=== PATIENT | male | born 1965 | race Caucasian/White ===

== ENCOUNTER 2016-06-11 09:46 | Observation (INO) ==
--- NOTE | 2016-06-11 10:19 | Emergency Department Note ---
Abdominal Pain HPI - General Chief Complaint: Abdominal Pain Stated Complaint: Abd pain Time Seen by Provider: 06/11/16 10:08 Source: patient Mode of arrival: ambulatory Limitations: no limitations - History of Present Illness HPI Narrative: This patient has had right-sided abdominal pain on and off ever since he had his gallbladder out. He was seen last week at [facility] and thought to be constipated given mag citrate after CAT scan did not show anything abnormal. He continues to have severe pain on the right side of his abdomen with some nausea. MD Complaint: abdominal pain Onset (ago): day(s) Consistency: constant Location: RUQ, RLQ Severity: moderate Quality: stabbing Radiation: none Migration to: no migration Improves with: nothing Worsens with: nothing Associated symptoms: Reports: nausea - Related Data Home Medications Medication Instructions Recorded Confirmed multivitamin tablet 1 tab PO QDAY tab 01/22/15 11/26/15 Previous Rx's Medication Instructions Recorded diabetic supplies, miscellaneous See Dose Instructions .ROUTE 09/28/15 kit .MEDSUPPLY #1 each ReliOn Prime Test Strips See Dose Instructions .ROUTE 11/12/15 .MEDSUPPLY #100 each NS ReliOn Thin Lancets 26 gauge See Dose Instructions .ROUTE 11/12/15 .MEDSUPPLY #100 each NS alcohol swabs See Dose Instructions .ROUTE 11/12/15 .MEDSUPPLY #100 pad Albuterol Sulfate [Proair Hfa] 2 puff IH Q4-6HP PRN #1 hfa.aer.ad 11/21/15 glipizide 10 mg tablet 10 mg PO BID #60 tab 03/06/16 metformin 500 mg tablet 1,000 mg PO BID #120 tab 03/06/16 Allergies Allergy/AdvReac Type Severity Reaction Status Date / Time morphine Allergy Intermediate Hallucinati Verified 06/11/16 09:50 ng dissolvable sutures AdvReac Unknown Swelling/in Uncoded 11/26/15 14:41 fection Review of Systems Constitutional: Denies: fever, chills Eyes: Denies: eye pain ENT ED: Denies: ear pain Cardiovascular: Denies: chest pain, palpitations Respiratory: Denies: cough, dyspnea Gastrointestinal: Reports: abdominal pain, nausea. Denies: vomiting, diarrhea, constipation, hematemesis, melena, hematochezia Genitourinary: Denies: urgency Musculoskeletal: Denies: back pain Integumentary: Denies: rash Neurological: Denies: headache Abdominal Pain PMH - Past Medical History Medical history: Reports: diabetes, hypertension, other (biliary stent hiatal hernia repair and knee surgery back surgery) Surgical history ED: Reports: cholecystectomy, herniorrhaphy, hip replacement Family history: Reports: other (cancer in father heart disease in father and cancer grandmother with heart disease in mother) - Social History Smoking status: Never smoker Alcohol use: Reports: Occasionally Drug use: Reports: none Physical Exam - General Limitations: no limitations General appearance: alert - Head Head exam: atraumatic - Eye Eye exam: Present: normal appearance - ENT ENT exam: normal exam - Neck Neck exam: Present: normal inspection - Chest Chest inspection: Present: normal inspection - Respiratory Respiratory exam: Present: normal lung sounds bilaterally - Cardiovascular Cardiovascular exam: Present: regular rate, normal rhythm, normal heart sounds - Abdominal Exam Abdominal exam: Present: soft, distention, tenderness, guarding, hypoactive bowel sounds. Absent: rebound, rigidity Abdominal tenderness: Present: RUQ, RLQ, moderate - Rectal Exam Rectal exam: Present: deferred - Neurological Exam Neurological exam: Present: alert - Psychiatric Psychiatric exam: Present: normal affect - Skin Skin exam: Present: warm, dry Course Vital Signs Temperature 96.2 F L 06/11/16 09:46 Pulse Rate 108 H 06/11/16 09:46 Respiratory Rate 20 06/11/16 09:46 Blood Pressure 183/95 06/11/16 09:46 Pulse Oximetry (%) 98 06/11/16 09:46 Temperature 96.2 F L 06/11/16 09:46 Pulse Rate 100 H 06/11/16 12:55 Respiratory Rate 20 06/11/16 09:46 Blood Pressure 174/97 06/11/16 12:55 Pulse Oximetry (%) 97 06/11/16 12:55 Abdominal Pain - Lab Data Lab results reviewed: Yes I reviewed the patient's lab results. Result diagrams: 06/11/16 10:30 06/11/16 10:30 Lab Results 06/11/16 06/11/16 06/11/16 Range/Units 10:30 10:30 10:55 WBC 7.8 (4.5-11.0) K/mcL RBC 4.67 (4.50-5.90) M/mcL Hgb 13.5 (13.5-16.5) g/dL Hct 42.0 (41.0-55.0) % MCV 90.1 (80.0-100.0) fL MCH 29.0 (26.0-34.0) pg MCHC 32.2 (31.0-36.0) g/dL RDW 16.2 H (11.5-14.5) % Plt Count 170 (140-440) K/mcL MPV 11.8 H (7.4-10.4) fL Gran % 66.1 (38.0-78.0) % Lymph % (Auto) 26.6 (15.5-49.0) % [place] % (Auto) 5.2 (1.0-9.0) % Eos % (Auto) 1.7 (0.0-7.0) % Baso % (Auto) 0.4 (0.0-2.0) % Gran # 5.2 (1.8-8.0) K/mcL Lymph # 2.1 (1.5-4.8) K/mcL [place] # 0.4 (0.1-0.9) K/mcL Eos # 0.1 (0.0-0.7) K/mcL Baso # 0 (0.0-0.3) K/mcL Sodium 134 (133-145) mmol/L Potassium 4.0 (3.3-5.1) mmol/L Chloride 95 L (96-108) mmol/L Carbon Dioxide 24 (22-30) mmol/L Anion Gap 15.0 (8-16) BUN 10 (6-20) mg/dl Creatinine 0.7 (0.7-1.2) mg/dl GFR Calculation 109 Glucose 346 H (70-105) mg/dL Calcium 9.2 (8.6-10.4) mg/dl Total Bilirubin 0.3 (0.0-1.0) mg/dL AST 70 H (0-37) U/l ALT 62 H (0-40) U/l Alkaline Phosphatase 102 (39-117) U/L Total Protein 7.9 (5.9-8.4) gm/dL Albumin 4.0 (3.2-5.2) gm/dL Globulin 3.9 H (2.2-3.7) gm/dL Albumin/Globulin Ratio 1.0 (1.0-2.3) Lipase 131 H (7-60) U/L Urine Color Yellow Urine Appearance Clear Urine pH 5.0 (5.0-9.0) Ur Specific [place] 1.037 H (1.000-1.035) Urine Protein 100 A (NEG) mg/dL Urine Glucose (UA) >=500 A (NEG) mg/dL Urine Ketones Neg (NEG) mg/dL Urine Occult Blood Neg (<0.03) mg/dL Urine Nitrate Neg (NEG) Urine Bilirubin Neg (NEG) mg/dL Urine Urobilinogen Neg (NEG) mg/dL Ur Leukocyte Esterase Neg (NEG) /uL Urine RBC 1 (0-1) /hpf Urine WBC 1 (0-4) /hpf Ur Squamous Epith Cells 1 (0-4) /hpf Ur Transition Epith Cell < 1 (0-2) /hpf Urine Bacteria 0 (0) /hpf Hyaline Casts 1 (0-2) /lpf Urine Mucus Few (0) /hpf Ur Culture Indicated? No Disposition Clinical Impression: Pancreatitis Disposition: Xfer As Inpt ([facility]) Condition: Good Referrals: Alcon Barrow MD [Primary Care Provider] - Time of Disposition: 13:15
[2016-06-11] MEDS ORDERED: 0.9 % SODIUM CHLORIDE 1,000 ML IV ONE (10:21)
[2016-06-11] MEDS ORDERED: ONDANSETRON 4 MG/2 ML VIAL IV ONE (10:21)
[2016-06-11] MEDS: HYDROmorphone 2 MG/ML SYRINGE IV PRN ×2 (10:42→11:10)
[2016-06-11 11:22] LABS: Basophils # (Auto) 0 K/mcL (0.0-0.3); Basophils % (Auto) 0.4 % (0.0-2.0); Eosinophils # (Auto) 0.1 K/mcL (0.0-0.7); Eosinophils % (Auto) 1.7 % (0.0-7.0); Granulocytes % (Auto) 66.1 % (38.0-78.0); Lymphocytes # (Auto) 2.1 K/mcL (1.5-4.8); Lymphocytes % (Auto) 26.6 % (15.5-49.0); Mean Cell Volume 90.1 fL (80.0-100.0); Mean Corpuscular HGB Conc 32.2 g/dL (31.0-36.0); Monocytes # (Auto) 0.4 K/mcL (0.1-0.9); Monocytes % (Auto) 5.2 % (1.0-9.0); Platelet Count 170 K/mcL (140-440); RBC 4.67 M/mcL (4.50-5.90); Red Cell Distribution Width 16.2 % (11.5-14.5)
[2016-06-11 11:27] LABS: Appearance,Urine CLEAR; Bacteria,Urine 0 /hpf (0); Bilirubin,Urine NEG (NEG); Color,Urine YELLOW; Glucose,Urine (UA) >=500 mg/dL (NEG); Leukocyte Esterase,Urine NEG /uL (NEG); Mucus,Urine FEW /hpf (0); Nitrate,Urine NEG (NEG); Protein,Urine 100 mg/dL (NEG); Specific Gravity,Urine 1.037 (1.000-1.035); Urine Blood NEG mg/dL (<0.03); Urine Hyaline Cast 1 /lpf (0-2); Urine RBC 1 /hpf (0-1); Urine Squamous Epithelial Cell 1 /hpf (0-4); Urine Transitional Epi Cells < 1 /hpf (0-2); Urine WBC 1 /hpf (0-4); Urobilinogen,Urine NEG (NEG)
[2016-06-11 11:47] LABS: ALT/SGPT 62 U/l (0-40); Alkaline Phosphatase 102 U/L (39-117); Blood Urea Nitrogen 10 mg/dl (6-20); Lipase 131 U/L (7-60)
[2016-06-11] MEDS ORDERED: IOPAMIDOL 100 ML BOTTLE IV ONE (14:39)
--- NOTE | 2016-06-11 15:07 | Internal Med History&Physical ---
Medical - H&P: HPI Patient information: Note initiated : 06/11/16 at 3:02 pm Service Date, if different from initiated Date: [] Patient: Alfredo Tillman 51 y/o M admitted on 06/11/16 for Abd Pain. Chief Complaint: [] History of present illness: Mr. Tillman is a 51 year old male since he has his gallbladder removeda year or so ago. He is been having intermittent episodes of abdominal pain ever since then. At one point they thought he had a common bile duct stone, but he believes that turned out not to be the case. One week ago his painramped up rather remarkably. He was seen over at [facility], and had an abdominal CT that was reported as unremarkable. Today, he presented to our emergency room, saying he just couldn't tolerate the pain anymore. He says he develops pain in the right upper quadrant area of his belly and the whole area gets very rock-hard and then the pain becomes intolerable. On presentation today he rated his pain as 9 out of 10. He otherwise denies fever or chills. He has been having regular bowel movements 2-3 times a day. He's had some mild nausea but no vomiting, and denies constipation, diarrhea, bright red blood per rectum. he otherwise denies fever or chills, headaches or dizziness, new eye Or ear symptoms,sore throat or cough,chest pain or palpitations, shortness of breath or wheezing, dysuria. ER evaluation showed that hehad difficult to control pain. Liver enzymes are mildly elevated. CT scan was not repeated as that was just done one week ago. 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, face and neck (Chronic) Contusion (Chronic) Diabetes (Chronic 09/20/15) Fall against object (Chronic) Gall bladder disease (Chronic) High blood pressure (Chronic 09/20/15) Impacted cerumen, bilateral (Chronic) Inguinal hernia (Chronic) Insomnia (Chronic) Lipoma (Chronic) Pain, foot (Chronic) Pneumonia (Chronic) Sebaceous cyst (Chronic) Shortness of breath (Chronic) Toenail deformity (Chronic) Split toenails Surgical History History of abdominal surgery (Chronic) History of cholecystectomy (Chronic) 04/2004 Medication List albuterol sulfate HFA 90 mcg/actuation 2 puffs IH Q4-6HP PRN seasonal allergies. diabetic supplies, miscellaneous kit As directed to test once daily glipizide 10 mg PO BID metformin 1,000 mg (2 x 500 mg) PO BID multivitamin tablet 1 tab PO QDAY Allergies/Adverse Reactions morphine Allergy Hallucinating dissolvable sutures Adverse Reaction Swelling/infection Family History Father colon polyps. History of coronary artery stent placement Cardiac disease Diabetes mellitus Grandmother colon cancer. Diabetes mellitus Mother Cardiac disease Brother Diabetes mellitus Social History marital status: , he now lives with his fiance. He has several grown children and several grandchildren. smoking status: Never smoker, but has been using chewing tobacco since about the age of 7.he uses1 can every 1-1/2-2 days. 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 Medical - H&P: Meds Home Medications Medication Instructions Recorded Confirmed Type multivitamin tablet 1 tab PO QDAY tab 01/22/15 11/26/15 History Allergies Allergy/AdvReac Type Severity Reaction Status Date / Time morphine Allergy Intermediate Hallucinati Verified 06/11/16 09:50 ng dissolvable sutures AdvReac Unknown Swelling/in Uncoded 11/26/15 14:41 fection Medical - H&P: Exam - Constitutional Vitals: Temp Pulse Resp BP Pulse Ox 96.2 F L 92 H 20 155/90 92 06/11/16 09:46 06/11/16 14:16 06/11/16 09:46 06/11/16 14:16 06/11/16 14:16 Exam: On exam, he is a markedly overweight white male, who appears uncomfortable. Head: Normocephalic, atraumatic. Eyes: PERRLA, EOMI, anicteric. Ears: TMs and canals are clear. pharynx: Pharynx is crowded. Otherwise teeth are good repair. Mucosa looks normal. Neck: Neck is a very large circumference. Otherwise there is no obvious JVD, thyromegaly, bruits,lymphadenopathy. Cardiac exam: Shows regular rate and rhythm, with normal S1 and S2, without murmurs rubs or gallops. Lungs are clear to auscultation, without rales, rhonchi, wheezes. Abdomen: Is markedly obese with a large pannus. He is very tender over the right upper quadrant area, and it does appear a bit more distended in that area. Bowel sounds are quiet. There is some guarding but no definite rebound. Extremities: Show no cyanosis, clubbing, edema. Neurologic exam: Is grossly nonfocal. Skin exam: Shows no obvious rashes or other worrisome skin lesions. Medical - H&P: Reslt - Labs CBC & Chem 7: 06/11/16 10:30 06/11/16 10:30 Labs: AST is elevated at 70, ALT is elevated at 62 Alkaline phosphatase is normal at 102 Globulin is elevated at 3.9 Lipase is elevated at 131, with normal up to 60. Urinalysis shows specific gravity 1.037, 100 of protein, greater than [address] done at [facility] one week ago, is reported as normal. Medical - H&P: A/P (1) Obesities, morbid Current visit: Yes Status: Acute (2) Post-cholecystectomy syndrome Current visit: Yes Status: Acute (3) Pancreatitis Current visit: Yes Status: Acute (4) Diabetes Current visit: No Status: Chronic #1. GI. This patient presents with abdominal pain and mildly elevated lipase and liver enzymes, consistent with mild pancreatitis. He says he cannot tolerate the pain , so is being admitted for bowel rest and pain control with IV meds. -If he does not improve quickly, we may need to repeat his abdominal CT scan, and/or obtain a GI consult. -cause of his pancreatitis is unclear, although it sounds like he started to have abdominal pain after his cholecystectomy. one of his medications could also be responsible. - he does not appear to have acute infection. -LFTs are mildly elevated, and could be consistent withfatty liver disease. #2. Endocrine. This patient presents with recent onset diabetes, and the setting of chronic morbid obesity. -we will be holding all oral meds including metformin and glipizide. We will use Lantus and sliding scale insulin to control blood sugars. #3. Elevated blood pressure, without history of hypertension. Continue to monitor, as we get his pain under control. #4. Morbid obesity. The patient says he has been working hard on this, but is not having much luck losing weight. He might want to consider coming off of the glipizide. Certainly an aggressive weight loss plan would be in his best interest.-The patient is at increased risk for sleep apnea. He is adamant that he does not have any symptoms of snoring or daytime somnolence, but certainly his body habitus increases his risk. #5. CODE STATUS: Full code. #6. DVT prophylaxis: Subcutaneous heparin. this visit took approximately 60 minutes, to review the patient's records, review his case with the ER M.D., interview and examine him, and write orders.
[2016-06-11] MEDS ORDERED: NALOXONE HCL 0.4 MG/ML VIAL IV PRN (15:10)
[2016-06-11] MEDS ORDERED: HYDROmorphone 2 MG/ML SYRINGE IV PRN (15:10)
[2016-06-11] MEDS ORDERED: LORazepam 2 MG/ML VIAL IV PRN (15:10)
[2016-06-11] MEDS ORDERED: DEXTROSE 50% 50 ML VIAL IV PRN (15:10)
[2016-06-11] MEDS ORDERED: DOCUSATE SODIUM 100 MG CAPSULE PO PRN (15:10)
[2016-06-11] MEDS ORDERED: PANTOPRAZOLE 40 MG VIAL IV ONE (15:22)
[2016-06-11] MEDS: HYDROmorphone PCA 30 MG/30 ML PCA.VIAL IV PRN ×2 (15:41→18:06)
[2016-06-11] MEDS: ONDANSETRON 4 MG/2 ML VIAL IV PRN (16:20)
[2016-06-11] MEDS: 0.9 % SODIUM CHLORIDE 10 ML SYRINGE IV SCH ×2 (16:52→21:10)
[2016-06-11] MEDS: POTASSIUM CHLORIDE 20 MEQ in 0.45 % SODIUM CHLORIDE 1,000 ML IV SCH (16:53)
[2016-06-11] MEDS: DEXTROSE 5%-1/2NS 1,000 ML IV SCH (16:56)
[2016-06-11] MEDS: INSULIN LISPRO 1 UNIT/0.01 ML UNIT SQ SCH (18:12)
[2016-06-11 18:15] LABS: Hemoglobin A1C 9.6 % HGB (4.0-6.0)
[2016-06-11 18:23] LABS: C-Reactive Protein 1.5 mg/dl (0.0-0.8)
[2016-06-11] MEDS: INSULIN GLARGINE, HUMAN 1 UNIT/0.01 ML SQ SCH (21:09)
[2016-06-11] MEDS: HEPARIN 5,000 UNIT/ML VIAL SQ SCH (21:09)
[2016-06-12] MEDS: INSULIN LISPRO 1 UNIT/0.01 ML UNIT SQ SCH ×4 (00:26→17:37)
[2016-06-12] MEDS: POTASSIUM CHLORIDE 20 MEQ in 0.45 % SODIUM CHLORIDE 1,000 ML IV SCH ×2 (02:36→12:31)
[2016-06-12] MEDS: ACETAMINOPHEN 325 MG TABLET PO PRN (03:29)
[2016-06-12] MEDS: 0.9 % SODIUM CHLORIDE 10 ML SYRINGE IV SCH ×3 (05:45→23:29)
[2016-06-12] MEDS: ONDANSETRON 4 MG/2 ML VIAL IV PRN (07:09)
[2016-06-12 07:48] LABS: C-Reactive Protein 1.6 mg/dl (0.0-0.8)
[2016-06-12 07:49] LABS: ALT/SGPT 75 U/l (0-40); Albumin 3.7 gm/dL (3.2-5.2); Albumin/Globulin Ratio 1.2 (1.0-2.3); Alkaline Phosphatase 89 U/L (39-117); Bilirubin,Direct < 0.2 mg/dL (0.0-0.3); Blood Urea Nitrogen 13 mg/dl (6-20); Gamma Glutamyl Transpeptidase 275 U/L (8-61); Magnesium 1.8 mg/dL (1.6-2.5); Phosphorous 3.2 mg/dL (2.7-4.5); Uric Acid 6.2 mg/dL (2.5-8.0)
[2016-06-12 08:18] LABS: Basophils # (Auto) 0 K/mcL (0.0-0.3); Basophils % (Auto) 0.3 % (0.0-2.0); Eosinophils # (Auto) 0.2 K/mcL (0.0-0.7); Eosinophils % (Auto) 3.2 % (0.0-7.0); Granulocytes % (Auto) 63.8 % (38.0-78.0); Lymphocytes # (Auto) 1.8 K/mcL (1.5-4.8); Mean Cell Volume 91.1 fL (80.0-100.0); Mean Corpuscular HGB Conc 32.4 g/dL (31.0-36.0); Mean Corpuscular Hemoglobin 29.5 pg (26.0-34.0); Monocytes # (Auto) 0.3 K/mcL (0.1-0.9); Monocytes % (Auto) 4.7 % (1.0-9.0); Platelet Count 133 K/mcL (140-440); RBC 4.24 M/mcL (4.50-5.90)
[2016-06-12] MEDS: INSULIN GLARGINE, HUMAN 1 UNIT/0.01 ML SQ SCH ×2 (08:33→21:08)
[2016-06-12] MEDS: HEPARIN 5,000 UNIT/ML VIAL SQ SCH ×2 (08:33→21:08)
[2016-06-12] MEDS: DEXTROSE 5%-1/2NS 1,000 ML IV SCH (12:30)
--- NOTE | 2016-06-12 13:16 | Internal Med Progress Note ---
Medical - PN: Subj Patient information: Note initiated : 06/12/16 at 1:15 pm Service Date, if different from initiated Date: [] Patient: Alfredo Tillman 51 y/o M admitted on 06/11/16 for Abd Pain/Pancreatitis. Chief Complaint: [] Interval history: June 11, 2016:History of present illness: Mr. Tillman is a 51 year old male since he has his gallbladder removeda year or so ago. He is been having intermittent episodes of abdominal pain ever since then. At one point they thought he had a common bile duct stone, but he believes that turned out not to be the case. One week ago his painramped up rather remarkably. He was seen over at [facility], and had an abdominal CT that was reported as unremarkable. Today, he presented to our emergency room, saying he just couldn't tolerate the pain anymore. He says he develops pain in the right upper quadrant area of his belly and the whole area gets very rock-hard and then the pain becomes intolerable. On presentation today he rated his pain as 9 out of 10. He otherwise denies fever or chills. He has been having regular bowel movements 2-3 times a day. He's had some mild nausea but no vomiting, and denies constipation, diarrhea, bright red blood per rectum. he otherwise denies fever or chills, headaches or dizziness, new eye Or ear symptoms,sore throat or cough,chest pain or palpitations, shortness of breath or wheezing, dysuria. ER evaluation showed that hehad difficult to control pain. Liver enzymes are mildly elevated. CT scan was not repeated as that was just done one week ago. June 12, 2016: cyrus, the patient notes his pain seems to be getting worse. He is continuing to have episodes where his entire right upper quadrant area of his belly becomes extremely hard and feels like he's having a spasm, and the senses pain through the roof. He says he really didn't sleep much at all last night, in spite of the Dilaudid [employer]. He is getting very concerned and anxious that something is wrong that we are missing. He otherwise denies fever or chills, headaches or dizziness, chest pain or palpitations, shortness of breath or cough, nausea or vomiting, diarrhea. He did have a small bowel movement today, which had no effect on his pain. He denies dysuria. - Constitutional Vitals: Vital Signs Temp Pulse Resp BP Pulse Ox 97.6 F 84 12 167/84 94 06/12/16 07:52 06/12/16 09:37 06/12/16 12:22 06/12/16 07:52 06/12/16 09:37 Period Temp Pulse Resp BP Sys/Sanders Pulse Ox Last 24 Hr 97.4 F-98 F 79-97 12-20 129-177/79-91 92-96 Intake and Output 06/11/16 06/12/16 06/12/16 21:59 05:59 13:59 Intake Total 100 / 100 972 / 972 1969 Output Total 275 / 275 400 / 400 Balance -175 / -175 972 / 972 1570 / 1570 Weight 334 lb 8 oz Intake & Output: Intake & Output 06/11/16 06/12/16 06/12/16 21:59 05:59 13:59 Intake Total 100 / 100 972 / 972 1969 Output Total 275 / 275 400 / 400 Balance -175 / -175 972 / 972 1570 / 1570 Weight 334 lb 8 oz Intake: IV 972 / 972 1969 Dextrose 5%-1/2Ns IV 978 / 978 Solution 1,000 ml @ 50 mls/hr IV .Q20H MANJU Rx#: [id number] Potassium Chloride 20 Meq 972 / 972 992 / 992 In Sodium Chloride 0.45% 1,000 ml @ 100 mls/hr IV .Q10H6M MANJU Rx#: [id number] Oral 100 / 100 0 / 0 Output: Void Amount 275 / 275 400 / 400 Other: # Voids 1 # Bowel Movements 1 Exam: the patient is standing up when I entered the room, having just come out of the bathroom. He does lay down for exam, but then asked to sit back up because his pain is too significant when he lies down. neck: Shows obvious lymphadenopathy or JVD. Cardiac exam shows regular rate and rhythm. Lungs are clear to auscultation. Abdomen: Is markedly obese. It does seem more distended in the right upper quadrant area of his abdomen. It is very tender and there is guarding present. Remainder of his abdomenis fairly soft, with minimal tenderness, and no guarding or rebound. Bowel sounds appear somewhat high-pitched. Extremities show no significant edema. Neurologic exam is grossly nonfocal. Medical - PN: Obj Da - Labs CBC & Chem 7: 06/12/16 06:20 06/12/16 06:20 Labs: Abnormal Lab Results 06/12/16 06/12/16 06/12/16 06:20 06:20 06:20 RBC 4.24 L Hgb 12.5 L Hct 38.6 L RDW 16.0 H Plt Count 133 L MPV 10.9 H Creatinine 0.6 L Glucose 295 H Calcium 8.3 L GGT 275 H AST 94 H ALT 75 H Lactate Dehydrogenase 291 H C-Reactive Protein 1.6 H Triglycerides 268 H 06/11/16 16:20 RBC Hgb Hct RDW Plt Count MPV Creatinine Glucose Calcium GGT AST ALT Lactate Dehydrogenase C-Reactive Protein 1.5 H Triglycerides Urinalysis shows specific gravity 1.037, 100 of protein, greater than [address] done at [facility] one week ago, is reported as normal. Meds: Medications Acetaminophen (Tylenol) 650 mg PO Q6HP PRN PRN Reason: PAIN/FEVER > 101 Last Admin: 06/12/16 03:29 Dose: 650 mg Dextrose (Dextrose 50%) 0 ml IV UD PRN PRN Reason: Hypoglycemia Diagnostic Test (Pha) (Accu-Chek) 1 each FS Q6 [facility] Last Admin: 06/12/16 12:30 Dose: 1 each Docusate Sodium (Colace) 100 mg PO BID PRN PRN Reason: Constipation Heparin Sodium (Porcine) (Heparin) 5,000 unit SQ Q12 [facility] Last Admin: 06/12/16 08:33 Dose: 5,000 unit Hydromorphone HCl (Dilaudid Fisheries Inspector) 30 mg IV UD PRN; Protocol PRN Reason: Pain Last Admin: 06/11/16 18:06 Dose: 30 mg Dextrose/Sodium Chloride (Dextrose 5%-1/2ns Iv Solution) 1,000 mls @ 50 mls/hr IV .Q20H [facility] Last Admin: 06/12/16 12:30 Dose: 50 mls/hr Potassium Chloride 20 meq/ (Sodium Chloride) 1,010 mls @ 100 mls/hr IV .Q10H6M [facility] Last Admin: 06/12/16 12:31 Dose: 100 mls/hr Insulin Glargine (Lantus) 5 unit SQ BID [facility] Last Admin: 06/12/16 08:33 Dose: 5 unit Insulin Human Lispro (Humalog) 0 unit SQ Q6 MANJU PRN Reason: Protocol Last Admin: 06/12/16 12:30 Dose: 6 unit Lorazepam (Ativan) 0.5 mg IV Q2-4HP PRN PRN Reason: ANXIETY/SEDATION Naloxone HCl (Narcan) 0.1 mg IV Q2MIN PRN PRN Reason: Opiate Reversal Ondansetron HCl (Zofran) 4 mg IV Q4-6HP PRN PRN Reason: Nausea And Vomiting Last Admin: 06/12/16 07:09 Dose: 4 mg Sodium Chloride (Saline Flush) 10 ml IV Q8 [facility] Last Admin: 06/12/16 05:45 Dose: 10 ml Medical - PN: A/P - Time Spent With Patient Total time spent is greater than 50% in coordination of care (as documented) at patient's floor/unit and/or counseling patient: (1) Obesities, morbid Status: Acute Current Visit: Yes (2) Post-cholecystectomy syndrome Status: Acute Current Visit: Yes (3) Pancreatitis Status: Acute Current Visit: Yes (4) Diabetes Status: Chronic Current Visit: No - Narrative A/P Narrative: #1. GI. This patient presents with abdominal pain and mildly elevated lipase and liver enzymes, consistent with mild pancreatitis. He says he cannot tolerate the pain , so is being admitted for bowel rest and pain control with IV meds. is lipase is back to normal today, although LFTs are still borderline elevated Unfortunately, his pain seems to be getting worse rather than better. we discussed doing an abdominal x-ray versus CT, but he ultimately agreed to a CT scan, so he can have a better look there. I have contacted Dr. Ordaz of surgery, to have him look over the patient's studies and examine him, to see what his thoughts are. his should help us to rule outpancreatic pseudocyst and bowel obstruction. - he does not appear to have acute infection. -LFTs are mildly elevated, and could be consistent with fatty liver disease. #2. Endocrine. This patient presents with recent onset diabetes, and the setting of chronic morbid obesity. -we will be holding all oral meds including metformin and glipizide. We will use Lantus and sliding scale insulin to control blood sugars. -glucose continues to run high, so I will increase his Lantus dose, while he has to be on IV fluids and nothing by mouth. #3. Elevated blood pressure, without history of hypertension. Continue to monitor, as we get his pain under control. - #4. Morbid obesity. The patient says he has been working hard on this, but is not having much luck losing weight. He might want to consider coming off of the glipizide. Certainly an aggressive weight loss plan would be in his best interest.-The patient is at increased risk for sleep apnea. He is adamant that he does not have any symptoms of snoring or daytime somnolence, but certainly his body habitus increases his risk. #5. CODE STATUS: Full code. #6. DVT prophylaxis: Subcutaneous heparin. Approximately 35 minutes has been spent so far today, reviewing test results, interviewing and examining the patient, reviewing plan of care with nursing staff, and contacting surgery for consultation. Medical - PN: Qual - VTE Deep Vein Thrombosis/Pulmonary Embolism Present on Admission: No
--- NOTE | 2016-06-12 17:21 | Cat Scan Report ---
CLINICAL INFORMATION: Reason for Exam:worsening abd pain -- CT one week ago ok - COMPARISON: Abdomen CT from 12/13/2007 and 06/06/2016 TECHNIQUE: Water was given as enteric contrast agent. 80 cc of Isovue-300 were injected and 60 seconds later 2.5 mm helical slices were obtained from the mid heart through the iliac crest. Following reconstruction, axial, coronal and sagittal images were reformatted and reviewed bone windows and levels. FINDINGS: Lung bases show no abnormality - no effusion. Visualized heart is normal. Images should the abdomen show minimal fatty change within the liver which is stable. No focal hepatic lesions. The gallbladder is surgically absent. Intrahepatic and common bile is normal caliber - CBD is 5 mm. Both kidneys, adrenal glands, spleen, pancreas and aorta including aortic branches are normal in size, configuration and attenuation without focal lesion. There is no free air, free fluid and no adenopathy. The stomach, visualized small large bowel are normal. Bone windows show no significant osseous abnormality and the lumbar degeneration IMPRESSION: Negative Interpreted and Authenticated by: Neri Horta 06/12/16
--- NOTE | 2016-06-12 18:55 | General Surgery Consult Note ---
History of Present Illness Patient information: Note initiated : 06/12/16 at 6:47 pm Service Date, if different from initiated Date: [] Patient: Alfredo Tillman 51 y/o M admitted on 06/11/16 for Abd Pain/Pancreatitis. Chief Complaint: [] Reason for consult: abdominal pain History of present illness: 51-year-old male who was admitted on 11 June 2016for treatment and evaluation of severe abdominal pain. The patient has had chronic recurrent non-remitting abdominal pains since cholecystectomy in April 2014. His surgery was done as an open cholecystectomy at [facility] due to apparent gangrenous cholecystitis. He reportedly had a duct injury which had to be stented but this stent was subsequently removed. Since that time he has had intermittent severe pain in his upper and mid abdomen on the right side. The pain is described as stabbing and crampy It sometimes lasts for many hours however it oftentimes resolved spontaneously .he has regular bowel movements except he has an occasional postprandial diarrheal episode. He has had some nausea but has rare episodes of vomiting. He has not had weight loss. He has been evaluated at [facility] and as an outpatient at this facility .he had a HIDA scan done in October 2015 which was normal with normal ductal system and without any evidence of obstruction or dilation. He had an upper abdominal ultrasound which is totally normal except for fatty liver. He had [address] of the abdomen which is normal except for fatty liver. There is no evidence of herniation of his abdominal wall in the area of his large incision. Lab work on this admission has been essentially normal He had a minimally elevated lipase which is multifactorial and probably not related to his abdominal pain. It is not clinically significant for pancreatitis. He hasminimally elevated liver transaminases however these are generally elevated with steatohepatitis or fatty liver. His CRP is only 1.4. He has not demonstrated any symptoms of intestinal obstruction. Review of Systems - Constitutional malaise, weight gain - EENT Nose, mouth and throat: no dizziness, no dysphagia - Cardiovascular dyspnea on exertion, no chest pain at rest, no chest pain with activity, no palpatations, no rapid heart rate - Respiratory dyspnea on exertion - Gastrointestinal abdominal pain, nausea - Genitourinary no change in urinary stream, no urinary frequency, no urinary hesitancy, no urinary incontinence, no urinary urgency - Musculoskeletal abnormal gait, back pain, joint swelling, radiating pain into limb - Integumentary no changing lesions, no pruritus, no rash Past History Past medical history: morbid obesity Diabetes mellitus Hypertension Degenerative joint disease Past surgical history: pen cholecystectomy Past family history: coronary artery disease Diabetes mellitus Past social history: Never smoker occasional alcohol use Denies substance abuse Medications and Allergies Home Medications Medication Instructions Recorded Confirmed Type multivitamin tablet 1 tab PO QDAY tab 01/22/15 06/11/16 History Allergies Allergy/AdvReac Type Severity Reaction Status Date / Time morphine Allergy Intermediate Hallucinati Verified 06/11/16 09:50 ng dissolvable sutures AdvReac Unknown Swelling/in Uncoded 11/26/15 14:41 fection Exam Temp Pulse Resp BP Pulse Ox 97.7 F 83 12 151/81 94 06/12/16 16:00 06/12/16 16:00 06/12/16 17:26 06/12/16 16:00 06/12/16 16:00 - General physical appearance well developed, well nourished, no distress, moderate pain, obese - Eyes PERRL, normal ocular movement - ENT normal pinna, normal nares, normal mucosa, no hearing loss, no congestion - Head Head exam IM: Present: atraumatic, normocephalic - Neck no masses, no bruits, trachea midline, no lymphadectomy, no venous distension - Cardiovascular Cardiovascular exam IM: Present: normal rate and rhythm, RRR, +S1, +S2. Absent : systolic murmur - Respiratory normal expansion, normal respiratory effort, clear to percussion, clear to auscultation - Abdomen Abdomen: Present: soft, tender, bowel sounds, surgical scars, distended (the abdomen is very large but does not appear to be distended Though he complains of tendernesshis exam is notcommensurate with the physical findings. There is no clinical evidence of hernia. There is no mass.) Hernia: Present: none - Genitourinary Present: normal penis with no external lesions - Integumentary Present: no rash, no growths, no abnormal pigmentation - Neurologic Present: normal coordination, normal sensation - Musculoskeletal Present: normal gait, normal posture - Psychiatric Present: oriented to time, oriented to person, oriented to place, speech is normal, memory intact Results - Labs 06/12/16 06:20 06/12/16 06:20 Abnormal lab results 06/12/16 06/12/16 06/12/16 Range/Units 06:20 06:20 06:20 RBC 4.24 L (4.50-5.90) M/mcL Hgb 12.5 L (13.5-16.5) g/dL Hct 38.6 L (41.0-55.0) % RDW 16.0 H (11.5-14.5) % Plt Count 133 L (140-440) K/mcL MPV 10.9 H (7.4-10.4) fL Creatinine 0.6 L (0.7-1.2) mg/dl Glucose 295 H (70-105) mg/dL Calcium 8.3 L (8.6-10.4) mg/dl GGT 275 H (8-61) U/L AST 94 H (0-37) U/l ALT 75 H (0-40) U/l Lactate Dehydrogenase 291 H (94-250) U/L C-Reactive Protein 1.6 H (0.0-0.8) mg/dl Triglycerides 268 H (<150) mg/dl Diabetes panel 06/12/16 Range/Units 06:20 Sodium 135 (133-145) mmol/L Potassium 4.3 (3.3-5.1) mmol/L Chloride 97 (96-108) mmol/L Carbon Dioxide 25 (22-30) mmol/L BUN 13 (6-20) mg/dl Creatinine 0.6 L (0.7-1.2) mg/dl Glucose 295 H (70-105) mg/dL Calcium 8.3 L (8.6-10.4) mg/dl AST 94 H (0-37) U/l ALT 75 H (0-40) U/l Alkaline Phosphatase 89 (39-117) U/L Total Protein 6.8 (5.9-8.4) gm/dL Albumin 3.7 (3.2-5.2) gm/dL Triglycerides 268 H (<150) mg/dl Calcium panel 06/12/16 Range/Units 06:20 Calcium 8.3 L (8.6-10.4) mg/dl Phosphorus 3.2 (2.7-4.5) mg/dL Albumin 3.7 (3.2-5.2) gm/dL Pituitary panel 06/12/16 Range/Units 06:20 Sodium 135 (133-145) mmol/L Potassium 4.3 (3.3-5.1) mmol/L Chloride 97 (96-108) mmol/L Carbon Dioxide 25 (22-30) mmol/L BUN 13 (6-20) mg/dl Creatinine 0.6 L (0.7-1.2) mg/dl Glucose 295 H (70-105) mg/dL Calcium 8.3 L (8.6-10.4) mg/dl Adrenal panel 06/12/16 Range/Units 06:20 Sodium 135 (133-145) mmol/L Potassium 4.3 (3.3-5.1) mmol/L Chloride 97 (96-108) mmol/L Carbon Dioxide 25 (22-30) mmol/L BUN 13 (6-20) mg/dl Creatinine 0.6 L (0.7-1.2) mg/dl Glucose 295 H (70-105) mg/dL Calcium 8.3 L (8.6-10.4) mg/dl Total Bilirubin 0.5 (0.0-1.0) mg/dL AST 94 H (0-37) U/l ALT 75 H (0-40) U/l Alkaline Phosphatase 89 (39-117) U/L Total Protein 6.8 (5.9-8.4) gm/dL Albumin 3.7 (3.2-5.2) gm/dL All other labs normal. Assessment and Plan (1) Abdominal pain, chronic, right lower quadrant Status: Acute (2) Obesities, morbid the patient's abdominal complaints have been thoroughly evaluated without any abnormal findings. He does notave pancreatitis andhe does not have any problems related to hiss gallbladder surgery There is no evidence of abdominal wall hernia . If he had major infection after his cholecystectomy he very well may have adhesive disease but this is not an operative conunless it is causing symptoms of intestinal obstruction. He does not haveany symptoms of intestinal obstruction. It is possiblethat he has some element of spastic colonbut this can be treated with dicyclomine or Levsin. His diet has been advanced and he has been started on [id number] mg 4 times daily. There are no other diagnostic studies that should be done during this admission. May consider addition of large dose Neurontin and tricyclic anti depressant for pain control. Status: Acute (3) Diabetes Status: Chronic (4) High blood pressure Status: Chronic
[2016-06-12] MEDS: DICYCLOMINE 20 MG TABLET PO SCH (23:43)
[2016-06-13] MEDS: INSULIN LISPRO 1 UNIT/0.01 ML UNIT SQ SCH ×5 (01:15→21:36)
[2016-06-13] MEDS: POTASSIUM CHLORIDE 20 MEQ in 0.45 % SODIUM CHLORIDE 1,000 ML IV SCH ×3 (01:20→20:50)
[2016-06-13] MEDS: 0.9 % SODIUM CHLORIDE 10 ML SYRINGE IV SCH ×3 (05:40→21:13)
[2016-06-13] MEDS: HYDROmorphone PCA 30 MG/30 ML PCA.VIAL IV PRN ×2 (05:55→23:15)
[2016-06-13 06:18] LABS: Basophils # (Auto) 0 K/mcL (0.0-0.3); Basophils % (Auto) 0.4 % (0.0-2.0); Eosinophils # (Auto) 0.2 K/mcL (0.0-0.7); Eosinophils % (Auto) 2.8 % (0.0-7.0); Granulocytes % (Auto) 62.7 % (38.0-78.0); Lymphocytes % (Auto) 29.2 % (15.5-49.0); Mean Cell Volume 90.9 fL (80.0-100.0); Mean Corpuscular HGB Conc 32.2 g/dL (31.0-36.0); Mean Corpuscular Hemoglobin 29.3 pg (26.0-34.0); Monocytes # (Auto) 0.3 K/mcL (0.1-0.9); Monocytes % (Auto) 4.9 % (1.0-9.0); Platelet Count 155 K/mcL (140-440); RBC 4.31 M/mcL (4.50-5.90); Red Cell Distribution Width 15.8 % (11.5-14.5)
[2016-06-13 06:36] LABS: ALT/SGPT 67 U/l (0-40); Albumin 3.6 gm/dL (3.2-5.2); Albumin/Globulin Ratio 1.1 (1.0-2.3); Alkaline Phosphatase 93 U/L (39-117); Bilirubin,Direct < 0.2 mg/dL (0.0-0.3); Blood Urea Nitrogen 8 mg/dl (6-20); Gamma Glutamyl Transpeptidase 252 U/L (8-61); Magnesium 1.8 mg/dL (1.6-2.5); Phosphorous 2.9 mg/dL (2.7-4.5); Uric Acid 6.8 mg/dL (2.5-8.0)
[2016-06-13] MEDS: INSULIN GLARGINE, HUMAN 1 UNIT/0.01 ML SQ SCH ×2 (08:27→21:36)
[2016-06-13] MEDS: DICYCLOMINE 20 MG TABLET PO SCH ×4 (08:28→21:36)
[2016-06-13] MEDS: HEPARIN 5,000 UNIT/ML VIAL SQ SCH ×2 (08:28→21:36)
[2016-06-13] MEDS ORDERED: ALBUTEROL SULFATE 2.5 MG/3 ML NEBULIZER NEB ONE (09:35)
[2016-06-13] MEDS ORDERED: IPRATROPIUM/ALBUTEROL 3 ML AMPUL.NEB NEB ONE (09:54)
[2016-06-13] MEDS: DEXTROSE 5%-1/2NS 1,000 ML IV SCH (10:39)
--- NOTE | 2016-06-13 16:42 | Internal Med Progress Note ---
Medical - PN: Subj Patient information: Note initiated : 06/13/16 at 4:42 pm Service Date, if different from initiated Date: [] Patient: Alfredo Tillman 51 y/o M admitted on 06/11/16 for Abd Pain/Pancreatitis. Chief Complaint: [] Interval history: June 11, 2016:History of present illness: Mr. Tillman is a 51 year old male since he has his gallbladder removeda year or so ago. He is been having intermittent episodes of abdominal pain ever since then. At one point they thought he had a common bile duct stone, but he believes that turned out not to be the case. One week ago his painramped up rather remarkably. He was seen over at [facility], and had an abdominal CT that was reported as unremarkable. Today, he presented to our emergency room, saying he just couldn't tolerate the pain anymore. He says he develops pain in the right upper quadrant area of his belly and the whole area gets very rock-hard and then the pain becomes intolerable. On presentation today he rated his pain as 9 out of 10. He otherwise denies fever or chills. He has been having regular bowel movements 2-3 times a day. He's had some mild nausea but no vomiting, and denies constipation, diarrhea, bright red blood per rectum. he otherwise denies fever or chills, headaches or dizziness, new eye Or ear symptoms,sore throat or cough,chest pain or palpitations, shortness of breath or wheezing, dysuria. ER evaluation showed that hehad difficult to control pain. Liver enzymes are mildly elevated. CT scan was not repeated as that was just done one week ago. June 12, 2016: cyrus, the patient notes his pain seems to be getting worse. He is continuing to have episodes where his entire right upper quadrant area of his belly becomes extremely hard and feels like he's having a spasm, and the senses pain through the roof. He says he really didn't sleep much at all last night, in spite of the Dilaudid CEMENT HANDLER. He is getting very concerned and anxious that something is wrong that we are missing. He otherwise denies fever or chills, headaches or dizziness, chest pain or palpitations, shortness of breath or cough, nausea or vomiting, diarrhea. He did have a small bowel movement today, which had no effect on his pain. He denies dysuria. June 13, 2016: Today, the patient reports he had a difficult night. He continued to have bouts of significant pain, centered around the right upper quadrant area radiating down towards his umbilicus. He says he really didn't sleep well. He is extremely frustrated that we have not been able to find the cause of his discomfort. he has occasional nausea, but no vomiting or diarrhea or constipation. He denies fever or chills, chest pain or shortness of breath. - Constitutional Vitals: Vital Signs Temp Pulse Resp BP Pulse Ox 97.2 F L 98 H 18 166/96 96 06/13/16 12:00 06/13/16 12:00 06/13/16 12:00 06/13/16 12:00 06/13/16 12:00 Period Temp Pulse Resp BP Sys/Sanders Pulse Ox Last 24 Hr 97.2 F-98.6 F 94-99 10-22 142-166/84-99 93-96 Intake and Output 06/13/16 06/13/16 06/13/16 05:59 13:59 21:59 Intake Total 1310 / 1310 1932 / 1932 Output Total 425 / 425 900 / 900 500 / 500 Balance 885 / 885 1032 / 1032 -500 / -500 Intake & Output: Intake & Output 06/13/16 06/13/16 06/13/16 05:59 13:59 21:59 Intake Total 1310 / 1310 1932 / 1932 Output Total 425 / 425 900 / 900 500 / 500 Balance 885 / 885 1032 / 1032 -500 / -500 Intake: IV 1010 / 1010 1932 / 1932 Dextrose 5%-1/2Ns IV 1000 / 1000 Solution 1,000 ml @ 50 mls/hr IV .Q20H MANJU Rx#: [id number] Potassium Chloride 20 Meq 1010 / 1010 932 / 932 In Sodium Chloride 0.45% 1,000 ml @ 100 mls/hr IV .Q10H6M MANJU Rx#: [id number] Oral 300 / 300 Output: Urine Catheter Amount 350 / 350 Void Amount 425 / 425 900 / 900 150 / 150 Other: Meal Lunch Percent of Meal Consumed Refused Feeding Ability Independent # Bowel Movements 1 Exam: He continues to appear to be in quite a bit of distress whenever I'm in the room. he is almost tearfulwhen reporting his pain as 8 or 9 out of 10. Neck is supple. Cardiac exam shows regular rate and rhythm. Lungs are clear to auscultation. abdomen is markedly obese.abdomen is firm to the touch, and is markedly tender in the right upper quadrant and right lower quadrant areas. There is guarding, but I do not detect rebound. Extremities show no significant edema. Medical - PN: Obj Da - Labs CBC & Chem 7: 06/13/16 04:00 06/13/16 04:00 Labs: Abnormal Lab Results 06/13/16 06/13/16 06/13/16 04:00 04:00 04:00 RBC 4.31 L Hgb 12.6 L Hct 39.2 L RDW 15.8 H Plt Count MPV 11.1 H Chloride 95 L Creatinine 0.6 L Glucose 249 H Calcium 8.4 L GGT 252 H AST 70 H ALT 67 H Lactate Dehydrogenase C-Reactive Protein 2.7 H Triglycerides 308 H 06/12/16 06/12/16 06/12/16 06:20 06:20 06:20 RBC 4.24 L Hgb 12.5 L Hct 38.6 L RDW 16.0 H Plt Count 133 L MPV 10.9 H Chloride Creatinine 0.6 L Glucose 295 H Calcium 8.3 L GGT 275 H AST 94 H ALT 75 H Lactate Dehydrogenase 291 H C-Reactive Protein 1.6 H Triglycerides 268 H 06/11/16 16:20 RBC Hgb Hct RDW Plt Count MPV Chloride Creatinine Glucose Calcium GGT AST ALT Lactate Dehydrogenase C-Reactive Protein 1.5 H Triglycerides Urinalysis shows specific gravity 1.037, 100 of protein, greater than [address] done at [facility] one week ago, is reported as normal. 06/12/16 CT abdomen; there is minimal fatty liver change. Gallbladder is absent. Intrahepatic and common bile ducts are normal. No free air is seen and no adenopathy. Meds: Medications Acetaminophen (Tylenol) 650 mg PO Q6HP PRN PRN Reason: PAIN/FEVER > 101 Last Admin: 06/12/16 03:29 Dose: 650 mg Dextrose (Dextrose 50%) 0 ml IV UD PRN PRN Reason: Hypoglycemia Diagnostic Test (Pha) (Accu-Chek) 1 each FS ACHS MANJU Last Admin: 06/13/16 11:44 Dose: 1 each Dicyclomine HCl (Dicyclomine) 20 mg PO QID [facility] Last Admin: 06/13/16 13:09 Dose: 20 mg Docusate Sodium (Colace) 100 mg PO BID PRN PRN Reason: Constipation Heparin Sodium (Porcine) (Heparin) 5,000 unit SQ Q12 [facility] Last Admin: 06/13/16 08:28 Dose: 5,000 unit Hydromorphone HCl (Dilaudid Cast Shell Grinder) 30 mg IV UD PRN; Protocol PRN Reason: Pain Last Admin: 06/13/16 05:55 Dose: 30 mg Dextrose/Sodium Chloride (Dextrose 5%-1/2ns Iv Solution) 1,000 mls @ 50 mls/hr IV .Q20H [facility] Last Admin: 06/13/16 10:39 Dose: 50 mls/hr Potassium Chloride 20 meq/ (Sodium Chloride) 1,010 mls @ 100 mls/hr IV .Q10H6M [facility] Last Admin: 06/13/16 10:39 Dose: 100 mls/hr Insulin Glargine (Lantus) 5 unit SQ BID [facility] Last Admin: 06/13/16 08:27 Dose: 5 unit Insulin Human Lispro (Humalog) 0 unit SQ [facility] PRN Reason: Protocol Last Admin: 06/13/16 11:52 Dose: 8 unit Lorazepam (Ativan) 0.5 mg IV Q2-4HP PRN PRN Reason: ANXIETY/SEDATION Naloxone HCl (Narcan) 0.1 mg IV Q2MIN PRN PRN Reason: Opiate Reversal Ondansetron HCl (Zofran) 4 mg IV Q4-6HP PRN PRN Reason: Nausea And Vomiting Last Admin: 06/12/16 07:09 Dose: 4 mg Sodium Chloride (Saline Flush) 10 ml IV Q8 [facility] Last Admin: 06/13/16 13:09 Dose: Not Given Medical - PN: A/P - Time Spent With Patient Total time spent is greater than 50% in coordination of care (as documented) at patient's floor/unit and/or counseling patient: (1) Obesities, morbid Status: Acute Current Visit: Yes (2) Post-cholecystectomy syndrome Status: Acute Current Visit: Yes (3) Pancreatitis Status: Acute Current Visit: Yes (4) Diabetes Status: Chronic Current Visit: No - Narrative A/P Narrative: #1. GI. This patient presents with abdominal pain and mildly elevated lipase and liver enzymes, consistent with mild pancreatitis. He says he cannot tolerate the pain , so is being admitted for bowel rest and pain control with IV meds. is lipase is back to normal , although LFTs are still borderline elevated. Unfortunately, his pain seems to be getting worse rather than better. -he was evaluated by Dr. Ordaz, and did have a follow-up CT the abdomen but so far no testing really indicates much that is abnormal. He has mild fatty infiltration of the liver, but that would not be expected to cause his current symptoms. i discussed with the patientthat we really can'tfind anything, and since all of his tests are grossly normal, I don't think that his insurance will continue to pay for them to be in the hospital. He became very upset, and said he justcould not go home right now because he was in too much pain. He asked to stay the night for pain control, and said he would try to go home tomorrow. -We did discuss that he should be referred to a hotbed transfer operator, to see if they can come up with other ideas. In the meantime Dr. Ordaz did want to try him on Bentyl in case this is a manifestation of IBS. - he does not appear to have acute infection. -LFTs are mildly elevated, and could be consistent with fatty liver disease. #2. Endocrine. This patient presents with recent onset diabetes, and the setting of chronic morbid obesity. -we are holding all oral meds including metformin and glipizide. We will use Lantus and sliding scale insulin to control blood sugars. -glucose continues to run high, so I will increase his Lantus dose. We did start advancing his diet today as well. #3. Elevated blood pressure, without history of hypertension. Continue to monitor, as we get his pain under control. - #4. Morbid obesity. The patient says he has been working hard on this, but is not having much luck losing weight. He might want to consider coming off of the glipizide. Certainly an aggressive weight loss plan would be in his best interest.-The patient is at increased risk for sleep apnea. He is adamant that he does not have any symptoms of snoring or daytime somnolence, but certainly his body habitus increases his risk. #5. CODE STATUS: Full code. #6. DVT prophylaxis: Subcutaneous heparin. approximately 30 minutes was spent today, interviewing and examining the patient , reviewing test results, reviewing his case again with Dr. Ordaz of surgery, and writing orders. Medical - PN: Qual - VTE Deep Vein Thrombosis/Pulmonary Embolism Present on Admission: No
[2016-06-13] MEDS ORDERED: 0.9 % SODIUM CHLORIDE 1,000 ML IV SCH (19:00)
[2016-06-14] MEDS: ONDANSETRON 4 MG/2 ML VIAL IV PRN ×2 (00:52→10:01)
[2016-06-14] MEDS: 0.9 % SODIUM CHLORIDE 10 ML SYRINGE IV SCH (05:31)
[2016-06-14 06:17] LABS: Basophils # (Auto) 0 K/mcL (0.0-0.3); Basophils % (Auto) 0.4 % (0.0-2.0); Eosinophils # (Auto) 0.2 K/mcL (0.0-0.7); Eosinophils % (Auto) 2.9 % (0.0-7.0); Granulocytes % (Auto) 65.2 % (38.0-78.0); Lymphocytes # (Auto) 1.5 K/mcL (1.5-4.8); Lymphocytes % (Auto) 25.6 % (15.5-49.0); Mean Corpuscular HGB Conc 32.1 g/dL (31.0-36.0); Mean Corpuscular Hemoglobin 29.2 pg (26.0-34.0); Monocytes # (Auto) 0.4 K/mcL (0.1-0.9); Monocytes % (Auto) 5.9 % (1.0-9.0); Platelet Count 147 K/mcL (140-440); RBC 4.23 M/mcL (4.50-5.90); Red Cell Distribution Width 16.1 % (11.5-14.5)
[2016-06-14 07:15] LABS: ALT/SGPT 55 U/l (0-40); Albumin 3.7 gm/dL (3.2-5.2); Albumin/Globulin Ratio 1.2 (1.0-2.3); Alkaline Phosphatase 89 U/L (39-117); Bilirubin,Direct < 0.2 mg/dL (0.0-0.3); Blood Urea Nitrogen 8 mg/dl (6-20); Gamma Glutamyl Transpeptidase 234 U/L (8-61); Magnesium 1.9 mg/dL (1.6-2.5); Phosphorous 3.8 mg/dL (2.7-4.5); Uric Acid 7.2 mg/dL (2.5-8.0)
[2016-06-14] MEDS: ACETAMINOPHEN 325 MG TABLET PO PRN (07:38)
[2016-06-14] MEDS: INSULIN LISPRO 1 UNIT/0.01 ML UNIT SQ SCH ×2 (08:22→12:34)
[2016-06-14] MEDS: INSULIN GLARGINE, HUMAN 1 UNIT/0.01 ML SQ SCH (08:22)
[2016-06-14] MEDS: DICYCLOMINE 20 MG TABLET PO SCH ×2 (08:23→12:34)
[2016-06-14] MEDS: HEPARIN 5,000 UNIT/ML VIAL SQ SCH (08:23)
[2016-06-14] MEDS ORDERED: oxyCODONE/APAP 5/325MG TABLET PO PRN (09:25)
[2016-06-14] MEDS ORDERED: ALBUTEROL SULFATE 1 PUFF INHALER IH PRN (09:29)
--- NOTE | 2016-06-14 11:06 | Discharge Summary ---
Medical - DS: Prov Patient information: Note initiated : 06/14/16 at 11:01 am Service Date, if different from initiated Date: [] Patient: Alfredo Tillman 51 y/o M admitted on 06/11/16 for Abd Pain/Pancreatitis. Chief Complaint: [] Date of admission: 06/11/16 14:38 Discharge date: 06/14/16 Primary care physician: [Dr. Alcon Barrow , phone [phone]] Admitting clinician: Shannan Sanchez Consults: 06/12/16 17:50 Consult to Physician [CONS] Routine Comment: Consulting Provider: Jewell Ordaz Reason For Exam: Physician to Consult Attending physician on discharge: Shannan Sanchez Medical - DS: Meds - Discharge Medications Prescriptions: Dicyclomine 20 mg PO QID #100 tablet Ondansetron [Zofran Odt] 4 mg PO Q4-6H PRN #30 tablet PRN Reason: Nausea And Vomiting oxyCODONE/APAP [Percocet 5-325 mg] 1 tab PO Q4-6HP PRN #20 tablet PRN Reason: Pain Active and Home Medications: Active Medications Acetaminophen (Tylenol) 650 mg PO Q6HP PRN PRN Reason: PAIN/FEVER > 101 Last Admin: 06/14/16 07:38 Dose: 650 mg Albuterol Sulfate (Ventolin) 2 puff IH Q4-6HP PRN PRN Reason: Dyspnea Dextrose (Dextrose 50%) 0 ml IV UD PRN PRN Reason: Hypoglycemia Diagnostic Test (Pha) (Accu-Chek) 1 each FS ACHS [facility] Last Admin: 06/14/16 07:38 Dose: 1 each Dicyclomine HCl (Dicyclomine) 20 mg PO QID [facility] Last Admin: 06/14/16 08:23 Dose: 20 mg Docusate Sodium (Colace) 100 mg PO BID PRN PRN Reason: Constipation Glipizide (Glucotrol) 10 mg PO BIDAC [facility] Heparin Sodium (Porcine) (Heparin) 5,000 unit SQ Q12 [facility] Last Admin: 06/14/16 08:23 Dose: 5,000 unit Sodium Chloride (Sodium Chloride 0.9%) 1,000 mls @ 20 mls/hr IV .Q24H [facility] Last Admin: 01/06/17 20:53 Dose: 20 mls/hr Insulin Glargine (Lantus) 5 unit SQ BID [facility] Last Admin: 06/14/16 08:22 Dose: 5 unit Insulin Human Lispro (Humalog) 0 unit SQ ACHS [facility] PRN Reason: Protocol Last Admin: 06/14/16 08:22 Dose: 10 unit Iron Carb/Multivit/[place]/Folic Acid (Multivitamin W/Minerals) 1 tab PO DAILY [facility] Lorazepam (Ativan) 0.5 mg IV Q2-4HP PRN PRN Reason: ANXIETY/SEDATION Metformin HCl (Glucophage) 1,000 mg PO BIDCC [facility] Naloxone HCl (Narcan) 0.1 mg IV Q2MIN PRN PRN Reason: Opiate Reversal Ondansetron HCl (Zofran) 4 mg IV Q4-6HP PRN PRN Reason: Nausea And Vomiting Last Admin: 06/14/16 10:01 Dose: 4 mg Oxycodone/Acetaminophen (Percocet 5-325 Mg) 1 tab PO Q4-6HP PRN PRN Reason: Pain Sodium Chloride (Saline Flush) 10 ml IV Q8 [facility] Last Admin: 06/14/16 05:31 Dose: Not Given Medical - DS: Hosp Hospital course: Mr. Tillman is a 51 year old male June 11, 2016:History of present illness: Mr. Tillman is a 51 year old male since he has his gallbladder removeda year or so ago. He is been having intermittent episodes of abdominal pain ever since then. At one point they thought he had a common bile duct stone, but he believes that turned out not to be the case. One week ago his painramped up rather remarkably. He was seen over at [facility], and had an abdominal CT that was reported as unremarkable. Today, he presented to our emergency room, saying he just couldn't tolerate the pain anymore. He says he develops pain in the right upper quadrant area of his belly and the whole area gets very rock-hard and then the pain becomes intolerable. On presentation today he rated his pain as 9 out of 10. He otherwise denies fever or chills. He has been having regular bowel movements 2-3 times a day. He's had some mild nausea but no vomiting, and denies constipation, diarrhea, bright red blood per rectum. he otherwise denies fever or chills, headaches or dizziness, new eye Or ear symptoms,sore throat or cough,chest pain or palpitations, shortness of breath or wheezing, dysuria. ER evaluation showed that hehad difficult to control pain. Liver enzymes are mildly elevated. CT scan was not repeated as that was just done one week ago. June 12, 2016: cyrus, the patient notes his pain seems to be getting worse. He is continuing to have episodes where his entire right upper quadrant area of his belly becomes extremely hard and feels like he's having a spasm, and the senses pain through the roof. 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 He is getting very concerned and anxious that something is wrong that we are missing. He otherwise denies fever or chills, headaches or dizziness, chest pain or palpitations, shortness of breath or cough, nausea or vomiting, diarrhea. He did have a small bowel movement today, which had no effect on his pain. He denies dysuria. June 13, 2016: Today, the patient reports he had a difficult night. He continued to have bouts of significant pain, centered around the right upper quadrant area radiating down towards his umbilicus. He says he really didn't sleep well. He is extremely frustrated that we have not been able to find the cause of his discomfort. he has occasional nausea, but no vomiting or diarrhea or constipation. He denies fever or chills, chest pain or shortness of breath. June 14, 2016: The patient has continued to complain of severe pain that seems to start in his right upper quadrant area and then radiates down towards his umbilicus and his right lower quadrant. 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 Unfortunately, none of his studies have shown any obvious cause for his discomfort. Dr. Ordaz suggested that we treat him for IBS to see if that improves anything. i explained to the patient last night and again this morning, that because we have not found anything specific wrong, he does not meet criteria to stay in the hospital and have his insurance pay for it. He reluctantly agrees to go home this morning, although he was not agreeable last night. he will be given a prescription for oral Percocet and Zofranand Bentyl. I explained to him that the next step in this process is to have his primary care physician refer him to a hot air furnace installer repairer, for further investigation. I reassured him that we found nothing life-threatening, and that it will take a while longer to try to sort out exactly what is causing his symptoms. He is quite insistent that all of these symptoms started after his cholecystectomy, so it may be something related to his biliary tree or to postop adhesions. This morning, he did eat breakfast, but told me he vomited everything afterwards. He also told his nurse that he had been vomiting all night, but unfortunately no one has seen any actual evidence of this. He reports that anytime that he vomited he just flush it down the toilet. he does seem to have quite a bit of anxiety and frustration. There is some concern on the part of some of the staff that he is malingering. I am more of the mind that there is some discomfort going on and thathe likely needs further GI evaluation. But this can certainly be done as an outpatient. Assessment and plan: #1. GI. This patient presents with abdominal pain and mildly elevated lipase and liver enzymes, consistent with mild pancreatitis. He says he cannot tolerate the pain , so is being admitted for bowel rest and pain control with IV meds. -His lipase is back to normal , although LFTs are still borderline elevated. Unfortunately, his pain seems to be getting worse rather than better. -he was evaluated by Dr. Ordaz, and did have a follow-up CT the abdomen but so far no testing really indicates much that is abnormal. He has mild fatty infiltration of the liver, but that would not be expected to cause his current symptoms. -We did discuss that he should be referred to a hot air furnace installer repairer, to see if they can come up with other ideas. In the meantime Dr. Ordaz did want to try him on Bentyl in case this is a manifestation of IBS. - he does not appear to have acute infection. -LFTs are mildly elevated, and could be consistent with fatty liver disease. #2. Endocrine. This patient presents with recent onset diabetes, and the setting of chronic morbid obesity. -he was started back on an oral diet yesterday,and as far as we can tell tolerated it reasonably well. I suggested that he stay on a soft bland dietuntil he follows up with GI. Subcutaneous insulin will be withheld today, and he will be restarted on metformin and glipizide. -he is encouraged to monitor his glucoses 2-3 times a day, so that we can be sure this is controlled. his hemoglobin A1c was quite elevated on admission at 9.6, so clearly he needs to work on this harder #3. Elevated blood pressure, without history of hypertension. Continue to monitor, as we get his pain under control. - #4. Morbid obesity. The patient says he has been working hard on this, but is not having much luck losing weight. He might want to consider coming off of the glipizide. Certainly an aggressive weight loss plan would be in his best interest.-The patient is at increased risk for sleep apnea. He is adamant that he does not have any symptoms of snoring or daytime somnolence, but certainly his body habitus increases his risk. #5. CODE STATUS: Full code. #6. DVT prophylaxis: Subcutaneous heparin was used.. - Time Spent with Patient Total time spent providing and/or coordinating discharge services: Greater than 30 minutes (was spent today, reviewing test results, interviewing and examining him, reviewing his case with the nursing staff, and writing orders.) Medical - DS: Exam - Constitutional Vitals: Vital Signs Temp Pulse Resp BP BP Pulse Ox 06/14/16 07:42 12 06/14/16 07:40 98 F 93 H 12 171/92 96 06/14/16 04:33 18 06/14/16 04:00 98.9 F 91 H 20 158/90 97 06/14/16 02:40 95 06/14/16 00:00 98.4 F 97 H 18 148/77 97 06/13/16 23:15 20 06/13/16 19:22 98.1 F 90 22 156/99 97 06/13/16 19:15 20 97 06/13/16 18:11 20 06/13/16 17:59 97.2 F L 94 H 24 158/90 06/13/16 12:00 97.2 F L 98 H 18 166/96 96 Intake and Output 06/13/16 06/14/16 06/14/16 21:59 05:59 13:59 Intake Total 2199 / 2199 500 / 500 Output Total 925 / 925 1000 / 1000 451 / 451 Balance 1274 / 1274 -500 / -500 -451 / -451 Intake: IV 1519 / 1519 Dextrose 5%-1/2Ns IV 509 / 509 Solution 1,000 ml @ 50 mls/hr IV .Q20H [facility] Rx#: [id number] Potassium Chloride 20 Meq 1010 / 1010 In Sodium Chloride 0.45% 1,000 ml @ 100 mls/hr IV .Q10H6M [facility] Rx#: [id number] Oral 680 / 680 500 / 500 Output: Urine Catheter Amount 350 / 350 Void Amount 575 / 575 1000 / 1000 450 / 450 Emesis Other: Meal Dinner Percent of Meal Consumed 100% Feeding Ability Independent # Voids 1 1 # Bowel Movements 1 1 Weight 342 lb 8 oz Additional comments: He continues to appear to be in quite a bit of distress whenever I'm in the room. Neck is supple. Cardiac exam shows regular rate and rhythm. Lungs are clear to auscultation. abdomen is markedly obese.abdomen is firm to the touch, and is markedly tender in the right upper quadrant and right lower quadrant areas. There is guarding, but I do not detect rebound. bowel sounds are active. He reports he did have a large bowel movement this morning. Extremities show no significant edema. Medical - DS: Data Labs on day of discharge: Labs from last 24 hours 06/14/16 06/14/16 04:20 04:20 WBC 5.9 RBC 4.23 L Hgb 12.4 L Hct 38.5 L MCV 91.0 MCH 29.2 MCHC 32.1 RDW 16.1 H Plt Count 147 MPV 11.3 H Gran % 65.2 Lymph % (Auto) 25.6 Delta % (Auto) 5.9 Eos % (Auto) 2.9 Baso % (Auto) 0.4 Gran # 3.9 Lymph # 1.5 Delta # 0.4 Eos # 0.2 Baso # 0 Sodium 136 Potassium 4.5 Chloride 96 Carbon Dioxide 25 Anion Gap 15.0 BUN 8 Creatinine 0.6 L GFR Calculation 116 Glucose 277 H Uric Acid 7.2 Calcium 8.8 Phosphorus 3.8 Magnesium 1.9 Total Bilirubin 0.4 Direct Bilirubin < 0.2 GGT 234 H AST 55 H ALT 55 H Alkaline Phosphatase 89 Lactate Dehydrogenase 220 Total Protein 6.9 Albumin 3.7 Globulin 3.2 Albumin/Globulin Ratio 1.2 Triglycerides 255 H Urinalysis shows specific gravity 1.037, 100 of protein, greater than [address] done at [facility] one week ago, is reported as normal. 06/12/16 CT abdomen; there is minimal fatty liver change. Gallbladder is absent. Intrahepatic and common bile ducts are normal. No free air is seen and no adenopathy. Medical - DS: A/P - Patient/Caregiver Discharge Instructions Activity: increase activity as tolerated Diet: Full Liquid Additional Instructions: #1. Ongoing abdominal pain. None of your tests in the hospital indicated any serious problems. The cause of your ongoing pain is not clear. This may be some type of muscle spasm, or some type of functional bowel disorder. #2.Dr. Ordaz has recommended a trial of Bentyl, to help relieve spasms of your intestines. #3.We also suggest that you have your primary care physician refer you to a hot air furnace installer repairer [employer], to see if they have other ideas about how to sort out the cause of your ongoing pain. #4. Feel free to return to the emergency room, if you develop high fever, persistent vomiting, or otherwise have worsening symptoms. We have given new prescriptions for oral pain medications, nausea medicines,and the Bentyl. #5. You do have signs of fatty infiltration of the liver. Please continue to work on weight loss and getting regular exercise, and controlling your diabetes. There is a small chance that some of his symptoms are due to your diabetes medications, so you may want to discuss with your primary care physician, perhaps changing your diabetes medication regimen. Activity as tolerated Resume home diet as tolerated Follow up with Alcon Barrow. Contact the office on Friday 06/16 to schedule. Pain medications can cause constipation. take an over the counter stool softener while on pain meds. 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
[2016-06-14] MEDS ORDERED: glipiZIDE 5 MG TABLET PO SCH (17:00)
[2016-06-14] MEDS ORDERED: metFORMIN 500 MG TABLET PO SCH (17:30)
[2016-06-15] MEDS ORDERED: MULTIVIT,THER IRON,CA,FA & MIN 1 TABLET PO SCH (09:00)
== END 2016-06-14 14:40 | disposition home or self-care (01) ==
LOC: ED 09:46 → MEDSUR 09:46
PROVIDERS: ADMIT Internal Medicine; ATTEND Internal Medicine

== ENCOUNTER 2021-01-16 11:00 | Inpatient (IN) ==
[2021-01-16] MEDS ORDERED: HYDROmorphone 1 MG/ML SYRINGE IV ONE ×2 (12:57→14:26)
[2021-01-16] MEDS ORDERED: cefTRIAXone 1 GM VIAL IV ONE (12:57)
--- NOTE | 2021-01-16 13:06 | Emergency Department Note ---
Lower Extremity Injury HPI General Chief Complaint: Extremity Injury, Lower Stated Complaint: left foot wound Time Seen by Provider: 01/16/21 11:59 Source: patient Mode of arrival: wheelchair Limitations: no limitations History of Present Illness HPI Narrative: Patient is a 56-year-old gentleman arrives emergency department by private vehicle complaining of left foot pain. The patient says he has been having pain in his left foot for the past several days. This is gradual in onset has been progressively worsening. Yesterday he was seen by his wound care physician who referred him to the emergency department for further evaluation. I saw him in the emergency department and obtain blood work which was remarkable for elevated inflammatory markers but a normal white blood cell count. He was given pain medication in the emergency department and discharged home on antibiotics. Today, the pain has continued to worsen and he is starting to have nausea which he attributes to the level of pain. He denies any associated fever or chills. His symptoms continue to worsen throughout the morning he decided to come to the emergency department for further evaluation. Related Data Home Medications Medication Instructions Recorded Confirmed diphenoxylate-atropine 2.5 1 tab PO Q6H PRN tab 11/25/19 11/12/20 mg-0.025 mg tablet Previous Rx's Medication Instructions Recorded glucagon (human recombinant) 1 mg 1 mg SUB-Q Q20M PRN #1 each 11/25/19 solution for injection metoclopramide HCl 10 mg tablet 10 mg PO BID PRN #60 tab 09/10/20 empagliflozin 25 mg tablet 25 mg PO QDAY #90 tab 10/01/20 gabapentin 300 mg capsule 600 mg PO TID 90 Days #540 cap 10/22/20 insulin glargine 100 unit/mL (3 80 unit SUBCUT QPM #15 ml 11/12/20 mL) subcutaneous pen lisinopril 10 mg tablet 10 mg PO QDAY #90 tab 11/22/20 doxycycline monohydrate 100 mg PO BID #14 cap 01/15/21 Allergies Allergy/AdvReac Type Severity Reaction Status Date / Time morphine Allergy Intermediate Hallucinati Verified 01/16/21 11:03 ng glipizide AdvReac Unknown Severe Verified 01/16/21 11:03 stomach pain dissolvable sutures AdvReac Unknown Swelling/in Uncoded 11/12/20 14:47 fection Review of Systems ROS ROS Narrative: Narrative: All systems ED: reviewed and negative except as stated. Constitutional: Denies fever and chills Cardiovascular: Denies chest pain Respiratory: Denies shortness of breath and cough Gastrointestinal: Denies abdominal pain ON LICENSE OF [facility] Narrative Patient History Narrative: Narrative: Medical/Surgical/Family History All Active Problems (Updated 01/16/21 @ 15:46 by Bobby Nagy DO) Cellulitis (Acute) Panic attack (Acute) Diabetic ulcer of ankle associated with diabetes mellitus due to underlying condition, with fat layer exposed (Acute) Diabetic gastroparesis (Acute) Chronic pain (Chronic) Chronic pain syndrome (Chronic) Depression (Chronic) Nicotine addiction (Chronic) GERD (gastroesophageal reflux disease) (Chronic) Hyperlipidemia (Chronic) Polyneuropathy (Chronic) Medicare annual wellness visit, initial (Chronic) Cellulitis (Chronic) Diabetic necrobiosis lipoidica (Chronic) Right wrist pain (Chronic) Hypertension (Chronic) Right wrist pain (Chronic) Joint pain (Chronic) Peripheral neuropathy (Chronic) Scalp wound (Chronic) Arthritis of right wrist (Chronic) Scalp wound (Chronic) Type 2 diabetes mellitus with pressure callus (Chronic) Peripheral neuropathy (Chronic) Gastroenteritis (Chronic) Abdominal pain (Chronic) Fecal retention (Chronic) Contusion of left hip (Chronic) Fall (Chronic) Blood in feces (Chronic) Diabetes type 2, uncontrolled (Chronic) Left shoulder strain (Chronic) Pancreatitis (Chronic) Obesities, morbid (Chronic) Post-cholecystectomy syndrome (Chronic) Abdominal pain, chronic, right lower quadrant (Chronic) Unilateral primary osteoarthritis, right hip (Chronic) 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, face and neck (Chronic) Impacted cerumen, bilateral (Chronic) Acute bronchitis (Chronic) Acute upper respiratory infection (Chronic) Toenail deformity (Chronic) Pain, foot (Chronic) Insomnia (Chronic) High blood pressure (Chronic 09/20/15) Gall bladder disease (Chronic) Lipoma (Chronic) Shortness of breath (Chronic) Inguinal hernia (Chronic) Pneumonia (Chronic) Abscess (Chronic) Fall against object (Chronic) Contusion (Chronic) Sebaceous cyst (Chronic) Medical History Abdominal pain, chronic, right lower quadrant Abscess Head-behind right ear Acute bronchitis Acute upper respiratory infection Arthritis of right wrist 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, face and neck Chronic pain Chronic pain syndrome Contusion Depression Diabetes (09/20/15) Diabetes Diabetes type 2, uncontrolled Fall against object Gall bladder disease GERD (gastroesophageal reflux disease) High blood pressure (09/20/15) Hyperlipidemia Hypertension Impacted cerumen, bilateral Inguinal hernia Insomnia Joint pain [place] Medicare annual wellness visit, initial Nicotine addiction Obesities, morbid Pain, foot Pancreatitis Peripheral neuropathy Peripheral neuropathy Pneumonia Polyneuropathy Post-cholecystectomy syndrome Right wrist pain Right wrist pain Scalp wound Scalp wound Sebaceous cyst Shortness of breath Toenail deformity Split toenails Type 2 diabetes mellitus with pressure callus Unilateral primary osteoarthritis, right hip Surgical History History of abdominal surgery History of cholecystectomy 04/2004 History of esophagogastroduodenoscopy (EGD) (06/27/16) History of inguinal herniorrhaphy History of lumbar surgery decompression History of shoulder surgery right decompression History of total right hip arthroplasty Family History Father Malignant neoplasm History of coronary artery stent placement Cardiac disease Diabetes mellitus Grandmother Abnormality of colon Malignant neoplasm Diabetes mellitus Mother Cardiac disease Brother Diabetes mellitus Social History Smoking Status: Smokeless tobacco Alcohol Intake Frequency: a few times a month Substance Use: does not use Exam Narrative Narrative: I reviewed the vital signs. Gen -patient is awake and alert and in moderate distress due to pain. The patient is well groomed. HEENT -head is atraumatic. There is no conjunctival pallor or scleral icterus. Mucous membranes are moist. CV -S1-S2 regular rate and rhythm. Peripheral pulses are palpable. There is no JVD. Resp -breathing is nonlabored. Lungs are clear to auscultation bilaterally. There is no cyanosis. GI - Abdomen is soft and nontender to palpation. There is no guarding or rebound tenderness. Derm -skin is warm and dry. There is no visible rash. MSK -there is a deep ulceration on the patient's distal first metatarsal of his left foot. There is surrounding erythema that blanches to light palpation somewhat more extensive than on my exam yesterday. There is no palpable crepitus to the soft tissues. Capillary refill in the toes is intact. Patient's pain does not appear to proportion to the examination findings. Posterior tibial pulse is palpable. Psych -patient has appropriate affect. The patient does not appear internally stimulated. Neuro -patient answers questions appropriately with fluent speech. Patient moves all present extremities equally. General Limitations: no limitations Course Vital Signs Vital signs: Vital Signs Temperature 98.1 F 01/16/21 11:01 Pulse Rate 98 H 01/16/21 11:01 Respiratory Rate 16 01/16/21 11:01 Blood Pressure 128/72 01/16/21 11:01 Pulse Oximetry (%) 97 01/16/21 11:01 Temperature 98.1 F 01/16/21 11:01 Pulse Rate 84 01/16/21 12:57 Respiratory Rate 16 01/16/21 12:57 Blood Pressure 123/112 01/16/21 15:41 Pulse Oximetry (%) 98 01/16/21 12:57 MDM MDM Narrative Medical decision making narrative: Patient returns with worsening pain may previously evaluated diabetic foot ulcer. He does have slightly worsened cellulitis surrounding the area today but no other signs of necrotizing soft tissue infection. Labs are remarkable for no significant electrolyte or hemato logic derangements. He does have a slight elevation in his lactic acid. He was given IV fluids and antibiotics and had some improvement in his symptoms. I discussed his history examination diagnostic findings with Dr. Campos who requested he be admitted to the hospitalist service. I discussed the patient's history examination and diagnostic findings with Dr. Gonzalez, who agrees with the plan of care and accepts admission. Lab Data Lab results reviewed: Yes I reviewed the patient's lab results. Result diagrams: 01/16/21 13:02 Labs: Lab Results 01/16/21 01/16/21 01/16/21 Range/Units 13:02 13:02 13:02 WBC 7.6 (4.5-11.0) K/mcL RBC 4.91 (4.50-5.90) M/mcL Hgb 14.4 (13.5-16.5) g/dL Hct 44.5 (41.0-55.0) % POC Hct 44 (41-55) % MCV 90.6 (80.0-100.0) fL MCH 29.3 (26.0-34.0) pg MCHC 32.4 (31.0-36.0) g/dL RDW 15.0 H (11.5-14.5) % Plt Count 226 (140-440) K/mcL MPV 11.7 H (7.4-10.4) fL Neut % (Auto) 62.8 (38.0-78.0) % Lymph % (Auto) 28.3 (15.0-49.0) % [place] % (Auto) 6.1 (1.0-12.0) % Eos % (Auto) 2.1 (0.0-7.0) % Baso % (Auto) 0.7 (0.0-2.0) % Lymph # (Auto) 2.14 (1.50-4.80) K/mcL [place] # (Auto) 0.46 (0.10-0.90) K/mcL Eos # (Auto) 0.16 (0.00-0.70) K/mcL Baso # (Auto) 0.05 (0.00-0.20) K/mcL Absolute Neutrophils 4.74 (1.80-8.00) K/mcL ESR 84 H (0-15) mm/hr VBG Lactic Acid 2.9 H (0.5-2.0) mmol/L POC Sodium 137 (133-145) mEq/L POC Potassium 4.7 (3.3-5.1) mEql/L POC Chloride 99 (96-108) mEq/L POC Total CO2 26 (22-30) mmol/L POC BUN 8 (6-20) mg/dL POC Creatinine 0.6 (0.6-1.2) mg/dL POC Glucose 262 H (70-105) mg/dL POC WB Ioniz Calcium 1.13 L (1.16-1.32) mmEq/L C-Reactive Protein 3.90 H (0.03-0.80) mg/dL Discharge Plan Patient/Caregiver Discharge Instructions Pt seen by BIOMETRIC TECHNICIAN/PA only: No Clinical Impression: Cellulitis Patient Disposition: Xfer As Inpt ([facility]) Follow up with: Neri Zuniga DO [Primary Care Provider] - Prescriptions: No Action Jardiance 25 mg tablet 25 mg PO QDAY Qty: 90 RF: 1 gabapentin 300 mg capsule 600 mg PO TID 90 Days Qty: 540 RF: 1 lisinopril 10 mg tablet 10 mg PO QDAY Qty: 90 RF: 1 diphenoxylate-atropine 2.5-0.025 mg tablet 1 tab PO Q6H PRNRF: 0 Glucagon Emergency Kit (human) 1 mg recon soln 1 mg SUB-Q Q20M PRN (Reason: hypoglycemia) Qty: 1 RF: 0 metoclopramide HCl [Reglan] 10 mg tablet 10 mg PO BID PRN (Reason: nausea and vomiting) Qty: 60 RF: 5 Basaglar KwikPen U-100 Insulin 100 unit/mL (3 mL) insulin pen 80 unit subcut QPM Qty: 15 RF: 3 doxycycline monohydrate 100 mg capsule 100 mg PO BID Qty: 14 RF: 0
[2021-01-16 13:40] LABS: POC Blood Urea Nitrogen 8 mg/dL (6-20); POC CO2 26 mmol/L (22-30); POC Calcium, Ionized 1.13 mmEq/L (1.16-1.32); POC Chloride 99 mEq/L (96-108); POC Creatinine 0.6 mg/dL (0.6-1.2); POC Glucose, Random 262 mg/dL (70-105); POC Hematocrit 44 % (41-55); POC Potassium 4.7 mEql/L (3.3-5.1); POC Sodium 137 mEq/L (133-145)
[2021-01-16 14:14] LABS: Basophils # (Auto) 0.05 K/mcL (0.00-0.20); Basophils % (Auto) 0.7 % (0.0-2.0); Eosinophils # (Auto) 0.16 K/mcL (0.00-0.70); Eosinophils % (Auto) 2.1 % (0.0-7.0); Hematocrit 44.5 % (41.0-55.0); Hemoglobin 14.4 g/dL (13.5-16.5); Lymphocytes # (Auto) 2.14 K/mcL (1.50-4.80); Lymphocytes % (Auto) 28.3 % (15.0-49.0); Mean Cell Volume 90.6 fL (80.0-100.0); Mean Corpuscular HGB Conc 32.4 g/dL (31.0-36.0); Mean Platelet Volume 11.7 fL (7.4-10.4); Monocytes # (Auto) 0.46 K/mcL (0.10-0.90); Monocytes % (Auto) 6.1 % (1.0-12.0); Neutrophils % (Auto) 62.8 % (38.0-78.0); Platelet Count 226 K/mcL (140-440); RBC 4.91 M/mcL (4.50-5.90); WBC 7.6 K/mcL (4.5-11.0)
[2021-01-16] MEDS ORDERED: 0.9 % SODIUM CHLORIDE 1,000 ML IV ONE ×2 (14:30→14:31)
[2021-01-16 15:34] LABS: Erythrocyte Sedimentation Rate 84 mm/hr (0-15)
--- NOTE | 2021-01-16 17:03 | Internal Med History&Physical ---
HPI History of Present Illness Patient information: Note initiated : 01/16/21 at 5:01 pm Service Date, if different from initiated Date: [] Patient: Alfredo Tillman a 56 y/o M admitted on for left foot wound. Chief Complaint: [diabetic foot] History of present illness: Mr. Tillman is a 56 year old M with type 2 diabetes mellitus with associated diabetic neuropathy, essential hypertension, morbid obesity, presenting with diabetic foot infections of the left first toe base of the toe. Patient stated that he has been having the left first toe based diabetic infection for as long as he can remember probably for years, and he has been seeing Dr. Campos at the wound clinic. He presented to our ED yesterday as well as today for uncontrolled pain associated with that wound. He is currently complaining of 9 out of 10, sharp and stabbing pain localized in his left first toe base. He is also complaining of decreased appetite and subjective fever and chills and nausea and vomiting associated with the pain. Vital signs at ED presentation resulted unremarkable. Labs were significant for lack of leukocytosis with WBC 7.6. Lactic acid level elevated at 2.9. Constitutional Constitutional: Present weakness; Absent chills, excessive sweating, fatigue and fever(s) EENT Eyes: Absent blurry vision, change in vision, loss of vision and other visual disturbances Ears: Absent decreased hearing and tinnitus Nose, mouth and throat: Absent abnormal hearing, dry mouth, headache(s), nasal congestion and sore throat Cardiovascular Cardiovascular: Absent chest pain, chest pain at rest, edema, irregular heart rhythm and palpatations Respiratory Respiratory: Absent cough, dyspnea and wheezing Gastrointestinal Gastrointestinal: Present nausea and vomiting; Absent abdominal pain, constipation and diarrhea Musculoskeletal Musculoskeletal: Absent back pain, deformity, limited range of motion, muscle cramps, muscle weakness and numbness Additional comments: Left 1st toe base pain Integumentary Integumentary: Absent lesions, rash and wounds Neurological Neurological: Absent focal weakness, headache(s) and numbness Psychiatric Psychiatric: Absent anxiety, depression and hallucinations PFSH PFSH All Active Problems (Updated 01/16/21 @ 17:11 by Filipe Gonzalez MD) Diabetic ulcer of toe of left foot (Acute) Type 2 diabetes mellitus with diabetic neuropathy (Acute) Cellulitis (Acute) Panic attack (Acute) Diabetic ulcer of ankle associated with diabetes mellitus due to underlying condition, with fat layer exposed (Acute) Diabetic gastroparesis (Acute) Chronic pain (Chronic) Chronic pain syndrome (Chronic) Depression (Chronic) Nicotine addiction (Chronic) GERD (gastroesophageal reflux disease) (Chronic) Hyperlipidemia (Chronic) Polyneuropathy (Chronic) Medicare annual wellness visit, initial (Chronic) Cellulitis (Chronic) Diabetic necrobiosis lipoidica (Chronic) Right wrist pain (Chronic) Hypertension (Chronic) Right wrist pain (Chronic) Joint pain (Chronic) Peripheral neuropathy (Chronic) Scalp wound (Chronic) Arthritis of right wrist (Chronic) Scalp wound (Chronic) Type 2 diabetes mellitus with pressure callus (Chronic) Peripheral neuropathy (Chronic) Gastroenteritis (Chronic) Abdominal pain (Chronic) Fecal retention (Chronic) Contusion of left hip (Chronic) Fall (Chronic) Blood in feces (Chronic) Diabetes type 2, uncontrolled (Chronic) Left shoulder strain (Chronic) Pancreatitis (Chronic) Obesities, morbid (Chronic) Post-cholecystectomy syndrome (Chronic) Abdominal pain, chronic, right lower quadrant (Chronic) Unilateral primary osteoarthritis, right hip (Chronic) 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, face and neck (Chronic) Impacted cerumen, bilateral (Chronic) Acute bronchitis (Chronic) Acute upper respiratory infection (Chronic) Toenail deformity (Chronic) Pain, foot (Chronic) Insomnia (Chronic) High blood pressure (Chronic 09/20/15) Gall bladder disease (Chronic) Lipoma (Chronic) Shortness of breath (Chronic) Inguinal hernia (Chronic) Pneumonia (Chronic) Abscess (Chronic) Fall against object (Chronic) Contusion (Chronic) Sebaceous cyst (Chronic) Medical History Abdominal pain, chronic, right lower quadrant Abscess Head-behind right ear Acute bronchitis Acute upper respiratory infection Arthritis of right wrist 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, face and neck Chronic pain Chronic pain syndrome Contusion Depression Diabetes (09/20/15) Diabetes Diabetes type 2, uncontrolled Fall against object Gall bladder disease GERD (gastroesophageal reflux disease) High blood pressure (09/20/15) Hyperlipidemia Hypertension Impacted cerumen, bilateral Inguinal hernia Insomnia Joint pain [place] Medicare annual wellness visit, initial Nicotine addiction Obesities, morbid Pain, foot Pancreatitis Peripheral neuropathy Peripheral neuropathy Pneumonia Polyneuropathy Post-cholecystectomy syndrome Right wrist pain Right wrist pain Scalp wound Scalp wound Sebaceous cyst Shortness of breath Toenail deformity Split toenails Type 2 diabetes mellitus with pressure callus Unilateral primary osteoarthritis, right hip Surgical History History of abdominal surgery History of cholecystectomy 04/2004 History of esophagogastroduodenoscopy (EGD) (06/27/16) History of inguinal herniorrhaphy History of lumbar surgery decompression History of shoulder surgery right decompression History of total right hip arthroplasty Family History Father Malignant neoplasm History of coronary artery stent placement Cardiac disease Diabetes mellitus Grandmother Abnormality of colon Malignant neoplasm Diabetes mellitus Mother Cardiac disease Brother Diabetes mellitus Social History marital status: alcohol intake frequency: a few times a month substance use type: does not use additional history: chewing tobacco - 1 can q2d MEDS/ALLERGIES Home Medications and Allergies Home Medications Medication Instructions Recorded Confirmed Type diphenoxylate-atropine 2.5 1 tab PO Q6H PRN tab 11/25/19 11/12/20 History mg-0.025 mg tablet glucagon (human recombinant) 1 mg 1 mg SUB-Q Q20M PRN #1 each 11/25/19 11/12/20 Rx solution for injection metoclopramide HCl 10 mg tablet 10 mg PO BID PRN #60 tab 09/10/20 11/12/20 Rx empagliflozin 25 mg tablet 25 mg PO QDAY #90 tab 10/01/20 11/12/20 Rx gabapentin 300 mg capsule 600 mg PO TID 90 Days #540 cap 10/22/20 11/12/20 Rx insulin glargine 100 unit/mL (3 80 unit SUBCUT QPM #15 ml 11/12/20 11/12/20 Rx mL) subcutaneous pen lisinopril 10 mg tablet 10 mg PO QDAY #90 tab 11/22/20 Rx doxycycline monohydrate 100 mg PO BID #14 cap 01/15/21 Rx Allergies Allergy/AdvReac Type Severity Reaction Status Date / Time morphine Allergy Intermediate Hallucinati Verified 01/16/21 11:03 ng glipizide AdvReac Unknown Severe Verified 01/16/21 11:03 stomach pain dissolvable sutures AdvReac Unknown Swelling/in Uncoded 11/12/20 14:47 fection EXAM Constitutional Vitals: Temp Pulse Resp BP Pulse Ox 36.7 C 84 16 159/112 98 01/16/21 11:01 01/16/21 12:57 01/16/21 12:57 01/16/21 16:41 01/16/21 12:57 General appearance: cooperative, mild distress and morbidly obese Head Head exam: Present atraumatic and normocephalic Eye Eye exam: Present EOMI and PERRL ENT ENT exam: Present mucous membranes moist, normal exam and normal external ear exam Neck Neck exam: Present normal inspection; Absent lymphadenopathy, tenderness and thyromegaly Respiratory Respiratory exam: Absent accessory muscle use, respiratory distress and wheezes Cardiovascular Cardiovascular exam: Present normal rate and rhythm; Absent JVD GI/Abdominal GI/Abdominal exam: Present normal bowel sounds and soft; Absent organomegaly and tenderness Rectal Rectal exam: Present deferred Extremities Exam Extremities exam: Present full ROM and normal capillary refill; Absent normal inspection and tenderness Additional comments: left 1st toe base 0.5X1 inch diabetic ulcer with foul smelling, erythema, tenderness to palpation, and warmth to touch. No pustular discharge or swelling. Neurological Exam Neurological exam: Present alert, CN II-XII intact and oriented X3; Absent motor sensory deficit Additional comments: Decreased light touch sensation bilateral lower extremities up to knees. Psychiatric Psychiatric exam: Present normal affect and normal mood; Absent anxious and depressed Skin Skin exam: Present dry and intact DATA Data Completed and Pending Labs: Labs from last 24 hours 01/16/21 01/16/21 01/16/21 13:02 13:02 13:02 WBC 7.6 RBC 4.91 Hgb 14.4 Hct 44.5 POC Hct 44 MCV 90.6 MCH 29.3 MCHC 32.4 RDW 15.0 H Plt Count 226 MPV 11.7 H Neut % (Auto) 62.8 Lymph % (Auto) 28.3 [place] % (Auto) 6.1 Eos % (Auto) 2.1 Baso % (Auto) 0.7 Lymph # (Auto) 2.14 [place] # (Auto) 0.46 Eos # (Auto) 0.16 Baso # (Auto) 0.05 Absolute Neutrophils 4.74 ESR 84 H VBG Lactic Acid 2.9 H POC Sodium 137 POC Potassium 4.7 POC Chloride 99 POC Total CO2 26 POC BUN 8 POC Creatinine 0.6 POC Glucose 262 H POC WB Ioniz Calcium 1.13 L C-Reactive Protein 3.90 H A/P Assessment and plan (1) Type 2 diabetes mellitus with diabetic neuropathy: Status: Acute (2) Diabetic ulcer of toe of left foot: Status: Acute (3) Hypertension: Status: Chronic Qualifiers: Hypertension type: essential hypertension Qualified Code(s): I10 - Essential (primary) hypertension (4) Obesities, morbid: Status: Chronic Narrative A/P Narrative: Assessment and Plans: 1. Diabetic foot of the left 1st toe base associated with type 2 diabetes with diabetic neuropathy: Admit to inpatient med surg Consult wound care team Dr. Campos, recs. appreciated Blood cultures X2 Wound culture Serial lactic acid Procalitonin CRP Vancomycin Zosyn Tylenol PRN fever and mild pain Percocet PRN moderate pain Dilaudid IV PRN severe pain Gabapentin cbc w/ auto diff in the AM to trend WBC level HgA1c Jardiance Lantus 80 unit HS High dose correctional scale insulin AC HS Accu Chek AC HS Hypoglycemia protocol Diabetic diet NPO after midnight in case if Dr. Campos wants to do surgery the next day 2. 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 Essential HTN: Continue Lisinopril GI ppx: not currently indicated DVT ppx: SCDs Code status: Full Prognosis: stable Disposition: inpatient med surg Time Spent With Patient Time: Total time spent is greater than 50% in coordination of care (as documented) at patient's floor/unit and/or counseling patient: Total time spent with greater than 50% in coordination of care (as documented) at patient's floor/unit and/or counseling patient:: 25 - 35 minutes
[2021-01-16] MEDS ORDERED: VANCOMYCIN PER PHARMACY IV SCH (19:02)
[2021-01-16] MEDS ORDERED: DEXTROSE 50% 50 ML VIAL IV PRN (19:02)
[2021-01-16] MEDS ORDERED: ZOLPIDEM 5 MG TABLET PO PRN (19:02)
[2021-01-16] MEDS ORDERED: ACETAMINOPHEN 325 MG TABLET PO PRN (19:02)
[2021-01-16] MEDS ORDERED: DEXTROSE 31 GM ORAL.SUSP PO PRN (19:02)
[2021-01-16] MEDS: 0.9 % SODIUM CHLORIDE 1,000 ML IV SCH (19:31)
[2021-01-16] MEDS ORDERED: INSULIN LISPRO 1 UNIT/0.01 ML UNIT SQ ONE (19:46)
[2021-01-16] MEDS: HYDROmorphone 1 MG/ML SYRINGE IV PRN ×2 (19:46→23:57)
[2021-01-16] MEDS: PIPERACILLIN SODIUM/TAZOBACTAM 3.375 GM in DEXTROSE 5% IN WATER 50 ML IV SCH ×2 (19:47→23:56)
[2021-01-16] MEDS ORDERED: HYDROmorphone 1 MG/ML SYRINGE ONE (19:47)
[2021-01-16] MEDS: INSULIN LISPRO 1 UNIT/0.01 ML UNIT SQ SCH ×2 (19:47→21:23)
[2021-01-16] MEDS: SENNOSIDES 1 TABLET PO SCH (21:09)
[2021-01-16] MEDS: DOCUSATE SODIUM 100 MG CAPSULE PO SCH (21:09)
[2021-01-16] MEDS: 0.9 % SODIUM CHLORIDE 10 ML SYRINGE IV SCH (21:10)
[2021-01-16] MEDS: VANCOMYCIN 1,500 MG in 0.9 % SODIUM CHLORIDE 500 ML IV SCH (21:13)
[2021-01-16] MEDS: oxyCODONE/APAP 5/325MG TABLET PO PRN (22:03)
[2021-01-16 23:41] LABS: Estimated Average Glucose(eAG) 235 mg/dL; Hemoglobin A1C 9.8 % Hgb (4.0-6.0)
[2021-01-17] MEDS: HYDROmorphone 1 MG/ML SYRINGE IV PRN ×3 (04:08→23:16)
[2021-01-17] MEDS: 0.9 % SODIUM CHLORIDE 10 ML SYRINGE IV SCH ×3 (05:09→21:09)
[2021-01-17] MEDS: 0.9 % SODIUM CHLORIDE 1,000 ML IV SCH ×4 (05:09→23:20)
[2021-01-17] MEDS: PIPERACILLIN SODIUM/TAZOBACTAM 3.375 GM in DEXTROSE 5% IN WATER 50 ML IV SCH ×3 (05:34→18:32)
[2021-01-17] MEDS: ONDANSETRON 4 MG/2 ML VIAL IV PRN ×2 (05:34→13:37)
[2021-01-17 06:58] LABS: POC Blood Urea Nitrogen 7 mg/dL (6-20); POC CO2 25 mmol/L (22-30); POC Calcium, Ionized 1.06 mmEq/L (1.16-1.32); POC Chloride 101 mEq/L (96-108); POC Creatinine 0.6 mg/dL (0.6-1.2); POC Glucose, Random 216 mg/dL (70-105); POC Hematocrit 38 % (41-55); POC Sodium 138 mEq/L (133-145)
[2021-01-17] MEDS: INSULIN LISPRO 1 UNIT/0.01 ML UNIT SQ SCH ×4 (07:26→21:07)
[2021-01-17] MEDS: DOCUSATE SODIUM 100 MG CAPSULE PO SCH ×2 (08:23→21:06)
[2021-01-17] MEDS: VANCOMYCIN 1,500 MG in 0.9 % SODIUM CHLORIDE 500 ML IV SCH (08:55)
[2021-01-17] MEDS: oxyCODONE/APAP 5/325MG TABLET PO PRN ×2 (10:44→21:08)
[2021-01-17] MEDS ORDERED: DIPHENOXYLATE HCL/ATROPINE 1 TABLET PO PRN (11:56)
--- NOTE | 2021-01-17 12:03 | Internal Med Progress Note ---
SUBJECTIVE Subjective Patient information: Note initiated : 01/17/21 at 11:57 am Service Date, if different from initiated Date: [] Patient: Alfredo Tillman 56 y/o M admitted on 01/16/21 for left foot wound. Chief Complaint: [Diabetic foot ulcer] History of present illness: Mr. Tillman is a 56 year old M with type 2 diabetes mellitus with associated diabetic neuropathy, essential hypertension, morbid obesity, presenting with diabetic foot infections of the left first toe base of the toe. Patient stated that he has been having the left first toe based diabetic infection for as long as he can remember probably for years, and he has been seeing Dr. Campos at the wound clinic. He presented to our ED yesterday as well as today for uncontrolled pain associated with that wound. He is currently complaining of 9 out of 10, sharp and stabbing pain localized in his left first toe base. He is also complaining of decreased appetite and subjective fever and chills and nausea and vomiting associated with the pain. Vital signs at ED presentation resulted unremarkable. Labs were significant for lack of leukocytosis with WBC 7.6. Lactic acid level elevated at 2.9. 01/17: Blood and wound cultures no growth to date. Afebrile overnight. Dr. Campos recs. against surgery, recs. wound care. c/o 8/10 sharp stabbing pain of the left 1st toe base. Denies fever or chills. Denies nausea or vomiting. Good appetite. Denies scalp pain. Constitutional Vitals: Vital Signs Temp Pulse Resp BP Pulse Ox 36.7 C 72 16 145/85 98 01/17/21 08:00 01/17/21 08:00 01/17/21 08:00 01/17/21 08:00 01/17/21 08:00 Period Temp Pulse Resp BP Sys/Sanders Pulse Ox Last 24 Hr 36.6 C-36.8 C 72-96 12-16 94-177/41-112 93-98 Intake and Output 01/16/21 01/17/21 01/17/21 21:59 05:59 13:59 Intake Total 2049 2249 550 Output Total 925 Balance 2049 1325 550 Weight 124.284 kg Intake & Output: Intake & Output 01/16/21 01/17/21 01/17/21 21:59 05:59 13:59 Intake Total 2049 2250 550 Output Total 925 Balance 2049 1325 550 Weight 124.284 kg Intake: IV 2049 1550 550 Sodium Chloride 0.9% 1,000 ml @ 2000 1000 100 mls/hr IV .Q10H MANJU Rx#: [id number] Zosyn 3.375 gm In Dextrose 5% 50 50 50 in Water 50 ml @ 100 mls/hr IV Q6H MANJU Rx#:[id number] Vancomycin 1,500 mg In Sodium 500 500 Chloride 0.9% 500 ml @ 333.3 mls/hr IV Q12H MANJU Rx#: [id number] Oral 700 Output: Void Amount 925 Other: Meal cheese stick x1, tuna & crackers Percent of Meal Consumed 100% Feeding Ability Independent Urine Appearance Clear Urine Color Dark Yellow General appearance: cooperative and no acute distress Head Head exam: Present atraumatic and normocephalic Additional comments: Scalp laceration with eschar in the center, on parietal central aspect, measuring 2x3 inch. Eye Eye exam: Present EOMI and PERRL ENT ENT exam: Present mucous membranes moist, normal exam and normal external ear exam Neck Neck exam: Present normal inspection; Absent lymphadenopathy, tenderness and thyromegaly Respiratory Respiratory exam: Absent accessory muscle use, respiratory distress and wheezes Cardiovascular Cardiovascular exam: Present normal rate and rhythm; Absent JVD GI/Abdominal GI/Abdominal exam: Present normal bowel sounds and soft; Absent organomegaly and tenderness Rectal Rectal exam: Present deferred Extremities Exam Extremities exam: Present full ROM and normal capillary refill; Absent normal inspection and tenderness Additional comments: left 1st toe base 0.5X1 inch diabetic ulcer with foul smelling, erythema, tenderness to palpation, and warmth to touch. No pustular discharge or swelling. Neurological Exam Neurological exam: Present alert, CN II-XII intact and oriented X3; Absent motor sensory deficit Additional comments: Decreased light touch sensation bilateral lower extremities up to knees. Psychiatric Psychiatric exam: Present normal affect and normal mood; Absent anxious and depressed Skin Skin exam: Present dry; Absent intact Additional comments: left 1st toe base 0.5X1 inch diabetic ulcer with foul smelling, erythema, tenderness to palpation, and warmth to touch. No pustular discharge or swelling. Scalp laceration with eschar in the center, on parietal central aspect, measuring 2x3 inch. OBJ DATA Labs CBC & Chem 7: 01/16/21 13:02 Labs: Abnormal Lab Results 01/17/21 01/16/21 01/16/21 06:50 20:10 20:09 POC Hct 38 L RDW MPV ESR VBG Lactic Acid POC Glucose 216 H Hemoglobin A1c 9.8 H POC WB Ioniz Calcium 1.06 L C-Reactive Protein Procalcitonin 0.11 H 01/16/21 01/16/21 01/16/21 13:02 13:02 13:02 POC Hct RDW 15.0 H MPV 11.7 H ESR 84 H VBG Lactic Acid 2.9 H POC Glucose 262 H Hemoglobin A1c POC WB Ioniz Calcium 1.13 L C-Reactive Protein 3.90 H Procalcitonin Meds: Medications Acetaminophen (Acetaminophen 325 Mg Tablet) 650 mg PO Q6HP PRN; Protocol PRN Reason: Per Pain Protocol/Fever > 101 Dextrose (Dextrose 50% 50 Ml Vial) 0 ml IV UD PRN PRN Reason: Hypoglycemia Diagnostic Test (Pha) (Accu-Chek 1 Each Strip) 1 each FS ACHS [facility] Last Admin: 01/17/21 11:25 Dose: 1 each Documented by: Diphenoxylate HCl/Atropine (Diphenoxylate Hcl/Atropine 1 Tablet) 1 tab PO Q6H PRN PRN Reason: Diarrhea Docusate Sodium (Docusate Sodium 100 Mg Capsule) 100 mg PO BID [facility] Last Admin: 01/17/21 08:23 Dose: Not Given Documented by: Gabapentin (Gabapentin 300 Mg Capsule) 600 mg PO TID [facility] Glucose (Dextrose 31 Gm Oral.Susp) 15 gm PO PRN PRN PRN Reason: Hypoglycemia Hydromorphone HCl (Hydromorphone 1 Mg/Ml Syringe) 1 mg IV Q4HP PRN; Protocol PRN Reason: Per Pain Protocol Last Admin: 01/17/21 04:08 Dose: 1 mg Documented by: Sodium Chloride (Sodium Chloride 0.9%) 1,000 mls @ 100 mls/hr IV .Q10H [facility] Last Admin: 01/17/21 11:47 Dose: 100 mls/hr Documented by: Piperacillin Sod/Tazobactam (Sod 3.375 gm/ Dextrose) 50 mls @ 100 mls/hr IV Q6H [facility]; Protocol Last Admin: 01/17/21 11:47 Dose: 100 mls/hr Documented by: Vancomycin HCl 1,500 mg/ (Sodium Chloride) 500 mls @ 333.3 mls/hr IV Q12H [facility] Last Infusion: 01/17/21 11:00 Dose: Infused Documented by: Insulin Human Lispro (Insulin Lispro 1 Unit/0.01 Ml Unit) 0 unit SQ ACHS [facility]; Protocol Last Admin: 01/17/21 11:25 Dose: 6 units Documented by: Lisinopril (Lisinopril 10 Mg Tablet) 10 mg PO QDAY [facility] Ondansetron HCl (Ondansetron 4 Mg/2 Ml Vial) 4 mg IV Q6HP PRN PRN Reason: Nausea And Vomiting Last Admin: 01/17/21 05:34 Dose: 4 mg Documented by: Oxycodone/Acetaminophen (Oxycodone/Apap 5/325mg Tablet) 1 tab PO Q4HP PRN; Protocol PRN Reason: Per Pain Protocol Last Admin: 01/17/21 10:44 Dose: 1 tab Documented by: Senna (Sennosides 1 Tablet) 2 tab PO HS [facility] Last Admin: 01/16/21 21:09 Dose: Not Given Documented by: Sodium Chloride (0.9 % Sodium Chloride 10 Ml Syringe) 10 ml IV Q8 [facility] Last Admin: 01/17/21 05:09 Dose: Not Given Documented by: Vancomycin HCl (Vancomycin Per Pharmacy) 1 order IV UD [facility]; Protocol Zolpidem Tartrate (Zolpidem 5 Mg Tablet) 5 mg PO HSP PRN PRN Reason: Insomnia A/P Assessment and plan (1) Type 2 diabetes mellitus with diabetic neuropathy: Status: Acute (2) Diabetic ulcer of toe of left foot: Status: Acute (3) Hypertension: Status: Chronic Qualifiers: Hypertension type: essential hypertension Qualified Code(s): I10 - Essential (primary) hypertension (4) Obesities, morbid: Status: Chronic (5) Scalp laceration: Status: Acute Narrative A/P Narrative: Assessment and Plans: 1. Diabetic foot of the left 1st toe base associated with type 2 diabetes with diabetic neuropathy: Stays in inpatient med surg Consult wound care team Dr. Campos, recs. appreciated. No surgery, recs. wound care only at this point Blood cultures X2, no growth to date Wound culture, no growth to date Serial lactic acid Procalcitonin 0.11 elevated CRP Vancomycin Zosyn Tylenol PRN fever and mild pain Percocet PRN moderate pain Dilaudid IV PRN severe pain Gabapentin cbc w/ auto diff in the AM to trend WBC level HgA1c 9.8 Jardiance Lantus 80 unit HS High dose correctional scale insulin AC HS Accu Chek AC HS Hypoglycemia protocol Diabetic diet 2. Morbid obesity: [employer] patient on life style modifications including healthy diet and regular exercise in order to lose weight 3. Essential HTN: Continue Lisinopril 4. Scalp laceration: Wound care as per wound care team Dr. Campos, recs. appreciated Continue antibiotics Vancomycin and Zosyn as part of the treatment for diabetic foot, see #1 GI ppx: not currently indicated DVT ppx: Lovenox Code status: Full Prognosis: stable Disposition: inpatient med surg Time Spent With Patient Time: Total time spent is greater than 50% in coordination of care (as documented) at patient's floor/unit and/or counseling patient: Total time spent with greater than 50% in coordination of care (as documented) at patient's floor/unit and/or counseling patient:: 25 - 35 minutes QUALITY VTE Deep Vein Thrombosis/Pulmonary Embolism Present on Admission: No
[2021-01-17] MEDS: GABAPENTIN 300 MG CAPSULE PO SCH ×2 (14:33→21:08)
--- NOTE | 2021-01-17 17:10 | General Surgery Consult Note ---
HPI Data of Consult Consult date: 01/17/21 Requesting physician: Filipe Gonzalez Primary Care Provider: Neri Zuniga DO Consult Narrative Patient Information: Note initiated : 01/17/21 at 4:30 pm Service Date, if different from initiated Date: [] Patient: Alfredo Tillman 56 y/o M admitted on 01/16/21 for left foot wound. Chief Complaint: CHRONIC DFU under left great toe with acute interval changes. 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 Cellulitis changes around callus with throbbing pain. FAILED out patient treatment. Patient presented to the ER for second time in 24 hours with evolving changes and lab results reveled elevated CRP and Procalcitonin, A1C and Blood glucose. Bobby Ramirez DO, ER Physician called me and we discussed patient's over all situation and his need for an expedited coordinated care / management to try to avoid amputation of toe. Patient & his s/o GF agreed for admission. ] cc:: CC: Filipe Gonzalez MD Constitutional Constitutional: Present as per HPI and other (Constant pressure and pain under LEFT foot great toe and redness, warmth spreading proximally towards ankle.) Integumentary Integumentary: Present wounds Additional comments: DFU stage 3 under left great toe MPJ with acute interval changes as above in HPI Neurological Neurological: Present abnormal gait and other (Diabetes with peripheral neuropathy) Endocrine Endocrine: Present other (DM2. Super morbid obesity) PFSH PFSH All Active Problems Scalp laceration (Acute) Diabetic ulcer of toe of left foot (Acute) Type 2 diabetes mellitus with diabetic neuropathy (Acute) Cellulitis (Acute) Panic attack (Acute) Diabetic ulcer of ankle associated with diabetes mellitus due to underlying condition, with fat layer exposed (Acute) Diabetic gastroparesis (Acute) Chronic pain (Chronic) Chronic pain syndrome (Chronic) Depression (Chronic) Nicotine addiction (Chronic) GERD (gastroesophageal reflux disease) (Chronic) Hyperlipidemia (Chronic) Polyneuropathy (Chronic) Medicare annual wellness visit, initial (Chronic) Cellulitis (Chronic) Diabetic necrobiosis lipoidica (Chronic) Right wrist pain (Chronic) Hypertension (Chronic) Right wrist pain (Chronic) Joint pain (Chronic) Peripheral neuropathy (Chronic) Scalp wound (Chronic) Arthritis of right wrist (Chronic) Scalp wound (Chronic) Type 2 diabetes mellitus with pressure callus (Chronic) Peripheral neuropathy (Chronic) Gastroenteritis (Chronic) Abdominal pain (Chronic) Fecal retention (Chronic) Contusion of left hip (Chronic) Fall (Chronic) Blood in feces (Chronic) Diabetes type 2, uncontrolled (Chronic) Left shoulder strain (Chronic) Pancreatitis (Chronic) Obesities, morbid (Chronic) Post-cholecystectomy syndrome (Chronic) Abdominal pain, chronic, right lower quadrant (Chronic) Unilateral primary osteoarthritis, right hip (Chronic) 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, face and neck (Chronic) Impacted cerumen, bilateral (Chronic) Acute bronchitis (Chronic) Acute upper respiratory infection (Chronic) Toenail deformity (Chronic) Pain, foot (Chronic) Insomnia (Chronic) High blood pressure (Chronic 09/20/15) Gall bladder disease (Chronic) Lipoma (Chronic) Shortness of breath (Chronic) Inguinal hernia (Chronic) Pneumonia (Chronic) Abscess (Chronic) Fall against object (Chronic) Contusion (Chronic) Sebaceous cyst (Chronic) Medical History Abdominal pain, chronic, right lower quadrant Abscess Head-behind right ear Acute bronchitis Acute upper respiratory infection Arthritis of right wrist 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, face and neck Chronic pain Chronic pain syndrome Contusion Depression Diabetes (09/20/15) Diabetes Diabetes type 2, uncontrolled Fall against object Gall bladder disease GERD (gastroesophageal reflux disease) High blood pressure (09/20/15) Hyperlipidemia Hypertension Impacted cerumen, bilateral Inguinal hernia Insomnia Joint pain Lipoma Medicare annual wellness visit, initial Nicotine addiction Obesities, morbid Pain, foot Pancreatitis Peripheral neuropathy Peripheral neuropathy Pneumonia Polyneuropathy Post-cholecystectomy syndrome Right wrist pain Right wrist pain Scalp wound Scalp wound Sebaceous cyst Shortness of breath Toenail deformity Split toenails Type 2 diabetes mellitus with pressure callus Unilateral primary osteoarthritis, right hip Surgical History History of abdominal surgery History of cholecystectomy 04/2004 History of esophagogastroduodenoscopy (EGD) (06/27/16) History of inguinal herniorrhaphy History of lumbar surgery decompression History of shoulder surgery right decompression History of total right hip arthroplasty Family History Father Malignant neoplasm History of coronary artery stent placement Cardiac disease Diabetes mellitus Grandmother Abnormality of colon Malignant neoplasm Diabetes mellitus Mother Cardiac disease Brother Diabetes mellitus Social History marital status: alcohol intake frequency: a few times a month substance use type: does not use additional history: chewing tobacco - 1 can q2d MEDS/ALLERGIES Home Medications and Allergies Home Medications Medication Instructions Recorded Confirmed Type diphenoxylate-atropine 2.5 1 tab PO Q6H PRN tab 11/25/19 01/16/21 History mg-0.025 mg tablet glucagon (human recombinant) 1 mg 1 mg SUB-Q Q20M PRN #1 each 11/25/19 01/16/21 Rx solution for injection metoclopramide HCl 10 mg tablet 10 mg PO BID PRN #60 tab 09/10/20 01/16/21 Rx empagliflozin 25 mg tablet 25 mg PO QDAY #90 tab 10/01/20 01/16/21 Rx gabapentin 300 mg capsule 600 mg PO TID 90 Days #540 cap 10/22/20 01/16/21 Rx insulin glargine 100 unit/mL (3 80 unit SUBCUT QPM #15 ml 11/12/20 01/16/21 Rx mL) subcutaneous pen lisinopril 10 mg tablet 10 mg PO QDAY #90 tab 11/22/20 01/16/21 Rx Allergies Allergy/AdvReac Type Severity Reaction Status Date / Time morphine Allergy Intermediate Hallucinati Verified 01/16/21 11:03 ng glipizide AdvReac Unknown Severe Verified 01/16/21 11:03 stomach pain dissolvable sutures AdvReac Unknown Swelling/in Uncoded 11/12/20 14:47 fection Physical Examination Vital Signs Vital signs: Temp Pulse Resp BP Pulse Ox 97.3 F 77 16 154/84 98 01/17/21 12:00 01/17/21 12:00 01/17/21 12:00 01/17/21 12:00 01/17/21 12:00 General physical appearance General physical exam: well developed, well nourished, moderate pain (Tender over ulcer site and around callus. NEGATIVE for purulence, crepitus or odor. ) and obese (Super morbid obese.) Eyes Eye exam: PERRL and normal ocular movement ENT ENT exam: normal pinna, normal mucosa and no congestion Head Head exam IM: Present atraumatic and normocephalic Head exam expanded IM: Present laceration (Chronic scalp wound over vortex. ( Iatrogenis due to pruritus ) R/O skin cancer. Will need biospy later. ) Neck Neck exam: no masses, no lymphadenopathy and no venous distension Cardiovascular Cardiovascular exam IM: Present normal rate and rhythm Respiratory Respiratory exam: normal expansion, normal respiratory effort and clear to aus cultation Abdomen Abdomen: Present soft, non tender and bowel sounds Integumentary Integumentary: Present other (Open wound under LEFT great toe MPJ with thick marginal callus. Wound base has pale granulation. There is erythema , warmth around wound and base of toe spreading proximally .) Neurologic Neurologic: Present other (Peripheral Neuropathy) Musculoskeletal Musculoskeletal: Present other (Stage 3 DFU under Left great toe MPJ.) Psychiatric Psychiatric: Present other (Patient asks repetative questions and wants his toe to be cut out now to get rid of pain and start walking again. He is NON COMPLIANT with instructions about NWB on foot. Needs Physical Therapy evaluation for off loading and usin a foot business administration program chair / scooter. ) Results Labs Result diagrams: 01/16/21 13:02 Labs: Abnormal lab results 01/16/21 01/16/21 01/17/21 Range/Units 20:09 20:10 06:50 POC Hct 38 L (41-55) % POC Glucose 216 H (70-105) mg/dL Hemoglobin A1c 9.8 H (4.0-6.0) % Hgb POC WB Ioniz Calcium 1.06 L (1.16-1.32) mmEq/L Procalcitonin 0.11 H (<0.10) ng/mL Diabetes panel 01/16/21 Range/Units 20:09 Hemoglobin A1c 9.8 H (4.0-6.0) % Hgb All other labs normal. A/P Narrative A/P Narrative: Assessment: Diabetes with foot ulcer and cellulitis LEFT foot 1st toe Uncontrolled Diabetes Peripheral neuropathy Morbid obesity Chronic scalp wound / ulcer ( iatrogenic vs skin cancer ) For Biopsy later. Tobacco / nicotine dependence Plan: Local wound care ( [facility] with VASYOSI ) Physical Therapy for OFF LOADING Infectiosus Disease consult Dr. Meyers for recommendations about roasterman antibiotics Will monitor progress FIRST before recommendations Regarding OR debridement / biopsy etc. THANK you Dr. GONZALEZ. Will be following patient with Hospitalist. Time Spent With Patient Time: Total time spent is greater than 50% in coordination of care (as documented) at patient's floor/unit and/or counseling patient:
--- NOTE | 2021-01-17 19:28 | Infectious Disease Consult ---
HPI Data of Consult Consult date: 01/17/21 Primary Care Provider: Neri Zuniga DO Consult Narrative Patient Information: Note initiated : 01/17/21 at 7:23 pm Service Date, if different from initiated Date: [01/17/21] Patient: Alfredo Tillman 56 y/o M admitted on 01/16/21 for left foot wound. Chief Complaint: [left foot pain] Alfredo is a 56-year-old morbidly obese diabetic with peripheral neuropathy. He is vague on the history of left foot ulcer. He states that he has had an ulcer present for approximately 2 to 3 years. It has worsened over the last 8 months. He has seen podiatry. No complaints of fevers or chills. Over the last month he has had increasing foul-smelling drainage from the left foot wound. He currently rates the pain in the left foot at 7 out of 10. No fevers or chills. He was admitted in the hospital yesterday placed on Vanco and Zosyn. Hemoglobin A1c 9.8 with average glucose 235. A wound culture was obtained by Dr. Banda today no organisms seen. Culture is pending. Blood cultures on January 15 and January 16 -. He has a previous leg culture May 20, 2020 that grew MSSA and group B strep. No history of MRSA. X-ray of the left foot on January 15 showed no gas or osteomyelitis. There was a screw present in the left third metatarsal. Dr Gonzalez asked for consultation. cc:: CC: Filipe Gonzalez MD Constitutional Additional comments: General: He did ambulate to the bathroom. No acute respiratory distress. HEENT: He had trauma to the top part of his head approximately 8 months ago. He caught the top part of gate as horse attempted to headbutt him. Lungs: No cough or shortness of breath. Cardiac: No history of heart murmur. No chest pain. GI: No abdominal pain or diarrhea. no dysuria. No history of kidney stones. Extremities: Chronic appearing rash over his anterior shins. He attributes part of it to his 2 dogs scratching him. Left foot pain as above. PFSH PFSH All Active Problems (Updated 01/17/21 @ 19:39 by Nam Meyers MD) Scalp laceration (Acute) Diabetic ulcer of toe of left foot (Acute) Type 2 diabetes mellitus with diabetic neuropathy (Acute) Cellulitis (Acute) Panic attack (Acute) Diabetic ulcer of ankle associated with diabetes mellitus due to underlying condition, with fat layer exposed (Acute) Diabetic gastroparesis (Acute) Chronic pain (Chronic) Chronic pain syndrome (Chronic) Depression (Chronic) Nicotine addiction (Chronic) GERD (gastroesophageal reflux disease) (Chronic) Hyperlipidemia (Chronic) Polyneuropathy (Chronic) Medicare annual wellness visit, initial (Chronic) Cellulitis (Chronic) Diabetic necrobiosis lipoidica (Chronic) Right wrist pain (Chronic) Hypertension (Chronic) Right wrist pain (Chronic) Joint pain (Chronic) Peripheral neuropathy (Chronic) Scalp wound (Chronic) Arthritis of right wrist (Chronic) Scalp wound (Chronic) Type 2 diabetes mellitus with pressure callus (Chronic) Peripheral neuropathy (Chronic) Gastroenteritis (Chronic) Abdominal pain (Chronic) Fecal retention (Chronic) Contusion of left hip (Chronic) Fall (Chronic) Blood in feces (Chronic) Diabetes type 2, uncontrolled (Chronic) Left shoulder strain (Chronic) Pancreatitis (Chronic) Obesities, morbid (Chronic) Post-cholecystectomy syndrome (Chronic) Abdominal pain, chronic, right lower quadrant (Chronic) Unilateral primary osteoarthritis, right hip (Chronic) 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, face and neck (Chronic) Impacted cerumen, bilateral (Chronic) Acute bronchitis (Chronic) Acute upper respiratory infection (Chronic) Toenail deformity (Chronic) Pain, foot (Chronic) Insomnia (Chronic) High blood pressure (Chronic 09/20/15) Gall bladder disease (Chronic) Lipoma (Chronic) Shortness of breath (Chronic) Inguinal hernia (Chronic) Pneumonia (Chronic) Abscess (Chronic) Fall against object (Chronic) Contusion (Chronic) Sebaceous cyst (Chronic) Medical History Abdominal pain, chronic, right lower quadrant Abscess Head-behind right ear Acute bronchitis Acute upper respiratory infection Arthritis of right wrist 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, face and neck Chronic pain Chronic pain syndrome Contusion Depression Diabetes (09/20/15) Diabetes Diabetes type 2, uncontrolled Fall against object Gall bladder disease GERD (gastroesophageal reflux disease) High blood pressure (09/20/15) Hyperlipidemia Hypertension Impacted cerumen, bilateral Inguinal hernia Insomnia Joint pain Lipoma Medicare annual wellness visit, initial Nicotine addiction Obesities, morbid Pain, foot Pancreatitis Peripheral neuropathy Peripheral neuropathy Pneumonia Polyneuropathy Post-cholecystectomy syndrome Right wrist pain Right wrist pain Scalp wound Scalp wound Sebaceous cyst Shortness of breath Toenail deformity Split toenails Type 2 diabetes mellitus with pressure callus Unilateral primary osteoarthritis, right hip Surgical History History of abdominal surgery History of cholecystectomy 04/2004 History of esophagogastroduodenoscopy (EGD) (06/27/16) History of inguinal herniorrhaphy History of lumbar surgery decompression History of shoulder surgery right decompression History of total right hip arthroplasty Family History Father Malignant neoplasm History of coronary artery stent placement Cardiac disease Diabetes mellitus Grandmother Abnormality of colon Malignant neoplasm Diabetes mellitus Mother Cardiac disease Brother Diabetes mellitus Social History (Updated 01/17/21 @ 19:30 by Nam Meyers MD) marital status: occupation: Retired 4 years 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 pets and animals: Yes (2 dogs.) pets and animals: dog(s) alcohol intake frequency: a few times a month substance use type: does not use additional history: chewing tobacco - 1 can q2d MEDS/ALLERGIES Home Medications and Allergies Home Medications Medication Instructions Recorded Confirmed Type diphenoxylate-atropine 2.5 1 tab PO Q6H PRN tab 11/25/19 01/16/21 History mg-0.025 mg tablet glucagon (human recombinant) 1 mg 1 mg SUB-Q Q20M PRN #1 each 11/25/19 01/16/21 Rx solution for injection metoclopramide HCl 10 mg tablet 10 mg PO BID PRN #60 tab 09/10/20 01/16/21 Rx empagliflozin 25 mg tablet 25 mg PO QDAY #90 tab 10/01/20 01/16/21 Rx gabapentin 300 mg capsule 600 mg PO TID 90 Days #540 cap 10/22/20 01/16/21 Rx insulin glargine 100 unit/mL (3 80 unit SUBCUT QPM #15 ml 11/12/20 01/16/21 Rx mL) subcutaneous pen lisinopril 10 mg tablet 10 mg PO QDAY #90 tab 11/22/20 01/16/21 Rx Allergies Allergy/AdvReac Type Severity Reaction Status Date / Time morphine Allergy Intermediate Hallucinati Verified 01/16/21 11:03 ng glipizide AdvReac Unknown Severe Verified 01/16/21 11:03 stomach pain dissolvable sutures AdvReac Unknown Swelling/in Uncoded 11/12/20 14:47 fection Physical Examination Vital Signs Vital signs: Temp Pulse Resp BP Pulse Ox 98.1 F 84 18 122/70 97 01/17/21 16:00 01/17/21 16:00 01/17/21 16:00 01/17/21 16:00 01/17/21 16:00 Additional Exam Additional exam: General: No acute respiratory distress. HEENT: Cheeks are flushed. Mouth is moist. Top of the scalp reveals an oblong open wound with dark crust centrally. No surrounding erythema. Slight bloody discharge. Neck is full. Lungs are clear bilateral without rales wheezing or rhonchi. Heart: Regular rate and rhythm without murmur. Abdomen: Morbidly obese. Extremities: Chronic appearing rash over bilateral shins. Excoriations present. Appears like diabetic necrobiosis lipoidica. No lower extremity edema. Feet are dirty and callused. Fissuring present over heels. Left first metatarsal head ulceration approximately 2 cm in diameter. No fluctuance mild tenderness. It probes negative for bone. I do not appreciate any drainage. Results Laboratory Findings CBC and BMP: 01/16/21 13:02 Abnormal lab findings: Abnormal Labs 01/16/21 01/16/21 01/16/21 13:02 13:02 13:02 POC Hct RDW 15.0 H MPV 11.7 H ESR 84 H VBG Lactic Acid 2.9 H POC Glucose 262 H Hemoglobin A1c POC WB Ioniz Calcium 1.13 L C-Reactive Protein 3.90 H Procalcitonin 01/16/21 01/16/21 01/17/21 20:09 20:10 06:50 POC Hct 38 L RDW MPV ESR VBG Lactic Acid POC Glucose 216 H Hemoglobin A1c 9.8 H POC WB Ioniz Calcium 1.06 L C-Reactive Protein Procalcitonin 0.11 H Microbiology: Microbiology 01/17/21 10:27 Foot - Left Gram Stain - Preliminary 01/16/21 13:47 Blood Blood Culture - Preliminary 01/16/21 13:02 Blood Blood Culture - Preliminary X-ray shows a screw in the left third metatarsal on January 15. No gas or osteomyelitis observed. A1c 9.8 average glucose 235. Yesterday white count 7.6 with platelet count 226. On January 15 H&H platelet count 211 white count 8.4 sed rate 86. On January 16 CRP 3.9. Glucose 262 creatinine 0.6 potassium 4.7. January 15 and January 16 blood cultures negative. January 17 specimen from left foot wound no organisms seen culture pending. January 17 glucose 216 creatinine 0.6. He did have a leg specimen for culture May 20, 2020 that grew group B strep and MSSA. A/P Assessment and plan (1) Cellulitis: Status: Acute Comment: Alfredo is a 56-year-old morbidly obese poorly controlled diabetic who is admitted yesterday in the hospital for left foot cellulitis. X-ray did not show osteomyelitis but I have concerns. He is currently day 2 Vanco plus Zosyn. No history of MRSA. Wound culture pending. I will obtain a MRSA screen. Maintain Zosyn but increase dose to 4.5 g IV every 6 hours. (2) Diabetic ulcer of toe of left foot: Status: Acute Comment: Concern for osteomyelitis of the left foot. Obtain MRI without contrast. (3) Type 2 diabetes mellitus with diabetic neuropathy: Status: Acute Comment: Pain with peripheral neuropathy. However, left foot pain increased greater than right secondary to infection and ulcer. (4) Diabetic necrobiosis lipoidica: Status: Chronic Comment: Chronic appearing rash over bilateral shins. Excoriations present that he attributes to dog scratches. Duration of Zosyn dependent on MRI results. Follow-up on MRSA screen and wound culture. Please call for questions. Time Spent With Patient Time: Total time spent is greater than 50% in coordination of care (as documented) at patient's floor/unit and/or counseling patient:
[2021-01-17] MEDS: SENNOSIDES 1 TABLET PO SCH (21:06)
[2021-01-17] MEDS: PIPERACILLIN SODIUM/TAZOBACTAM 4.5 GM in DEXTROSE 5% IN WATER 50 ML IV SCH (23:16)
[2021-01-18] MEDS: oxyCODONE/APAP 5/325MG TABLET PO PRN ×4 (03:46→18:50)
[2021-01-18] MEDS: 0.9 % SODIUM CHLORIDE 10 ML SYRINGE IV SCH ×3 (04:36→21:28)
[2021-01-18] MEDS: PIPERACILLIN SODIUM/TAZOBACTAM 4.5 GM in DEXTROSE 5% IN WATER 50 ML IV SCH ×3 (05:51→17:38)
[2021-01-18] MEDS: INSULIN LISPRO 1 UNIT/0.01 ML UNIT SQ SCH ×4 (07:39→20:33)
[2021-01-18] MEDS: DOCUSATE SODIUM 100 MG CAPSULE PO SCH ×2 (09:24→20:32)
[2021-01-18] MEDS: LISINOPRIL 10 MG TABLET PO SCH (09:24)
[2021-01-18] MEDS: ENOXAPARIN 40 MG/0.4 ML SYRINGE SQ SCH (09:24)
[2021-01-18] MEDS: GABAPENTIN 300 MG CAPSULE PO SCH ×3 (09:24→20:32)
--- NOTE | 2021-01-18 09:27 | Internal Med Progress Note ---
SUBJECTIVE Subjective Patient information: Note initiated : 01/18/21 at 9:25 am Service Date, if different from initiated Date: [] Patient: Alfredo Tillman 56 y/o M admitted on 01/16/21 for left foot wound. Chief Complaint: [left 1st toe base diabetic foot ulcer] History of present illness: Mr. Tillman is a 56 year old M with type 2 diabetes mellitus with associated diabetic neuropathy, essential hypertension, morbid obesity, presenting with diabetic foot infections of the left first toe base of the toe. Patient stated that he has been having the left first toe based diabetic infection for as long as he can remember probably for years, and he has been seeing Dr. Campos at the wound clinic. He presented to our ED yesterday as well as today for uncontrolled pain associated with that wound. He is currently complaining of 9 out of 10, sharp and stabbing pain localized in his left first toe base. He is also complaining of decreased appetite and subjective fever and chills and nausea and vomiting associated with the pain. Vital signs at ED presentation resulted unremarkable. Labs were significant for lack of leukocytosis with WBC 7.6. Lactic acid level elevated at 2.9. 01/17: Blood and wound cultures no growth to date. Afebrile overnight. Dr. Campos recs. against surgery, recs. wound care. c/o 8/10 sharp stabbing pain of the left 1st toe base. Denies fever or chills. Denies nausea or vomiting. Good appetite. Denies scalp pain. 01/18: Blood and wound cultures no growth to date. Afebrile overnight. c/o 8/10 sharp stabbing pain of the left 1st toe base. Denies fever or chills. Denies nausea or vomiting. Good appetite. Denies scalp pain. Constitutional Vitals: Vital Signs Temp Pulse Resp BP Pulse Ox 36.4 C 79 16 151/93 96 01/18/21 07:09 01/18/21 07:09 01/18/21 07:09 01/18/21 07:09 01/18/21 07:09 Period Temp Pulse Resp BP Sys/Sanders Pulse Ox Last 24 Hr 36.3 C-37.1 C 77-89 12-18 122-157/70-93 95-98 Intake and Output 01/17/21 01/18/2101/18/21 21:59 05:59 13:59 Intake Total 3080 350 650 Output Total 900 700 350 Balance 2180 -350 300 Weight 127.233 kg Intake & Output: Intake & Output 01/17/21 01/18/21 01/18/21 21:59 05:59 13:59 Intake Total 3080 350 650 Output Total 900 700 350 Balance 2180 -350 300 Weight 127.233 kg Intake: IV 1050 50 50 Sodium Chloride 0.9% 1,000 ml @ 1000 100 mls/hr IV .Q10H MANJU Rx#: [id number] Zosyn 4.5 gm In Dextrose 5% in 50 50 50 Water 50 ml @ 100 mls/hr IV Q6H MANJU Rx#:[id number] Oral 2030 300 600 Output: Void Amount 900 700 350 Other: Meal Dinner Percent of Meal Consumed 100% Feeding Ability Independent Urine Appearance Clear Clear Clear Urine Color Bright Yellow Bright Yellow Dark Yellow Urine Odor Normal # Voids 3 General appearance: cooperative and no acute distress Head Head exam: Absent atraumatic, normal inspection and normocephalic Additional comments: Scalp laceration with eschar in the center, on parietal central aspect, measuring 2x3 inch. Eye Eye exam: Present EOMI and PERRL ENT ENT exam: Present mucous membranes moist, normal exam and normal external ear exam Neck Neck exam: Present normal inspection; Absent lymphadenopathy, tenderness and thyromegaly Respiratory Respiratory exam: Absent accessory muscle use, respiratory distress and wheezes Cardiovascular Cardiovascular exam: Present normal rate and rhythm; Absent JVD GI/Abdominal GI/Abdominal exam: Present normal bowel sounds and soft; Absent organomegaly and tenderness Rectal Rectal exam: Present deferred Extremities Exam Extremities exam: Present full ROM and normal capillary refill; Absent normal inspection and tenderness Additional comments: left 1st toe base 0.5X1 inch diabetic ulcer with foul smelling, erythema, tenderness to palpation, and warmth to touch. No pustular discharge or swelling. Neurological Exam Neurological exam: Present alert, CN II-XII intact and oriented X3; Absent motor sensory deficit Psychiatric Psychiatric exam: Present normal affect and normal mood; Absent anxious and depressed Skin Skin exam: Present dry; Absent intact Additional comments: left 1st toe base 0.5X1 inch diabetic ulcer with foul smelling, erythema, tenderness to palpation, and warmth to touch. No pustular discharge or swelling. Scalp laceration with eschar in the center, on parietal central aspect, measuring 2x3 inch. OBJ DATA Labs CBC & Chem 7: 01/16/21 13:02 01/18/21 09:18 Labs: Abnormal Lab Results 01/17/21 01/16/21 01/16/21 06:50 20:10 20:09 POC Hct 38 L RDW MPV ESR VBG Lactic Acid POC Glucose 216 H Hemoglobin A1c 9.8 H POC WB Ioniz Calcium 1.06 L C-Reactive Protein Procalcitonin 0.11 H 01/16/21 01/16/21 01/16/21 13:02 13:02 13:02 POC Hct RDW 15.0 H MPV 11.7 H ESR 84 H VBG Lactic Acid 2.9 H POC Glucose 262 H Hemoglobin A1c POC WB Ioniz Calcium 1.13 L C-Reactive Protein 3.90 H Procalcitonin Meds: Medications Acetaminophen (Acetaminophen 325 Mg Tablet) 650 mg PO Q6HP PRN; Protocol PRN Reason: Per Pain Protocol/Fever > 101 Dextrose (Dextrose 50% 50 Ml Vial) 0 ml IV UD PRN PRN Reason: Hypoglycemia Diagnostic Test (Pha) (Accu-Chek 1 Each Strip) 1 each FS ACHS [facility] Last Admin: 01/18/21 07:35 Dose: 1 each Documented by: Diphenoxylate HCl/Atropine (Diphenoxylate Hcl/Atropine 1 Tablet) 1 tab PO Q6HP PRN PRN Reason: Diarrhea Docusate Sodium (Docusate Sodium 100 Mg Capsule) 100 mg PO BID [facility] Last Admin: 01/17/21 21:06 Dose: Not Given Documented by: Enoxaparin Sodium (Enoxaparin 40 Mg/0.4 Ml Syringe) 40 mg SQ DAILY [facility] Gabapentin (Gabapentin 300 Mg Capsule) 600 mg PO TID [facility] Last Admin: 01/17/21 21:08 Dose: 600 mg Documented by: Glucose (Dextrose 31 Gm Oral.Susp) 15 gm PO PRN PRN PRN Reason: Hypoglycemia Hydromorphone HCl (Hydromorphone 1 Mg/Ml Syringe) 1 mg IV Q4HP PRN; Protocol PRN Reason: Per Pain Protocol Last Admin: 01/17/21 23:16 Dose: 1 mg Documented by: Sodium Chloride (Sodium Chloride 0.9%) 1,000 mls @ 100 mls/hr IV .Q10H [facility] Last Admin: 01/17/21 23:20 Dose: 100 mls/hr Documented by: Piperacillin Sod/Tazobactam (Sod 4.5 gm/ Dextrose) 50 mls @ 100 mls/hr IV Q6H [facility]; Protocol Last Infusion: 01/18/21 06:41 Dose: Infused Documented by: Insulin Human Lispro (Insulin Lispro 1 Unit/0.01 Ml Unit) 0 unit SQ ACHS [facility]; Protocol Last Admin: 01/18/21 07:39 Dose: 6 units Documented by: Lisinopril (Lisinopril 10 Mg Tablet) 10 mg PO QDAY [facility] Ondansetron HCl (Ondansetron 4 Mg/2 Ml Vial) 4 mg IV Q6HP PRN PRN Reason: Nausea And Vomiting Last Admin: 01/17/21 13:37 Dose: 4 mg Documented by: Oxycodone/Acetaminophen (Oxycodone/Apap 5/325mg Tablet) 1 tab PO Q4HP PRN; Protocol PRN Reason: Per Pain Protocol Last Admin: 01/18/21 07:32 Dose: 1 tab Documented by: Senna (Sennosides 1 Tablet) 2 tab PO HS [facility] Last Admin: 01/17/21 21:06 Dose: Not Given Documented by: Sodium Chloride (0.9 % Sodium Chloride 10 Ml Syringe) 10 ml IV Q8 [facility] Last Admin: 01/18/21 04:36 Dose: Not Given Documented by: Zolpidem Tartrate (Zolpidem 5 Mg Tablet) 5 mg PO HSP PRN PRN Reason: Insomnia A/P Assessment and plan (1) Type 2 diabetes mellitus with diabetic neuropathy: Status: Acute Comment: Pain with peripheral neuropathy. However, left foot pain increased greater than right secondary to infection and ulcer. (2) Diabetic ulcer of toe of left foot: Status: Acute Comment: Concern for osteomyelitis of the left foot. Obtain MRI without contrast. (3) Hypertension: Status: Chronic Qualifiers: Hypertension type: essential hypertension Qualified Code(s): I10 - Essential (primary) hypertension (4) Obesities, morbid: Status: Chronic (5) Scalp laceration: Status: Acute Narrative A/P Narrative: Assessment and Plans: 1. Diabetic foot of the left 1st toe base associated with type 2 diabetes with diabetic neuropathy: Stays in inpatient med surg Consult wound care team Dr. Campos, recs. appreciated. No surgery, recs. wound care only at this point Blood cultures X2, no growth to date Wound culture, no growth to date Serial lactic acid Procalcitonin 0.11 elevated CRP d/c Vancomycin Zosyn 4.5gm IV q6hr Tylenol PRN fever and mild pain Percocet PRN moderate pain Dilaudid IV PRN severe pain Gabapentin cbc w/ auto diff in the AM to trend WBC level HgA1c 9.8 Jardiance Lantus 80 unit HS High dose correctional scale insulin AC HS Accu Chek AC HS Hypoglycemia protocol Diabetic diet MRI w/o left foot to rule out osteomyelitis 2. 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 Essential HTN: Continue Lisinopril 4. Scalp laceration: Wound care as per wound care team Dr. Campos, recs. appreciated Continue antibiotics Vancomycin and Zosyn as part of the treatment for diabetic foot, see #1 GI ppx: not currently indicated DVT ppx: Lovenox Code status: Full Prognosis: stable Disposition: inpatient med surg Time Spent With Patient Time: Total time spent is greater than 50% in coordination of care (as documented) at patient's floor/unit and/or counseling patient: QUALITY VTE Deep Vein Thrombosis/Pulmonary Embolism Present on Admission: No
[2021-01-18] MEDS: HYDROmorphone 1 MG/ML SYRINGE IV PRN ×3 (09:38→20:33)
[2021-01-18 10:18] LABS: Basophils # (Auto) 0.03 K/mcL (0.00-0.20); Basophils % (Auto) 0.6 % (0.0-2.0); Eosinophils # (Auto) 0.15 K/mcL (0.00-0.70); Eosinophils % (Auto) 2.9 % (0.0-7.0); Hematocrit 40.2 % (41.0-55.0); Hemoglobin 12.7 g/dL (13.5-16.5); Lymphocytes % (Auto) 31.3 % (15.0-49.0); Mean Cell Volume 95.3 fL (80.0-100.0); Mean Corpuscular HGB Conc 31.6 g/dL (31.0-36.0); Mean Platelet Volume 11.4 fL (7.4-10.4); Monocytes % (Auto) 5.9 % (1.0-12.0); Neutrophils % (Auto) 59.3 % (38.0-78.0); Platelet Count 183 K/mcL (140-440); RBC 4.22 M/mcL (4.50-5.90); Red Cell Distribution Width 15.3 % (11.5-14.5); WBC 5.1 K/mcL (4.5-11.0)
[2021-01-18] MEDS: 0.9 % SODIUM CHLORIDE 1,000 ML IV SCH ×2 (10:22→20:34)
[2021-01-18 10:32] LABS: ALT/SGPT 37 U/L (<40); AST/SGOT 43 U/L (<40); Albumin 3.1 gm/dL (3.2-5.2); Albumin/Globulin Ratio 0.8 (1.0-2.3); Alkaline Phosphatase 93 U/L (39-117); Bilirubin,Total 0.4 mg/dL (0.1-1.0); Blood Urea Nitrogen 10 mg/dL (6-20); Calcium 9.2 mg/dL (8.6-10.4); Carbon Dioxide 24 mmol/L (22-30); Chloride 100 mmol/L (96-108); Globulin 3.8 gm/dL (2.2-3.7); Glomerular Filtration Rate 105; Glucose 201 mg/dL (70-105)
--- NOTE | 2021-01-18 10:51 | General Surgery Progress Note ---
SUBJECTIVE Subjective Patient information: Note initiated : 01/18/21 at 10:44 am Service Date, if different from initiated Date: [] Patient: Alfredo Tillman 56 y/o M admitted on 01/16/21 for left foot wound. Chief Complaint: [] Additional PMFSH (Level 3 Only): Patient had an uneventful night. He is understanding the underlying comorbid issues and chronicity of his wounds. Wants all this to be over soon. Constitutional Vitals: Vital Signs Temp Pulse Resp BP Pulse Ox 97.5 F 79 16 151/93 96 01/18/21 07:09 01/18/21 07:09 01/18/21 07:09 01/18/21 07:09 01/18/21 07:09 Period Temp Pulse Resp BP Sys/Sanders Pulse Ox Last 24 Hr 97.3 F-98.7 F 77-89 12-18 122-157/70-93 95-98 Intake and Output 01/17/21 01/18/21 01/18/21 21:59 05:59 13:59 Intake Total 3080 350 1650 Output Total 900 700 350 Balance 2180 -350 1300 Weight 280 lb 8 oz Intake & Output: Intake & Output 01/17/21 01/18/21 01/18/21 21:59 05:59 13:59 Intake Total 3080 350 1650 Output Total 900 700 350 Balance 2180 -350 1300 Weight 280 lb 8 oz Intake: IV 1050 50 1050 Sodium Chloride 0.9% 1,000 ml @ 1000 1000 100 mls/hr IV .Q10H MANJU Rx#: [id number] Zosyn 4.5 gm In Dextrose 5% in 50 50 50 Water 50 ml @ 100 mls/hr IV Q6H MANJU Rx#:[id number] Oral 2030 300 600 Output: Void Amount 900 700 350 Other: Meal Dinner Percent of Meal Consumed 100% Feeding Ability Independent Urine Appearance Clear Clear Clear Urine Color Bright Yellow Bright Yellow Dark Yellow Urine Odor Normal # Voids 3 Exam: AVSS. No changes in MARY. Left foot DFU site examined. Granulating base. NO undermining NO purulence. Cultures: Negative thus far. MRSA screen pending. MRI pending. A/P Narrative A/P Narrative: Assessment: Patient seen with Hari POLK. Progress reviewed with Dr. Gonzalez, Hospitalist. Appreciate I D Consult from Dr. Meyers. Satisfactory progress. Plan: Continue current treatment. Physical Therapy consult after MRI foot . Following patient . Time Spent With Patient Time: Total time spent is greater than 50% in coordination of care (as documented) at patient's floor/unit and/or counseling patient: Total time spent with greater than 50% in coordination of care (as documented) at patient's floor/unit and/or counseling patient:: 25 - 35 minutes
--- NOTE | 2021-01-18 12:22 | Magnetic Resonance Report ---
INDICATION: left foot first met ulcer TECHNIQUE: Sagittal, axial, coronal images of the left foot COMPARISON: Plain film examination dated 11/21/2020 and 01/15/2021 FINDINGS: There is susceptibility artifact related to a screw in the distal left third metatarsal. Small amount of fluid dorsal to the left first metatarsal phalangeal joint. No definite intra-articular effusion. There is no bone marrow edema. No cortical destruction. No definite osteomyelitis. Second through fifth metatarsals and second through fifth digits are negative. Tarsal bones are negative. No soft tissue mass. IMPRESSION: 1. Negative examination for osteomyelitis. First metatarsal and phalanges are negative. No bone marrow edema or bone destruction 2. Small amount of fluid along the dorsal aspects of the first metatarsal phalangeal joint. Interpreted and Authenticated by: Neri Mercer 01/18/21
--- NOTE | 2021-01-18 19:22 | Internal Med Progress Note ---
SUBJECTIVE Subjective Patient information: Note initiated : 01/19/21 at 7:14 pm Service Date, if different from initiated Date: [] Patient: Alfredo Tillman 56 y/o M admitted on 01/16/21 for left foot wound. Chief Complaint: [] Interval history: History of present illness: Mr. Tillman is a 56 year old M with type 2 diabetes mellitus with associated diabetic neuropathy, essential hypertension, morbid obesity, presenting with diabetic foot infections of the left first toe base of the toe. Patient stated that he has been having the left first toe based diabetic infection for as long as he can remember probably for years, and he has been seeing Dr. Campos at the wound clinic. He presented to our ED yesterday as well as today for uncontrolled pain associated with that wound. He is currently complaining of 9 out of 10, sharp and stabbing pain localized in his left first toe base. He is also complaining of decreased appetite and subjective fever and chills and nausea and vomiting associated with the pain. Vital signs at ED presentation resulted unremarkable. Labs were significant for lack of leukocytosis with WBC 7.6. Lactic acid level elevated at 2.9. 01/17: Blood and wound cultures no growth to date. Afebrile overnight. Dr. Marline starkey recs. against surgery, recs. wound care. c/o 8/10 sharp stabbing pain of the left 1st toe base. Denies fever or chills. Denies nausea or vomiting. Good appetite. Denies scalp pain. 01/18: Blood and wound cultures no growth to date. Afebrile overnight. c/o 8/10 sharp stabbing pain of the left 1st toe base. Denies fever or chills. Denies nausea or vomiting. Good appetite. Denies scalp pain. 01/19: MRI negative for osteomyelitis, wound culture grew Strep agalactiae and E coli, 1/2 blood culture grew coagulase negative staph-likely skin contaminant. Review of Systems: no fevers or chills, positive for foot pain. Physical Exam Head: Atraumatic, normal inspection. Eyes: normal appearance, no scleral icterus. Neck: full ROM Respiratory: no respiratory distress. Cardiovascular: normal rate and rhythm, S1, S2. GI/Abdominal: soft, nontender, no guarding. Extremities: left foot wound covered with bandage Neurological: CN II-XII intact, intact motor, intact sensation. Psychiatric: normal mood. Skin: warm, normal color Constitutional Vitals: Vital Signs Temp Pulse Resp BP Pulse Ox 97 F 78 18 141/82 96 01/18/21 15:56 01/18/21 15:56 01/18/21 15:56 01/18/21 15:56 01/18/21 15:56 Period Temp Pulse Resp BP Sys/Sanders Pulse Ox Last 24 Hr 97 F-98.7 F 78-89 12-20 141-157/80-93 95-97 Intake and Output 01/18/21 01/18/21 01/18/21 05:59 13:59 21:59 Intake Total 350 1940 530 Output Total 700 350 300 Balance -350 1590 230 Intake & Output: Intake & Output 01/18/21 01/18/21 01/18/21 05:59 13:59 21:59 Intake Total 350 1940 530 Output Total 700 350 300 Balance -350 1590 230 Intake: IV 50 1100 50 Sodium Chloride 0.9% 1,000 ml @ 1000 100 mls/hr IV .Q10H [facility] Rx#: [id number] Zosyn 4.5 gm In Dextrose 5% in 50 100 50 Water 50 ml @ 100 mls/hr IV Q6H [facility] Rx#:[id number] Oral 300 840 480 Output: Void Amount 700 350 300 Other: Meal Lunch Dinner Percent of Meal Consumed 100% 100% Urine Appearance Clear Clear Clear Urine Color Bright Yellow Dark Yellow Bright Yellow Urine Odor Normal OBJ DATA Labs CBC & Chem 7: 01/18/21 09:19 01/18/21 09:18 Labs: Abnormal Lab Results 01/18/21 01/18/21 01/17/21 09:19 09:18 06:50 RBC 4.22 L Hgb 12.7 L Hct 40.2 L POC Hct 38 L RDW 15.3 H MPV 11.4 H ESR VBG Lactic Acid Glucose 201 H POC Glucose 216 H Hemoglobin A1c POC WB Ioniz Calcium 1.06 L AST 43 H C-Reactive Protein Albumin 3.1 L Globulin 3.8 H Albumin/Globulin Ratio 0.8 L Procalcitonin 01/16/21 01/16/21 01/16/21 20:10 20:09 13:02 RBC Hgb Hct POC Hct RDW MPV ESR VBG Lactic Acid Glucose POC Glucose 262 H Hemoglobin A1c 9.8 H POC WB Ioniz Calcium 1.13 L AST C-Reactive Protein 3.90 H Albumin Globulin Albumin/Globulin Ratio Procalcitonin 0.11 H 01/16/21 01/16/21 13:02 13:02 RBC Hgb Hct POC Hct RDW 15.0 H MPV 11.7 H ESR 84 H VBG Lactic Acid 2.9 H Glucose POC Glucose Hemoglobin A1c POC WB Ioniz Calcium AST C-Reactive Protein Albumin Globulin Albumin/Globulin Ratio Procalcitonin Meds: Medications Acetaminophen (Acetaminophen 325 Mg Tablet) 650 mg PO Q6HP PRN; Protocol PRN Reason: Per Pain Protocol/Fever > 101 Dextrose (Dextrose 50% 50 Ml Vial) 0 ml IV UD PRN PRN Reason: Hypoglycemia Diagnostic Test (Pha) (Accu-Chek 1 Each Strip) 1 each FS ACHS [facility] Last Admin: 01/18/21 17:03 Dose: 1 each Documented by: Diphenoxylate HCl/Atropine (Diphenoxylate Hcl/Atropine 1 Tablet) 1 tab PO Q6HP PRN PRN Reason: Diarrhea Docusate Sodium (Docusate Sodium 100 Mg Capsule) 100 mg PO BID [facility] Last Admin: 01/18/21 09:24 Dose: Not Given Documented by: Enoxaparin Sodium (Enoxaparin 40 Mg/0.4 Ml Syringe) 40 mg SQ DAILY [facility] Last Admin: 01/18/21 09:24 Dose: 40 mg Documented by: Gabapentin (Gabapentin 300 Mg Capsule) 600 mg PO TID [facility] Last Admin: 01/18/21 14:57 Dose: 600 mg Documented by: Glucose (Dextrose 31 Gm Oral.Susp) 15 gm PO PRN PRN PRN Reason: Hypoglycemia Hydromorphone HCl (Hydromorphone 1 Mg/Ml Syringe) 1 mg IV Q4HP PRN; Protocol PRN Reason: Per Pain Protocol Last Admin: 01/18/21 16:09 Dose: 1 mg Documented by: Sodium Chloride (Sodium Chloride 0.9%) 1,000 mls @ 100 mls/hr IV .Q10H [facility] Last Admin: 01/18/21 10:22 Dose: 100 mls/hr Documented by: Piperacillin Sod/Tazobactam (Sod 4.5 gm/ Dextrose) 50 mls @ 100 mls/hr IV Q6H [facility]; Protocol Last Infusion: 01/18/21 18:26 Dose: Infused Documented by: Insulin Human Lispro (Insulin Lispro 1 Unit/0.01 Ml Unit) 0 unit SQ ACHS [facility]; Protocol Last Admin: 01/18/21 17:04 Dose: 6 units Documented by: Lisinopril (Lisinopril 10 Mg Tablet) 10 mg PO QDAY [facility] Last Admin: 01/18/21 09:24 Dose: 10 mg Documented by: Ondansetron HCl (Ondansetron 4 Mg/2 Ml Vial) 4 mg IV Q6HP PRN PRN Reason: Nausea And Vomiting Last Admin: 01/17/21 13:37 Dose: 4 mg Documented by: Oxycodone/Acetaminophen (Oxycodone/Apap 5/325mg Tablet) 1 tab PO Q4HP PRN; Protocol PRN Reason: Per Pain Protocol Last Admin: 01/18/21 18:50 Dose: 1 tab Documented by: Senna (Sennosides 1 Tablet) 2 tab PO HS [facility] Last Admin: 01/17/21 21:06 Dose: Not Given Documented by: Sodium Chloride (0.9 % Sodium Chloride 10 Ml Syringe) 10 ml IV Q8 [facility] Last Admin: 01/18/21 13:49 Dose: Not Given Documented by: Zolpidem Tartrate (Zolpidem 5 Mg Tablet) 5 mg PO HSP PRN PRN Reason: Insomnia A/P Narrative A/P Narrative: Assessment: 56 year old male with a history of type 2 diabetes mellitus complicated by neuropathy, hypertension, obesity admitted for a diabetic foot infection of the left first toe complicated by w/2 blood cultures positive for gram positive cocci. #Diabetic foot infection of left first toe -MRI negative for osteomyelitis #Positive blood culture 1/2 -gram positive cocci #Type 2 diabetes mellitus -Hgb A1C 9.8 #Diabetic neuropathy #Hypertension #Obesity-BMI 39 Plan -ID following, recommends continueing Zosyn 4.5 mg IV Q6 hrs. -Analgesics prn. -Wound cares. -Lantus and SSI. -Continue home Lisinopril and Gabapentin. -Holding home Empagliflozin. -ID and wound surgery following. -DVT ppx: Lovenox SQ -Code status: [facility] Coordinator Spent With Patient Time: Total time spent is greater than 50% in coordination of care (as documented) at patient's floor/unit and/or counseling patient: QUALITY VTE Deep Vein Thrombosis/Pulmonary Embolism Present on Admission: No
[2021-01-18] MEDS: SENNOSIDES 1 TABLET PO SCH (20:32)
[2021-01-18] MEDS: INSULIN GLARGINE, HUMAN 1 UNIT/0.01 ML SQ SCH (20:33)
[2021-01-18] MEDS ORDERED: INSULIN GLARGINE, HUMAN 1 UNIT/0.01 ML SQ SCH (21:00)
[2021-01-19] MEDS: PIPERACILLIN SODIUM/TAZOBACTAM 4.5 GM in DEXTROSE 5% IN WATER 50 ML IV SCH ×4 (00:45→17:10)
[2021-01-19] MEDS: HYDROmorphone 1 MG/ML SYRINGE IV PRN ×4 (00:45→16:42)
[2021-01-19] MEDS: ONDANSETRON 4 MG/2 ML VIAL IV PRN ×2 (01:03→08:03)
[2021-01-19] MEDS: 0.9 % SODIUM CHLORIDE 10 ML SYRINGE IV SCH ×3 (04:05→22:09)
[2021-01-19] MEDS: 0.9 % SODIUM CHLORIDE 1,000 ML IV SCH (05:22)
[2021-01-19] MEDS: INSULIN LISPRO 1 UNIT/0.01 ML UNIT SQ SCH ×4 (07:35→22:08)
[2021-01-19] MEDS: GABAPENTIN 300 MG CAPSULE PO SCH ×3 (08:02→22:08)
[2021-01-19] MEDS: oxyCODONE/APAP 5/325MG TABLET PO PRN ×3 (08:02→22:08)
[2021-01-19] MEDS: LISINOPRIL 10 MG TABLET PO SCH (08:03)
[2021-01-19] MEDS: ENOXAPARIN 40 MG/0.4 ML SYRINGE SQ SCH (08:03)
[2021-01-19] MEDS: DOCUSATE SODIUM 100 MG CAPSULE PO SCH ×2 (08:36→21:20)
--- NOTE | 2021-01-19 17:35 | General Surgery Progress Note ---
SUBJECTIVE Subjective Patient information: Note initiated : 01/19/21 at 5:29 pm Service Date, if different from initiated Date: [] Patient: Alfredo Tillman 56 y/o M admitted on 01/16/21 for left foot wound. Chief Complaint: [] Additional PMFSH (Level 3 Only): Patient is comfortable and on IV antibiotics ( Zosyn / vanco ) Constitutional Vitals: Vital Signs Temp Pulse Resp BP Pulse Ox 97.3 F 88 18 149/80 96 01/19/21 16:00 01/19/21 16:00 01/19/21 16:00 01/19/21 16:00 01/19/21 16:00 Period Temp Pulse Resp BP Sys/Sanders Pulse Ox Last 24 Hr 96.7 F-97.5 F 80-91 16-20 131-158/72-85 95-99 Intake and Output 01/19/21 01/19/21 01/19/21 05:59 13:59 21:59 Intake Total 1780 50 450 Output Total 850 Balance 930 50 450 Intake & Output: Intake & Output 01/19/21 01/19/21 01/19/21 05:59 13:59 21:59 Intake Total 1780 50 450 Output Total 850 Balance 930 50 450 Intake: IV 980 50 Sodium Chloride 0.9% 1,000 ml @ 880 100 mls/hr IV .Q10H [facility] Rx#: [id number] Zosyn 4.5 gm In Dextrose 5% in 100 50 Water 50 ml @ 100 mls/hr IV Q6H [facility] Rx#:[id number] Oral 800 450 Output: Void Amount 850 Other: Meal Breakfast Lunch Percent of Meal Consumed 75% 75% Feeding Ability Independent Independent Urine Appearance Clear Urine Color Pale Urine Odor Normal # Voids 2 1 3 # Bowel Movements 2 3 Exam: AVSS, No changes MARY Local wound care DFU / Cellulitis LEFT plantar DFU under 1st toe MPJ. 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 Plan: Continue current treatment. NWB Left foot + Wound care. Reassess Thursday about CM consult For D/C planing / continuity of care. Time Spent With Patient Time: Total time spent is greater than 50% in coordination of care (as documented) at patient's floor/unit and/or counseling patient: Total time spent with greater than 50% in coordination of care (as documented) at patient's floor/unit and/or counseling patient:: 15 - 24 minutes
[2021-01-19] MEDS: SENNOSIDES 1 TABLET PO SCH (21:21)
[2021-01-19] MEDS: INSULIN GLARGINE, HUMAN 1 UNIT/0.01 ML SQ SCH (22:08)
[2021-01-20] MEDS: PIPERACILLIN SODIUM/TAZOBACTAM 4.5 GM in DEXTROSE 5% IN WATER 50 ML IV SCH ×5 (00:23→23:30)
[2021-01-20] MEDS: 0.9 % SODIUM CHLORIDE 10 ML SYRINGE IV SCH ×3 (05:01→21:49)
[2021-01-20] MEDS: INSULIN LISPRO 1 UNIT/0.01 ML UNIT SQ SCH ×4 (06:52→21:46)
[2021-01-20] MEDS: oxyCODONE/APAP 5/325MG TABLET PO PRN ×2 (07:07→14:27)
[2021-01-20] MEDS: ONDANSETRON 4 MG/2 ML VIAL IV PRN (08:32)
[2021-01-20] MEDS: ENOXAPARIN 40 MG/0.4 ML SYRINGE SQ SCH (08:35)
[2021-01-20] MEDS: GABAPENTIN 300 MG CAPSULE PO SCH ×3 (08:35→21:46)
[2021-01-20] MEDS: LISINOPRIL 10 MG TABLET PO SCH (08:35)
[2021-01-20] MEDS: HYDROmorphone 1 MG/ML SYRINGE IV PRN ×2 (08:35→21:18)
[2021-01-20] MEDS: DOCUSATE SODIUM 100 MG CAPSULE PO SCH ×2 (09:13→21:47)
[2021-01-20 11:02] LABS: Basophils # (Auto) 0.04 K/mcL (0.00-0.30); Basophils % (Auto) 0.6 % (0.0-2.0); Eosinophils # (Auto) 0.17 K/mcL (0.00-0.70); Eosinophils % (Auto) 2.4 % (0.0-7.0); Hematocrit 39.7 % (40.1-51.0); Hemoglobin 12.5 g/dL (13.7-17.5); Lymphocytes # (Auto) 1.67 K/mcL (1.50-4.80); Lymphocytes % (Auto) 23.7 % (15.5-49.0); Mean Cell Volume 95.2 fL (80.0-100.0); Mean Corpuscular HGB Conc 31.5 g/dL (31.0-36.0); Monocytes # (Auto) 0.43 K/mcL (0.10-0.90); Monocytes % (Auto) 6.1 % (1.0-12.0); Neutrophils % (Auto) 67.2 % (38.0-78.0); Platelet Count 183 K/mcL (140-440); RBC 4.17 M/mcL (4.63-6.08); Red Cell Distribution Width 15.2 % (11.5-14.5)
[2021-01-20 11:19] LABS: ALT/SGPT 30 U/L (<40); AST/SGOT 30 U/L (<40); Albumin/Globulin Ratio 0.8 (1.0-2.3); Alkaline Phosphatase 83 U/L (39-117); Bilirubin,Direct < 0.2 mg/dL (0-0.3); Bilirubin,Total 0.3 mg/dL (0.1-1.0); Blood Urea Nitrogen 15 mg/dL (6-20); Calcium 9.3 mg/dL (8.6-10.4); Carbon Dioxide 26 mmol/L (22-30); Chloride 98 mmol/L (96-108); Globulin 3.9 gm/dL (2.2-3.7); Glomerular Filtration Rate 112; Glucose 255 mg/dL (70-105); Lactate Dehydrogenase 235 U/L (135-225); Phosphorous 2.5 mg/dL (2.5-4.5); Triglycerides 203 mg/dL (<150); Uric Acid 3.1 mg/dL (2.5-8.0)
--- NOTE | 2021-01-20 17:19 | Internal Med Progress Note ---
SUBJECTIVE Subjective Patient information: Note initiated : 01/20/21 at 5:14 pm Service Date, if different from initiated Date: [] Patient: Alfredo Tillman 56 y/o M admitted on 01/16/21 for left foot wound. Chief Complaint: [] Interval history: History of present illness: Mr. Tillman is a 56 year old M with type 2 diabetes mellitus with associated diabetic neuropathy, essential hypertension, morbid obesity, presenting with diabetic foot infections of the left first toe base of the toe. Patient stated that he has been having the left first toe based diabetic infection for as long as he can remember probably for years, and he has been seeing Dr. Campos at the wound clinic. He presented to our ED yesterday as well as today for uncontrolled pain associated with that wound. He is currently complaining of 9 out of 10, sharp and stabbing pain localized in his left first toe base. He is also complaining of decreased appetite and subjective fever and chills and nausea and vomiting associated with the pain. Vital signs at ED presentation resulted unremarkable. Labs were significant for lack of leukocytosis with WBC 7.6. Lactic acid level elevated at 2.9. 01/17: Blood and wound cultures no growth to date. Afebrile overnight. Dr. Marline starkey recs. against surgery, recs. wound care. c/o 8/10 sharp stabbing pain of the left 1st toe base. Denies fever or chills. Denies nausea or vomiting. Good appetite. Denies scalp pain. 01/18: Blood and wound cultures no growth to date. Afebrile overnight. c/o 8/10 sharp stabbing pain of the left 1st toe base. Denies fever or chills. Denies nausea or vomiting. Good appetite. Denies scalp pain. 01/19: MRI negative for osteomyelitis, wound culture grew Strep agalactiae and E coli, 1/2 blood culture grew coagulase negative staph-likely skin contaminant. 01/20: head wound oozing more purulent fluid, increased Percocet for Dilaudid weaning, ID will see tomorrow of antibiotic recommendations. Looking into SNF for discharge. Review of Systems: no fevers or chills, positive for foot pain. Physical Exam Head: wound on top of head with purulent material Eyes: normal appearance, no scleral icterus. Neck: full ROM Respiratory: no respiratory distress. Cardiovascular: normal rate and rhythm, S1, S2. GI/Abdominal: soft, nontender, no guarding. Extremities: left foot wound covered with bandage Neurological: CN II-XII intact, intact motor, intact sensation. Psychiatric: normal mood. Skin: warm, normal color Constitutional Vitals: Vital Signs Temp Pulse Resp BP Pulse Ox 97.5 F 88 18 136/79 98 01/20/21 16:00 01/20/21 16:00 01/20/21 16:00 01/20/21 16:00 01/20/21 16:00 Period Temp Pulse Resp BP Sys/Sanders Pulse Ox Last 24 Hr 97.1 F-98.4 F 78-88 18-20 112-142/67-79 95-98 Intake and Output 01/20/21 01/20/21 01/20/21 05:59 13:59 21:59 Intake Total 850 1080 Output Total 1750 1400 500 Balance -900 -320 -500 Intake & Output: Intake & Output 01/20/21 01/20/21 01/20/21 05:59 13:59 21:59 Intake Total 850 1080 Output Total 1750 1400 500 Balance -900 -320 -500 Intake: IV 50 100 Zosyn 4.5 gm In Dextrose 5% in 50 100 Water 50 ml @ 100 mls/hr IV Q6H [facility] Rx#:[id number] Oral 800 980 Output: Void Amount 1750 1400 500 Other: Meal Nourishment/Supplement Lunch Percent of Meal Consumed 100% 100% Feeding Ability Independent Independent Urine Appearance Clear Clear Clear Urine Color Bright Yellow Bright Yellow Bright Yellow Urine Odor Normal Stool Size Small Moderate Stool Color Brown Brown Stool Consistency Liquid Soft # Voids 1 # Bowel Movements 2 1 OBJ DATA Labs CBC & Chem 7: 01/20/21 10:28 01/20/21 10:28 Labs: Abnormal Lab Results 01/20/21 01/20/21 01/18/21 10:28 10:28 09:19 RBC 4.17 L 4.22 L Hgb 12.5 L 12.7 L Hct 39.7 L 40.2 L RDW 15.2 H 15.3 H MPV 11.0 H 11.4 H Creatinine 0.6 L Glucose 255 H GGT 139 H AST Lactate Dehydrogenase 235 H Albumin 3.0 L Globulin 3.9 H Albumin/Globulin Ratio 0.8 L Triglycerides 203 H 01/18/21 09:18 RBC Hgb Hct RDW MPV Creatinine Glucose 201 H GGT AST 43 H Lactate Dehydrogenase Albumin 3.1 L Globulin 3.8 H Albumin/Globulin Ratio 0.8 L Triglycerides Meds: Medications Acetaminophen (Acetaminophen 325 Mg Tablet) 650 mg PO Q6HP PRN; Protocol PRN Reason: Per Pain Protocol/Fever > 101 Dextrose (Dextrose 50% 50 Ml Vial) 0 ml IV UD PRN PRN Reason: Hypoglycemia Diagnostic Test (Pha) (Accu-Chek 1 Each Strip) 1 each FS [facility] Last Admin: 01/20/21 16:54 Dose: 1 each Documented by: Diphenoxylate HCl/Atropine (Diphenoxylate Hcl/Atropine 1 Tablet) 1 tab PO Q6HP PRN PRN Reason: Diarrhea Docusate Sodium (Docusate Sodium 100 Mg Capsule) 100 mg PO BID [facility] Last Admin: 01/20/21 09:13 Dose: Not Given Documented by: Enoxaparin Sodium (Enoxaparin 40 Mg/0.4 Ml Syringe) 40 mg SQ DAILY [facility] Last Admin: 01/20/21 08:35 Dose: 40 mg Documented by: Gabapentin (Gabapentin 300 Mg Capsule) 600 mg PO TID [facility] Last Admin: 01/20/21 14:27 Dose: 600 mg Documented by: Glucose (Dextrose 31 Gm Oral.Susp) 15 gm PO PRN PRN PRN Reason: Hypoglycemia Hydromorphone HCl (Hydromorphone 1 Mg/Ml Syringe) 1 mg IV Q4HP PRN; Protocol PRN Reason: Per Pain Protocol Last Admin: 01/20/21 08:35 Dose: 1 mg Documented by: Piperacillin Sod/Tazobactam (Sod 4.5 gm/ Dextrose) 50 mls @ 100 mls/hr IV Q6H [facility]; Protocol Last Admin: 01/20/21 17:07 Dose: 100 mls/hr Documented by: Insulin Glargine (Insulin Glargine, Human 1 Unit/0.01 Ml) 20 unit SQ [facility] Last Admin: 01/19/21 22:08 Dose: 20 units Documented by: Insulin Human Lispro (Insulin Lispro 1 Unit/0.01 Ml Unit) 0 unit SQ [facility]; Protocol Last Admin: 01/20/21 16:54 Dose: 12 units Documented by: Lisinopril (Lisinopril 10 Mg Tablet) 10 mg PO QDAY [facility] Last Admin: 01/20/21 08:35 Dose: 10 mg Documented by: Ondansetron HCl (Ondansetron 4 Mg/2 Ml Vial) 4 mg IV Q6HP PRN PRN Reason: Nausea And Vomiting Last Admin: 01/20/21 08:32 Dose: 4 mg Documented by: Oxycodone/Acetaminophen (Oxycodone/Apap 5/325mg Tablet) 2 tab PO Q4HP PRN; Protocol PRN Reason: Per Pain Protocol Senna (Sennosides 1 Tablet) 2 tab PO HS [facility] Last Admin: 01/19/21 21:21 Dose: Not Given Documented by: Sodium Chloride (0.9 % Sodium Chloride 10 Ml Syringe) 10 ml IV Q8 [facility] Last Admin: 01/20/21 12:08 Dose: 10 ml Documented by: Zolpidem Tartrate (Zolpidem 5 Mg Tablet) 5 mg PO HSP PRN PRN Reason: Insomnia A/P Narrative A/P Narrative: Assessment: 56 year old male with a history of type 2 diabetes mellitus complicated by neuropathy, hypertension, obesity admitted for a diabetic foot infection of the left first toe complicated by w/2 blood cultures positive for gram positive cocci. #Diabetic foot infection of left first toe -wound culture grew strep agalactiae, E coli, Moganella -MRI negative for osteomyelitis #Positive blood culture 1/2-likely skin contaminant -coag neg staph #Type 2 diabetes mellitus -Hgb A1C 9.8 #Diabetic neuropathy #Hypertension #Obesity-BMI 39 Plan -ID following, on Zosyn 4.5 mg IV Q6 hrs. -Analgesics prn. -Wound cares. -Increase Lantus to 40 units HS, continue SSI. -Continue home Lisinopril and Gabapentin. -Holding home Empagliflozin. -ID and wound surgery following. -DVT ppx: Lovenox SQ -Code status: Full -Disposition: probably SNF Time Spent With Patient Time: Total time spent is greater than 50% in coordination of care (as documented) at patient's floor/unit and/or counseling patient: QUALITY VTE Deep Vein Thrombosis/Pulmonary Embolism Present on Admission: No
[2021-01-20] MEDS ORDERED: oxyCODONE/APAP 5/325MG TABLET PO ONE (18:54)
[2021-01-20] MEDS ORDERED: INSULIN GLARGINE, HUMAN 1 UNIT/0.01 ML SQ SCH (21:00)
[2021-01-20] MEDS: SENNOSIDES 1 TABLET PO SCH (21:48)
[2021-01-21] MEDS: PIPERACILLIN SODIUM/TAZOBACTAM 4.5 GM in DEXTROSE 5% IN WATER 50 ML IV SCH ×2 (05:13→11:36)
[2021-01-21] MEDS: 0.9 % SODIUM CHLORIDE 10 ML SYRINGE IV SCH ×2 (06:03→14:36)
[2021-01-21] MEDS: INSULIN LISPRO 1 UNIT/0.01 ML UNIT SQ SCH (07:54)
[2021-01-21] MEDS: GABAPENTIN 300 MG CAPSULE PO SCH ×2 (08:04→14:35)
[2021-01-21] MEDS: oxyCODONE/APAP 5/325MG TABLET PO PRN ×2 (08:04→14:35)
[2021-01-21] MEDS: LISINOPRIL 10 MG TABLET PO SCH (08:05)
[2021-01-21] MEDS: ENOXAPARIN 40 MG/0.4 ML SYRINGE SQ SCH (08:05)
[2021-01-21] MEDS: DOCUSATE SODIUM 100 MG CAPSULE PO SCH (08:15)
[2021-01-21] MEDS ORDERED: INSULIN LISPRO 1 UNIT/0.01 ML UNIT SQ SCH ×3 (08:28→11:30)
--- NOTE | 2021-01-21 13:17 | Internal Med Progress Note ---
SUBJECTIVE Subjective Patient information: Note initiated : 01/21/21 at 1:15 pm Service Date, if different from initiated Date: [] Patient: Alfredo Tillman 56 y/o M admitted on 01/16/21 for left foot wound. Chief Complaint: [] Interval history: History of present illness: Mr. Tillman is a 56 year old M with type 2 diabetes mellitus with associated diabetic neuropathy, essential hypertension, morbid obesity, presenting with diabetic foot infections of the left first toe base of the toe. Patient stated that he has been having the left first toe based diabetic infection for as long as he can remember probably for years, and he has been seeing Dr. Campos at the wound clinic. He presented to our ED yesterday as well as today for uncontrolled pain associated with that wound. He is currently complaining of 9 out of 10, sharp and stabbing pain localized in his left first toe base. He is also complaining of decreased appetite and subjective fever and chills and nausea and vomiting associated with the pain. Vital signs at ED presentation resulted unremarkable. Labs were significant for lack of leukocytosis with WBC 7.6. Lactic acid level elevated at 2.9. 01/17: Blood and wound cultures no growth to date. Afebrile overnight. Dr. Marline starkey recs. against surgery, recs. wound care. c/o 8/10 sharp stabbing pain of the left 1st toe base. Denies fever or chills. Denies nausea or vomiting. Good appetite. Denies scalp pain. 01/18: Blood and wound cultures no growth to date. Afebrile overnight. c/o 8/10 sharp stabbing pain of the left 1st toe base. Denies fever or chills. Denies nausea or vomiting. Good appetite. Denies scalp pain. 01/19: MRI negative for osteomyelitis, wound culture grew Strep agalactiae and E coli, 06/09 blood culture grew coagulase negative staph-likely skin contaminant. 01/20: head wound oozing more purulent fluid, increased Percocet for Dilaudid weaning, ID will see tomorrow of antibiotic recommendations. Looking into SNF for discharge. 01/20: Stable pain control on oral medications, discontinued IV Dilaudid prn. Discussed with Dr. Meyers, the antibiotic plan is Zosyn 4.5 mg IV Q6 via midline for [address] [facility] and infectious disease follow up in one week. Midline ordered for discharge. Review of Systems: no fevers or chills, positive for foot pain. Physical Exam Head: wound on top of head with purulent material Eyes: normal appearance, no scleral icterus. Neck: full ROM Respiratory: no respiratory distress. Cardiovascular: normal rate and rhythm, S1, S2. GI/Abdominal: soft, nontender, no guarding. Extremities: left foot wound covered with bandage Neurological: CN II-XII intact, intact motor, intact sensation. Psychiatric: normal mood. Skin: warm, normal color Constitutional Vitals: Vital Signs Temp Pulse Resp BP Pulse Ox 96.9 F L 84 20 117/65 95 01/21/21 12:00 01/21/21 12:00 01/21/21 12:00 01/21/21 12:00 01/21/21 12:00 Period Temp Pulse Resp BP Sys/Sanders Pulse Ox Last 24 Hr 96.9 F-98 F 80-88 16-22 116-143/65-79 94-98 Intake and Output 01/20/21 01/21/21 01/21/21 21:59 05:59 13:59 Intake Total 455 699 6238 Output Total 1750 1495 500 Balance -1210 -595 1070 Weight 129.501 kg Patient Weight 01/22/21 05:59 Weight 129.501 kg Intake & Output: Intake & Output 01/20/21 01/21/21 01/21/21 21:59 05:59 13:59 Intake Total 163 154 8791 Output Total 1750 1495 500 Balance -1210 -595 1070 Weight 129.501 kg Intake: Nourishment/Supplement quantity 250 (ml) IV 50 100 50 Zosyn 4.5 gm In Dextrose 5% in 50 100 50 Water 50 ml @ 100 mls/hr IV Q6H [facility] Rx#:[id number] Oral 171 202 3019 Output: Void Amount 1750 1495 500 Other: Meal Nourishment/Supplement Breakfast Percent of Meal Consumed 100% 100% Feeding Ability Independent Assist with Tray Set Up Urine Appearance Clear Clear Clear Urine Color Bright Yellow Pale Bright Yellow Urine Odor Normal Stool Size Moderate Stool Color Brown Stool Consistency Soft # Bowel Movements 1 OBJ DATA Labs CBC & Chem 7: 01/20/21 10:28 01/20/21 10:28 Labs: Abnormal Lab Results 01/20/21 01/20/21 10:28 10:28 RBC 4.17 L Hgb 12.5 L Hct 39.7 L RDW 15.2 H MPV 11.0 H Creatinine 0.6 L Glucose 255 H GGT 139 H Lactate Dehydrogenase 235 H Albumin 3.0 L Globulin 3.9 H Albumin/Globulin Ratio 0.8 L Triglycerides 203 H Meds: Medications Acetaminophen (Acetaminophen 325 Mg Tablet) 650 mg PO Q6HP PRN; Protocol PRN Reason: Per Pain Protocol/Fever > 101 Last Admin: 01/21/21 10:11 Dose: 650 mg Documented by: Dextrose (Dextrose 50% 50 Ml Vial) 0 ml IV UD PRN PRN Reason: Hypoglycemia Diagnostic Test (Pha) (Accu-Chek 1 Each Strip) 1 each FS [facility] Last Admin: 01/21/21 11:29 Dose: 1 each Documented by: Diphenoxylate HCl/Atropine (Diphenoxylate Hcl/Atropine 1 Tablet) 1 tab PO Q6HP PRN PRN Reason: Diarrhea Docusate Sodium (Docusate Sodium 100 Mg Capsule) 100 mg PO BID [facility] Last Admin: 01/21/21 08:15 Dose: Not Given Documented by: Enoxaparin Sodium (Enoxaparin 40 Mg/0.4 Ml Syringe) 40 mg SQ DAILY [facility] Last Admin: 01/21/21 08:05 Dose: 40 mg Documented by: Gabapentin (Gabapentin 300 Mg Capsule) 600 mg PO TID [facility] Last Admin: 01/21/21 08:04 Dose: 600 mg Documented by: Glucose (Dextrose 31 Gm Oral.Susp) 15 gm PO PRN PRN PRN Reason: Hypoglycemia Piperacillin Sod/Tazobactam (Sod 4.5 gm/ Dextrose) 50 mls @ 100 mls/hr IV Q6H [facility]; Protocol Last Infusion: 01/21/21 12:27 Dose: Infused Documented by: Insulin Glargine (Insulin Glargine, Human 1 Unit/0.01 Ml) 70 unit SQ [facility] Insulin Human Lispro (Insulin Lispro 1 Unit/0.01 Ml Unit) 10 unit SQ AC [facility] Last Admin: 01/21/21 11:30 Dose: 10 units Documented by: Insulin Human Lispro (Insulin Lispro 1 Unit/0.01 Ml Unit) 0 unit SQ [facility]; Protocol Last Admin: 01/21/21 11:30 Dose: 8 units Documented by: Lisinopril (Lisinopril 10 Mg Tablet) 10 mg PO QDAY [facility] Last Admin: 01/21/21 08:05 Dose: 10 mg Documented by: Ondansetron HCl (Ondansetron 4 Mg/2 Ml Vial) 4 mg IV Q6HP PRN PRN Reason: Nausea And Vomiting Last Admin: 01/20/21 08:32 Dose: 4 mg Documented by: Oxycodone/Acetaminophen (Oxycodone/Apap 5/325mg Tablet) 2 tab PO Q4HP PRN; Protocol PRN Reason: Per Pain Protocol Last Admin: 01/21/21 08:04 Dose: 2 tab Documented by: Senna (Sennosides 1 Tablet) 2 tab PO HS [facility] Last Admin: 01/20/21 21:48 Dose: Not Given Documented by: Sodium Chloride (0.9 % Sodium Chloride 10 Ml Syringe) 10 ml IV Q8 [facility] Last Admin: 01/21/21 06:03 Dose: 10 ml Documented by: Zolpidem Tartrate (Zolpidem 5 Mg Tablet) 5 mg PO HSP PRN PRN Reason: Insomnia Last Admin: 01/20/21 21:53 Dose: 5 mg Documented by: A/P Narrative A/P Narrative: Assessment: 56 year old male with a history of type 2 diabetes mellitus complicated by neuropathy, hypertension, obesity admitted for a diabetic foot infection of the left first toe complicated by w/2 blood cultures positive for gram positive cocci. #Diabetic foot infection of left first toe -wound culture grew strep agalactiae, E coli, Moganella -MRI negative for osteomyelitis #Positive blood culture 1/2-likely skin contaminant -coag neg staph #Type 2 diabetes mellitus -Hgb A1C 9.8 #Diabetic neuropathy #Hypertension #Obesity-BMI 39 Plan -ID following, discharg plan is Zosyn 4.5 mg IV Q6 hrs for 7 days and follow up with ID in 7 days for further management decisions. -Midline ordered -Analgesics prn, discontinued IV Dilaudid prn. -Wound cares. -Increase Lantus to 70 units HS, start Lispro 5 units AC, decrease SSI to medium. -Continue home Lisinopril and Gabapentin. -Holding home Empagliflozin. -ID and wound surgery following. -DVT ppx: Lovenox SQ -Code status: Full -Disposition: SNF for IV antibiotic treatment, wound care, and rehab. Time Spent With Patient Time: Total time spent is greater than 50% in coordination of care (as documented) at patient's floor/unit and/or counseling patient: QUALITY VTE Deep Vein Thrombosis/Pulmonary Embolism Present on Admission: No
--- NOTE | 2021-01-21 14:20 | Discharge Summary ---
Discharge Provider Provider Patient information: Note initiated : 01/21/21 at 2:19 pm Service Date, if different from initiated Date: [] Patient: Alfredo Tillman 56 y/o M admitted on 01/16/21 for left foot wound. Chief Complaint: [] Date of admission: 01/16/21 18:40 Discharge date: 01/21/21 Primary care physician: Neri Zuniga DO Consults: 01/16/21 15:59 Consult to Physician [CONS] Stat Comment: Consulting Provider: Filipe Gonzalez Reason For Exam: Physician to Consult 01/16/21 19:02 Consult to Physician [CONS] Stat Comment: diabetic foot Consulting Provider: Dustin Cmapos Reason For Exam: Physician to Consult 01/17/21 11:22 Consult to Infectious Disease [CONS] Routine Comment: Consulting Provider: Nam Meyers Reason For Exam: Physician to Consult ID Consult Information: admit date: 01/16 Dr. Campos requesting consult No history of HIV/Hepatitis C or B Peripheral IV. Currently receiving vancomycin Antibiotic management 01/17/21 14:01 Consult to Physician [CONS] Routine Comment: diabetic foot infection Consulting Provider: Nam Meyers Reason For Exam: Physician to Consult Discharge Meds Discharge Medications Home Medications diphenoxylate-atropine 2.5 mg-0.025 mg tablet 1 tab PO Q6H PRN tab 11/25/19 [History Confirmed 01/16/21 Last Taken 01/02/21 12:00] glucagon (human recombinant) 1 mg solution for injection 1 mg SUB-Q Q20M PRN #1 each 11/25/19 [Rx Confirmed 01/16/21 Last Taken Unknown] metoclopramide HCl 10 mg tablet 10 mg PO BID PRN #60 tab 09/10/20 [Rx Confirmed 01/16/21 Last Taken 12/16/20 12:00] empagliflozin 25 mg tablet 25 mg PO QDAY #90 tab 10/01/20 [Rx Confirmed 01/16/21 Last Taken 01/16/21 07:00] gabapentin 300 mg capsule 600 mg PO TID 90 Days #540 cap 10/22/20 [Rx Confirmed 01/16/21 Last Taken 01/16/21 04:00] insulin glargine 100 unit/mL (3 mL) subcutaneous pen 80 unit SUBCUT QPM #15 ml 11/12/20 [Rx Confirmed 01/16/21 Last Taken 01/02/21 18:00] lisinopril 10 mg tablet 10 mg PO QDAY #90 tab 11/22/20 [Rx Confirmed 01/16/21 Last Taken 01/16/21 07:00] acetaminophen [Tylenol] 650 mg PO Q6HP PRN #30 tab 01/21/21 [Rx Last Taken Unknown] insulin lispro [Humalog U-100 Insulin] 10 unit SUBCUT AC #10 ml 01/21/21 [Rx Last Taken Unknown] oxycodone-acetaminophen 2 tab PO Q4HP PRN #7 tab 01/21/21 [Rx Last Taken Unknown] [id number] [Zosyn in dextrose (iso-osm)] 4.5 g IV Q6H 7 Days #3150 ml 01/21/21 [Rx Last Taken Unknown] COURSE Hospital Course Hospital course: History of present illness: Mr. Tillman is a 56 year old M with type 2 diabetes mellitus with associated diabetic neuropathy, essential hypertension, morbid obesity, presenting with diabetic foot infections of the left first toe base of the toe. Patient stated that he has been having the left first toe based diabetic infection for as long as he can remember probably for years, and he has been seeing Dr. Campos at the wound clinic. He presented to our ED yesterday as well as today for uncontrolled pain associated with that wound. He is currently complaining of 9 out of 10, sharp and stabbing pain localized in his left first toe base. He is also complaining of decreased appetite and subjective fever and chills and nausea and vomiting associated with the pain. Vital signs at ED presentation resulted unremarkable. Labs were significant for lack of leukocytosis with WBC 7.6. Lactic acid level elevated at 2.9. 01/17: Blood and wound cultures no growth to date. Afebrile overnight. Dr. Campos recs. against surgery, recs. wound care. c/o 8/10 sharp stabbing pain of the left 1st toe base. Denies fever or chills. Denies nausea or vomiting. Good appetite. Denies scalp pain. 01/18: Blood and wound cultures no growth to date. Afebrile overnight. c/o 8/10 sharp stabbing pain of the left 1st toe base. Denies fever or chills. Denies nausea or vomiting. Good appetite. Denies scalp pain. 01/19: MRI negative for osteomyelitis, wound culture grew Strep agalactiae and E coli, 1/2 blood culture grew coagulase negative staph-likely skin contaminant. 01/20: head wound oozing more purulent fluid, increased Percocet for Dilaudid weaning, ID will see tomorrow of antibiotic recommendations. Looking into SNF for discharge. 01/20: Stable pain control on oral medications, discontinued IV Dilaudid prn. Discussed with Dr. Meyers, the antibiotic plan is Zosyn 4.5 mg IV Q6 via midline or peripheral IV for 7 more days at half-way facility and infectious disease follow up in one week. The patient was discharged to SNF. Post hospital follow up; -Complete 7 days of Zosyn 4.5 mg IV Q6 hrs. -Follow up with Dr. Meyers in infectious disease in 7 days. -Follow up with Dr. Marlow in 7 days. -Wound care at SNF. -Type 2 Diabetes Mellitus management. -Wound care for foot wound and head wound. -Non-weight bearing to left foot wound. Physical Exam Head: wound on top of head with purulent material Eyes: normal appearance, no scleral icterus. Neck: full ROM Respiratory: no respiratory distress. Cardiovascular: normal rate and rhythm, S1, S2. GI/Abdominal: soft, nontender, no guarding. Extremities: left foot wound covered with bandage Neurological: CN II-XII intact, intact motor, intact sensation. Psychiatric: normal mood. Skin: warm, normal color Discharge diagnosis: Diabetic foot wound Time Spent with Patient Time attestation: Total time spent providing and/or coordinating discharge services: EXAM Constitutional Vitals: Temp Pulse Resp BP Pulse Ox 96.9 F L 84 20 117/65 95 01/21/21 12:00 01/21/21 12:00 01/21/21 12:00 01/21/21 12:00 01/21/21 12:00 Discharge Data Data Completed and Pending Labs on day of discharge: Preliminary micro results at discharge 01/17/21 10:27 Gram Stain - Preliminary Foot - Left Wound Culture - Preliminary Strep agalactiae - (group b) Morganella morganii Escherichia coli#2 01/16/21 13:02 Blood Culture - Preliminary Blood Coagulase negative staph Discharge Plan Patient/Caregiver Discharge Instructions Activity: non-weight bearing Diet: Consistent Carbohydrate Prescriptions: New acetaminophen [Tylenol] 325 mg Tablet 650 mg PO Q6HP PRN (Reason: Per Pain Protocol/Fever > 101) Qty: 30 RF: 0 insulin lispro [Humalog U-100 Insulin] 100 unit/mL Solution 10 unit subcut AC Qty: 10 RF: 4 oxycodone-acetaminophen 5-325 mg Tablet 2 tab PO Q4HP PRN (Reason: Per Pain Protocol) Qty: 7 RF: 0 Zosyn in dextrose (iso-osm) 4.5 gram/100 mL piggyback 4.5 g IV Q6H 7 Days Qty: 3150 RF: 0 Continued gabapentin 300 mg capsule 600 mg PO TID 90 Days Qty: 540 RF: 1 lisinopril 10 mg tablet 10 mg PO QDAY Qty: 90 RF: 1 diphenoxylate-atropine 2.5-0.025 mg tablet 1 tab PO Q6H PRN (Reason: Diarrhea) RF: 0 metoclopramide HCl [Reglan] 10 mg tablet 10 mg PO BID PRN (Reason: nausea and vomiting) Qty: 60 RF: 5 Basaglar KwikPen U-100 Insulin 100 unit/mL (3 mL) insulin pen 80 unit subcut QPM Qty: 15 RF: 3 No Action Jardiance 25 mg tablet 25 mg PO QDAY Qty: 90 RF: 1 Glucagon Emergency Kit (human) 1 mg recon soln 1 mg SUB-Q Q20M PRN (Reason: hypoglycemia) Qty: 1 RF: 0 Other Ambulatory Orders: Physical Therapy at Discharge - General (Routine) Location: None Selected Ordered By: Gwyn Guan Wheelchair (ONCE) Location: None Selected Ordered By: Gwyn Guan Follow Up Plan Follow up with: Dustin Campos MD [Physician] - 01/28/21 Neri Zuniga DO [Primary Care Provider] - Nam Meyers MD [Physician] - 01/28/21 Patient Disposition: Xfer SNF Rehab Potential: Fair I certify that the patient requires SNF services: Yes Overall status at discharge: patient is progressing back to baseline Discharge Orders: Discharge Order (Routine); Ordered 01/21/21 Ordered By: Gwyn GALAVIZ VTE Deep Vein Thrombosis/Pulmonary Embolism Present on Admission: No
--- NOTE | 2021-01-21 14:42 | General Surgery Progress Note ---
SUBJECTIVE Subjective Patient information: Note initiated : 01/21/21 at 2:36 pm Service Date, if different from initiated Date: [] Patient: Alfredo Tillman 56 y/o M admitted on 01/16/21 for left foot wound. Chief Complaint: [] Additional PMFSH (Level 3 Only): Patient had an uneventful night. Constitutional Vitals: Vital Signs Temp Pulse Resp BP Pulse Ox 96.9 F L 84 20 117/65 95 01/21/21 12:00 01/21/21 12:00 01/21/21 12:00 01/21/21 12:00 01/21/21 12:00 Period Temp Pulse Resp BP Sys/Sanders Pulse Ox Last 24 Hr 96.9 F-98 F 80-88 - 116-143/65-79 94-98 Intake and Output 01/21/21 01/21/21 01/21/21 05:59 13:59 21:59 Intake Total 900 1570 550 Output Total 1495 500 350 Balance -595 1070 200 Weight 285 lb 8 oz Patient Weight 01/22/21 05:59 Weight 285 lb 8 oz Intake & Output: Intake & Output 01/21/21 01/21/21 01/21/21 05:59 13:59 21:59 Intake Total 900 1570 550 Output Total 1495 500 350 Balance -595 1070 200 Weight 285 lb 8 oz Intake: Nourishment/Supplement quantity 100 (ml) IV 100 50 Zosyn 4.5 gm In Dextrose 5% in 100 50 Water 50 ml @ 100 mls/hr IV Q6H [facility] Rx#:[id number] Oral 800 1520 450 Output: Void Amount 1495 500 350 Other: Meal Breakfast Lunch Percent of Meal Consumed 100% 100% Feeding Ability Assist with Tray Set Up Independent Urine Appearance Clear Clear Clear Urine Color Pale Bright Yellow Bright Yellow Urine Odor Normal # Bowel Movements 1 General appearance: cooperative, morbidly obese and no acute distress Exam: AVSS. No changes MARY. Scalp wound is dry. There is drainage when patient scratches his head. Left plantar DFU site is healing well. Responding to local wound care and IV antibiotics. A/P Narrative A/P Narrative: Assessment: Satisfactory progress. Will continue with ongoing local wound care. Progress reviewed with Dr. Guan Hospitalist Physican. Plan: Physical Therapy at Rehab. LEFT heel weight bearing during transfers. OFF loading of LEFT foot during ambulation with walker or foot retail representative. Follow up at wound care clinic in 1 week after discharge Time Spent With Patient Time: Total time spent is greater than 50% in coordination of care (as documented) at patient's floor/unit and/or counseling patient: Total time spent with greater than 50% in coordination of care (as documented) at patient's floor/unit and/or counseling patient:: 15 - 24 minutes
[2021-01-21] MEDS ORDERED: INSULIN GLARGINE, HUMAN 1 UNIT/0.01 ML SQ SCH (21:00)
[2021-01-21] MEDS ORDERED: 0.9 % SODIUM CHLORIDE 10 ML SYRINGE IV SCH (21:00)
== END 2021-01-21 15:50 | DRG 638 ==
LOC: ED 11:00 → MEDSUR 18:40
PROVIDERS: ADMIT Internal Medicine; ATTEND Internal Medicine

== ENCOUNTER 2021-02-26 14:18 | Inpatient (IN) ==
[2021-02-26] MEDS ORDERED: VANCOMYCIN 2,000 MG in 0.9 % SODIUM CHLORIDE 500 ML IV ONE (14:26)
[2021-02-26] MEDS ORDERED: PIPERACILLIN SODIUM/TAZOBACTAM 3.375 GM in DEXTROSE 5% IN WATER 50 ML IV SCH (14:30)
[2021-02-26] MEDS ORDERED: HYDROmorphone 1 MG/ML SYRINGE IV ONE ×2 (14:36→16:28)
[2021-02-26] MEDS ORDERED: ACETAMINOPHEN 1,000 MG/100 ML BAG IV ONE (14:36)
--- NOTE | 2021-02-26 14:56 | Emergency Department Note ---
Skin/Abscess/FB HPI General Chief complaint: Skin/Abscess/Rash Stated complaint: possible sepsis, cellulitis Time Seen by Provider: 02/26/21 14:25 Source: patient Mode of arrival: wheelchair Limitations: no limitations History of Present Illness HPI Narrative: This is a 56-year-old male who was sent in by wound care for evaluation of his left lower extremity pain and swelling. Concern is for cellulitis, osteomyelitis, DVT. Patient has chronic lower extremity wounds and is a diabetic. He states that the leg is always red, but worse over the last few days. He denies fever/chills/sweats. Related Data Home Medications Medication Instructions Recorded Confirmed diphenoxylate-atropine 2.5 1 tab PO Q6H PRN tab 11/25/19 02/05/21 mg-0.025 mg tablet Previous Rx's Medication Instructions Recorded glucagon (human recombinant) 1 mg 1 mg SUB-Q Q20M PRN #1 each 11/25/19 solution for injection metoclopramide HCl 10 mg tablet 10 mg PO BID PRN #60 tab 09/10/20 empagliflozin 25 mg tablet 25 mg PO QDAY #90 tab 10/01/20 gabapentin 300 mg capsule 600 mg PO TID 90 Days #540 cap 10/22/20 insulin glargine 100 unit/mL (3 80 unit SUBCUT QPM #15 ml 11/12/20 mL) subcutaneous pen lisinopril 10 mg tablet 10 mg PO QDAY #90 tab 11/22/20 acetaminophen [Tylenol] 650 mg PO Q6HP PRN #30 tab 01/21/21 insulin lispro [Humalog U-100 10 unit SUBCUT AC #10 ml 01/21/21 Insulin] oxycodone-acetaminophen 5 mg-325 1 tab PO TID PRN #90 tab 02/13/21 mg tablet Allergies Allergy/AdvReac Type Severity Reaction Status Date / Time glipizide AdvReac Intermediate Severe Verified 02/26/21 14:24 stomach pain morphine AdvReac Intermediate Hallucinati Verified 02/26/21 14:24 ng dissolvable sutures AdvReac Intermediate Swelling/in Uncoded 02/05/21 15:43 fection Review of Systems ROS ROS Narrative: Narrative: All systems ED: reviewed and negative except as stated. PFSH Narrative Patient History Narrative: Narrative: Medical/Surgical/Family History All Active Problems (Updated 02/26/21 @ 16:33 by Lauren Trejo PA-C) Fall (Acute) Lower extremity pain (Acute) Cellulitis of left leg (Acute) Scalp laceration (Acute) Diabetic ulcer of toe of left foot (Acute) Type 2 diabetes mellitus with diabetic neuropathy (Acute) Cellulitis (Acute) Panic attack (Acute) Diabetic ulcer of ankle associated with diabetes mellitus due to underlying condition, with fat layer exposed (Acute) Diabetic gastroparesis (Acute) Chronic pain (Chronic) Chronic pain syndrome (Chronic) Depression (Chronic) Nicotine addiction (Chronic) GERD (gastroesophageal reflux disease) (Chronic) Hyperlipidemia (Chronic) Polyneuropathy (Chronic) Medicare annual wellness visit, initial (Chronic) Cellulitis (Chronic) Diabetic necrobiosis lipoidica (Chronic) Right wrist pain (Chronic) Hypertension (Chronic) Right wrist pain (Chronic) Joint pain (Chronic) Peripheral neuropathy (Chronic) Scalp wound (Chronic) Arthritis of right wrist (Chronic) Scalp wound (Chronic) Type 2 diabetes mellitus with pressure callus (Chronic) Peripheral neuropathy (Chronic) Gastroenteritis (Chronic) Abdominal pain (Chronic) Fecal retention (Chronic) Contusion of left hip (Chronic) Fall (Chronic) Blood in feces (Chronic) Diabetes type 2, uncontrolled (Chronic) Left shoulder strain (Chronic) Pancreatitis (Chronic) Obesities, morbid (Chronic) Post-cholecystectomy syndrome (Chronic) Abdominal pain, chronic, right lower quadrant (Chronic) Unilateral primary osteoarthritis, right hip (Chronic) 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, face and neck (Chronic) Impacted cerumen, bilateral (Chronic) Acute bronchitis (Chronic) Acute upper respiratory infection (Chronic) Toenail deformity (Chronic) Pain, foot (Chronic) Insomnia (Chronic) High blood pressure (Chronic 09/20/15) Gall bladder disease (Chronic) Lipoma (Chronic) Shortness of breath (Chronic) Inguinal hernia (Chronic) Pneumonia (Chronic) Abscess (Chronic) Fall against object (Chronic) Contusion (Chronic) Sebaceous cyst (Chronic) Medical History Abdominal pain, chronic, right lower quadrant Abscess Head-behind right ear Acute bronchitis Acute upper respiratory infection Arthritis of right wrist 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, face and neck Chronic pain Chronic pain syndrome Contusion Depression Diabetes (09/20/15) Diabetes Diabetes type 2, uncontrolled Fall against object Gall bladder disease GERD (gastroesophageal reflux disease) High blood pressure (09/20/15) Hyperlipidemia Hypertension Impacted cerumen, bilateral Inguinal hernia Insomnia Joint pain Lipoma Medicare annual wellness visit, initial Nicotine addiction Obesities, morbid Pain, foot Pancreatitis Peripheral neuropathy Peripheral neuropathy Pneumonia Polyneuropathy Post-cholecystectomy syndrome Right wrist pain Right wrist pain Scalp wound Scalp wound Sebaceous cyst Shortness of breath Toenail deformity Split toenails Type 2 diabetes mellitus with pressure callus Unilateral primary osteoarthritis, right hip Surgical History History of abdominal surgery History of cholecystectomy 04/2004 History of esophagogastroduodenoscopy (EGD) (06/27/16) History of inguinal herniorrhaphy History of lumbar surgery decompression History of shoulder surgery right decompression History of total right hip arthroplasty Family History Father Malignant neoplasm History of coronary artery stent placement Cardiac disease Diabetes mellitus Grandmother Abnormality of colon Malignant neoplasm Diabetes mellitus Mother Cardiac disease Brother Diabetes mellitus Social History Smoking Status: Smokeless tobacco Alcohol Intake Frequency: a few times a month Substance Use: does not use Exam Narrative Narrative: General: AOx3, NAD, nontoxic appearing. Pleasant and conversant. Morbidly obese HEENT: EOMI, normocephalic. Moist mucous membranes. Normal facies and normal dentition. Chest: Symmetric, no pain to palpation Respiratory: Lungs clear to auscultation bilaterally. No respiratory distress. Unlabored breathing. Heart: Regular rate and rhythm, no murmurs/clicks/rubs. Abdomen: Non-tender, Non distended Extremities: Right lower extremity warm and well perfused. There is evidence of old healing wounds. There are multiple excoriations. No erythema, no pain to palpation, and no warmth to palpation of the right lower extremity. DP is 2+. No edema. Left lower extremity with circumferential erythema extending from just below the knee to the ankle. There are multiple excoriations. The leg is warm to the touch. No notable drainage. He is tender to palpation throughout the left lower extremity. No subcutaneous air appreciated. DP is 2+. Neuro: No focal deficits. Cranial nerves II-XII normal. Skin: Remaining skin exam is unremarkable Psych: Normal mood and affect Heme/Lymph: No abnormal bruising General Limitations: no limitations Course Course Course Narrative: 56-year-old diabetic male patient presents with left lower extremity cellulitis Reevaluation(s) Reevaluation #1: Obtain CBC, CMP, CRP, blood cultures Obtain left lower extremity venous Doppler ultrasound to rule out DVT Obtain x-ray of the foot and tib-fib of the left leg to query osteomyelitis Start IV and give IV vancomycin and Zosyn; Patient will likely need admission for IV antibiotics Give IV analgesics and IV fluids Reevaluation #2: CBC with elevated white blood cell count of 15,600. CRP is 33. Lactic acid is 2.1. The patient has received 1 L of IV fluids. Left lower extremity Doppler ultrasound is negative for DVT or subcutaneous air 3 view of the left foot without evidence of osteomyelitis, tib-fib of the left lower extremity is still pending. Vital Signs Vital signs: Vital Signs Temperature 101.3 F H 02/26/21 14:19 Pulse Rate 108 H 02/26/21 14:19 Respiratory Rate 22 02/26/21 14:19 Blood Pressure 143/72 02/26/21 14:19 Pulse Oximetry (%) 98 02/26/21 14:19 Temperature 99.1 F H 02/26/21 16:48 Pulse Rate 99 H 02/26/21 16:31 Respiratory Rate 22 02/26/21 14:19 Blood Pressure 103/59 02/26/21 16:31 Pulse Oximetry (%) 94 02/26/21 16:31 [facility] MDM Narrative Medical decision making narrative: Left lower extremity cellulitis Sepsis Hyponatremia Patient is being admitted for IV antibiotics. I spoke with the hospitalist who has accepted the patient for admission. Dr. Acosta has agreed to consult on this patient. Blood cultures x2 are pending. Lab Data Result diagrams: 02/26/21 14:54 02/26/21 14:54 Labs: Lab Results 02/26/21 02/26/21 02/26/21 Range/Units 14:54 14:54 15:13 WBC 15.6 H (4.5-11.0) K/mcL RBC 4.49 L (4.63-6.08) M/mcL Hgb 12.9 L (13.7-17.5) g/dL Hct 40.5 (40.1-51.0) % MCV 90.2 (80.0-100.0) fL MCH 28.7 (26.0-34.0) pg MCHC 31.9 (31.0-36.0) g/dL RDW 15.4 H (11.5-14.5) % Plt Count 221 (140-440) K/mcL MPV 11.6 H (7.4-10.4) fL VBG Lactic Acid 2.1 H (0.5-2.0) mmol/L Sodium 128 L (133-145) mmol/L Potassium 4.4 (3.3-5.1) mmol/L Chloride 88 L (96-108) mmol/L Carbon Dioxide 19 L (22-30) mmol/L Anion Gap 21.0 H (8.0-16.0) BUN 16 (6-20) mg/dL Creatinine 0.8 (0.7-1.2) mg/dL GFR Calculation 100 Glucose 182 H (70-105) mg/dL Calcium 9.0 (8.6-10.4) mg/dL Total Bilirubin 1.0 (0.1-1.0) mg/dL AST 28 (<40) U/L ALT 26 (<40) U/L Alkaline Phosphatase 127 H (39-117) U/L C-Reactive Protein 33.10 H (0.03-0.80) mg/dL Total Protein 8.2 (5.9-8.4) gm/dL Albumin 3.7 (3.2-5.2) gm/dL Globulin 4.5 H (2.2-3.7) gm/dL Albumin/Globulin Ratio 0.8 L (1.0-2.3) ED POC Tests ED POC Tests: LELO - SARS Antigen Negative Discharge Plan Patient/Caregiver Discharge Instructions Pt seen by COMPLAINT EVALUATION OFFICER/PA only: Yes Clinical Impression: Cellulitis of left leg Patient Disposition: Xfer As Inpt ([facility]) Condition: Fair Follow up with: Neri Zuniga DO [Primary Care Provider] - Prescriptions: No Action Jardiance 25 mg tablet 25 mg PO QDAY Qty: 90 RF: 1 gabapentin 300 mg capsule 600 mg PO TID 90 Days Qty: 540 RF: 1 lisinopril 10 mg tablet 10 mg PO QDAY Qty: 90 RF: 1 oxycodone-acetaminophen 5-325 mg tablet 1 tab PO TID PRN (Reason: pain) Qty: 90 RF: 0 diphenoxylate-atropine 2.5-0.025 mg tablet 1 tab PO Q6H PRN (Reason: Diarrhea) RF: 0 Glucagon Emergency Kit (human) 1 mg recon soln 1 mg SUB-Q Q20M PRN (Reason: hypoglycemia) Qty: 1 RF: 0 metoclopramide HCl [Reglan] 10 mg tablet 10 mg PO BID PRN (Reason: nausea and vomiting) Qty: 60 RF: 5 Basaglar KwikPen U-100 Insulin 100 unit/mL (3 mL) insulin pen 80 unit subcut QPM Qty: 15 RF: 3 acetaminophen [Tylenol] 325 mg Tablet 650 mg PO Q6HP PRN (Reason: Per Pain Protocol/Fever > 101) Qty: 30 RF: 0 insulin lispro [Humalog U-100 Insulin] 100 unit/mL Solution 10 unit subcut AC Qty: 10 RF: 4
--- NOTE | 2021-02-26 15:13 | XRay Report ---
CLINICAL INFORMATION: Pain. Evaluate nephrostomy myelitis COMPARISON: 01/15/2021 FINDINGS: A screw extends through the third metatarsal head ostensibly transfixing an old fracture or osteotomy. Relationships are anatomic. No specific evidence for osteomyelitis or other focal osseous abnormalities. Hammertoe deformities of the first through fifth digits seen as before. Moderate diffuse soft tissue swelling noted-most severe in the dorsum of the forefoot and midfoot. IMPRESSION: No evidence of osteomyelitis. Diffuse soft tissue swelling compatible with edema or cellulitis. Other chronic findings as described Interpreted and Authenticated by: Neri Horta 02/26/21
[2021-02-26] MEDS ORDERED: KETOROLAC 30 MG/ML VIAL IV ONE (15:18)
[2021-02-26 15:37] LABS: Hematocrit 40.5 % (40.1-51.0); Hemoglobin 12.9 g/dL (13.7-17.5); Mean Cell Volume 90.2 fL (80.0-100.0); Mean Corpuscular HGB Conc 31.9 g/dL (31.0-36.0); Mean Platelet Volume 11.6 fL (7.4-10.4); Platelet Count 221 K/mcL (140-440); RBC 4.49 M/mcL (4.63-6.08); Red Cell Distribution Width 15.4 % (11.5-14.5); WBC 15.6 K/mcL (4.5-11.0)
[2021-02-26 16:00] LABS: ALT/SGPT 26 U/L (<40); AST/SGOT 28 U/L (<40); Albumin 3.7 gm/dL (3.2-5.2); Albumin/Globulin Ratio 0.8 (1.0-2.3); Alkaline Phosphatase 127 U/L (39-117); Blood Urea Nitrogen 16 mg/dL (6-20); Carbon Dioxide 19 mmol/L (22-30); Chloride 88 mmol/L (96-108); Globulin 4.5 gm/dL (2.2-3.7); Glomerular Filtration Rate 100; Glucose 182 mg/dL (70-105)
--- NOTE | 2021-02-26 16:33 | Internal Med History&Physical ---
HPI History of Present Illness Patient information: Note initiated : 02/26/21 at 4:31 pm Service Date, if different from initiated Date: [] Patient: Alfredo Tillman a 56 y/o M admitted on for possible sepsis, cellulitis. Chief Complaint: [] History of present illness: Mr. Tillman is a 56 year old M sent in by Dr. Landis for LLE wounds/cellulitis. Recently here for LLE infection in January. Patient states over the past few days his left leg is becoming increasingly red swollen and tender. He has had some fevers and chills had a little bit of nausea but no vomiting. Feels tired and weak. Patient states his blood sugars range from 130-175. Patient states he has had a diabetic foot ulcer on that left for months. His left leg is chronically red but says is much more red lately. In the ED is evaluated and found to have mild hyponatremia mildly elevated lactate elevated CRP. He was mildly tachycardic and febrile. And had an elevated white blood cell count. No DVT on u/s. Patient be followed by Dr. Campos. Review of Systems: Pertinent positives as above. Denies headache/vomiting/chest or abdominal pain/cough/dyspnea/diarrhea. Remaining 10 point review of system reviewed negative PFSH PFSH All Active Problems (Updated 02/26/21 @ 16:33 by Lauren Trejo PA-C) Fall (Acute) Lower extremity pain (Acute) Cellulitis of left leg (Acute) Scalp laceration (Acute) Diabetic ulcer of toe of left foot (Acute) Type 2 diabetes mellitus with diabetic neuropathy (Acute) Cellulitis (Acute) Panic attack (Acute) Diabetic ulcer of ankle associated with diabetes mellitus due to underlying condition, with fat layer exposed (Acute) Diabetic gastroparesis (Acute) Chronic pain (Chronic) Chronic pain syndrome (Chronic) Depression (Chronic) Nicotine addiction (Chronic) GERD (gastroesophageal reflux disease) (Chronic) Hyperlipidemia (Chronic) Polyneuropathy (Chronic) Medicare annual wellness visit, initial (Chronic) Cellulitis (Chronic) Diabetic necrobiosis lipoidica (Chronic) Right wrist pain (Chronic) Hypertension (Chronic) Right wrist pain (Chronic) Joint pain (Chronic) Peripheral neuropathy (Chronic) Scalp wound (Chronic) Arthritis of right wrist (Chronic) Scalp wound (Chronic) Type 2 diabetes mellitus with pressure callus (Chronic) Peripheral neuropathy (Chronic) Gastroenteritis (Chronic) Abdominal pain (Chronic) Fecal retention (Chronic) Contusion of left hip (Chronic) Fall (Chronic) Blood in feces (Chronic) Diabetes type 2, uncontrolled (Chronic) Left shoulder strain (Chronic) Pancreatitis (Chronic) Obesities, morbid (Chronic) Post-cholecystectomy syndrome (Chronic) Abdominal pain, chronic, right lower quadrant (Chronic) Unilateral primary osteoarthritis, right hip (Chronic) 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, face and neck (Chronic) Impacted cerumen, bilateral (Chronic) Acute bronchitis (Chronic) Acute upper respiratory infection (Chronic) Toenail deformity (Chronic) Pain, foot (Chronic) Insomnia (Chronic) High blood pressure (Chronic 09/20/15) Gall bladder disease (Chronic) Lipoma (Chronic) Shortness of breath (Chronic) Inguinal hernia (Chronic) Pneumonia (Chronic) Abscess (Chronic) Fall against object (Chronic) Contusion (Chronic) Sebaceous cyst (Chronic) Medical History Abdominal pain, chronic, right lower quadrant Abscess Head-behind right ear Acute bronchitis Acute upper respiratory infection Arthritis of right wrist 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, face and neck Chronic pain Chronic pain syndrome Contusion Depression Diabetes (09/20/15) Diabetes Diabetes type 2, uncontrolled Fall against object Gall bladder disease GERD (gastroesophageal reflux disease) High blood pressure (09/20/15) Hyperlipidemia Hypertension Impacted cerumen, bilateral Inguinal hernia Insomnia Joint pain Lipoma Medicare annual wellness visit, initial Nicotine addiction Obesities, morbid Pain, foot Pancreatitis Peripheral neuropathy Peripheral neuropathy Pneumonia Polyneuropathy Post-cholecystectomy syndrome Right wrist pain Right wrist pain Scalp wound Scalp wound Sebaceous cyst Shortness of breath Toenail deformity Split toenails Type 2 diabetes mellitus with pressure callus Unilateral primary osteoarthritis, right hip Surgical History History of abdominal surgery History of cholecystectomy 04/2004 History of esophagogastroduodenoscopy (EGD) (06/27/16) History of inguinal herniorrhaphy History of lumbar surgery decompression History of shoulder surgery right decompression History of total right hip arthroplasty Family History Father Malignant neoplasm History of coronary artery stent placement Cardiac disease Diabetes mellitus Grandmother Abnormality of colon Malignant neoplasm Diabetes mellitus Mother Cardiac disease Brother Diabetes mellitus Social History marital status: occupation: Retired 4 years 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 pets and animals: Yes (2 dogs.) pets and animals: dog(s) smoking status: Smokeless tobacco alcohol intake frequency: a few times a month substance use type: does not use additional history: chewing tobacco - 1 can q2d MEDS/ALLERGIES Home Medications and Allergies Home Medications Medication Instructions Recorded Confirmed Type diphenoxylate-atropine 2.5 1 tab PO Q6H PRN tab 11/25/19 02/05/21 History mg-0.025 mg tablet glucagon (human recombinant) 1 mg 1 mg SUB-Q Q20M PRN #1 each 11/25/19 02/05/21 Rx solution for injection metoclopramide HCl 10 mg tablet 10 mg PO BID PRN #60 tab 09/10/20 02/05/21 Rx empagliflozin 25 mg tablet 25 mg PO QDAY #90 tab 10/01/20 02/05/21 Rx gabapentin 300 mg capsule 600 mg PO TID 90 Days #540 cap 10/22/20 02/05/21 Rx insulin glargine 100 unit/mL (3 80 unit SUBCUT QPM #15 ml 11/12/20 02/05/21 Rx mL) subcutaneous pen lisinopril 10 mg tablet 10 mg PO QDAY #90 tab 11/22/20 02/05/21 Rx acetaminophen [Tylenol] 650 mg PO Q6HP PRN #30 tab 01/21/21 02/05/21 Rx insulin lispro [Humalog U-100 10 unit SUBCUT AC #10 ml 01/21/21 02/05/21 Rx Insulin] oxycodone-acetaminophen 5 mg-325 1 tab PO TID PRN #90 tab 02/13/21 Rx mg tablet Allergies Allergy/AdvReac Type Severity Reaction Status Date / Time glipizide AdvReac Intermediate Severe Verified 02/26/21 14:24 stomach pain morphine AdvReac Intermediate Hallucinati Verified 02/26/21 14:24 ng dissolvable sutures AdvReac Intermediate Swelling/in Uncoded 02/05/21 15:43 fection EXAM Constitutional Vitals: Temp Pulse Resp BP Pulse Ox 101.4 F H 100 H 22 109/57 97 02/26/21 15:09 02/26/21 16:16 02/26/21 14:19 02/26/21 16:16 02/26/21 16:16 Exam: General: Alert, Awake, No acute Distress, obese Eyes/N/T: EOMI, PERRL, dry MM Head/Neck: neck supple, normocephalic atraumatic CV: RRR, 1/6 SM Pulm: Clear b/l, no wheezing/rhonchi/rales Abd: soft, nontender, +BS x4 Ext: no clubbing/cyanosis. LLE erythematous/edematous/TTP, plantar ulcer Neuro: Alert, no focal deficits, moves all extremities, CN 2-12 grossly intact, symmetrical strength b/l upper/lower, sensations intact b/l upper/lower Skin: warm/dry DATA Data Completed and Pending Labs: Labs from last 24 hours 02/26/21 02/26/21 02/26/21 15:13 14:54 14:54 WBC 15.6 H RBC 4.49 L Hgb 12.9 L Hct 40.5 MCV 90.2 MCH 28.7 MCHC 31.9 RDW 15.4 H Plt Count 221 MPV 11.6 H Platelet Estimate Pending RBC Morphology Pending VBG Lactic Acid 2.1 H Sodium 128 L Potassium 4.4 Chloride 88 L Carbon Dioxide 19 L Anion Gap 21.0 H BUN 16 Creatinine 0.8 GFR Calculation 100 Glucose 182 H Calcium 9.0 Total Bilirubin 1.0 AST 28 ALT 26 Alkaline Phosphatase 127 H C-Reactive Protein 33.10 H Total Protein 8.2 Albumin 3.7 Globulin 4.5 H Albumin/Globulin Ratio 0.8 L A/P Narrative A/P Narrative: A: *LLE Diabetic foot ulcer and leg cellulitis: *DM w/neuropathy: -A1c *Obese: *HTN: *Hyponatremia: P: -Vanco/Zosyn, pending BC/WC -Dr. Landis following -aa u/s and MRI pending -pain control -f/u sodium -f/u ESR/CRP -basal and SSI -cont ACEI -pt/ot -ppx: heparin DNR Time Spent With Patient Time: Total time spent is greater than 50% in coordination of care (as documented) at patient's floor/unit and/or counseling patient:
[2021-02-26] MEDS ORDERED: POTASSIUM CHLORIDE 40 MEQ in DEXTROSE 5% IN WATER 500 ML IV PRN (17:56)
[2021-02-26] MEDS ORDERED: POLYETHYLENE GLYCOL 3350 17 GM PACKET PO PRN (17:56)
[2021-02-26] MEDS ORDERED: oxyCODONE/APAP 5/325MG TABLET PO PRN (17:56)
[2021-02-26] MEDS ORDERED: POTASSIUM CHLORIDE 20 MEQ TABLET PO PRN ×2 (17:56)
[2021-02-26] MEDS ORDERED: PROCHLORPERAZINE 10 MG/2 ML VIAL IV PRN (17:56)
[2021-02-26] MEDS ORDERED: MAGNESIUM SULFATE 2 GM/50 ML BAG IV PRN (17:56)
[2021-02-26] MEDS ORDERED: VANCOMYCIN PER PHARMACY IV SCH (17:56)
[2021-02-26] MEDS ORDERED: ACETAMINOPHEN 325 MG TABLET PO PRN (17:56)
[2021-02-26] MEDS ORDERED: DEXTROSE 50% 50 ML VIAL IV PRN (17:56)
[2021-02-26] MEDS ORDERED: SENNOSIDES 1 TABLET PO PRN (17:56)
[2021-02-26] MEDS ORDERED: DEXTROSE 31 GM ORAL.SUSP PO PRN (17:56)
[2021-02-26] MEDS ORDERED: IPRATROPIUM/ALBUTEROL 3 ML AMPUL.NEB NEB PRN (17:56)
[2021-02-26 18:46] LABS: Hemoglobin A1C 7.8 % Hgb (4.0-6.0)
[2021-02-26 19:01] LABS: Band Neutrophils % 10 % (0-10); Lymphocytes % 8 % (15-49); Monocytes % (Manual) 4 % (1-12); Platelet Estimate NORMAL (Normal); RBC Morphology NORMAL (Normal); Segmented Neutrophils % 78 % (38-78)
[2021-02-26] MEDS: 0.9 % SODIUM CHLORIDE 1,000 ML IV SCH (20:00)
[2021-02-26] MEDS: 0.9 % SODIUM CHLORIDE 10 ML SYRINGE IV SCH (20:00)
[2021-02-26] MEDS: PIPERACILLIN SODIUM/TAZOBACTAM 3.375 GM in DEXTROSE 5% IN WATER 50 ML IV SCH (20:14)
[2021-02-26] MEDS: INSULIN LISPRO 1 UNIT/0.01 ML UNIT SQ SCH ×2 (20:15→21:25)
[2021-02-26] MEDS: oxyCODONE/APAP 5/325MG TABLET PO PRN (20:52)
[2021-02-26] MEDS: HEPARIN 5,000 UNIT/ML VIAL SQ SCH (20:53)
[2021-02-26] MEDS: HYDROmorphone 0.5 MG/0.5 ML SYRINGE IV PRN (20:53)
[2021-02-26] MEDS: GABAPENTIN 300 MG CAPSULE PO SCH (20:53)
[2021-02-26] MEDS: DOCUSATE SODIUM 100 MG CAPSULE PO SCH (21:26)
[2021-02-27] MEDS: PIPERACILLIN SODIUM/TAZOBACTAM 3.375 GM in DEXTROSE 5% IN WATER 50 ML IV SCH ×4 (00:02→17:38)
--- NOTE | 2021-02-27 01:58 | Ultrasound Report ---
CLINICAL INFORMATION: COMPARISON: None. FINDINGS: The entire deep venous system including the common femoral, superficial femoral and popliteal are easily compressible and show normal venous blood flow on color and spectral Doppler. No evidence of thrombus. The paired trifurcation calf veins were not visualized. IMPRESSION: No evidence of deep vein thrombosis above the knee. Trifurcation calf veins were not visualized. Interpreted and Authenticated by: Neri Horta 02/27/21
--- NOTE | 2021-02-27 02:24 | XRay Report ---
CLINICAL INFORMATION: Pain. Evaluate for osteomyelitis. COMPARISON: None. FINDINGS: There is no specific radiographic evidence of osteomyelitis or other osseous abnormalities. Patellofemoral, tibiofemoral, ankle mortise and talocalcaneal joints are normal in width and alignment without arthritic change. Extensive subdermal calcifications likely represent phleboliths and moderate diffuse soft tissue swelling. IMPRESSION: No evidence of osteomyelitis. Moderate diffuse soft tissue swelling suggesting edema or cellulitis. Interpreted and Authenticated by: Neri Horta 02/27/21
--- NOTE | 2021-02-27 03:59 | Magnetic Resonance Report ---
CLINICAL INFORMATION: Pain and erythema. Cellulitis. Evaluate for osteomyelitis COMPARISON: Plain films 02/26/2021. TECHNIQUE: Axial T1 STIR, coronal T1 STIR sagittal T1 STIR images were obtained of the left calf . FINDINGS: The marrow signal throughout the tibia fibula visualized femur and talus is unremarkable no evidence of osteomyelitis. There is mild atrophy in the anterior posterior compartment musculature. No evidence of myositis or abscess. Moderate increased signal in the deep subcutaneous fat throughout the calf is compatible with cellulitis. The patellofemoral, tibiofemoral and ankle mortise joints are unremarkable. IMPRESSION: Diffuse cellulitis throughout the calf. No evidence of discrete abscess or osteomyelitis. Interpreted and Authenticated by: Neri Horta 02/27/21
--- NOTE | 2021-02-27 04:50 | Ultrasound Report ---
CLINICAL INFORMATION: diabetic foot wounds COMPARISON: None. FINDINGS: The common femoral, profunda femoral, superficial femoral arteries are widely patent. The patient could not tolerate exam of the popliteal and trifurcation arteries due to pain. IMPRESSION: Common, profunda and superficial femoral arteries are widely patent. Popliteal and trifurcation arteries not examined due to patient uncooperation Interpreted and Authenticated by: Neri Horta 02/27/21
[2021-02-27] MEDS: 0.9 % SODIUM CHLORIDE 10 ML SYRINGE IV SCH ×3 (05:58→21:20)
[2021-02-27 06:43] LABS: Hematocrit 33.8 % (40.1-51.0); Hemoglobin 11.2 g/dL (13.7-17.5); Mean Cell Volume 90.4 fL (80.0-100.0); Mean Corpuscular HGB Conc 33.1 g/dL (31.0-36.0); Mean Platelet Volume 11.3 fL (7.4-10.4); Platelet Count 188 K/mcL (140-440); RBC 3.74 M/mcL (4.63-6.08); Red Cell Distribution Width 15.3 % (11.5-14.5); WBC 16.9 K/mcL (4.5-11.0)
--- NOTE | 2021-02-27 07:19 | Internal Med Progress Note ---
SUBJECTIVE Subjective Patient information: Note initiated : 02/27/21 at 7:14 am Service Date, if different from initiated Date: [] Patient: Alfredo Tillman 56 y/o M admitted on 02/26/21 for possible sepsis, cellulitis. Chief Complaint: [] Interval history: History of present illness: Mr. Tillman is a 56 year old M sent in by Dr. Landis for LLE wounds/cellulitis. Recently here for LLE infection in January. Patient states over the past few days his left leg is becoming increasingly red swollen and tender. He has had some fevers and chills had a little bit of nausea but no vomiting. Feels tired and weak. Patient states his blood sugars range from 130-175. Patient states he has had a diabetic foot ulcer on that left for months. His left leg is chronically red but says is much more red lately. In the ED is evaluated and found to have mild hyponatremia mildly elevated lactate elevated CRP. He was mildly tachycardic and febrile. And had an elevated white blood cell count. No DVT on u/s. Patient be followed by Dr. Campos. 02/27 Complains of left lower leg pain otherwise no new complaints. MRI unremarkable Review of Systems: denies headache/fever/chills/nausea/vomiting/chest or abdominal pain/cough/dyspnea/diarrhea. Otherwise see above. Constitutional Vitals: Vital Signs Temp Pulse Resp BP Pulse Ox 99.4 F H 106 H 20 128/64 95 02/27/21 03:38 02/27/21 03:38 02/27/21 03:38 02/27/21 03:38 02/27/21 03:38 Period Temp Pulse Resp BP Sys/Sanders Pulse Ox Last 24 Hr 98.0 F-101.4 F 96-123 - 102-145/50-83 92-98 Intake and Output 02/26/21 02/27/21 02/27/21 21:59 05:59 13:59 Intake Total 600 350 Output Total 850 700 400 Balance -250 -350 -400 Weight 120.202 kg 122.198 kg Intake & Output: Intake & Output 02/26/21 02/27/21 02/27/21 21:59 05:59 13:59 Intake Total 600 350 Output Total 850 700 400 Balance -250 -350 -400 Weight 120.202 kg 122.198 kg Intake: IV 600 50 Zosyn 3.375 gm In Dextrose 5% 100 50 in Water 50 ml @ 100 mls/hr IV Q6H [facility] Rx#:[id number] Vancomycin 2,000 mg In Sodium 500 Chloride 0.9% 500 ml @ 250 mls/ hr IV ONCE ONE Rx#:[id number] Oral 300 Output: Void Amount 850 700 400 Other: Urine Appearance Clear Urine Color Dark Yellow Exam: General: Alert, Awake, No acute Distress, obese Eyes/N/T: EOMI, Head/Neck: neck supple, CV: RRR, 1/6 SM Pulm: Clear b/l, no wheezing/rhonchi/rales Abd: soft, nontender, +BS x4 Ext: no clubbing/cyanosis. LLE erythematous/edematous/TTP, plantar ulcer Neuro: Alert, no focal deficits, moves all extremities, Skin: warm/dry OBJ DATA Labs CBC & Chem 7: 02/27/21 05:51 02/27/21 05:51 Labs: Abnormal Lab Results 02/27/21 02/26/21 02/26/21 05:51 17:19 17:19 WBC 16.9 H RBC 3.74 L Hgb 11.2 L Hct 33.8 L RDW 15.3 H MPV 11.3 H Lymphocytes % ESR VBG Lactic Acid Sodium Chloride Carbon Dioxide Anion Gap Glucose Hemoglobin A1c 7.8 H Alkaline Phosphatase C-Reactive Protein Globulin Albumin/Globulin Ratio Procalcitonin 0.56 H 02/26/21 02/26/21 02/26/21 17:19 15:13 14:54 WBC RBC Hgb Hct RDW MPV Lymphocytes % ESR 96 H VBG Lactic Acid 2.1 H Sodium 128 L Chloride 88 L Carbon Dioxide 19 L Anion Gap 21.0 H Glucose 182 H Hemoglobin A1c Alkaline Phosphatase 127 H C-Reactive Protein 33.10 H Globulin 4.5 H Albumin/Globulin Ratio 0.8 L Procalcitonin 02/26/21 14:54 WBC 15.6 H RBC 4.49 L Hgb 12.9 L Hct RDW 15.4 H MPV 11.6 H Lymphocytes % 8 L ESR VBG Lactic Acid Sodium Chloride Carbon Dioxide Anion Gap Glucose Hemoglobin A1c Alkaline Phosphatase C-Reactive Protein Globulin Albumin/Globulin Ratio Procalcitonin Meds: Medications Acetaminophen (Acetaminophen 325 Mg Tablet) 650 mg PO Q6HP PRN PRN Reason: PAIN/FEVER > 101 Albuterol/Ipratropium (Ipratropium/Albuterol 3 Ml Ampul.Neb) 3 ml NEB Q4HP PRN PRN Reason: Shortness Of Breath Dextrose (Dextrose 50% 50 Ml Vial) 0 ml IV UD PRN PRN Reason: Hypoglycemia Diagnostic Test (Pha) (Accu-Chek 1 Each Strip) 1 each FS ACHS [facility] Last Admin: 02/26/21 21:25 Dose: 1 each Documented by: Docusate Sodium (Docusate Sodium 100 Mg Capsule) 100 mg PO BID [facility] Last Admin: 02/26/21 21:26 Dose: Not Given Documented by: Gabapentin (Gabapentin 300 Mg Capsule) 600 mg PO TID [facility] Last Admin: 02/26/21 20:53 Dose: 600 mg Documented by: Glucose (Dextrose 31 Gm Oral.Susp) 15 gm PO PRN PRN PRN Reason: Hypoglycemia Heparin Sodium (Porcine) (Heparin 5,000 Unit/Ml Vial) 5,000 unit SQ Q12 [facility] Last Admin: 02/26/21 20:53 Dose: 5,000 unit Documented by: Hydromorphone HCl (Hydromorphone 0.5 Mg/0.5 Ml Syringe) 0.25 - 0.5 mg IV Q2HP PRN; Protocol PRN Reason: Per Pain Protocol Last Admin: 02/26/21 20:53 Dose: 0.5 mg Documented by: Potassium Chloride 40 meq/ (Dextrose) 520 mls @ 130 mls/hr IV UD PRN PRN Reason: Potassium < 3 Magnesium Sulfate (Magnesium Sulfate) 2 gm in 50 mls @ 50 mls/hr IV UD PRN PRN Reason: Magnesium </= 1.6 Sodium Chloride (Sodium Chloride 0.9%) 1,000 mls @ 100 mls/hr IV .Q10H [facility] Stop: 02/27/21 13:55 Last Admin: 02/26/21 20:00 Dose: 100 mls/hr Documented by: Piperacillin Sod/Tazobactam (Sod 3.375 gm/ Dextrose) 50 mls @ 100 mls/hr IV Q6H [facility]; Protocol Last Admin: 02/27/21 05:58 Dose: 100 mls/hr Documented by: Vancomycin HCl 1,500 mg/ (Sodium Chloride) 500 mls @ 333.3 mls/hr IV Q12H [facility] Insulin Human Lispro (Insulin Lispro 1 Unit/0.01 Ml Unit) 0 unit SQ ACHS [facility]; Protocol Last Admin: 02/26/21 21:25 Dose: 6 units Documented by: Ondansetron HCl (Ondansetron 4 Mg/2 Ml Vial) 4 mg IV Q4HP PRN PRN Reason: Nausea And Vomiting Oxycodone/Acetaminophen (Oxycodone/Apap 5/325mg Tablet) 1 - 2 tab PO Q4HP PRN; Protocol PRN Reason: Per Pain Protocol Last Admin: 02/26/21 20:52 Dose: 1 tab Documented by: Empagliflozin [ Jardiance] 25 Mg Tablet 1 dose PO QDAY [facility] Polyethylene Glycol (Polyethylene Glycol 3350 17 Gm Packet) 17 gm PO DAILYP PRN PRN Reason: Constipation Potassium Chloride (Potassium Chloride 20 Meq Tablet) 40 meq PO UD PRN PRN Reason: Potssium is 3-3.5 Potassium Chloride (Potassium Chloride 20 Meq Tablet) 40 meq PO UD PRN PRN Reason: Potassium < 3 Prochlorperazine (Prochlorperazine 10 Mg/2 Ml Vial) 10 mg IV Q6HP PRN PRN Reason: Nausea And Vomiting Senna (Sennosides 1 Tablet) 2 tab PO DAILYP PRN PRN Reason: Constipation Sodium Chloride (0.9 % Sodium Chloride 10 Ml Syringe) 10 ml IV Q8 [facility] Last Admin: 02/27/21 05:58 Dose: Not Given Documented by: Vancomycin HCl (Vancomycin Per Pharmacy) 1 order IV [facility] [place] [facility] [place]; Protocol A/P Narrative A/P Narrative: A: *LLE Diabetic foot ulcer and leg cellulitis: -no abscess/osteo of leg, foot mri pending -ESR 96 *SIRS: -febrile o/n *DM w/neuropathy: -A1c 7.8 *Obese: *HTN: *Hyponatremia: P: -Vanco/Zosyn, pending BC/WC -Dr. Landis following - -IVF -MRI foot pending -pain control -f/u sodium -f/u ESR/CRP, pct -basal and SSI -cont ACEI -pt/ot -ppx: heparin DNR Time Spent With Patient Time: Total time spent is greater than 50% in coordination of care (as documented) at patient's floor/unit and/or counseling patient: QUALITY VTE Deep Vein Thrombosis/Pulmonary Embolism Present on Admission: No
[2021-02-27 07:21] LABS: ALT/SGPT 20 U/L (<40); AST/SGOT 23 U/L (<40); Albumin/Globulin Ratio 0.8 (1.0-2.3); Alkaline Phosphatase 120 U/L (39-117); Bilirubin,Direct 0.5 mg/dL (<0.3); Blood Urea Nitrogen 14 mg/dL (6-20); Calcium 8.4 mg/dL (8.6-10.4); Carbon Dioxide 19 mmol/L (22-30); Chloride 92 mmol/L (96-108); Globulin 3.8 gm/dL (2.2-3.7); Glomerular Filtration Rate 100; Glucose 186 mg/dL (70-105); Lactate Dehydrogenase 232 U/L (135-225); Phosphorous 2.3 mg/dL (2.5-4.5); Triglycerides 118 mg/dL (<150); Uric Acid 8.1 mg/dL (2.5-8.0)
[2021-02-27] MEDS: oxyCODONE/APAP 5/325MG TABLET PO PRN ×4 (07:36→21:18)
[2021-02-27] MEDS: HYDROmorphone 0.5 MG/0.5 ML SYRINGE IV PRN ×5 (07:36→22:15)
[2021-02-27] MEDS: 0.9 % SODIUM CHLORIDE 1,000 ML IV SCH (07:40)
[2021-02-27] MEDS: INSULIN LISPRO 1 UNIT/0.01 ML UNIT SQ SCH ×4 (07:52→21:17)
[2021-02-27] MEDS: GABAPENTIN 300 MG CAPSULE PO SCH ×3 (08:43→21:18)
[2021-02-27] MEDS: DOCUSATE SODIUM 100 MG CAPSULE PO SCH ×3 (08:43→21:23)
[2021-02-27] MEDS: LISINOPRIL 10 MG TABLET PO SCH (08:43)
[2021-02-27] MEDS: HEPARIN 5,000 UNIT/ML VIAL SQ SCH ×2 (08:44→21:18)
[2021-02-27] MEDS: VANCOMYCIN 1,500 MG in 0.9 % SODIUM CHLORIDE 500 ML IV SCH ×2 (08:44→21:35)
[2021-02-27] MEDS: Empagliflozin [Jardiance] 25 mg tablet PO SCH (08:45)
[2021-02-27] MEDS ORDERED: EMPAGLIFLOZIN 25 MG PO SCH (09:00)
[2021-02-27 09:05] LABS: Anisocytosis 1+ (None Seen); Band Neutrophils % 10 % (0-10); Lymphocytes % 3 % (15-49); Monocytes % (Manual) 5 % (1-12); Myelocytes % 1 %; Platelet Estimate NORMAL (Normal); RBC Morphology ABNORMAL (Normal); Segmented Neutrophils % 81 % (38-78)
[2021-02-27] MEDS: CALCIUM CARBONATE 500 MG TAB.CHEW CHEWED PRN ×3 (13:05→22:10)
--- NOTE | 2021-02-27 15:45 | Magnetic Resonance Report ---
CLINICAL INFORMATION: r/u osteo, diabetic chronic foot wound COMPARISON: Foot MRI 01/18/2021 TECHNIQUE: Axial T1, T2 proton-density, coronal proton density, sagittal T1 proton-density images were obtained in the left foot and ankle FINDINGS: Magnetic susceptibility artifact is seen in the third metatarsal head where there is a screw transfixing an old osteotomy or fracture. This obscures local marrow signal and soft tissues. Marrow signal is otherwise normal. There is no evidence of osteomyelitis. Hammertoe deformities the first through fifth digits seen as before. Joint spaces are normal in width and alignment without arthritic change. Mild metatarsus abductus noted. Diffuse cellulitis appreciated. Tendons and sheaths are normal. IMPRESSION: No evidence of osteomyelitis. Diffuse cellulitis noted. Other chronic findings are stable Interpreted and Authenticated by: Neri Horta 02/27/21
--- NOTE | 2021-02-27 17:22 | General Surgery Consult Note ---
HPI Data of Consult Consult date: 02/27/21 Requesting physician: Nitesh Meneses Primary Care Provider: Neri Zuniga DO Consult Narrative Patient Information: Note initiated : 02/27/21 at 5:00 pm Service Date, if different from initiated Date: [] Patient: Alfredo Tillman 56 y/o M admitted on 02/26/21 for possible sepsis, cellulitis. Chief Complaint: []Patient was referred to ER form wound care clinic yesterday for interval changes in his MARY and LEFT lower leg wound and skin lesion sites. He had a non syncopal / ground level fall at home about 2-3 days prior. This set off throbbing pain, increased bruising, edema and pain of left leg. He admits to low grade fever and drainage from plantar ulcer and callus sites . There is on going concern about patient's ability to care for himself at home at this time. He had CSSSI and there were progressive acute inflammatory markers and changes involving the leg below knee. He was evaluated in ER and admitted to hospital for further management and continuity of care. cc:: CC: Nitesh Meneses COUNTS INCLUDE 234 BEDS AT THE [facility] PFSH All Active Problems (Updated 02/26/21 @ 16:33 by Lauren Trejo PA-C) Fall (Acute) Lower extremity pain (Acute) Cellulitis of left leg (Acute) Scalp laceration (Acute) Diabetic ulcer of toe of left foot (Acute) Type 2 diabetes mellitus with diabetic neuropathy (Acute) Cellulitis (Acute) Panic attack (Acute) Diabetic ulcer of ankle associated with diabetes mellitus due to underlying condition, with fat layer exposed (Acute) Diabetic gastroparesis (Acute) Chronic pain (Chronic) Chronic pain syndrome (Chronic) Depression (Chronic) Nicotine addiction (Chronic) GERD (gastroesophageal reflux disease) (Chronic) Hyperlipidemia (Chronic) Polyneuropathy (Chronic) Medicare annual wellness visit, initial (Chronic) Cellulitis (Chronic) Diabetic necrobiosis lipoidica (Chronic) Right wrist pain (Chronic) Hypertension (Chronic) Right wrist pain (Chronic) Joint pain (Chronic) Peripheral neuropathy (Chronic) Scalp wound (Chronic) Arthritis of right wrist (Chronic) Scalp wound (Chronic) Type 2 diabetes mellitus with pressure callus (Chronic) Peripheral neuropathy (Chronic) Gastroenteritis (Chronic) Abdominal pain (Chronic) Fecal retention (Chronic) Contusion of left hip (Chronic) Fall (Chronic) Blood in feces (Chronic) Diabetes type 2, uncontrolled (Chronic) Left shoulder strain (Chronic) Pancreatitis (Chronic) Obesities, morbid (Chronic) Post-cholecystectomy syndrome (Chronic) Abdominal pain, chronic, right lower quadrant (Chronic) Unilateral primary osteoarthritis, right hip (Chronic) 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, face and neck (Chronic) Impacted cerumen, bilateral (Chronic) Acute bronchitis (Chronic) Acute upper respiratory infection (Chronic) Toenail deformity (Chronic) Pain, foot (Chronic) Insomnia (Chronic) High blood pressure (Chronic 09/20/15) Gall bladder disease (Chronic) Lipoma (Chronic) Shortness of breath (Chronic) Inguinal hernia (Chronic) Pneumonia (Chronic) Abscess (Chronic) Fall against object (Chronic) Contusion (Chronic) Sebaceous cyst (Chronic) Medical History Abdominal pain, chronic, right lower quadrant Abscess Head-behind right ear Acute bronchitis Acute upper respiratory infection Arthritis of right wrist 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, face and neck Chronic pain Chronic pain syndrome Contusion Depression Diabetes (09/20/15) Diabetes Diabetes type 2, uncontrolled Fall against object Gall bladder disease GERD (gastroesophageal reflux disease) High blood pressure (09/20/15) Hyperlipidemia Hypertension Impacted cerumen, bilateral Inguinal hernia Insomnia Joint pain Lipoma Medicare annual wellness visit, initial Nicotine addiction Obesities, morbid Pain, foot Pancreatitis Peripheral neuropathy Peripheral neuropathy Pneumonia Polyneuropathy Post-cholecystectomy syndrome Right wrist pain Right wrist pain Scalp wound Scalp wound Sebaceous cyst Shortness of breath Toenail deformity Split toenails Type 2 diabetes mellitus with pressure callus Unilateral primary osteoarthritis, right hip Surgical History History of abdominal surgery History of cholecystectomy 04/2004 History of esophagogastroduodenoscopy (EGD) (06/27/16) History of inguinal herniorrhaphy History of lumbar surgery decompression History of shoulder surgery right decompression History of total right hip arthroplasty Family History Father Malignant neoplasm History of coronary artery stent placement Cardiac disease Diabetes mellitus Grandmother Abnormality of colon Malignant neoplasm Diabetes mellitus Mother Cardiac disease Brother Diabetes mellitus Social History marital status: occupation: Retired 4 years 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 pets and animals: Yes (2 dogs.) pets and animals: dog(s) smoking status: Smokeless tobacco alcohol intake frequency: a few times a month substance use type: does not use additional history: chewing tobacco - 1 can q2d MEDS/ALLERGIES Home Medications and Allergies Home Medications Medication Instructions Recorded Confirmed Type diphenoxylate-atropine 2.5 1 tab PO Q6H PRN tab 11/25/19 02/26/21 History mg-0.025 mg tablet empagliflozin 25 mg tablet 25 mg PO QDAY #90 tab 10/01/20 02/26/21 Rx gabapentin 300 mg capsule 600 mg PO TID 90 Days #540 cap 10/22/20 02/26/21 Rx insulin glargine 100 unit/mL (3 80 unit SUBCUT QPM #15 ml 11/12/20 02/05/21 Rx mL) subcutaneous pen lisinopril 10 mg tablet 10 mg PO QDAY #90 tab 11/22/20 02/26/21 Rx acetaminophen [Tylenol] 650 mg PO Q6HP PRN #30 tab 01/21/21 02/26/21 Rx insulin lispro [Humalog U-100 10 unit SUBCUT AC #10 ml 01/21/21 02/05/21 Rx Insulin] oxycodone-acetaminophen 5 mg-325 1 tab PO TID PRN #90 tab 02/13/21 02/26/21 Rx mg tablet empagliflozin [Jardiance] 25 mg PO DAILY 02/26/21 02/26/21 History Allergies Allergy/AdvReac Type Severity Reaction Status Date / Time glipizide AdvReac Intermediate Severe Verified 02/26/21 14:24 stomach pain morphine AdvReac Intermediate Hallucinati Verified 02/26/21 14:24 ng dissolvable sutures AdvReac Intermediate Swelling/in Uncoded 02/05/21 15:43 fection Physical Examination Vital Signs Vital signs: Temp Pulse Resp BP Pulse Ox 96.8 F L 90 18 120/75 99 02/27/21 16:00 02/27/21 16:00 02/27/21 16:00 02/27/21 16:00 02/27/21 16:00 General physical appearance General physical exam: no distress, moderate pain and obese (Morbidly obese, diabetic with peripheral neuropathy.) Eyes Eye exam: PERRL and normal ocular movement ENT ENT exam: normal pinna, normal mucosa and no congestion Head Head exam IM: Present atraumatic and normocephalic Neck Neck exam: no masses, no lymphadenopathy and no venous distension Cardiovascular Cardiovascular exam IM: Present normal rate and rhythm Respiratory Respiratory exam: normal respiratory effort and clear to auscultation Abdomen Abdomen: Present soft, non tender and bowel sounds Genitourinary Genitourinary (Male): Present normal penis with no external lesions Integumentary Integumentary: Present other (Scattered bruises, serous drainage and local warmth with odor from skin lesions of LEFT leg and plantar DFU site under great toe. ) Neurologic Neurologic: Present other (DIABETES with peripheral neuropathy and neuropathic ulcers under both feet, LEFT > Right ) Musculoskeletal Musculoskeletal: Present normal posture Psychiatric Psychiatric: Present oriented to time, oriented to person, oriented to place, speech is normal, memory intact and other (ANXIOUS and NERVOUS. He feels that he needs more observation and rehab before he is steady and ambulatory at home. ) Results Labs Result diagrams: 02/27/21 05:51 02/27/21 05:51 Labs: Abnormal lab results 02/26/21 02/26/21 02/26/21 Range/Units 14:54 17:19 17:19 WBC (4.5-11.0) K/mcL RBC (4.63-6.08) M/mcL Hgb (13.7-17.5) g/dL Hct (40.1-51.0) % RDW (11.5-14.5) % MPV (7.4-10.4) fL Seg Neutrophils % (38-78) % Lymphocytes % 8 L (15-49) % RBC Morphology (Normal) Anisocytosis (None Seen) ESR 96 H (0-15) mm/hr Sodium (133-145) mmol/L Chloride (96-108) mmol/L Carbon Dioxide (22-30) mmol/L Anion Gap (8.0-16.0) Glucose (70-105) mg/dL Hemoglobin A1c (4.0-6.0) % Hgb Uric Acid (2.5-8.0) mg/dL Calcium (8.6-10.4) mg/dL Phosphorus (2.5-4.5) mg/dL Direct Bilirubin (<0.3) mg/dL GGT (8-61) U/L Alkaline Phosphatase (39-117) U/L Lactate Dehydrogenase (135-225) U/L C-Reactive Protein (0.03-0.80) mg/dL Albumin (3.2-5.2) gm/dL Globulin (2.2-3.7) gm/dL Albumin/Globulin Ratio (1.0-2.3) Procalcitonin 0.56 H (<0.10) ng/mL 02/26/21 02/27/21 02/27/21 Range/Units 17:19 05:50 05:51 WBC 16.9 H (4.5-11.0) K/mcL RBC 3.74 L (4.63-6.08) M/mcL Hgb 11.2 L (13.7-17.5) g/dL Hct 33.8 L (40.1-51.0) % RDW 15.3 H (11.5-14.5) % MPV 11.3 H (7.4-10.4) fL Seg Neutrophils % 81 H (38-78) % Lymphocytes % 3 L (15-49) % RBC Morphology Abnormal A (Normal) Anisocytosis 1+ A (None Seen) ESR (0-15) mm/hr Sodium (133-145) mmol/L Chloride (96-108) mmol/L Carbon Dioxide (22-30) mmol/L Anion Gap (8.0-16.0) Glucose (70-105) mg/dL Hemoglobin A1c 7.8 H (4.0-6.0) % Hgb Uric Acid (2.5-8.0) mg/dL Calcium (8.6-10.4) mg/dL Phosphorus (2.5-4.5) mg/dL Direct Bilirubin (<0.3) mg/dL GGT (8-61) U/L Alkaline Phosphatase (39-117) U/L Lactate Dehydrogenase (135-225) U/L C-Reactive Protein (0.03-0.80) mg/dL Albumin (3.2-5.2) gm/dL Globulin (2.2-3.7) gm/dL Albumin/Globulin Ratio (1.0-2.3) Procalcitonin 0.52 H (<0.10) ng/mL 02/27/21 Range/Units 05:51 WBC (4.5-11.0) K/mcL RBC (4.63-6.08) M/mcL Hgb (13.7-17.5) g/dL Hct (40.1-51.0) % RDW (11.5-14.5) % MPV (7.4-10.4) fL Seg Neutrophils % (38-78) % Lymphocytes % (15-49) % RBC Morphology (Normal) Anisocytosis (None Seen) ESR (0-15) mm/hr Sodium 129 L (133-145) mmol/L Chloride 92 L (96-108) mmol/L Carbon Dioxide 19 L (22-30) mmol/L Anion Gap 18.0 H (8.0-16.0) Glucose 186 H (70-105) mg/dL Hemoglobin A1c (4.0-6.0) % Hgb Uric Acid 8.1 H (2.5-8.0) mg/dL Calcium 8.4 L (8.6-10.4) mg/dL Phosphorus 2.3 L (2.5-4.5) mg/dL Direct Bilirubin 0.5 H (<0.3) mg/dL GGT 216 H (8-61) U/L Alkaline Phosphatase 120 H (39-117) U/L Lactate Dehydrogenase 232 H (135-225) U/L C-Reactive Protein 34.80 H (0.03-0.80) mg/dL Albumin 3.0 L (3.2-5.2) gm/dL Globulin 3.8 H (2.2-3.7) gm/dL Albumin/Globulin Ratio 0.8 L (1.0-2.3) Procalcitonin (<0.10) ng/mL Diabetes panel 02/26/21 02/27/21 Range/Units 17:19 05:51 Sodium 129 L (133-145) mmol/L Potassium 3.9 (3.3-5.1) mmol/L Chloride 92 L (96-108) mmol/L Carbon Dioxide 19 L (22-30) mmol/L BUN 14 (6-20) mg/dL Creatinine 0.8 (0.7-1.2) mg/dL Glucose 186 H (70-105) mg/dL Hemoglobin A1c 7.8 H (4.0-6.0) % Hgb Calcium 8.4 L (8.6-10.4) mg/dL AST 23 (<40) U/L ALT 20 (<40) U/L Alkaline Phosphatase 120 H (39-117) U/L Total Protein 6.8 (5.9-8.4) gm/dL Albumin 3.0 L (3.2-5.2) gm/dL Triglycerides 118 (<150) mg/dL Calcium panel 02/27/21 Range/Units 05:51 Calcium 8.4 L (8.6-10.4) mg/dL Phosphorus 2.3 L (2.5-4.5) mg/dL Albumin 3.0 L (3.2-5.2) gm/dL Pituitary panel 02/27/21 Range/Units 05:51 Sodium 129 L (133-145) mmol/L Potassium 3.9 (3.3-5.1) mmol/L Chloride 92 L (96-108) mmol/L Carbon Dioxide 19 L (22-30) mmol/L BUN 14 (6-20) mg/dL Creatinine 0.8 (0.7-1.2) mg/dL Glucose 186 H (70-105) mg/dL Calcium 8.4 L (8.6-10.4) mg/dL Adrenal panel 02/27/21 Range/Units 05:51 Sodium 129 L (133-145) mmol/L Potassium 3.9 (3.3-5.1) mmol/L Chloride 92 L (96-108) mmol/L Carbon Dioxide 19 L (22-30) mmol/L BUN 14 (6-20) mg/dL Creatinine 0.8 (0.7-1.2) mg/dL Glucose 186 H (70-105) mg/dL Calcium 8.4 L (8.6-10.4) mg/dL Total Bilirubin 1.0 (0.1-1.0) mg/dL AST 23 (<40) U/L ALT 20 (<40) U/L Alkaline Phosphatase 120 H (39-117) U/L Total Protein 6.8 (5.9-8.4) gm/dL Albumin 3.0 L (3.2-5.2) gm/dL All other labs normal. A/P Narrative A/P Narrative: Assessment: I saw this patient with Hari Hunt RN, Inpatient wound care nurse . CSSSI of LEFT leg with interval changes . See HPI Reviewed lab results. ELEVATED CRP, Lactate, Leucocytosis and Hyponatremia U/S Vascular Doppler clear blood vessels and NO DVT LLE thigh and popliteal region. Infrapopliteal vasculature could not be evaluated due to pain and discomfort. Left foot is PWD with edema. Will MONITOR closely. I have reviewed his list of medications, wound care treatment plan with nursing staff and Hospitalist Physician. Have discussed possible ongoing plan of care with Caren Trenching Machine Operator. Plan: See orders. Following patent for his wound care needs and management. Time Spent With Patient Time: Total time spent is greater than 50% in coordination of care (as documented) at patient's floor/unit and/or counseling patient: Total time spent with greater than 50% in coordination of care (as documented) at patient's floor/unit and/or counseling patient:: Greater than 35 minutes
[2021-02-27] MEDS: ONDANSETRON 4 MG/2 ML VIAL IV PRN (19:23)
[2021-02-28] MEDS: HYDROmorphone 0.5 MG/0.5 ML SYRINGE IV PRN ×4 (00:27→20:39)
[2021-02-28] MEDS: PIPERACILLIN SODIUM/TAZOBACTAM 3.375 GM in DEXTROSE 5% IN WATER 50 ML IV SCH ×4 (05:36→17:50)
[2021-02-28] MEDS: 0.9 % SODIUM CHLORIDE 10 ML SYRINGE IV SCH ×3 (05:37→20:39)
[2021-02-28 06:50] LABS: Hematocrit 32.5 % (40.1-51.0); Hemoglobin 10.5 g/dL (13.7-17.5); Mean Cell Volume 91.8 fL (80.0-100.0); Mean Corpuscular HGB Conc 32.3 g/dL (31.0-36.0); Mean Platelet Volume 11.2 fL (7.4-10.4); Platelet Count 205 K/mcL (140-440); RBC 3.54 M/mcL (4.63-6.08); Red Cell Distribution Width 15.6 % (11.5-14.5); WBC 13.3 K/mcL (4.5-11.0)
[2021-02-28 07:20] LABS: ALT/SGPT 19 U/L (<40); AST/SGOT 23 U/L (<40); Albumin 2.6 gm/dL (3.2-5.2); Albumin/Globulin Ratio 0.6 (1.0-2.3); Alkaline Phosphatase 115 U/L (39-117); Bilirubin,Direct 0.4 mg/dL (<0.3); Bilirubin,Total 0.7 mg/dL (0.1-1.0); Blood Urea Nitrogen 10 mg/dL (6-20); Calcium 8.7 mg/dL (8.6-10.4); Carbon Dioxide 22 mmol/L (22-30); Chloride 93 mmol/L (96-108); Globulin 4.1 gm/dL (2.2-3.7); Glomerular Filtration Rate 121; Glucose 188 mg/dL (70-105); Lactate Dehydrogenase 215 U/L (135-225); Phosphorous 2.7 mg/dL (2.5-4.5); Triglycerides 170 mg/dL (<150)
[2021-02-28] MEDS ORDERED: FUROSEMIDE 40 MG/4 ML VIAL IV ONE ×2 (07:23→08:12)
[2021-02-28] MEDS ORDERED: ALBUMIN HUMAN 12.5 GM/50 ML BAG IV ONE (07:23)
--- NOTE | 2021-02-28 07:24 | Internal Med Progress Note ---
SUBJECTIVE Subjective Patient information: Note initiated : 02/28/21 at 7:20 am Service Date, if different from initiated Date: [] Patient: Alfredo Tillman 56 y/o M admitted on 02/26/21 for possible sepsis, cellulitis. Chief Complaint: [] Interval history: History of present illness: Mr. Tillman is a 56 year old M sent in by Dr. Landis for LLE wounds/cellulitis. Recently here for LLE infection in January. Patient states over the past few days his left leg is becoming increasingly red swollen and tender. He has had some fevers and chills had a little bit of nausea but no vomiting. Feels tired and weak. Patient states his blood sugars range from 130-175. Patient states he has had a diabetic foot ulcer on that left for months. His left leg is chronically red but says is much more red lately. In the ED is evaluated and found to have mild hyponatremia mildly elevated lactate elevated CRP. He was mildly tachycardic and febrile. And had an elevated white blood cell count. No DVT on u/s. Patient be followed by Dr. Campos. 02/27 Complains of left lower leg pain otherwise no new complaints. MRI unremarkable 02/28 Complains of poor sleep and leg pain. MRI leg foot without osteo or abscess. Leukocytosis improving. Review of Systems: denies headache/fever/chills/nausea/vomiting/chest or abdominal pain/cough/dyspnea/diarrhea. Otherwise see above. Constitutional Vitals: Vital Signs Temp Pulse Resp BP Pulse Ox 97.3 F 94 H 17 122/75 95 02/28/21 04:00 02/28/21 04:00 02/28/21 04:00 02/28/21 04:00 02/28/21 04:00 Period Temp Pulse Resp BP Sys/Sanders Pulse Ox Last 24 Hr 96.8 F-99.7 F 88-105 16-18 110-129/65-75 92-99 Intake and Output 02/27/21 02/28/21 02/28/21 21:59 05:59 13:59 Intake Total 2483 1300 50 Output Total 1001 1301 650 Balance 1482 -1 -600 Weight 128.82 kg Intake & Output: Intake & Output 09/22/21 09/23/21 09/23/21 21:59 05:59 13:59 Intake Total 2483 1300 50 Output Total 1001 1301 650 Balance 1482 -1 -600 Weight 128.82 kg Intake: IV 683 550 50 Sodium Chloride 0.9% 1,000 ml @ 633 100 mls/hr IV .Q10H [facility] Rx#: [id number] Zosyn 3.375 gm In Dextrose 5% 50 50 50 in Water 50 ml @ 100 mls/hr IV Q6H [facility] Rx#:[id number] Vancomycin 1,500 mg In Sodium 500 Chloride 0.9% 500 ml @ 333.3 mls/hr IV Q12H [facility] Rx#: [id number] Oral 1800 750 Output: Void Amount 1000 1300 650 # of times incontinent of urine 1 1 Other: Meal HS snack Percent of Meal Consumed 100% Urine Appearance Clear Clear Clear Urine Color Dark Yellow Dark Yellow Dark Yellow Urine Odor Strong Strong Strong # Emeses 0 Exam: General: Alert, Awake, No acute Distress, obese Eyes/N/T: EOMI, Head/Neck: neck supple, CV: RRR, 1/6 SM Pulm: Clear b/l, no wheezing/rhonchi/rales Abd: soft, nontender, +BS x4 Ext: no clubbing/cyanosis. LLE erythematous/edematous/TTP, plantar ulcer. RLE trace edema Neuro: Alert, no focal deficits, moves all extremities, Skin: warm/dry OBJ DATA Labs CBC & Chem 7: 02/28/21 05:58 02/28/21 05:58 Labs: Abnormal Lab Results 02/28/21 02/28/21 02/27/21 05:58 05:58 05:51 WBC 13.3 H RBC 3.54 L Hgb 10.5 L Hct 32.5 L RDW 15.6 H MPV 11.2 H Seg Neutrophils % Lymphocytes % RBC Morphology Anisocytosis ESR VBG Lactic Acid Sodium 128 L 129 L Chloride 93 L 92 L Carbon Dioxide 19 L Anion Gap 18.0 H Creatinine 0.5 L Glucose 188 H 186 H Hemoglobin A1c Uric Acid 8.1 H Calcium 8.4 L Phosphorus 2.3 L Direct Bilirubin 0.4 H 0.5 H GGT 188 H 216 H Alkaline Phosphatase 120 H Lactate Dehydrogenase 232 H C-Reactive Protein 34.50 H 34.80 H Albumin 2.6 L 3.0 L Globulin 4.1 H 3.8 H Albumin/Globulin Ratio 0.6 L 0.8 L Triglycerides 170 H Procalcitonin 02/27/21 02/27/21 02/26/21 05:51 05:50 17:19 WBC 16.9 H RBC 3.74 L Hgb 11.2 L Hct 33.8 L RDW 15.3 H MPV 11.3 H Seg Neutrophils % 81 H Lymphocytes % 3 L RBC Morphology Abnormal A Anisocytosis 1+ A ESR VBG Lactic Acid Sodium Chloride Carbon Dioxide Anion Gap Creatinine Glucose Hemoglobin A1c 7.8 H Uric Acid Calcium Phosphorus Direct Bilirubin GGT Alkaline Phosphatase Lactate Dehydrogenase C-Reactive Protein Albumin Globulin Albumin/Globulin Ratio Triglycerides Procalcitonin 0.52 H 02/26/21 02/26/21 02/26/21 17:19 17:19 15:13 WBC RBC Hgb Hct RDW MPV Seg Neutrophils % Lymphocytes % RBC Morphology Anisocytosis ESR 96 H VBG Lactic Acid 2.1 H Sodium Chloride Carbon Dioxide Anion Gap Creatinine Glucose Hemoglobin A1c Uric Acid Calcium Phosphorus Direct Bilirubin GGT Alkaline Phosphatase Lactate Dehydrogenase C-Reactive Protein Albumin Globulin Albumin/Globulin Ratio Triglycerides Procalcitonin 0.56 H 02/26/21 02/26/21 14:54 14:54 WBC 15.6 H RBC 4.49 L Hgb 12.9 L Hct RDW 15.4 H MPV 11.6 H Seg Neutrophils % Lymphocytes % 8 L RBC Morphology Anisocytosis ESR VBG Lactic Acid Sodium 128 L Chloride 88 L Carbon Dioxide 19 L Anion Gap 21.0 H Creatinine Glucose 182 H Hemoglobin A1c Uric Acid Calcium Phosphorus Direct Bilirubin GGT Alkaline Phosphatase 127 H Lactate Dehydrogenase C-Reactive Protein 33.10 H Albumin Globulin 4.5 H Albumin/Globulin Ratio 0.8 L Triglycerides Procalcitonin Meds: Medications Acetaminophen (Acetaminophen 325 Mg Tablet) 650 mg PO Q6HP PRN PRN Reason: PAIN/FEVER > 101 Albuterol/Ipratropium (Ipratropium/Albuterol 3 Ml Ampul.Neb) 3 ml NEB Q4HP PRN PRN Reason: Shortness Of Breath Calcium Carbonate/Glycine (Calcium Carbonate 500 Mg Tab.Chew) 500 mg CHEWED Q4HP PRN PRN Reason: Dyspepsia Last Admin: 02/27/21 22:10 Dose: 500 mg Documented by: Dextrose (Dextrose 50% 50 Ml Vial) 0 ml IV UD PRN PRN Reason: Hypoglycemia Diagnostic Test (Pha) (Accu-Chek 1 Each Strip) [address] [facility] Last Admin: 02/27/21 21:17 Dose: 1 each Documented by: Docusate Sodium (Docusate Sodium 100 Mg Capsule) [address] [facility] Last Admin: 02/27/21 21:23 Dose: Not Given Documented by: Gabapentin (Gabapentin 300 Mg Capsule) [address] [facility] Last Admin: 02/27/21 21:18 Dose: 600 mg Documented by: Glucose (Dextrose 31 Gm Oral.Susp) 15 gm PO PRN PRN PRN Reason: Hypoglycemia Heparin Sodium (Porcine) (Heparin 5,000 Unit/Ml Vial) 5,[address] [facility] Last Admin: 02/27/21 21:18 Dose: 5,000 unit Documented by: Hydromorphone HCl (Hydromorphone 0.5 Mg/0.5 Ml Syringe) 0.25 - 0.5 mg IV Q2HP PRN; Protocol PRN Reason: Per Pain Protocol Last Admin: 02/28/21 05:36 Dose: 0.5 mg Documented by: Potassium Chloride 40 meq/ (Dextrose) 520 mls @ 130 mls/hr IV UD PRN PRN Reason: Potassium < 3 Magnesium Sulfate (Magnesium Sulfate) 2 gm in 50 mls @ 50 mls/hr IV UD PRN PRN Reason: Magnesium </= 1.6 Piperacillin Sod/Tazobactam (Sod 3.375 gm/ Dextrose) 50 mls @ 100 mls/hr IV Q6H [facility]; Protocol Last Infusion: 02/28/21 06:06 Dose: Infused Documented by: Vancomycin HCl 1,500 mg/ (Sodium Chloride) 500 mls @ 333.3 mls/hr IV Q12H [facility] Last Infusion: 02/27/21 23:59 Dose: Infused Documented by: Insulin Human Lispro (Insulin Lispro 1 Unit/0.01 Ml Unit) 0 unit SQ [facility]; Protocol Last Admin: 02/27/21 21:17 Dose: 6 units Documented by: Lisinopril (Lisinopril 10 Mg Tablet) [address] [facility] Last Admin: 02/27/21 08:43 Dose: 10 mg Documented by: Ondansetron HCl (Ondansetron 4 Mg/2 Ml Vial) 4 mg IV Q4HP PRN PRN Reason: Nausea And Vomiting Last Admin: 02/27/21 19:23 Dose: 4 mg Documented by: Oxycodone/Acetaminophen (Oxycodone/Apap 5/325mg Tablet) 1 - 2 tab PO Q4HP PRN; Protocol PRN Reason: Per Pain Protocol Last Admin: 02/27/21 21:18 Dose: 2 tab Documented by: Empagliflozin [ Jardiance] 25 Mg Tablet 1 dose PO QDAY [facility] Last Admin: 02/27/21 08:45 Dose: Not Given Documented by: Polyethylene Glycol (Polyethylene Glycol 3350 17 Gm Packet) 17 gm PO DAILYP PRN PRN Reason: Constipation Potassium Chloride (Potassium Chloride 20 Meq Tablet) 40 meq PO UD PRN PRN Reason: Potssium is 3-3.5 Potassium Chloride (Potassium Chloride 20 Meq Tablet) 40 meq PO UD PRN PRN Reason: Potassium < 3 Prochlorperazine (Prochlorperazine 10 Mg/2 Ml Vial) 10 mg IV Q6HP PRN PRN Reason: Nausea And Vomiting Last Admin: 02/27/21 22:10 Dose: 10 mg Documented by: Senna (Sennosides 1 Tablet) 2 tab PO DAILYP PRN PRN Reason: Constipation Sodium Chloride (0.9 % Sodium Chloride 10 Ml Syringe) [address] [facility] Last Admin: 02/28/21 05:37 Dose: 10 ml Documented by: Vancomycin HCl (Vancomycin Per Pharmacy) [address] 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 Landis following -elevate leg -pain control -basal and SSI -cont ACEI -pt/ot -ppx: heparin full code Time Spent With Patient Time: Total time spent is greater than 50% in coordination of care (as documented) at patient's floor/unit and/or counseling patient: QUALITY VTE Deep Vein Thrombosis/Pulmonary Embolism Present on Admission: No
[2021-02-28] MEDS: CALCIUM CARBONATE 500 MG TAB.CHEW CHEWED PRN ×2 (08:13→17:32)
[2021-02-28] MEDS: INSULIN LISPRO 1 UNIT/0.01 ML UNIT SQ SCH ×4 (08:14→20:55)
[2021-02-28 08:16] LABS: Anisocytosis 1+ (None Seen); Band Neutrophils % 7 % (0-10); Eosinophils % (Manual) 1 % (0-7); Lymphocytes % 16 % (15-49); Monocytes % (Manual) 3 % (1-12); Platelet Estimate NORMAL (Normal); RBC Morphology ABNORMAL (Normal); Segmented Neutrophils % 73 % (38-78)
[2021-02-28] MEDS: DOCUSATE SODIUM 100 MG CAPSULE PO SCH ×2 (09:30→20:48)
[2021-02-28] MEDS: HEPARIN 5,000 UNIT/ML VIAL SQ SCH ×2 (09:30→20:39)
[2021-02-28] MEDS: GABAPENTIN 300 MG CAPSULE PO SCH ×3 (09:30→20:39)
[2021-02-28] MEDS: LISINOPRIL 10 MG TABLET PO SCH (09:30)
[2021-02-28] MEDS: Empagliflozin [Jardiance] 25 mg tablet PO SCH (09:37)
--- NOTE | 2021-02-28 13:19 | General Surgery Progress Note ---
SUBJECTIVE Subjective Patient information: Note initiated : 02/28/21 at 1:09 pm Service Date, if different from initiated Date: [] Patient: Alfredo Tillman 56 y/o M admitted on 02/26/21 for possible sepsis, cellulitis. Chief Complaint: [] Additional PMFSH (Level 3 Only): Hospitalization Day 2. SIRS , CSSSI LEFT leg and DFU under both feet. Chronic open scalp wound healing by second intention. NO interval changes since yesterday. I rounded on patient with Hari Hunt RN. In Patient wound care nurse. Constitutional Vitals: Vital Signs Temp Pulse Resp BP Pulse Ox 98.7 F 86 18 125/79 95 02/28/21 12:00 02/28/21 12:00 02/28/21 12:00 02/28/21 12:00 02/28/21 12:00 Period Temp Pulse Resp BP Sys/Sanders Pulse Ox Last 24 Hr 96.8 F-99.7 F 86-96 16-18 110-125/70-79 92-99 Intake and Output 02/27/21 02/28/21 02/28/21 21:59 05:59 13:59 Intake Total 2483 1300 530 Output Total 1001 1301 1900 Balance 1482 -1 -1370 Weight 284 lb Intake & Output: Intake & Output 02/27/21 02/28/21 02/28/21 21:59 05:59 13:59 Intake Total 2483 1300 530 Output Total 1001 1301 1900 Balance 1482 -1 -1370 Weight 284 lb Intake: IV 683 550 50 Sodium Chloride 0.9% 1,000 ml @ 633 100 mls/hr IV .Q10H [facility] Rx#: [id number] Zosyn 3.375 gm In Dextrose 5% 50 50 50 in Water 50 ml @ 100 mls/hr IV Q6H [facility] Rx#:[id number] Vancomycin 1,500 mg In Sodium 500 Chloride 0.9% 500 ml @ 333.3 mls/hr IV Q12H [facility] Rx#: [id number] Oral 1800 750 480 Output: Void Amount 1000 1300 1900 # of times incontinent of urine 1 1 Other: Meal HS snack Breakfast Percent of Meal Consumed 100% 100% Feeding Ability Independent Urine Appearance Clear Clear Clear Urine Color Dark Yellow Dark Yellow Dark Yellow Urine Odor Strong Strong Strong # Emeses 0 Exam: AVSS. No changes in MARY. Chronic open wound scalp is stable. Healing by second intention. LEFT leg inflammation is gradually resolving. Devitalized epidermal skin blister sites are falling off. There is Thick callus at site of DFU under LEFT great toe. Some serous drainage noted. WILL dbride this area, Lab results reviewed. Leucocytosis is improving. A/P Narrative A/P Narrative: Assessment: SIRS, CSSSI LEFT plantar DFU with thick callus under great toe. DM2 Neuropathy HTN Hyponatremia stabilizing. Plan: Continue present treatment and wound care. Will dbride LEFT DFU site under great toe. Send tissue for c/s. ID consult Dr. Meyers. Time Spent With Patient Time: Total time spent is greater than 50% in coordination of care (as documented) at patient's floor/unit and/or counseling patient: Total time spent with greater than 50% in coordination of care (as documented) at patient's floor/unit and/or counseling patient:: Greater than 35 minutes
--- NOTE | 2021-02-28 13:20 | Brief Operative Note ---
Brief Operative Note Date of procedure: 02/28/21 Pre-op diagnosis: CSSSI Left leg . Imroving. DFU with callus under LEFT great toe. Post-op diagnosis: same Procedure: EXCISION debridement of callus. Grafts/Implants: No Anesthesia: none Findings: THICK callosity. Soft slough over wound base. Complications: none Surgeon: Dustin Campos Estimated blood loss (cc): 0 Specimens Removed/Pathology: other (Tissue for c/s. ) Condition: stable Disposition: floor
--- NOTE | 2021-02-28 13:42 | Procedure Note ---
DATE OF PROCEDURE: 02/28/2021 PREOPERATIVE DIAGNOSES: Diabetic foot ulcer, left plantar under great toe MPJ. Thick callus under the toe. POSTOPERATIVE DIAGNOSES: Diabetic foot ulcer, left plantar under great toe MPJ. Thick callus under the toe. PROCEDURE: 1. Excision, debridement of callus. 2. Tissue obtained for culture and sensitivity. SURGEON: Dustin Campos M.D. ANESTHESIA: None. COMPLICATIONS: None. ESTIMATED BLOOD LOSS: None. CONDITION: Procedure was well tolerated. PROCEDURE NOTE IN DETAIL: After obtaining verbal informed consent, I proceeded to clean this wound at the bedside. I was assisted by Hari Mon RN, taking care of this patient. The patient was in supine position. The ulcer site was cleaned, prepped, and draped. We used Betadine swabs to clean this area. Using a pickup and scissors, sharp excision of the callus was carried out down to the level of underlying deep dermis. The soft slough was sharply debrided with #5 curette. Film Maker specimen was obtained for culture and sensitivity. The wound site was dressed with bacitracin ointment, gauze, and Kerlix. Procedure was well tolerated. VD:moe Job ID: [id number] Doc ID: [id number] Dustin Campos MD MTDD
[2021-02-28] MEDS: oxyCODONE/APAP 5/325MG TABLET PO PRN (17:32)
[2021-03-01] MEDS: PIPERACILLIN SODIUM/TAZOBACTAM 3.375 GM in DEXTROSE 5% IN WATER 50 ML IV SCH ×5 (00:10→23:46)
[2021-03-01] MEDS: 0.9 % SODIUM CHLORIDE 10 ML SYRINGE IV SCH ×3 (06:11→21:34)
--- NOTE | 2021-03-01 07:16 | Internal Med Progress Note ---
SUBJECTIVE Subjective Patient information: Note initiated : 03/01/21 at 7:11 am Service Date, if different from initiated Date: [] Patient: Alfredo Tillman 56 y/o M admitted on 02/26/21 for possible sepsis, cellulitis. Chief Complaint: [] Interval history: History of present illness: Mr. Tillman is a 56 year old M sent in by Dr. Landis for LLE wounds/cellulitis. Recently here for LLE infection in January. Patient states over the past few days his left leg is becoming increasingly red swollen and tender. He has had some fevers and chills had a little bit of nausea but no vomiting. Feels tired and weak. Patient states his blood sugars range from 130-175. Patient states he has had a diabetic foot ulcer on that left for months. His left leg is chronically red but says is much more red lately. In the ED is evaluated and found to have mild hyponatremia mildly elevated lactate elevated CRP. He was mildly tachycardic and febrile. And had an elevated white blood cell count. No DVT on u/s. Patient be followed by Dr. Campos. 02/27 Complains of left lower leg pain otherwise no new complaints. MRI unremarkable 02/28 Complains of poor sleep and leg pain. MRI leg foot without osteo or abscess. Leukocytosis improving. 03/01 Seems to be feeling a little better today. Wound care treatments continuing. Review of Systems: denies headache/fever/chills/nausea/vomiting/chest or abdominal pain/cough/dyspnea/diarrhea. Otherwise see above. Constitutional Vitals: Vital Signs Temp Pulse Resp BP Pulse Ox 97.7 F 120 H 16 132/77 97 03/01/21 07:02 03/01/21 07:02 03/01/21 07:02 03/01/21 07:02 03/01/21 07:02 Period Temp Pulse Resp BP Sys/Sanders Pulse Ox Last 24 Hr 97.2 F-98.7 F 83-120 16-18 88-132/57-79 95-98 Intake and Output 02/28/21 03/01/21 03/01/21 21:59 05:59 13:59 Intake Total 1330 290 Output Total 1300 700 Balance 30 -410 Weight 128.423 kg Intake & Output: Intake & Output 02/28/21 03/01/2121 21:59 05:59 13:59 Intake Total 1330 290 Output Total 1300 700 Balance 30 -410 Weight 128.423 kg Intake: IV 50 50 Zosyn 3.375 gm In Dextrose 5% 50 50 in Water 50 ml @ 100 mls/hr IV Q6H [facility] Rx#:[id number] Oral 1280 240 Output: Void Amount 1300 700 Other: Meal Dinner Percent of Meal Consumed 100% Feeding Ability Independent Urine Appearance Clear Urine Color Dark Yellow Urine Odor Strong # Voids 1 # Bowel Movements 1 Exam: General: Alert, Awake, No acute Distress, obese Eyes/N/T: EOMI, Head/Neck: neck supple, CV: RRR, 1/6 SM Pulm: Clear b/l, no wheezing/rhonchi/rales Abd: soft, nontender, +BS x4 Ext: no clubbing/cyanosis. LLE erythematous/edematous/TTP, plantar ulcer. RLE trace edema Neuro: Alert, no focal deficits, moves all extremities, Skin: warm/dry OBJ DATA Labs CBC & Chem 7: 02/28/21 05:58 02/28/21 05:58 Labs: Abnormal Lab Results 02/28/21 02/28/21 02/28/21 05:58 05:58 05:58 WBC RBC Hgb Hct RDW MPV Seg Neutrophils % Lymphocytes % RBC Morphology Anisocytosis ESR 122 H VBG Lactic Acid Sodium 128 L Chloride 93 L Carbon Dioxide Anion Gap Creatinine 0.5 L Glucose 188 H Hemoglobin A1c Osmolality 279 L Uric Acid Calcium Phosphorus Direct Bilirubin 0.4 H GGT 188 H Alkaline Phosphatase Lactate Dehydrogenase C-Reactive Protein 34.50 H Albumin 2.6 L Globulin 4.1 H Albumin/Globulin Ratio 0.6 L Triglycerides 170 H Procalcitonin 02/28/21 02/27/21 02/27/21 05:58 05:51 05:51 WBC 13.3 H 16.9 H RBC 3.54 L 3.74 L Hgb 10.5 L 11.2 L Hct 32.5 L 33.8 L RDW 15.6 H 15.3 H MPV 11.2 H 11.3 H Seg Neutrophils % 81 H Lymphocytes % 3 L RBC Morphology Abnormal A Abnormal A Anisocytosis 1+ A 1+ A ESR VBG Lactic Acid Sodium 129 L Chloride 92 L Carbon Dioxide 19 L Anion Gap 18.0 H Creatinine Glucose 186 H Hemoglobin A1c Osmolality Uric Acid 8.1 H Calcium 8.4 L Phosphorus 2.3 L Direct Bilirubin 0.5 H GGT 216 H Alkaline Phosphatase 120 H Lactate Dehydrogenase 232 H C-Reactive Protein 34.80 H Albumin 3.0 L Globulin 3.8 H Albumin/Globulin Ratio 0.8 L Triglycerides Procalcitonin 02/27/21 02/26/21 02/26/21 05:50 17:19 17:19 WBC RBC Hgb Hct RDW MPV Seg Neutrophils % Lymphocytes % RBC Morphology Anisocytosis ESR VBG Lactic Acid Sodium Chloride Carbon Dioxide Anion Gap Creatinine Glucose Hemoglobin A1c 7.8 H Osmolality Uric Acid Calcium Phosphorus Direct Bilirubin GGT Alkaline Phosphatase Lactate Dehydrogenase C-Reactive Protein Albumin Globulin Albumin/Globulin Ratio Triglycerides Procalcitonin 0.52 H 0.56 H 02/26/21 02/26/21 02/26/21 17:19 15:13 14:54 WBC RBC Hgb Hct RDW MPV Seg Neutrophils % Lymphocytes % RBC Morphology Anisocytosis ESR 96 H VBG Lactic Acid 2.1 H Sodium 128 L Chloride 88 L Carbon Dioxide 19 L Anion Gap 21.0 H Creatinine Glucose 182 H Hemoglobin A1c Osmolality Uric Acid Calcium Phosphorus Direct Bilirubin GGT Alkaline Phosphatase 127 H Lactate Dehydrogenase C-Reactive Protein 33.10 H Albumin Globulin 4.5 H Albumin/Globulin Ratio 0.8 L Triglycerides Procalcitonin 02/26/21 14:54 WBC 15.6 H RBC 4.49 L Hgb 12.9 L Hct RDW 15.4 H MPV 11.6 H Seg Neutrophils % Lymphocytes % 8 L RBC Morphology Anisocytosis ESR VBG Lactic Acid Sodium Chloride Carbon Dioxide Anion Gap Creatinine Glucose Hemoglobin A1c Osmolality Uric Acid Calcium Phosphorus Direct Bilirubin GGT Alkaline Phosphatase Lactate Dehydrogenase C-Reactive Protein Albumin Globulin Albumin/Globulin Ratio Triglycerides Procalcitonin Meds: Medications Acetaminophen (Acetaminophen 325 Mg Tablet) 650 mg PO Q6HP PRN PRN Reason: PAIN/FEVER > 101 Albuterol/Ipratropium (Ipratropium/Albuterol 3 Ml Ampul.Neb) 3 ml NEB Q4HP PRN PRN Reason: Shortness Of Breath Calcium Carbonate/Glycine (Calcium Carbonate 500 Mg Tab.Chew) 500 mg CHEWED Q4HP PRN PRN Reason: Dyspepsia Last Admin: 02/28/21 17:32 Dose: 500 mg Documented by: Dextrose (Dextrose 50% 50 Ml Vial) 0 ml IV UD PRN PRN Reason: Hypoglycemia Diagnostic Test (Pha) (Accu-Chek 1 Each Strip) 1 each FS [facility] Last Admin: 02/28/21 20:47 Dose: 1 each Documented by: Docusate Sodium (Docusate Sodium 100 Mg Capsule) 100 mg PO BID [facility] Last Admin: 02/28/21 20:48 Dose: Not Given Documented by: Gabapentin (Gabapentin 300 Mg Capsule) 600 mg PO TID [facility] Last Admin: 02/28/21 20:39 Dose: 600 mg Documented by: Glucose (Dextrose 31 Gm Oral.Susp) 15 gm PO PRN PRN PRN Reason: Hypoglycemia Heparin Sodium (Porcine) (Heparin 5,000 Unit/Ml Vial) 5,000 unit SQ Q12 [facility] Last Admin: 02/28/21 20:39 Dose: 5,000 unit Documented by: Hydromorphone HCl (Hydromorphone 0.5 Mg/0.5 Ml Syringe) 0.25 - 0.5 mg IV Q2HP PRN; Protocol PRN Reason: Per Pain Protocol Last Admin: 02/28/21 20:39 Dose: 0.5 mg Documented by: Potassium Chloride 40 meq/ (Dextrose) 520 mls @ 130 mls/hr IV UD PRN PRN Reason: Potassium < 3 Magnesium Sulfate (Magnesium Sulfate) 2 gm in 50 mls @ 50 mls/hr IV UD PRN PRN Reason: Magnesium </= 1.6 Piperacillin Sod/Tazobactam (Sod 3.375 gm/ Dextrose) 50 mls @ 100 mls/hr IV Q6H [facility]; Protocol Last Admin: 03/01/21 06:11 Dose: 100 mls/hr Documented by: Insulin Human Lispro (Insulin Lispro 1 Unit/0.01 Ml Unit) 0 unit SQ [facility]CHS [facility]; Protocol Last Admin: 02/28/21 20:55 Dose: 6 units Documented by: Lisinopril (Lisinopril 10 Mg Tablet) 10 mg PO QDAY [facility] Last Admin: 02/28/21 09:30 Dose: 10 mg Documented by: Ondansetron HCl (Ondansetron 4 Mg/2 Ml Vial) 4 mg IV Q4HP PRN PRN Reason: Nausea And Vomiting Last Admin: 02/27/21 19:23 Dose: 4 mg Documented by: Oxycodone/Acetaminophen (Oxycodone/Apap 5/325mg Tablet) 1 - 2 tab PO Q4HP PRN; Protocol PRN Reason: Per Pain Protocol Last Admin: 02/28/21 17:32 Dose: 1 tab Documented by: Empagliflozin [ Jardiance] 25 Mg Tablet 1 dose PO QDAY [facility] Last Admin: 02/28/21 09:37 Dose: Not Given Documented by: Polyethylene Glycol (Polyethylene Glycol 3350 17 Gm Packet) 17 gm PO DAILYP PRN PRN Reason: Constipation Potassium Chloride (Potassium Chloride 20 Meq Tablet) 40 meq PO UD PRN PRN Reason: Potssium is 3-3.5 Potassium Chloride (Potassium Chloride 20 Meq Tablet) 40 meq PO UD PRN PRN Reason: Potassium < 3 Prochlorperazine (Prochlorperazine 10 Mg/2 Ml Vial) 10 mg IV Q6HP PRN PRN Reason: Nausea And Vomiting Last Admin: 02/27/21 22:10 Dose: 10 mg Documented by: Senna (Sennosides 1 Tablet) 2 tab PO DAILYP PRN PRN Reason: Constipation Sodium Chloride (0.9 % Sodium Chloride 10 Ml Syringe) 10 ml IV Q8 [facility] Last Admin: 03/01/21 06:11 Dose: 10 ml Documented by: A/P Narrative A/P Narrative: A: *LLE Diabetic foot ulcer and leg cellulitis: -no abscess/osteo of leg/foot -last wound cx with Strep/E.coli/Morganella *SIRS: -afebrile o/n, leukocytosis now improving *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 Landis following -elevate leg -pain control -basal (clarify home dose and start) and SSI -cont ACEI -pt/ot -ppx: heparin full code Time Spent With Patient Time: Total time spent is greater than 50% in coordination of care (as documented) at patient's floor/unit and/or counseling patient: QUALITY VTE Deep Vein Thrombosis/Pulmonary Embolism Present on Admission: No
[2021-03-01] MEDS: INSULIN LISPRO 1 UNIT/0.01 ML UNIT SQ SCH ×4 (07:30→21:43)
[2021-03-01 08:27] LABS: Blood Urea Nitrogen 14 mg/dL (6-20); Calcium 8.9 mg/dL (8.6-10.4); Carbon Dioxide 23 mmol/L (22-30); Chloride 93 mmol/L (96-108); Glomerular Filtration Rate 105; Glucose 272 mg/dL (70-105)
[2021-03-01] MEDS: Empagliflozin [Jardiance] 25 mg tablet PO SCH (08:31)
--- NOTE | 2021-03-01 08:42 | General Surgery Progress Note ---
SUBJECTIVE Subjective Patient information: Note initiated : 03/01/21 at 8:32 am Service Date, if different from initiated Date: [] Patient: Alfredo Tillman 56 y/o M admitted on 02/26/21 for possible sepsis, cellulitis. Chief Complaint: [] Additional PMFSH (Level 3 Only): Patient seen on rounds with Hari Hunt RN. Progress / POC reviewed with Dr. Meneses. Hospitalist. Patient had an uneventful night. Local wound care is ongoing. Constitutional Vitals: Vital Signs Temp Pulse Resp BP Pulse Ox 97.7 F 120 H 16 132/77 97 03/01/21 07:02 03/01/21 07:02 03/01/21 07:02 03/01/21 07:02 03/01/21 07:02 Period Temp Pulse Resp BP Sys/Sanders Pulse Ox Last 24 Hr 97.4 F-98.7 F 83-120 16-18 88-132/57-79 95-98 Intake and Output 02/28/21 03/01/21 03/01/21 21:59 05:59 13:59 Intake Total 1330 290 50 Output Total 1300 700 Balance 30 -410 50 Weight 283 lb 2 oz Intake & Output: Intake & Output 02/28/21 03/01/21 03/01/21 21:59 05:59 13:59 Intake Total 1330 290 50 Output Total 1300 700 Balance 30 -410 50 Weight 283 lb 2 oz Intake: IV 50 50 50 Zosyn 3.375 gm In Dextrose 5% 50 50 50 in Water 50 ml @ 100 mls/hr IV Q6H [facility] Rx#:[id number] Oral 1280 240 Output: Void Amount 1300 700 Other: Meal Dinner Percent of Meal Consumed 100% Feeding Ability Independent Urine Appearance Clear Urine Color Dark Yellow Urine Odor Strong # Voids 1 # Bowel Movements 1 Exam: AVSS. No changes in MARY. LEFT leg and foot wound care is ongoing. MRSA screen is negative. Discussed with patient about underlying comorbidity and neuropathy aggravating plantar DFU. We talked about Physical Therapy, off loading of toes and BEHAVIOR modification / therapy. Patient is keen to see Behavior Therapist Dr. Zamora. Will request a consult from Dr. Kirk A/Alicia Narrative A/P Narrative: Assessment: Local wound care and IV antibiotics are ongoing. Will get a Behavior Therapy Consult from Dr. Zamora. Patient will benefit from further treatment at a Rehab facility. Plan: CM/ SW to see patient for discharge planning. Plan discussed with Dr. Meneses, Hospitalist Physician. Time Spent With Patient Time: Total time spent is greater than 50% in coordination of care (as documented) at patient's floor/unit and/or counseling patient: Total time spent with greater than 50% in coordination of care (as documented) at patient's floor/unit and/or counseling patient:: 25 - 35 minutes
[2021-03-01] MEDS: DOCUSATE SODIUM 100 MG CAPSULE PO SCH ×2 (08:48→21:34)
[2021-03-01] MEDS: GABAPENTIN 300 MG CAPSULE PO SCH ×3 (08:48→21:33)
[2021-03-01] MEDS: LISINOPRIL 10 MG TABLET PO SCH (08:48)
[2021-03-01] MEDS: HEPARIN 5,000 UNIT/ML VIAL SQ SCH (08:52)
[2021-03-01] MEDS ORDERED: INSULIN GLARGINE, HUMAN 1 UNIT/0.01 ML SQ SCH (09:00)
[2021-03-01] MEDS: oxyCODONE/APAP 5/325MG TABLET PO PRN ×3 (10:10→23:46)
[2021-03-01] MEDS: HYDROmorphone 0.5 MG/0.5 ML SYRINGE IV PRN (10:24)
[2021-03-01 12:38] LABS: Hematocrit 35.3 % (40.1-51.0); Hemoglobin 11.2 g/dL (13.7-17.5); Mean Cell Volume 90.7 fL (80.0-100.0); Mean Corpuscular HGB Conc 31.7 g/dL (31.0-36.0); Platelet Count 248 K/mcL (140-440); RBC 3.89 M/mcL (4.63-6.08); Red Cell Distribution Width 15.3 % (11.5-14.5); WBC 9.2 K/mcL (4.5-11.0)
[2021-03-01] MEDS ORDERED: IOPAMIDOL 125 ML BOTTLE IV ONE (12:48)
--- NOTE | 2021-03-01 12:48 | General Surgery Progress Note ---
SUBJECTIVE Subjective Patient information: Note initiated : 03/01/21 at 12:36 pm Service Date, if different from initiated Date: [] Patient: Alfredo Tillman 56 y/o M admitted on 02/26/21 for possible sepsis, cellulitis. Chief Complaint: [] Constitutional Vitals: Vital Signs Temp Pulse Resp BP Pulse Ox 97.7 F 120 H 16 132/77 97 03/01/21 07:02 03/01/21 07:02 03/01/21 07:02 03/01/21 07:02 03/01/21 07:02 Period Temp Pulse Resp BP Sys/Sanders Pulse Ox Last 24 Hr 97.4 F-98.6 F 83-120 16-18 88-132/57-77 95-98 Intake and Output 02/28/21 03/01/21 03/01/21 21:59 05:59 13:59 Intake Total 1330 290 50 Output Total 1300 700 Balance 30 -410 50 Weight 283 lb 2 oz Intake & Output: Intake & Output 02/28/21 03/01/21 03/01/21 21:59 05:59 13:59 Intake Total 1330 290 50 Output Total 1300 700 Balance 30 -410 50 Weight 283 lb 2 oz Intake: IV 50 50 50 Zosyn 3.375 gm In Dextrose 5% 50 50 50 in Water 50 ml @ 100 mls/hr IV Q6H [facility] Rx#:[id number] Oral 1280 240 Output: Void Amount 1300 700 Other: Meal Dinner Percent of Meal Consumed 100% Feeding Ability Independent Urine Appearance Clear Urine Color Dark Yellow Urine Odor Strong # Voids 1 # Bowel Movements 1 Head Head exam: Present atraumatic and normal inspection Eye Eye exam: Present normal appearance ENT ENT exam: Present mucous membranes moist, normal exam and normal external ear exam Neck Neck exam: Present normal inspection Respiratory Respiratory exam: Present normal respiratory exam Cardiovascular Cardiovascular exam: Present normal rate and rhythm GI/Abdominal GI/Abdominal exam: Present normal bowel sounds Back Exam Back exam: Present normal inspection Neurological Exam Neurological exam: Present alert and oriented X3 Skin Skin exam: Present intact and warm A/P Time Spent With Patient Time: Total time spent is greater than 50% in coordination of care (as documented) at patient's floor/unit and/or counseling patient: Additional Comments History of Present Illness Examined patient's LEFT lower extremity wounds this afternoon. He has further blistering of skin of leg and pain extending up along lower medial thigh. Repeat labs from today 03/01/2021 are pending. Tenderness to palpation over LEFT leg and and lower thigh. NO cellulitis . Concerned about underlying DVT vs vascular occlusion of LEFT leg ( Infrapopliteal region ) This was NOT imaged earlier due to discomfort to patient and patient's refusal. Patient seen with Dr. Meneses and Hari Hunt RN Considered transferring patient to higher level of care ([facility] ) Reviewed subsequent input from Dr. Meyers and Dr Meneses. Will be following patient in hospital.
[2021-03-01] MEDS: CLINDAMYCIN 600 MG in DEXTROSE 5% IN WATER 50 ML IV SCH ×2 (13:52→21:33)
[2021-03-01 14:40] LABS: Band Neutrophils % 4 % (0-10); Eosinophils % (Manual) 2 % (0-7); Lymphocytes % 20 % (15-49); Monocytes % (Manual) 10 % (1-12); Platelet Estimate NORMAL (Normal); RBC Morphology NORMAL (Normal); Segmented Neutrophils % 64 % (38-78)
[2021-03-01] MEDS ORDERED: METOPROLOL TARTRATE 5 MG/5 ML VIAL IV PRN (15:34)
--- NOTE | 2021-03-01 15:34 | General Surgery Progress Note ---
SUBJECTIVE Subjective Patient information: Note initiated : 03/01/21 at 3:27 pm Service Date, if different from initiated Date: [] Patient: Alfredo Tillman 56 y/o M admitted on 02/26/21 for possible sepsis, cellulitis. Chief Complaint: [] Constitutional Vitals: Vital Signs Temp Pulse Resp BP Pulse Ox 98.0 F 104 H 16 117/63 94 03/01/21 12:00 03/01/21 12:00 03/01/21 12:00 03/01/21 12:00 03/01/21 12:00 Period Temp Pulse Resp BP Sys/Sanders Pulse Ox Last 24 Hr 97.4 F-98.6 F 83-120 16-18 88-132/57-77 94-98 Intake and Output 03/01/21 03/01/21 03/01/21 05:59 13:59 21:59 Intake Total 290 580 354 Output Total 700 900 Balance -410 -320 354 Intake & Output: Intake & Output 03/01/21 03/01/21 03/01/21 05:59 13:59 21:59 Intake Total 290 580 354 Output Total 700 900 Balance -410 -320 354 Intake: IV 50 100 54 Cleocin 600 mg In Dextrose 5% 54 in Water 50 ml @ 100 mls/hr IV Q8H [facility] Rx#:[id number] Zosyn 3.375 gm In Dextrose 5% 50 100 in Water 50 ml @ 100 mls/hr IV Q6H [facility] Rx#:[id number] Oral 240 480 300 Output: Void Amount 700 900 Other: Meal Lunch Percent of Meal Consumed 100% Feeding Ability Independent Urine Appearance Clear Urine Color Dark Yellow Urine Odor Strong Head Head exam: Present atraumatic and normal inspection Eye Eye exam: Present normal appearance ENT ENT exam: Present mucous membranes moist, normal exam and normal external ear exam Neck Neck exam: Present normal inspection Respiratory Respiratory exam: Present normal respiratory exam Cardiovascular Cardiovascular exam: Present normal rate and rhythm GI/Abdominal GI/Abdominal exam: Present normal bowel sounds Back Exam Back exam: Present normal inspection Neurological Exam Neurological exam: Present alert and oriented X3 Skin Skin exam: Present intact and warm A/P Narrative A/P Narrative: Reassessed patient. Reviewed labs, CT angiogram pictures. Went over CT angiogram findings with Radiologist Dr. Whelan Subsequently saw patient and went over plan of care with Hari Hunt RN and Dr. MARTINEZ, Hospitalist on duty Spoke with patient and updated him of findings.. Findings: Leucocytosis improving WBC 9.[address] Angiogram. Normal Vasculature PATENT arteries below knee up to toes. / varicose veins Clindamycin added to Zosyn and Vancomycin regime. Local wound care is ongoing. Plan: Continue present treatment over weekend. Following patient. Time Spent With Patient Time: Total time spent is greater than 50% in coordination of care (as documented) at patient's floor/unit and/or counseling patient: Total time spent with greater than 50% in coordination of care (as documented) at patient's floor/unit and/or counseling patient:: Greater than 35 minutes
--- NOTE | 2021-03-01 15:55 | Cat Scan Report ---
CLINICAL INFORMATION: History of diabetes with left leg pain and swelling. Nonhealing wound left foot COMPARISON: Abdomen and pelvic CT 09/21/2020 TECHNIQUE: 120 cc of Isovue-370 were injected intravenously and, using SmartPrep to maximize arterial opacification, 0.625 mm helical slices were obtained from the diaphragm through the feet following reconstruction, 2.5 mm sagittal, coronal and axial reformatted images were processed and reviewed at bone and soft tissue windows. 3-D volume rendered and selective CPR images were constructed on an independent workstation.The exam was performed using radiation dose optimization techniques including, but not limited to, automated exposure control, adjustment of the mA and/or kV according to patient size and use of iterative reconstruction technique. FINDINGS: The abdominal aorta is normal in diameter with minimal fibrofatty calcific plaque. Maximal aortic diameter 20 mm. Celiac, SMA, CRESCENCIO, renal and lumbar arteries are widely patent. Both common iliac, external iliac, internal iliac, common femoral, superficial femoral, profunda femoral, popliteal arteries are widely patent. On the right, there is two vessel trifurcation runoff to the level of the foot: the anterior tibial and posterior tibial arteries. The peroneal artery is occluded distally. On the left there is also two-vessel runoff to the level the foot the posterior tibial and the anterior tibial arteries. The peroneal artery is occluded distally. Moderate cellulitis seen throughout the subcutaneous fat of the left lower extremity including the thigh calf and foot. There are also multiple varicose veins in the left calf with scattered phleboliths. No evidence of a discrete soft tissue abscess. 3-4 moderately enlarged, dense left inguinal lymph nodes are reactive due to left leg cellulitis. Lung bases show no abnormality. Visualized heart is grossly normal. No effusions. Abdominal images show the gallbladder is surgically absent. Intrahepatic and common bile ducts are normal caliber: CBD is 5 mm. The liver, both kidneys, adrenal glands, spleen, pancreas are normal in size, configuration and attenuation without focal lesion. There is no free air, free fluid or intra-abdominal adenopathy. Pelvic images show prostate, seminal vesicles and urinary bladder to be normal. A 3.6 cm infraumbilical hernia, containing only mesenteric fat, is stable IMPRESSION: 1. Abdominal aorta, all iliac, all femoral and popliteal arteries are widely patent bilaterally. Two vessel trifurcation runoff is seen bilaterally with the anterior tibial and posterior arteries patent to the foot level. Both peroneal arteries are occluded in their midportion. 2. Moderate cellulitis throughout the entire left lower extremity including the thigh, calf and foot. Phleboliths are present within varicose veins. No evidence of soft tissue abscess. No CT evidence for osteomyelitis. 3. 3.6 cm infraumbilical hernia containing only mesenteric fat stable. Interpreted and Authenticated by: Neri Horta 03/01/21
[2021-03-01] MEDS: CARVEDILOL 6.25 MG TABLET PO SCH (17:00)
[2021-03-02] MEDS: 0.9 % SODIUM CHLORIDE 10 ML SYRINGE IV SCH ×3 (05:08→22:06)
[2021-03-02] MEDS: PIPERACILLIN SODIUM/TAZOBACTAM 3.375 GM in DEXTROSE 5% IN WATER 50 ML IV SCH ×4 (05:08→23:52)
[2021-03-02] MEDS: CLINDAMYCIN 600 MG in DEXTROSE 5% IN WATER 50 ML IV SCH ×3 (05:41→20:42)
[2021-03-02] MEDS: INSULIN LISPRO 1 UNIT/0.01 ML UNIT SQ SCH ×4 (08:27→20:42)
[2021-03-02 09:10] LABS: Basophils # (Auto) 0.08 K/mcL (0.00-0.30); Basophils % (Auto) 1.1 % (0.0-2.0); Eosinophils # (Auto) 0.31 K/mcL (0.00-0.70); Eosinophils % (Auto) 4.3 % (0.0-7.0); Hemoglobin 10.6 g/dL (13.7-17.5); Lymphocytes # (Auto) 2.17 K/mcL (1.50-4.80); Lymphocytes % (Auto) 29.8 % (15.5-49.0); Mean Cell Volume 91.9 fL (80.0-100.0); Mean Corpuscular HGB Conc 32.1 g/dL (31.0-36.0); Mean Platelet Volume 11.2 fL (7.4-10.4); Monocytes # (Auto) 0.53 K/mcL (0.10-0.90); Monocytes % (Auto) 7.3 % (1.0-12.0); Neutrophils % (Auto) 57.5 % (38.0-78.0); Platelet Count 233 K/mcL (140-440); RBC 3.59 M/mcL (4.63-6.08); Red Cell Distribution Width 15.2 % (11.5-14.5); WBC 7.3 K/mcL (4.5-11.0)
[2021-03-02 09:40] LABS: ALT/SGPT 24 U/L (<40); AST/SGOT 30 U/L (<40); Albumin 2.6 gm/dL (3.2-5.2); Albumin/Globulin Ratio 0.7 (1.0-2.3); Alkaline Phosphatase 124 U/L (39-117); Bilirubin,Direct < 0.2 mg/dL (0-0.3); Bilirubin,Total 0.3 mg/dL (0.1-1.0); Blood Urea Nitrogen 10 mg/dL (6-20); Calcium 8.8 mg/dL (8.6-10.4); Carbon Dioxide 26 mmol/L (22-30); Chloride 96 mmol/L (96-108); Globulin 3.9 gm/dL (2.2-3.7); Glomerular Filtration Rate 121; Glucose 183 mg/dL (70-105); Lactate Dehydrogenase 206 U/L (135-225); Phosphorous 3.2 mg/dL (2.5-4.5); Triglycerides 164 mg/dL (<150); Uric Acid 3.9 mg/dL (2.5-8.0)
[2021-03-02] MEDS: DOCUSATE SODIUM 100 MG CAPSULE PO SCH ×2 (10:09→21:38)
[2021-03-02] MEDS: CARVEDILOL 6.25 MG TABLET PO SCH ×2 (10:16→17:17)
[2021-03-02] MEDS: GABAPENTIN 300 MG CAPSULE PO SCH ×3 (10:16→20:41)
[2021-03-02] MEDS: oxyCODONE/APAP 5/325MG TABLET PO PRN ×2 (10:18→18:53)
[2021-03-02] MEDS: ENOXAPARIN 40 MG/0.4 ML SYRINGE SQ SCH (10:21)
[2021-03-02] MEDS: Empagliflozin [Jardiance] 25 mg tablet PO SCH (10:23)
[2021-03-02] MEDS: INSULIN GLARGINE, HUMAN 1 UNIT/0.01 ML SQ SCH (12:31)
[2021-03-02] MEDS: LISINOPRIL 10 MG TABLET PO SCH (12:33)
--- NOTE | 2021-03-02 12:44 | Internal Med Progress Note ---
SUBJECTIVE Subjective Patient information: Note initiated : 03/02/21 at 12:38 pm Service Date, if different from initiated Date: [] Patient: Alfredo Tillman 56 y/o M admitted on 02/26/21 for possible sepsis, cellulitis. Chief Complaint: [Left leg cellulitis] Interval history: History of present illness: Mr. Tillman is a 56 year old M sent in by Dr. Landis for LLE wounds/cellulitis. Recently here for LLE infection in January. Patient states over the past few days his left leg is becoming increasingly red swollen and tender. He has had some fevers and chills had a little bit of nausea but no vomiting. Feels tired and weak. Patient states his blood sugars range from 130-175. Patient states he has had a diabetic foot ulcer on that left for months. His left leg is chronically red but says is much more red lately. In the ED is evaluated and found to have mild hyponatremia mildly elevated lactate elevated CRP. He was mildly tachycardic and febrile. And had an elevated white blood cell count. No DVT on u/s. Patient be followed by Dr. Campos. 02/27 Complains of left lower leg pain otherwise no new complaints. MRI unremarkable 02/28 Complains of poor sleep and leg pain. MRI leg foot without osteo or abscess. Leukocytosis improving. 03/01 Seems to be feeling a little better today. Wound care treatments continuing. 03/02: Wound culture grew gram negative bacillus; Blood culture no growth to date. Afebrile overnight. c/o severe burning and cramping pain of left leg. Denies fever, chils, or sweating. c/o loose stool. Status post telemetry psychiatrist consultations Constitutional Vitals: Vital Signs Temp Pulse Resp BP Pulse Ox 36.6 C 86 16 122/68 96 03/02/21 11:40 03/02/21 11:40 03/02/21 11:40 03/02/21 11:40 03/02/21 11:40 Period Temp Pulse Resp BP Sys/Sanders Pulse Ox Last 24 Hr 36.4 C-36.6 C 84-101 16-18 98-122/62-75 95-96 Intake and Output 03/01/21 03/02/21 03/02/21 21:59 05:59 13:59 Intake Total 404 554 54 Output Total 450 1 Balance -46 554 53 Weight 130.861 kg Intake & Output: Intake & Output 03/01/21 03/02/21 03/02/21 21:59 05:59 13:59 Intake Total 404 554 54 Output Total 450 1 Balance -46 554 53 Weight 130.861 kg Intake: IV 104 154 54 Cleocin 600 mg In Dextrose 5% 54 54 54 in Water 50 ml @ 100 mls/hr IV Q8H [facility] Rx#:[id number] Zosyn 3.375 gm In Dextrose 5% 50 100 in Water 50 ml @ 100 mls/hr IV Q6H [facility] Rx#:[id number] Oral 300 400 Output: Void Amount 450 # of times incontinent of urine 1 Other: Urine Appearance Clear Urine Color Pale Urine Odor Normal Stool Size Copious Stool Color Brown Stool Consistency Soft Loose # Voids 1 # Bowel Movements 2 1 # of times incontinent of 1 Bowels General appearance: cooperative and no acute distress Head Head exam: Present atraumatic; Absent normal inspection and normocephalic Additional comments: Wound dressing at middle of scalp Eye Eye exam: Present EOMI and PERRL ENT ENT exam: Present mucous membranes moist, normal exam and normal external ear exam Neck Neck exam: Present normal inspection; Absent lymphadenopathy, tenderness and thyromegaly Respiratory Respiratory exam: Absent accessory muscle use, respiratory distress and wheezes Cardiovascular Cardiovascular exam: Present normal rate and rhythm; Absent JVD GI/Abdominal GI/Abdominal exam: Present normal bowel sounds and soft; Absent organomegaly and tenderness Rectal Rectal exam: Present deferred Extremities Exam Extremities exam: Present full ROM, normal capillary refill and normal inspection; Absent tenderness Neurological Exam Neurological exam: Present alert, CN II-XII intact and oriented X3; Absent motor sensory deficit Psychiatric Psychiatric exam: Present normal affect and normal mood; Absent anxious and depressed Skin Skin exam: Present dry, erythema, intact, rash and vesicles Additional comments: covered with wound dressing OBJ DATA Labs CBC & Chem 7: 03/02/21 05:47 03/02/21 05:47 Labs: Abnormal Lab Results 03/02/21 03/02/21 03/02/21 05:48 05:47 05:47 WBC RBC 3.59 L Hgb 10.6 L Hct 33.0 L RDW 15.2 H MPV 11.2 H RBC Morphology Anisocytosis ESR Sodium Chloride Creatinine 0.5 L Glucose 183 H Osmolality Direct Bilirubin GGT 171 H Alkaline Phosphatase 124 H C-Reactive Protein 11.90 H Albumin 2.6 L Globulin 3.9 H Albumin/Globulin Ratio 0.7 L Triglycerides 164 H Procalcitonin 0.21 H 03/01/21 03/01/21 03/01/21 12:10 05:25 05:25 WBC RBC 3.89 L Hgb 11.2 L Hct 35.3 L RDW 15.3 H MPV 11.0 H RBC Morphology Anisocytosis ESR Sodium 132 L Chloride 93 L Creatinine Glucose 272 H Osmolality Direct Bilirubin GGT Alkaline Phosphatase C-Reactive Protein Albumin Globulin Albumin/Globulin Ratio Triglycerides Procalcitonin 0.37 H 02/28/21 02/28/21 02/28/21 05:58 05:58 05:58 WBC RBC Hgb Hct RDW MPV RBC Morphology Anisocytosis ESR 122 H Sodium 128 L Chloride 93 L Creatinine 0.5 L Glucose 188 H Osmolality 279 L Direct Bilirubin 0.4 H GGT 188 H Alkaline Phosphatase C-Reactive Protein 34.50 H Albumin 2.6 L Globulin 4.1 H Albumin/Globulin Ratio 0.6 L Triglycerides 170 H Procalcitonin 02/28/21 05:58 WBC 13.3 H RBC 3.54 L Hgb 10.5 L Hct 32.5 L RDW 15.6 H MPV 11.2 H RBC Morphology Abnormal A Anisocytosis 1+ A ESR Sodium Chloride Creatinine Glucose Osmolality Direct Bilirubin GGT Alkaline Phosphatase C-Reactive Protein Albumin Globulin Albumin/Globulin Ratio Triglycerides Procalcitonin Meds: Medications Acetaminophen (Acetaminophen 325 Mg Tablet) 650 mg PO Q6HP PRN PRN Reason: PAIN/FEVER > 101 Albuterol/Ipratropium (Ipratropium/Albuterol 3 Ml Ampul.Neb) 3 ml NEB Q4HP PRN PRN Reason: Shortness Of Breath Calcium Carbonate/Glycine (Calcium Carbonate 500 Mg Tab.Chew) 500 mg CHEWED Q4HP PRN PRN Reason: Dyspepsia Last Admin: 02/28/21 17:32 Dose: 500 mg Documented by: Carvedilol (Carvedilol 6.25 Mg Tablet) 6.25 mg PO BIDCC [facility] Last Admin: 03/02/21 10:16 Dose: 6.25 mg Documented by: Dextrose (Dextrose 50% 50 Ml Vial) 0 ml IV UD PRN PRN Reason: Hypoglycemia Diagnostic Test (Pha) (Accu-Chek 1 Each Strip) 1 each FS ACHS [facility] Last Admin: 03/02/21 11:34 Dose: 1 each Documented by: Docusate Sodium (Docusate Sodium 100 Mg Capsule) 100 mg PO BID [facility] Last Admin: 03/02/21 10:09 Dose: Not Given Documented by: Duloxetine HCl (Duloxetine 20 Mg Capsule) 20 mg PO DAILY [facility] Enoxaparin Sodium (Enoxaparin 40 Mg/0.4 Ml Syringe) 40 mg SQ DAILY [facility] Last Admin: 03/02/21 10:21 Dose: 40 mg Documented by: Gabapentin (Gabapentin 300 Mg Capsule) 600 mg PO TID [facility] Last Admin: 03/02/21 10:16 Dose: 600 mg Documented by: Glucose (Dextrose 31 Gm Oral.Susp) 15 gm PO PRN PRN PRN Reason: Hypoglycemia Hydromorphone HCl (Hydromorphone 0.5 Mg/0.5 Ml Syringe) 0.25 - 0.5 mg IV Q2HP PRN; Protocol PRN Reason: Per Pain Protocol Last Admin: 03/01/21 10:24 Dose: 0.5 mg Documented by: Potassium Chloride 40 meq/ (Dextrose) 520 mls @ 130 mls/hr IV UD PRN PRN Reason: Potassium < 3 Magnesium Sulfate (Magnesium Sulfate) 2 gm in 50 mls @ 50 mls/hr IV UD PRN PRN Reason: Magnesium </= 1.6 Piperacillin Sod/Tazobactam (Sod 3.375 gm/ Dextrose) 50 mls @ 100 mls/hr IV Q6H [facility]; Protocol Last Admin: 03/02/21 12:34 Dose: 100 mls/hr Documented by: Clindamycin Phosphate 600 mg/ (Dextrose) 54 mls @ 100 mls/hr IV Q8H [facility]; Protocol Last Infusion: 03/02/21 06:14 Dose: Infused Documented by: Insulin Glargine (Insulin Glargine, Human 1 Unit/0.01 Ml) 100 unit SQ DAILY [facility] Last Admin: 03/02/21 12:31 Dose: 100 units Documented by: Insulin Human Lispro (Insulin Lispro 1 Unit/0.01 Ml Unit) 0 unit SQ ACHS [facility]; Protocol Last Admin: 03/02/21 11:42 Dose: 8 units Documented by: Lisinopril (Lisinopril 10 Mg Tablet) 10 mg PO QDAY [facility] Last Admin: 03/02/21 12:33 Dose: 10 mg Documented by: Ondansetron HCl (Ondansetron 4 Mg/2 Ml Vial) 4 mg IV Q4HP PRN PRN Reason: Nausea And Vomiting Last Admin: 02/27/21 19:23 Dose: 4 mg Documented by: Oxycodone/Acetaminophen (Oxycodone/Apap 5/325mg Tablet) 1 - 2 tab PO Q4HP PRN; Protocol PRN Reason: Per Pain Protocol Last Admin: 03/02/21 10:18 Dose: 1 tab Documented by: Empagliflozin [ Jardiance] 25 Mg Tablet 1 dose PO QDAY [facility] Last Admin: 03/02/21 10:23 Dose: Not Given Documented by: Polyethylene Glycol (Polyethylene Glycol 3350 17 Gm Packet) 17 gm PO DAILYP PRN PRN Reason: Constipation Potassium Chloride (Potassium Chloride 20 Meq Tablet) 40 meq PO UD PRN PRN Reason: Potssium is 3-3.5 Last Admin: 03/02/21 12:33 Dose: 40 meq Documented by: Potassium Chloride (Potassium Chloride 20 Meq Tablet) 40 meq PO UD PRN PRN Reason: Potassium < 3 Prochlorperazine (Prochlorperazine 10 Mg/2 Ml Vial) 10 mg IV Q6HP PRN PRN Reason: Nausea And Vomiting Last Admin: 02/27/21 22:10 Dose: 10 mg Documented by: Senna (Sennosides 1 Tablet) 2 tab PO DAILYP PRN PRN Reason: Constipation Sodium Chloride (0.9 % Sodium Chloride 10 Ml Syringe) 10 ml IV Q8 [facility] Last Admin: 03/02/21 05:08 Dose: 10 ml Documented by: A/P Assessment and plan (1) Atrial flutter: Status: Acute (2) Type 2 diabetes mellitus with diabetic neuropathy: Status: Acute Comment: Pain with peripheral neuropathy. However, left foot pain increased greater than right secondary to infection and ulcer. (3) Cellulitis: Status: Acute Comment: Alfredo is a 56-year-old morbidly obese poorly controlled diabetic who is admitted yesterday in the hospital for left foot cellulitis. X-ray did not show osteomyelitis but I have concerns. He is currently day 2 Vanco plus Zosyn. No history of MRSA. Wound culture pending. I will obtain a MRSA screen. Maintain Zosyn but increase dose to 4.5 g IV every 6 hours. (4) GERD (gastroesophageal reflux disease): Status: Chronic Qualifiers: Esophagitis presence: without esophagitis Qualified Code(s): K21.9 - Gastro-esophageal reflux disease without esophagitis (5) Depression: Status: Chronic (6) Hypertension: Status: Chronic Qualifiers: Hypertension type: essential hypertension Qualified Code(s): I10 - Essential (primary) hypertension (7) Obesities, morbid: Status: Chronic (8) Hypokalemia: Status: Acute (9) Hypomagnesemia: Status: Acute Narrative A/P Narrative: Assessment and Plans: 1. Left leg cellulitis: Stays in inpatient med surg Wound culture grew gram negative bacillus, blood culture no growth to date Wound care as per Dr. Campos ID Dr. Meyers consulted, recs. appreciated Tylenol PRN fever Percocet PRN moderate pain Dilaudid IV PRN severe pain Clindamycin IV Zosyn IV cbc w/ auto diff in the AM to trend WBC 2. T2DM, uncontrolled with diabetic neuropathy: HgA1c Jardiance Insulin Lantus 80-->100 unit daily for better glycemic control Correctional scale insulin AC HS Accu Chek AC HS Hypoglycemia protocol Diabetic diet Gabapentin for neuropathic pain 3. Hypokalemia/hypomagnesemia: Potassium chloride oral replacement Magnesium sulfate IV replacement Repeat CMP and serum medicine level in the morning and repeat replacement as needed #4 depressions: Status post telemetry psychiatrist consultations Recommend Cymbalta 20 mg p.o. daily for the time being and in 5 to 7 days will c onsider increase it to twice daily #5 loose stool: Imodium as needed loose stool #6 morbid obesity: Counseled patient on lifestyle modification including regular exercise and healthy diet in order to lose weight #7 essential hypertension: Currently normotensive Coreg Lisinopril #8. intermittent atrial flutter: patient had an episode of atrial flutter yesterday and right now it is sinus Continue Coreg for rate control No anticoagulation this point. To be reevaluated by his PCP to see whether atrial fibrillation or atrial flutter recur and whether or not patient could benefit from anticoagulation at that point GI prophylaxis: Not current indicated DVT prophylaxis: Lovenox CODE STATUS: Full code Prognosis: Guarded Disposition: Inpatient MedSurg Time Spent With Patient Time: Total time spent is greater than 50% in coordination of care (as documented) at patient's floor/unit and/or counseling patient: Total time spent with greater than 50% in coordination of care (as documented) at patient's floor/unit and/or counseling patient:: Greater than 35 minutes QUALITY VTE Deep Vein Thrombosis/Pulmonary Embolism Present on Admission: No
[2021-03-02] MEDS: LOPERAMIDE 2 MG CAPSULE PO PRN (12:53)
--- NOTE | 2021-03-02 18:56 | General Surgery Progress Note ---
SUBJECTIVE Subjective Patient information: Note initiated : 03/02/21 at 6:50 pm Service Date, if different from initiated Date: [] Patient: Alfredo Tillman 56 y/o M admitted on 02/26/21 for possible sepsis, cellulitis. Chief Complaint: [] Additional PMFSH (Level 3 Only): Patient seen. Comfortable. IV antibiotics and local wound care is ongoing. Constitutional Vitals: Vital Signs Temp Pulse Resp BP Pulse Ox 97.9 F 84 16 119/63 95 03/02/21 15:44 03/02/21 15:44 03/02/21 15:44 03/02/21 15:44 03/02/21 15:44 Period Temp Pulse Resp BP Sys/Sanders Pulse Ox Last 24 Hr 97.6 F-98 F 84-100 16-18 98-122/62-75 95-96 Intake and Output 03/02/21 03/02/21 03/02/21 05:59 13:59 21:59 Intake Total 660 808 0065 Output Total 1 300 Balance 554 343 778 Weight 288 lb 8 oz Intake & Output: Intake & Output 03/02/21 03/02/21 03/02/21 05:59 13:59 21:59 Intake Total 576 431 3246 Output Total 1 300 Balance 554 343 778 Weight 288 lb 8 oz Intake: IV 154 104 54 Cleocin 600 mg In Dextrose 5% 54 54 54 in Water 50 ml @ 100 mls/hr IV Q8H [facility] Rx#:[id number] Zosyn 3.375 gm In Dextrose 5% 100 50 in Water 50 ml @ 100 mls/hr IV Q6H [facility] Rx#:[id number] Oral 647 900 6458 Output: Void Amount 300 # of times incontinent of urine 1 Other: Meal Lunch Dinner Percent of Meal Consumed 100% 100% Feeding Ability Independent Independent Urine Appearance Clear Clear Urine Color Pale Dark Yellow Urine Odor Normal Stool Size Copious Stool Color Brown Stool Consistency Soft Loose # Voids 1 # Bowel Movements 1 # of times incontinent of 1 Bowels Exam: AVSS. No changes MARY. LEFT leg dressings CDI. Wounds NOT examined. Appreciate PSYCH tele consult and input. Started on Cymbalta. Labs: WBC and inflammatory markers trending down. Wound c/s GNB. Blood c/s Neg. MRSA screen Neg. A/P Time Spent With Patient Time: Total time spent is greater than 50% in coordination of care (as documented) at patient's floor/unit and/or counseling patient: Assessment: Stable. Progressing well. Plan: Continue present treatment. Will see again on Thursday03/04/2021 Will review further continuation of treatment plans with staff. Total time spent with greater than 50% in coordination of care (as documented) at patient's floor/unit and/or counseling patient:: 15 - 24 minutes
[2021-03-03] MEDS: CLINDAMYCIN 600 MG in DEXTROSE 5% IN WATER 50 ML IV SCH ×3 (05:01→21:34)
[2021-03-03] MEDS: PIPERACILLIN SODIUM/TAZOBACTAM 3.375 GM in DEXTROSE 5% IN WATER 50 ML IV SCH ×3 (05:51→17:32)
[2021-03-03] MEDS: 0.9 % SODIUM CHLORIDE 10 ML SYRINGE IV SCH ×3 (05:53→20:55)
[2021-03-03] MEDS: DOCUSATE SODIUM 100 MG CAPSULE PO SCH ×3 (07:37→20:58)
[2021-03-03 07:38] LABS: ALT/SGPT 22 U/L (<40); AST/SGOT 25 U/L (<40); Albumin 2.6 gm/dL (3.2-5.2); Albumin/Globulin Ratio 0.7 (1.0-2.3); Alkaline Phosphatase 121 U/L (39-117); Bilirubin,Total 0.2 mg/dL (0.1-1.0); Blood Urea Nitrogen 12 mg/dL (6-20); Calcium 8.6 mg/dL (8.6-10.4); Carbon Dioxide 25 mmol/L (22-30); Chloride 95 mmol/L (96-108); Globulin 3.7 gm/dL (2.2-3.7); Glomerular Filtration Rate 112; Glucose 228 mg/dL (70-105)
[2021-03-03] MEDS: oxyCODONE/APAP 5/325MG TABLET PO PRN ×2 (07:52→13:59)
[2021-03-03] MEDS: INSULIN LISPRO 1 UNIT/0.01 ML UNIT SQ SCH ×4 (07:53→21:30)
[2021-03-03] MEDS: Empagliflozin [Jardiance] 25 mg tablet PO SCH (08:24)
[2021-03-03] MEDS: GABAPENTIN 300 MG CAPSULE PO SCH ×3 (08:30→20:54)
[2021-03-03] MEDS: CARVEDILOL 6.25 MG TABLET PO SCH ×2 (08:30→17:10)
[2021-03-03] MEDS: DULoxetine 20 MG CAPSULE PO SCH (08:31)
[2021-03-03] MEDS: INSULIN GLARGINE, HUMAN 1 UNIT/0.01 ML SQ SCH (08:33)
[2021-03-03] MEDS: ENOXAPARIN 40 MG/0.4 ML SYRINGE SQ SCH (08:36)
[2021-03-03 09:02] LABS: Basophils # (Auto) 0.08 K/mcL (0.00-0.30); Basophils % (Auto) 1.1 % (0.0-2.0); Eosinophils # (Auto) 0.24 K/mcL (0.00-0.70); Eosinophils % (Auto) 3.2 % (0.0-7.0); Hematocrit 36.3 % (40.1-51.0); Hemoglobin 11.2 g/dL (13.7-17.5); Lymphocytes # (Auto) 2.01 K/mcL (1.50-4.80); Lymphocytes % (Auto) 26.6 % (15.5-49.0); Mean Cell Volume 91.4 fL (80.0-100.0); Mean Corpuscular HGB Conc 30.9 g/dL (31.0-36.0); Mean Platelet Volume 11.9 fL (7.4-10.4); Monocytes # (Auto) 0.55 K/mcL (0.10-0.90); Monocytes % (Auto) 7.3 % (1.0-12.0); Neutrophils % (Auto) 61.8 % (38.0-78.0); Platelet Count 211 K/mcL (140-440); RBC 3.97 M/mcL (4.63-6.08); Red Cell Distribution Width 15.3 % (11.5-14.5); WBC 7.6 K/mcL (4.5-11.0)
[2021-03-03] MEDS: LOPERAMIDE 2 MG CAPSULE PO PRN (09:46)
[2021-03-03] MEDS: ONDANSETRON 4 MG/2 ML VIAL IV PRN (09:52)
--- NOTE | 2021-03-03 16:14 | Internal Med Progress Note ---
SUBJECTIVE Subjective Patient information: Note initiated : 03/03/21 at 4:09 pm Service Date, if different from initiated Date: [] Patient: Alfredo Tillman 56 y/o M admitted on 02/26/21 for possible sepsis, cellulitis. Chief Complaint: [left leg cellulitis] Interval history: History of present illness: Mr. Tillman is a 56 year old M sent in by Dr. Landis for LLE wounds/cellulitis. Recently here for LLE infection in January. Patient states over the past few days his left leg is becoming increasingly red swollen and tender. He has had some fevers and chills had a little bit of nausea but no vomiting. Feels tired and weak. Patient states his blood sugars range from 130-175. Patient states he has had a diabetic foot ulcer on that left for months. His left leg is chronically red but says is much more red lately. In the ED is evaluated and found to have mild hyponatremia mildly elevated lactate elevated CRP. He was mildly tachycardic and febrile. And had an elevated white blood cell count. No DVT on u/s. Patient be followed by Dr. Campos. 02/27 Complains of left lower leg pain otherwise no new complaints. MRI unremarkable 02/28 Complains of poor sleep and leg pain. MRI leg foot without osteo or abscess. Leukocytosis improving. 03/01 Seems to be feeling a little better today. Wound care treatments continuing. 03/02: Wound culture grew gram negative bacillus; Blood culture no growth to date. Afebrile overnight. c/o severe burning and cramping pain of left leg. Denies fever, chils, or sweating. c/o loose stool. Status post telemetry psychiatrist consultations 03/03: Afebrile overnight. Wound culture grew multiple organisms; blood culture no growth to date. c/o severe burning and cramping pain of left leg. Denies fever, chills, or sweating. Constitutional Vitals: Vital Signs Temp Pulse Resp BP Pulse Ox 36.2 C 85 18 106/70 97 03/03/21 15:58 03/03/21 15:58 03/03/21 15:58 03/03/21 15:58 03/03/21 15:58 Period Temp Pulse Resp BP Sys/Sanders Pulse Ox Last 24 Hr 35.5 C-36.7 C 83-114 16-18 94-111/56-70 96-99 Intake and Output 03/03/21 03/03/21 03/03/21 05:59 13:59 21:59 Intake Total 604 760 Output Total 140 350 Balance 464 410 Intake & Output: Intake & Output 03/03/21 03/03/21 03/03/21 05:59 13:59 21:59 Intake Total 604 760 Output Total 140 350 Balance 464 410 Intake: Nourishment/Supplement quantity 237 (ml) IV 104 50 Cleocin 600 mg In Dextrose 5% 54 in Water 50 ml @ 100 mls/hr IV Q8H [facility] Rx#:[id number] Zosyn 3.375 gm In Dextrose 5% 50 50 in Water 50 ml @ 100 mls/hr IV Q6H [facility] Rx#:[id number] Oral 500 473 Output: Void Amount 140 350 Other: Meal Lunch Percent of Meal Consumed 100% Feeding Ability Independent Nourishment/Supplement name Glucerna Urine Appearance Clear Clear Urine Color Dark Yellow Bright Yellow Urine Odor Normal Stool Size Large Stool Color Brown Stool Consistency Loose # Voids 1 # Bowel Movements 1 General appearance: cooperative, mild distress and morbidly obese Head Head exam: Present atraumatic and normocephalic Eye Eye exam: Present EOMI and PERRL ENT ENT exam: Present mucous membranes moist, normal exam and normal external ear exam Neck Neck exam: Present normal inspection; Absent lymphadenopathy, tenderness and thyromegaly Respiratory Respiratory exam: Absent accessory muscle use, respiratory distress and wheezes Cardiovascular Cardiovascular exam: Present normal rate and rhythm; Absent JVD GI/Abdominal GI/Abdominal exam: Present normal bowel sounds and soft; Absent organomegaly and tenderness Rectal Rectal exam: Present deferred Extremities Exam Extremities exam: Present full ROM, normal capillary refill and normal inspection; Absent tenderness Neurological Exam Neurological exam: Present alert, CN II-XII intact and oriented X3; Absent motor sensory deficit Psychiatric Psychiatric exam: Present normal affect and normal mood; Absent anxious and d epressed Skin Skin exam: Present dry, erythema, rash and vesicles Additional comments: left lower extremity vesicles and erythematic rash OBJ DATA Labs CBC & Chem 7: 03/03/21 06:02 03/03/21 06:02 Labs: Abnormal Lab Results 03/03/21 03/03/21 03/02/21 06:02 06:02 05:48 RBC 3.97 L Hgb 11.2 L Hct 36.3 L MCHC 30.9 L RDW 15.3 H MPV 11.9 H Sodium Chloride 95 L Creatinine 0.6 L Glucose 228 H GGT Alkaline Phosphatase 121 H C-Reactive Protein Albumin 2.6 L Globulin Albumin/Globulin Ratio 0.7 L Triglycerides Procalcitonin 0.21 H 03/02/21 03/02/21 03/01/21 05:47 05:47 12:10 RBC 3.59 L 3.89 L Hgb 10.6 L 11.2 L Hct 33.0 L 35.3 L MCHC RDW 15.2 H 15.3 H MPV 11.2 H 11.0 H Sodium Chloride Creatinine 0.5 L Glucose 183 H GGT 171 H Alkaline Phosphatase 124 H C-Reactive Protein 11.90 H Albumin 2.6 L Globulin 3.9 H Albumin/Globulin Ratio 0.7 L Triglycerides 164 H Procalcitonin 03/01/21 03/01/21 05:25 05:25 RBC Hgb Hct MCHC RDW MPV Sodium 132 L Chloride 93 L Creatinine Glucose 272 H GGT Alkaline Phosphatase C-Reactive Protein Albumin Globulin Albumin/Globulin Ratio Triglycerides Procalcitonin 0.37 H Meds: Medications Acetaminophen (Acetaminophen 325 Mg Tablet) 650 mg PO Q6HP PRN PRN Reason: PAIN/FEVER > 101 Albuterol/Ipratropium (Ipratropium/Albuterol 3 Ml Ampul.Neb) 3 ml NEB Q4HP PRN PRN Reason: Shortness Of Breath Calcium Carbonate/Glycine (Calcium Carbonate 500 Mg Tab.Chew) 500 mg CHEWED Q4HP PRN PRN Reason: Dyspepsia Last Admin: 02/28/21 17:32 Dose: 500 mg Documented by: Carvedilol (Carvedilol 6.25 Mg Tablet) 6.25 mg PO BIDCC [facility] Last Admin: 03/03/21 08:30 Dose: 6.25 mg Documented by: Dextrose (Dextrose 50% 50 Ml Vial) 0 ml IV UD PRN PRN Reason: Hypoglycemia Diagnostic Test (Pha) (Accu-Chek 1 Each Strip) 1 each FS ACHS [facility] Last Admin: 03/03/21 12:37 Dose: 1 each Documented by: Docusate Sodium (Docusate Sodium 100 Mg Capsule) 100 mg PO BID [facility] Last Admin: 03/03/21 07:37 Dose: Not Given Documented by: Duloxetine HCl (Duloxetine 20 Mg Capsule) 20 mg PO DAILY [facility] Last Admin: 03/03/21 08:31 Dose: 20 mg Documented by: Enoxaparin Sodium (Enoxaparin 40 Mg/0.4 Ml Syringe) 40 mg SQ DAILY [facility] Last Admin: 03/03/21 08:36 Dose: 40 mg Documented by: Gabapentin (Gabapentin 300 Mg Capsule) 600 mg PO TID [facility] Last Admin: 03/03/21 08:30 Dose: 600 mg Documented by: Glucose (Dextrose 31 Gm Oral.Susp) 15 gm PO PRN PRN PRN Reason: Hypoglycemia Hydromorphone HCl (Hydromorphone 0.5 Mg/0.5 Ml Syringe) 0.25 - 0.5 mg IV Q2HP PRN; Protocol PRN Reason: Per Pain Protocol Last Admin: 03/01/21 10:24 Dose: 0.5 mg Documented by: Potassium Chloride 40 meq/ (Dextrose) 520 mls @ 130 mls/hr IV UD PRN PRN Reason: Potassium < 3 Magnesium Sulfate (Magnesium Sulfate) 2 gm in 50 mls @ 50 mls/hr IV UD PRN PRN Reason: Magnesium </= 1.6 Piperacillin Sod/Tazobactam (Sod 3.375 gm/ Dextrose) 50 mls @ 100 mls/hr IV Q6H [facility]; Protocol Last Admin: 03/03/21 11:54 Dose: 100 mls/hr Documented by: Clindamycin Phosphate 600 mg/ (Dextrose) 54 mls @ 100 mls/hr IV Q8H [facility]; Protocol Last Admin: 03/03/21 14:01 Dose: 100 mls/hr Documented by: Insulin Glargine (Insulin Glargine, Human 1 Unit/0.01 Ml) 100 unit SQ DAILY [facility] Last Admin: 03/03/21 08:33 Dose: 100 units Documented by: Insulin Human Lispro (Insulin Lispro 1 Unit/0.01 Ml Unit) 0 unit SQ ACHS [facility]; Protocol Last Admin: 03/03/21 12:40 Dose: 6 units Documented by: Loperamide HCl (Loperamide 2 Mg Capsule) 2 mg PO PRN PRN PRN Reason: Diarrhea Last Admin: 03/03/21 09:46 Dose: 2 mg Documented by: Ondansetron HCl (Ondansetron 4 Mg/2 Ml Vial) 4 mg IV Q4HP PRN PRN Reason: Nausea And Vomiting Last Admin: 03/03/21 09:52 Dose: 4 mg Documented by: Oxycodone/Acetaminophen (Oxycodone/Apap 5/325mg Tablet) 1 - 2 tab PO Q4HP PRN; Protocol PRN Reason: Per Pain Protocol Last Admin: 03/03/21 13:59 Dose: 2 tab Documented by: Empagliflozin [ Jardiance] 25 Mg Tablet 1 dose PO QDAY [facility] Last Admin: 03/03/21 08:24 Dose: Not Given Documented by: Polyethylene Glycol (Polyethylene Glycol 3350 17 Gm Packet) 17 gm PO DAILYP PRN PRN Reason: Constipation Potassium Chloride (Potassium Chloride 20 Meq Tablet) 40 meq PO UD PRN PRN Reason: Potssium is 3-3.5 Last Admin: 03/02/21 12:33 Dose: 40 meq Documented by: Potassium Chloride (Potassium Chloride 20 Meq Tablet) 40 meq PO UD PRN PRN Reason: Potassium < 3 Prochlorperazine (Prochlorperazine 10 Mg/2 Ml Vial) 10 mg IV Q6HP PRN PRN Reason: Nausea And Vomiting Last Admin: 02/27/21 22:10 Dose: 10 mg Documented by: Senna (Sennosides 1 Tablet) 2 tab PO DAILYP PRN PRN Reason: Constipation Sodium Chloride (0.9 % Sodium Chloride 10 Ml Syringe) 10 ml IV Q8 [facility] Last Admin: 03/03/21 14:09 Dose: 10 ml Documented by: A/P Assessment and plan (1) Atrial flutter: Status: Acute (2) Type 2 diabetes mellitus with diabetic neuropathy: Status: Acute Comment: Pain with peripheral neuropathy. However, left foot pain increased greater than right secondary to infection and ulcer. (3) Cellulitis: Status: Acute Comment: Alfredo is a 56-year-old morbidly obese poorly controlled diabetic who is admitted yesterday in the hospital for left foot cellulitis. X-ray did not show osteomyelitis but I have concerns. He is currently day 2 Vanco plus Zosyn. No history of MRSA. Wound culture pending. I will obtain a MRSA screen. Maintain Zosyn but increase dose to 4.5 g IV every 6 hours. (4) GERD (gastroesophageal reflux disease): Status: Chronic Qualifiers: Esophagitis presence: without esophagitis Qualified Code(s): K21.9 - Gastro-esophageal reflux disease without esophagitis (5) Depression: Status: Chronic (6) Hypertension: Status: Chronic Qualifiers: Hypertension type: essential hypertension Qualified Code(s): I10 - Essential (primary) hypertension (7) Obesities, morbid: Status: Chronic (8) Hypokalemia: Status: Acute (9) Hypomagnesemia: Status: Acute Narrative A/P Narrative: Assessment and Plans: 1. Left leg cellulitis: Stays in inpatient med surg Wound culture grew multiple organisms, blood culture no growth to date Wound care as per Dr. Campos ID Dr. Meyers consulted, recs. appreciated Tylenol PRN fever Percocet PRN moderate pain Dilaudid IV PRN severe pain Clindamycin IV Zosyn IV cbc w/ auto diff in the AM to trend WBC 2. T2DM, uncontrolled with diabetic neuropathy: HgA1c Jardiance Insulin Lantus 100 unit daily Correctional scale insulin AC HS Accu Chek AC HS Hypoglycemia protocol Diabetic diet Gabapentin for neuropathic pain 3. Hypokalemia/hypomagnesemia: RESOLVED Potassium chloride oral replacement Magnesium sulfate IV replacement Repeat CMP and serum medicine level in the morning and repeat replacement as needed #4 depressions: Status post telemetry psychiatrist consultations Recommend Cymbalta 20 mg p.o. daily for the time being and in 5 to 7 days will consider increase it to twice daily #5 loose stool: Imodium as needed loose stool #6 morbid obesity: Counseled patient on lifestyle modification including regular exercise and healthy diet in order to lose weight #7 essential hypertension: Continue Coreg Hold Lisinopril for soft blood pressure #8. intermittent atrial flutter: patient had an episode of atrial flutter on 03/01 and right now it is sinus Continue Coreg for rate control No anticoagulation this point. To be reevaluated by his PCP to see whether at rial fibrillation or atrial flutter recur and whether or not patient could benefit from anticoagulation at that point GI prophylaxis: Not current indicated DVT prophylaxis: Lovenox CODE STATUS: Full code Prognosis: Stable Disposition: Inpatient MedSurg Time Spent With Patient Time: Total time spent is greater than 50% in coordination of care (as documented) at patient's floor/unit and/or counseling patient: QUALITY VTE Deep Vein Thrombosis/Pulmonary Embolism Present on Admission: No
--- NOTE | 2021-03-03 17:50 | EKG ---
Merged With [facility] Test Date: 2021-03-01 Pat Name: Alfredo Tillman Department: [facility] Room: 108 Gender: Male [employer]: : [id number] Requested By: Filipe Gonzalez Order Number: [id number] Reading MD: Nam Soliz Measurements Intervals [place] Rate: 134 P: MD: QRS: 2 QRSD: 82 T: 17 QT: 332 QTc: 496 Interpretive Statements ATRIAL FLUTTER WITH 2:1 AV BLOCK CONSIDER ANTERIOR INFARCT BORDERLINE PROLONGED QT INTERVAL Electronically Signed On 03-03-2021 17:49:25 PDT by Nam Soliz /[email or web address]/[email or web address]/[id number]
[2021-03-04] MEDS: PIPERACILLIN SODIUM/TAZOBACTAM 3.375 GM in DEXTROSE 5% IN WATER 50 ML IV SCH ×4 (00:26→18:37)
[2021-03-04] MEDS: CLINDAMYCIN 600 MG in DEXTROSE 5% IN WATER 50 ML IV SCH ×3 (05:02→22:04)
[2021-03-04] MEDS: 0.9 % SODIUM CHLORIDE 10 ML SYRINGE IV SCH ×4 (06:25→22:18)
[2021-03-04 07:21] LABS: Basophils # (Auto) 0.09 K/mcL (0.00-0.30); Basophils % (Auto) 1.2 % (0.0-2.0); Eosinophils # (Auto) 0.21 K/mcL (0.00-0.70); Eosinophils % (Auto) 2.9 % (0.0-7.0); Hematocrit 33.9 % (40.1-51.0); Hemoglobin 10.2 g/dL (13.7-17.5); Lymphocytes # (Auto) 2.02 K/mcL (1.50-4.80); Lymphocytes % (Auto) 27.7 % (15.5-49.0); Mean Cell Volume 95.5 fL (80.0-100.0); Mean Corpuscular HGB Conc 30.1 g/dL (31.0-36.0); Mean Platelet Volume 10.8 fL (7.4-10.4); Monocytes # (Auto) 0.52 K/mcL (0.10-0.90); Monocytes % (Auto) 7.1 % (1.0-12.0); Neutrophils % (Auto) 61.1 % (38.0-78.0); Platelet Count 268 K/mcL (140-440); RBC 3.55 M/mcL (4.63-6.08); Red Cell Distribution Width 15.7 % (11.5-14.5); WBC 7.3 K/mcL (4.5-11.0)
[2021-03-04 08:10] LABS: ALT/SGPT 21 U/L (<40); AST/SGOT 27 U/L (<40); Albumin 2.6 gm/dL (3.2-5.2); Albumin/Globulin Ratio 0.7 (1.0-2.3); Alkaline Phosphatase 112 U/L (39-117); Bilirubin,Total 0.2 mg/dL (0.1-1.0); Blood Urea Nitrogen 12 mg/dL (6-20); Calcium 8.5 mg/dL (8.6-10.4); Carbon Dioxide 25 mmol/L (22-30); Chloride 97 mmol/L (96-108); Globulin 3.9 gm/dL (2.2-3.7); Glomerular Filtration Rate 121; Glucose 168 mg/dL (70-105)
[2021-03-04] MEDS: INSULIN GLARGINE, HUMAN 1 UNIT/0.01 ML SQ SCH (08:49)
[2021-03-04] MEDS: INSULIN LISPRO 1 UNIT/0.01 ML UNIT SQ SCH ×4 (08:49→21:02)
[2021-03-04] MEDS: DULoxetine 20 MG CAPSULE PO SCH (08:52)
[2021-03-04] MEDS: ENOXAPARIN 40 MG/0.4 ML SYRINGE SQ SCH (08:52)
[2021-03-04] MEDS: CARVEDILOL 6.25 MG TABLET PO SCH ×2 (08:52→18:37)
[2021-03-04] MEDS: GABAPENTIN 300 MG CAPSULE PO SCH ×3 (08:52→21:02)
[2021-03-04] MEDS: DOCUSATE SODIUM 100 MG CAPSULE PO SCH ×2 (08:53→21:06)
[2021-03-04] MEDS: Empagliflozin [Jardiance] 25 mg tablet PO SCH (08:53)
[2021-03-04] MEDS: oxyCODONE/APAP 5/325MG TABLET PO PRN (08:58)
--- NOTE | 2021-03-04 09:41 | General Surgery Progress Note ---
SUBJECTIVE Subjective Patient information: Note initiated : 03/04/21 at 9:34 am Service Date, if different from initiated Date: [] Patient: Alfredo Tillman 56 y/o M admitted on 02/26/21 for possible sepsis, cellulitis. Chief Complaint: [] Additional PMFSH (Level 3 Only): Patient seen on rounds with Sheila POLK, In Patient wound care nurse. Wounds examined. Constitutional Vitals: Vital Signs Temp Pulse Resp BP Pulse Ox 97.5 F 81 20 114/68 96 03/04/21 08:00 03/04/21 08:00 03/04/21 08:00 03/04/21 08:00 03/04/21 08:00 Period Temp Pulse Resp BP Sys/Sanders Pulse Ox Last 24 Hr 96.5 F-97.5 F 75-89 16-20 102-122/58-71 96-99 Intake and Output 03/03/21 03/04/21 03/04/21 21:59 05:59 13:59 Intake Total 1377 784 104 Balance 1377 784 104 Weight 289 lb Intake & Output: Intake & Output 03/03/21 03/04/21 03/04/21 21:59 05:59 13:59 Intake Total 1377 784 104 Balance 1377 784 104 Weight 289 lb Intake: Nourishment/Supplement quantity 237 (ml) IV 104 104 104 Cleocin 600 mg In Dextrose 5% 54 54 54 in Water 50 ml @ 100 mls/hr IV Q8H [facility] Rx#:[id number] Zosyn 3.375 gm In Dextrose 5% 50 50 50 in Water 50 ml @ 100 mls/hr IV Q6H [facility] Rx#:[id number] Oral 1036 680 Other: Meal Dinner Percent of Meal Consumed 100% Feeding Ability Independent Nourishment/Supplement name Glucerna Stool Size Moderate Stool Color Kevin Colored Stool Consistency Soft # Voids 3 # Bowel Movements 1 Exam: AVSS. No changes MARY. CHRONIC Scalp wound is stable, granulating and healing by second intention. LEFT leg wound c/s Multiple GPC GNB. He has blisters and draining wounds. Mainly LEFT lower leg with adherent and demarcating slough. NEEDS surgical debridement with VERSAJET. Lab results reviewed. 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 A/P Narrative A/P Narrative: Assessment; CSSSI. Sepsis improving. Demarcating adherent slough LEFT lower leg. Chronic scalp wound. Plan: For OR later this afternoon. Around 15:00 Hrs. I/R/B/C/A and POC d/w patient. He agrees to proceed. Time Spent With Patient Time: Total time spent is greater than 50% in coordination of care (as documented) at patient's floor/unit and/or counseling patient: Total time spent with greater than 50% in coordination of care (as documented) at patient's floor/unit and/or counseling patient:: Greater than 35 minutes
--- NOTE | 2021-03-04 11:43 | Internal Med Progress Note ---
SUBJECTIVE Subjective Patient information: Note initiated : 03/04/21 at 11:40 am Service Date, if different from initiated Date: [] Patient: Alfredo Tillman 56 y/o M admitted on 02/26/21 for possible sepsis, cellulitis. Chief Complaint: [left leg cellulitis] Interval history: History of present illness: Mr. Tillman is a 56 year old M sent in by Dr. Landis for LLE wounds/cellulitis. Recently here for LLE infection in January. Patient states over the past few days his left leg is becoming increasingly red swollen and tender. He has had some fevers and chills had a little bit of nausea but no vomiting. Feels tired and weak. Patient states his blood sugars range from 130-175. Patient states he has had a diabetic foot ulcer on that left for months. His left leg is chronically red but says is much more red lately. In the ED is evaluated and found to have mild hyponatremia mildly elevated lactate elevated CRP. He was mildly tachycardic and febrile. And had an elevated white blood cell count. No DVT on u/s. Patient be followed by Dr. Campos. 02/27 Complains of left lower leg pain otherwise no new complaints. MRI unremarkable 02/28 Complains of poor sleep and leg pain. MRI leg foot without osteo or abscess. Leukocytosis improving. 03/01 Seems to be feeling a little better today. Wound care treatments continuing. 03/02: Wound culture grew gram negative bacillus; Blood culture no growth to date. Afebrile overnight. c/o severe burning and cramping pain of left leg. Denies fever, chils, or sweating. c/o loose stool. Status post telemetry psychiatrist consultations 03/03: Afebrile overnight. Wound culture grew multiple organisms; blood culture no growth to date. c/o severe burning and cramping pain of left leg. Denies feve r, chills, or sweating. 03/04: Afebrile overnight. Wound culture grew multiple organisms; blood culture no growth to date. c/o 9/ soreness of left leg. Denies fever, chills, or sweating. Constitutional Vitals: Vital Signs Temp Pulse Resp BP Pulse Ox 36.4 C 81 20 114/68 96 03/04/21 08:00 03/04/21 08:00 03/04/21 08:00 03/04/21 08:00 03/04/21 08:00 Period Temp Pulse Resp BP Sys/Sanders Pulse Ox Last 24 Hr 35.8 C-36.4 C 75-89 18-20 102-122/58-71 96-99 Intake and Output 03/03/21 03/04/21 03/04/21 21:59 05:59 13:59 Intake Total 1377 784 104 Balance 1377 784 104 Weight 131.088 kg Intake & Output: Intake & Output 03/03/21 03/04/21 03/04/21 21:59 05:59 13:59 Intake Total 1377 784 104 Balance 1377 784 104 Weight 131.088 kg Intake: Nourishment/Supplement quantity 237 (ml) IV 104 104 104 Cleocin 600 mg In Dextrose 5% 54 54 54 in Water 50 ml @ 100 mls/hr IV Q8H [facility] Rx#:[id number] Zosyn 3.375 gm In Dextrose 5% 50 50 50 in Water 50 ml @ 100 mls/hr IV Q6H [facility] Rx#:[id number] Oral 1036 680 Other: Meal Dinner Percent of Meal Consumed 100% Feeding Ability Independent Nourishment/Supplement name Glucerna Stool Size Moderate Stool Color Kevin Colored Stool Consistency Soft # Voids 3 # Bowel Movements 1 General appearance: cooperative, moderate distress and morbidly obese Head Additional comments: Scalp lacerations covered by wound dressing Eye Eye exam: Present EOMI and PERRL ENT ENT exam: Present mucous membranes moist, normal exam and normal external ear exam Neck Neck exam: Present normal inspection; Absent lymphadenopathy, tenderness and thyromegaly Respiratory Respiratory exam: Absent accessory muscle use, respiratory distress and wheezes Cardiovascular Cardiovascular exam: Present normal rate and rhythm; Absent JVD GI/Abdominal GI/Abdominal exam: Present normal bowel sounds and soft; Absent organomegaly and tenderness Rectal Rectal exam: Present deferred Extremities Exam Extremities exam: Present full ROM, normal capillary refill and normal inspection; Absent tenderness Neurological Exam Neurological exam: Present alert, CN II-XII intact and oriented X3; Absent motor sensory deficit Psychiatric Psychiatric exam: Present normal affect and normal mood; Absent anxious and depressed Skin Skin exam: Present dry, erythema, intact, rash and vesicles OBJ DATA Labs CBC & Chem 7: 03/04/21 05:43 03/04/21 05:43 Labs: Abnormal Lab Results 03/04/21 03/04/21 03/03/21 05:43 05:43 06:02 RBC 3.55 L Hgb 10.2 L Hct 33.9 L MCHC 30.1 L RDW 15.7 H MPV 10.8 H Chloride 95 L Creatinine 0.5 L 0.6 L Glucose 168 H 228 H Calcium 8.5 L GGT Alkaline Phosphatase 121 H C-Reactive Protein Albumin 2.6 L 2.6 L Globulin 3.9 H Albumin/Globulin Ratio 0.7 L 0.7 L Triglycerides Procalcitonin 03/03/21 03/02/21 03/02/21 06:02 05:48 05:47 RBC 3.97 L 3.59 L Hgb 11.2 L 10.6 L Hct 36.3 L 33.0 L MCHC 30.9 L RDW 15.3 H 15.2 H MPV 11.9 H 11.2 H Chloride Creatinine Glucose Calcium GGT Alkaline Phosphatase C-Reactive Protein Albumin Globulin Albumin/Globulin Ratio Triglycerides Procalcitonin 0.21 H 03/02/21 03/01/21 05:47 12:10 RBC 3.89 L Hgb 11.2 L Hct 35.3 L MCHC RDW 15.3 H MPV 11.0 H Chloride Creatinine 0.5 L Glucose 183 H Calcium GGT 171 H Alkaline Phosphatase 124 H C-Reactive Protein 11.90 H Albumin 2.6 L Globulin 3.9 H Albumin/Globulin Ratio 0.7 L Triglycerides 164 H Procalcitonin Meds: Medications Acetaminophen (Acetaminophen 325 Mg Tablet) 650 mg PO Q6HP PRN PRN Reason: PAIN/FEVER > 101 Albuterol/Ipratropium (Ipratropium/Albuterol 3 Ml Ampul.Neb) 3 ml NEB Q4HP PRN PRN Reason: Shortness Of Breath Calcium Carbonate/Glycine (Calcium Carbonate 500 Mg Tab.Chew) 500 mg CHEWED Q4HP PRN PRN Reason: Dyspepsia Last Admin: 02/28/21 17:32 Dose: 500 mg Documented by: Carvedilol (Carvedilol 6.25 Mg Tablet) 6.25 mg PO BIDCC [facility] Last Admin: 03/04/21 08:52 Dose: 6.25 mg Documented by: Dextrose (Dextrose 50% 50 Ml Vial) 0 ml IV UD PRN PRN Reason: Hypoglycemia Diagnostic Test (Pha) (Accu-Chek 1 Each Strip) 1 each FS [facility] Last Admin: 03/04/21 08:49 Dose: 1 each Documented by: Docusate Sodium (Docusate Sodium 100 Mg Capsule) 100 mg PO BID [facility] Last Admin: 03/04/21 08:53 Dose: Not Given Documented by: Duloxetine HCl (Duloxetine 20 Mg Capsule) 20 mg PO DAILY [facility] Last Admin: 03/04/21 08:52 Dose: 20 mg Documented by: Enoxaparin Sodium (Enoxaparin 40 Mg/0.4 Ml Syringe) 40 mg SQ DAILY [facility] Last Admin: 03/04/21 08:52 Dose: 40 mg Documented by: Gabapentin (Gabapentin 300 Mg Capsule) 600 mg PO TID [facility] Last Admin: 03/04/21 08:52 Dose: 600 mg Documented by: Glucose (Dextrose 31 Gm Oral.Susp) 15 gm PO PRN PRN PRN Reason: Hypoglycemia Hydromorphone HCl (Hydromorphone 0.5 Mg/0.5 Ml Syringe) 0.25 - 0.5 mg IV Q2HP PRN; Protocol PRN Reason: Per Pain Protocol Last Admin: 03/01/21 10:24 Dose: 0.5 mg Documented by: Potassium Chloride 40 meq/ (Dextrose) 520 mls @ 130 mls/hr IV UD PRN PRN Reason: Potassium < 3 Magnesium Sulfate (Magnesium Sulfate) 2 gm in 50 mls @ 50 mls/hr IV UD PRN PRN Reason: Magnesium </= 1.6 Piperacillin Sod/Tazobactam (Sod 3.375 gm/ Dextrose) 50 mls @ 100 mls/hr IV Q6H [facility]; Protocol Last Infusion: 03/04/21 07:42 Dose: Infused Documented by: Clindamycin Phosphate 600 mg/ (Dextrose) 54 mls @ 100 mls/hr IV Q8H [facility]; Protocol Last Infusion: 03/04/21 06:27 Dose: Infused Documented by: Insulin Glargine (Insulin Glargine, Human 1 Unit/0.01 Ml) 100 unit SQ DAILY [facility] Last Admin: 03/04/21 08:49 Dose: 100 units Documented by: Insulin Human Lispro (Insulin Lispro 1 Unit/0.01 Ml Unit) 0 unit SQ [facility]; Protocol Last Admin: 03/04/21 08:49 Dose: 2 units Documented by: Loperamide HCl (Loperamide 2 Mg Capsule) 2 mg PO PRN PRN PRN Reason: Diarrhea Last Admin: 03/03/21 09:46 Dose: 2 mg Documented by: Ondansetron HCl (Ondansetron 4 Mg/2 Ml Vial) 4 mg IV Q4HP PRN PRN Reason: Nausea And Vomiting Last Admin: 03/03/21 09:52 Dose: 4 mg Documented by: Oxycodone/Acetaminophen (Oxycodone/Apap 5/325mg Tablet) 1 - 2 tab PO Q4HP PRN; Protocol PRN Reason: Per Pain Protocol Last Admin: 03/04/21 08:58 Dose: 2 tab Documented by: Empagliflozin [ Jardiance] 25 Mg Tablet 1 dose PO QDAY [facility] Last Admin: 03/04/21 08:53 Dose: Not Given Documented by: Polyethylene Glycol (Polyethylene Glycol 3350 17 Gm Packet) 17 gm PO DAILYP PRN PRN Reason: Constipation Potassium Chloride (Potassium Chloride 20 Meq Tablet) 40 meq PO UD PRN PRN Reason: Potssium is 3-3.5 Last Admin: 03/02/21 12:33 Dose: 40 meq Documented by: Potassium Chloride (Potassium Chloride 20 Meq Tablet) 40 meq PO UD PRN PRN Reason: Potassium < 3 Prochlorperazine (Prochlorperazine 10 Mg/2 Ml Vial) 10 mg IV Q6HP PRN PRN Reason: Nausea And Vomiting Last Admin: 02/27/21 22:10 Dose: 10 mg Documented by: Senna (Sennosides 1 Tablet) 2 tab PO DAILYP PRN PRN Reason: Constipation Sodium Chloride (0.9 % Sodium Chloride 10 Ml Syringe) 10 ml IV Q8 [facility] Last Admin: 03/04/21 06:25 Dose: 10 ml Documented by: A/P Assessment and plan (1) Atrial flutter: Status: Acute (2) Type 2 diabetes mellitus with diabetic neuropathy: Status: Acute Comment: Pain with peripheral neuropathy. However, left foot pain increased greater than right secondary to infection and ulcer. (3) Cellulitis: Status: Acute Comment: Alfredo is a 56-year-old morbidly obese poorly controlled diabetic who is admitted yesterday in the hospital for left foot cellulitis. X-ray did not show osteomyelitis but I have concerns. He is currently day 2 Vanco plus Zosyn. No history of MRSA. Wound culture pending. I will obtain a MRSA screen. Maintain Zosyn but increase dose to 4.5 g IV every 6 hours. (4) GERD (gastroesophageal reflux disease): Status: Chronic Qualifiers: Esophagitis presence: without esophagitis Qualified Code(s): K21.9 - Gastro-esophageal reflux disease without esophagitis (5) Depression: Status: Chronic (6) Hypertension: Status: Chronic Qualifiers: Hypertension type: essential hypertension Qualified Code(s): I10 - Essential (primary) hypertension (7) Obesities, morbid: Status: Chronic (8) Hypokalemia: Status: Acute (9) Hypomagnesemia: Status: Acute Narrative A/P Narrative: Assessment and Plans: 1. Left leg cellulitis: Stays in inpatient med surg Wound culture grew multiple organisms, blood culture no growth to date Wound care as per Dr. Campos, will plan to do wound debridement of the scalp wound, neck wound, and the foot wound. ID Dr. Meyers consulted, recs. appreciated Tylenol PRN fever Percocet PRN moderate pain Dilaudid IV PRN severe pain Clindamycin IV Zosyn IV cbc w/ auto diff in the AM to trend WBC 2. T2DM, uncontrolled with diabetic neuropathy: HgA1c Jardiance Insulin Lantus 100 unit daily Correctional scale insulin AC HS Accu Chek AC HS Hypoglycemia protocol Diabetic diet Gabapentin for neuropathic pain 3. Hypokalemia/hypomagnesemia: RESOLVED Potassium chloride oral replacement Magnesium sulfate IV replacement Repeat CMP and serum medicine level in the morning and repeat replacement as needed #4 depressions: Status post telemetry psychiatrist consultations Recommend Cymbalta 20 mg p.o. daily for the time being and in 5 to 7 days will consider increase it to twice daily #5 loose stool: Imodium as needed loose stool #6 morbid obesity: Counseled patient on lifestyle modification including regular exercise and healthy diet in order to lose weight #7 essential hypertension: Continue Coreg Hold Lisinopril for soft blood pressure #8. intermittent atrial flutter: patient had an episode of atrial flutter on 03/01 and right now it is sinus Continue Coreg for rate control No anticoagulation this point. To be reevaluated by his PCP to see whether atrial fibrillation or atrial flutter recur and whether or not patient could benefit from anticoagulation at that point GI prophylaxis: Not current indicated DVT prophylaxis: Lovenox CODE STATUS: Full code Prognosis: Stable Disposition: Inpatient MedSurg Time Spent With Patient Time: Total time spent is greater than 50% in coordination of care (as documented) at patient's floor/unit and/or counseling patient: QUALITY VTE Deep Vein Thrombosis/Pulmonary Embolism Present on Admission: No
[2021-03-04] MEDS ORDERED: ONDANSETRON 4 MG/2 ML VIAL ONE (15:58)
[2021-03-04] MEDS ORDERED: MIDAZOLAM 2 MG/2 ML VIAL ONE (15:58)
[2021-03-04] MEDS ORDERED: KETAMINE 50 MG/ML Syringe (ANEST) IV ONE (15:58)
[2021-03-04] MEDS ORDERED: LIDOCAINE HCL/PF 100 MG/5 ML SYRINGE IV ONE (15:58)
[2021-03-04] MEDS ORDERED: PROPOFOL 200 MG/20 ML VIAL IV ONE (15:58)
[2021-03-04] MEDS ORDERED: DEXAMETHASONE 10 MG/ML VIAL ONE (15:58)
[2021-03-04] MEDS ORDERED: GLYCOPYRROLATE 0.2 MG/ML VIAL IV ONE (15:58)
[2021-03-04] MEDS ORDERED: GENTAMICIN SULFATE 800 MG/20 ML VIAL IR ONE (16:28)
[2021-03-04] MEDS ORDERED: ACETAMINOPHEN 1,000 MG/100 ML BAG IV ONE (16:36)
[2021-03-04] MEDS ORDERED: MEPERIDINE 25 MG/ML VIAL IV PRN (16:36)
[2021-03-04] MEDS ORDERED: ONDANSETRON 4 MG/2 ML VIAL IV PRN (16:36)
[2021-03-04] MEDS ORDERED: BENZOCAINE/MENTHOL 1 LOZENGE PO PRN (16:36)
[2021-03-04] MEDS ORDERED: KETOROLAC 30 MG/ML VIAL IV PRN (16:36)
[2021-03-04] MEDS ORDERED: IPRATROPIUM/ALBUTEROL 3 ML AMPUL.NEB NEB PRN (16:36)
[2021-03-04] MEDS ORDERED: LACTATED RINGERS 1,000 ML IV SCH (16:45)
[2021-03-04] MEDS: fentaNYL 100 MCG/2 ML VIAL IV PRN ×3 (17:07→17:18)
--- NOTE | 2021-03-04 17:08 | Brief Operative Note ---
Brief Operative Note Date of procedure: 03/04/21 Pre-op diagnosis: open infected wounds LEFT leg and foot. Chronic open wound s calp Post-op diagnosis: same Procedure: Pulse lavage irrigation and Versajet debridement of leg and foot wounds. Sharp debridement of scalp wound Grafts/Implants: No Anesthesia: GLMA Findings: Leg wounds LEFT lower lateral leg Stage 3 wounds with exfoliation of skin 9 x 5 x 1.5 CM LEFT lower medial leg Stage 3 wounds with exfoliation of skin 8 x 5 x 1.5 CM LEFT plantar under great toe Stage 2 wound 2 x 1 CM SCALP wound mid line 5 x 3 x 1 CM Complications: none Surgeon: Dustin Campos Estimated blood loss (cc): 5 Specimens Removed/Pathology: other (Deep tissue for LEFT lower lateral leg for aerobic and anaerobic bacteria) Condition: stable Disposition: PACU
[2021-03-04] MEDS ORDERED: BACITRACIN ZINC PKT 1 PACKET PACKET TOPICAL ONE (17:14)
[2021-03-04] MEDS: HYDROmorphone 0.5 MG/0.5 ML SYRINGE IV PRN (20:56)
[2021-03-05] MEDS: PIPERACILLIN SODIUM/TAZOBACTAM 3.375 GM in DEXTROSE 5% IN WATER 50 ML IV SCH ×5 (00:08→23:31)
[2021-03-05] MEDS: HYDROmorphone 0.5 MG/0.5 ML SYRINGE IV PRN ×2 (00:30→20:54)
[2021-03-05] MEDS: CLINDAMYCIN 600 MG in DEXTROSE 5% IN WATER 50 ML IV SCH ×3 (05:42→22:21)
[2021-03-05] MEDS: 0.9 % SODIUM CHLORIDE 10 ML SYRINGE IV SCH ×6 (05:43→22:23)
[2021-03-05 07:35] LABS: Basophils # (Auto) 0.03 K/mcL (0.00-0.30); Basophils % (Auto) 0.3 % (0.0-2.0); Eosinophils # (Auto) 0 K/mcL (0.00-0.70); Eosinophils % (Auto) 0 % (0.0-7.0); Hematocrit 33.4 % (40.1-51.0); Hemoglobin 10.3 g/dL (13.7-17.5); Lymphocytes # (Auto) 1.68 K/mcL (1.50-4.80); Lymphocytes % (Auto) 19.4 % (15.5-49.0); Mean Cell Volume 95.4 fL (80.0-100.0); Mean Corpuscular HGB Conc 30.8 g/dL (31.0-36.0); Monocytes # (Auto) 0.37 K/mcL (0.10-0.90); Monocytes % (Auto) 4.3 % (1.0-12.0); Platelet Count 270 K/mcL (140-440); Red Cell Distribution Width 15.9 % (11.5-14.5); WBC 8.7 K/mcL (4.5-11.0)
--- NOTE | 2021-03-05 07:38 | Operative Note ---
DATE OF OPERATION: 03/04/2021 PREOPERATIVE DIAGNOSES: Open infected wounds, left lower leg medial and lateral aspect, of left foot plantar aspect and chronic open wound of scalp. POSTOPERATIVE DIAGNOSES: Open infected wounds, left lower leg medial and lateral aspect, of left foot plantar aspect and chronic open wound of scalp. PROCEDURE: 1. Pulse lavage irrigation followed by Versajet debridement of left leg and foot wounds. 2. Sharp debridement of scalp wound. ANESTHESIA: General laryngeal mask airway. ANESTHESIOLOGIST: [facility]. SURGEON: Dustin Campos MD FINDINGS: Left leg wounds, left lower lateral leg stage III wound with exfoliation of skin 9 x 5 x 1.5 cm, left lower medial leg stage III wounds with exfoliation of skin 8 x 5 x 1.5 cm, left plantar ulcer under the great toe stage II, 2 x 1 cm, scalp wound chronic midline 5 x 3 x 1 cm. COMPLICATIONS: None. ESTIMATED BLOOD LOSS: 5 mL. SPECIMENS: Specimens for culture and sensitivity from left leg wound after debridement. CONDITION: Stable. INDICATIONS: The patient transferred to PACU. PROCEDURE NOTE IN DETAIL: After obtaining informed consent, patient was taken to the operating room. He was anesthetized in supine position using laryngeal mask airway. A timeout was called. The left leg and the scalp areas were widely cleaned, prepped, and draped in the standard fashion. We first proceeded to dbride the left leg wounds. Initial debridement was carried out and the exfoliated skin was excised with pickup and scissors. Later, the wounds were copiously washed and cleaned with pulse lavage irrigation. We used 3 liters of normal saline mixed with 800 mg of gentamicin solution. Later, the wound beds were sharply debrided with 45-degree angle ultrasound-guided Versajet hydrodissector. At this time, deep tissue sample was obtained from left lower lateral leg wound and sent for aerobic and anaerobic cultures. The left plantar wound under the great toe was also debrided. Dressings consisted of Xeroform gauze, 4 x 4 gauze, reinforced with Kerlix, ABD pad and held in place with an Oscar bandage. The gloves were changed and attention was turned to the scalp wound. We used a #5 blunt curette and the hypertrophic granulation tissue from the wound bed was sharply debrided tangentially from the margins of the wound base. Hemostasis was achieved with pressure. Dressings consisted of bacitracin ointment and Mepilex border foam protective dressing. The patient recovered from anesthesia uneventfully and was taken to RR in stable, satisfactory condition. Operation was well tolerated. VD:meng Job ID: [id number] Doc ID: [id number] Dustin Campos MD MTDD
--- NOTE | 2021-03-05 08:26 | General Surgery Progress Note ---
SUBJECTIVE Subjective Patient information: Note initiated : 03/05/21 at 8:25 am Service Date, if different from initiated Date: [] Patient: Alfredo Tillman 56 y/o M admitted on 02/26/21 for possible sepsis, cellulitis. Chief Complaint: [] Additional PMFSH (Level 3 Only): PO Day #1. Patient seen with Sheila POLK, In Patient wound care nurse. Wound dressings CDI. Patient had an uneventful night. Reviewed CBC results. Other labs are pending. Constitutional Vitals: Vital Signs Temp Pulse Resp BP Pulse Ox 97.6 F 68 18 132/76 98 03/05/21 08:00 03/05/21 08:00 03/05/21 08:00 03/05/21 08:00 03/05/21 08:00 Period Temp Pulse Resp BP Sys/Sanders Pulse Ox Last 24 Hr 97.0 F-98.5 F 68-93 13-30 110-169/66-88 90-99 Intake and Output 03/04/21 03/05/21 03/05/21 21:59 05:59 13:59 Intake Total 2191 404 154 Output Total 5 650 Balance 2186 -246 154 Weight 296 lb Intake & Output: Intake & Output 03/04/21 03/05/21 03/05/21 21:59 05:59 13:59 Intake Total 2191 404 154 Output Total 5 650 Balance 2186 -246 154 Weight 296 lb Intake: Nourishment/Supplement quantity 237 (ml) IV 54 154 154 Cleocin 600 mg In Dextrose 5% 54 54 54 in Water 50 ml @ 100 mls/hr IV Q8H [facility] Rx#:[id number] Zosyn 3.375 gm In Dextrose 5% 100 in Water 50 ml @ 100 mls/hr IV Q6H [facility] Rx#:[id number] Oral 700 250 IV - Manual Only 1200 Output: Void Amount 650 Estimated Blood Loss 5 Other: Meal Dinner Percent of Meal Consumed 75% Feeding Ability Independent Nourishment/Supplement name glucerna Urine Appearance Clear Clear Urine Color Bright Yellow Dark Yellow Urine Odor Normal Exam: AVSS, Dressings of LEFT leg, foot and scalp are clean, dry and intact. CBC , unremarkable. Chemistry labs are pending. A/P Time Spent With Patient Time: Assessment: Satisfactory post surgical progress. Await intra operative wound c/s reports. Continue with ongoing management. LEAVE dressings intact. Plan: Elevate LEFT leg on pillow. Heel touch WB to go to bathroom PRN. Total time spent is greater than 50% in coordination of care (as documented) at patient's floor/unit and/or counseling patient: Total time spent with greater than 50% in coordination of care (as documented) at patient's floor/unit and/or counseling patient:: 25 - 35 minutes
[2021-03-05] MEDS: Empagliflozin [Jardiance] 25 mg tablet PO SCH (08:36)
[2021-03-05 08:42] LABS: ALT/SGPT 22 U/L (<40); AST/SGOT 26 U/L (<40); Albumin 2.4 gm/dL (3.2-5.2); Albumin/Globulin Ratio 0.5 (1.0-2.3); Alkaline Phosphatase 126 U/L (39-117); Bilirubin,Total 0.2 mg/dL (0.1-1.0); Blood Urea Nitrogen 16 mg/dL (6-20); Calcium 8.7 mg/dL (8.6-10.4); Carbon Dioxide 22 mmol/L (22-30); Chloride 96 mmol/L (96-108); Globulin 4.5 gm/dL (2.2-3.7); Glomerular Filtration Rate 112; Glucose 174 mg/dL (70-105)
[2021-03-05 08:46] LABS: Prealbumin 14.6 mg/dL (20.0-40.0)
[2021-03-05] MEDS: INSULIN GLARGINE, HUMAN 1 UNIT/0.01 ML SQ SCH (09:36)
[2021-03-05] MEDS: ENOXAPARIN 40 MG/0.4 ML SYRINGE SQ SCH (09:36)
[2021-03-05] MEDS: INSULIN LISPRO 1 UNIT/0.01 ML UNIT SQ SCH ×4 (09:36→20:50)
[2021-03-05] MEDS: oxyCODONE/APAP 5/325MG TABLET PO PRN ×2 (09:37→13:54)
[2021-03-05] MEDS: CARVEDILOL 6.25 MG TABLET PO SCH ×2 (09:37→17:36)
[2021-03-05] MEDS: GABAPENTIN 300 MG CAPSULE PO SCH ×3 (09:37→20:15)
[2021-03-05] MEDS: DULoxetine 20 MG CAPSULE PO SCH (10:06)
[2021-03-05] MEDS: DOCUSATE SODIUM 100 MG CAPSULE PO SCH ×2 (10:06→20:24)
[2021-03-05] MEDS ORDERED: FUROSEMIDE 40 MG/4 ML VIAL IV ONE (10:30)
[2021-03-05 15:04] LABS: Blood Urea Nitrogen 18 mg/dL (6-20); Calcium 9.2 mg/dL (8.6-10.4); Carbon Dioxide 26 mmol/L (22-30); Chloride 97 mmol/L (96-108); Glomerular Filtration Rate 112; Glucose 206 mg/dL (70-105)
--- NOTE | 2021-03-05 17:07 | Internal Med Progress Note ---
SUBJECTIVE Subjective Patient information: Note initiated : 03/05/21 at 5:02 pm Service Date, if different from initiated Date: [] Patient: Alfredo Tillman 56 y/o M admitted on 02/26/21 for possible sepsis, cellulitis. Chief Complaint: [left leg cellulitis] Interval history: History of present illness: Mr. Tillman is a 56 year old M sent in by Dr. Landis for LLE wounds/cellulitis. Recently here for LLE infection in January. Patient states over the past few days his left leg is becoming increasingly red swollen and tender. He has had some fevers and chills had a little bit of nausea but no vomiting. Feels tired and weak. Patient states his blood sugars range from 130-175. Patient states he has had a diabetic foot ulcer on that left for months. His left leg is chronically red but says is much more red lately. In the ED is evaluated and found to have mild hyponatremia mildly elevated lactate elevated CRP. He was mildly tachycardic and febrile. And had an elevated white blood cell count. No DVT on u/s. Patient be followed by Dr. Campos. 02/27 Complains of left lower leg pain otherwise no new complaints. MRI unremarkable 02/28 Complains of poor sleep and leg pain. MRI leg foot without osteo or abscess. Leukocytosis improving. 03/01 Seems to be feeling a little better today. Wound care treatments continuing. 03/02: Wound culture grew gram negative bacillus; Blood culture no growth to date. Afebrile overnight. c/o severe burning and cramping pain of left leg. Denies fever, chils, or sweating. c/o loose stool. Status post telemetry psychiatrist consultations 03/03: Afebrile overnight. Wound culture grew multiple organisms; blood culture no growth to date. c/o severe burning and cramping pain of left leg. Denies fever, chills, or sweating. 03/04: Afebrile overnight. Wound culture grew multiple organisms; blood culture no growth to date. c/o 02/15 soreness of left leg. Denies fever, chills, or sweating. 03/05: s/p wound debridement of scalp, left lower leg, and left foot by Dr. Campos on 03/04. Afebrile overnight. Intraoperative culture no growth to date. c/o thirst. c/o moderate pain left lower leg and foot. Constitutional Vitals: Vital Signs Temp Pulse Resp BP Pulse Ox 36.3 C 78 18 155/86 97 03/05/21 12:00 03/05/21 12:00 03/05/21 12:00 03/05/21 12:00 03/05/21 12:00 Period Temp Pulse Resp BP Sys/Sanders Pulse Ox Last 24 Hr 36.1 C-36.9 C 68-89 13-23 118-169/67-86 90-98 Intake and Output 03/05/21 03/05/21 03/05/21 05:59 13:59 21:59 Intake Total 404 804 584 Output Total 650 Balance -246 804 584 Weight 134.263 kg Intake & Output: Intake & Output 03/05/21 03/05/21 03/05/21 05:59 13:59 21:59 Intake Total 404 804 584 Output Total 650 Balance -246 804 584 Weight 134.263 kg Intake: IV 154 204 104 Cleocin 600 mg In Dextrose 5% 54 54 54 in Water 50 ml @ 100 mls/hr IV Q8H MANJU Rx#:[id number] Zosyn 3.375 gm In Dextrose 5% 100 50 50 in Water 50 ml @ 100 mls/hr IV Q6H MANJU Rx#:[id number] Oral 250 600 480 Output: Void Amount 650 Other: Urine Appearance Clear Urine Color Dark Yellow Urine Odor Normal # Voids 2 General appearance: cooperative, morbidly obese and no acute distress Head Head exam: Absent atraumatic and normocephalic Additional comments: scalp wound covered by surgical dressing Eye Eye exam: Present EOMI and PERRL ENT ENT exam: Present mucous membranes moist, normal exam and normal external ear exam Neck Neck exam: Present normal inspection; Absent lymphadenopathy, tenderness and thyromegaly Respiratory Respiratory exam: Absent accessory muscle use, respiratory distress and wheezes Cardiovascular Cardiovascular exam: Present normal rate and rhythm; Absent JVD GI/Abdominal GI/Abdominal exam: Present normal bowel sounds and soft; Absent organomegaly and tenderness Rectal Rectal exam: Present deferred Extremities Exam Extremities exam: Present full ROM and normal capillary refill; Absent normal inspection and tenderness Additional comments: erythema, swelling, warmth, tenderness to touch of left upper leg. Left lower leg and left foot covered by surgical dressing Neurological Exam Neurological exam: Present alert, CN II-XII intact and oriented X3; Absent motor sensory deficit Psychiatric Psychiatric exam: Present normal affect and normal mood; Absent anxious and depressed Skin Skin exam: Present dry, erythema, rash, vesicles and warm; Absent intact Additional comments: erythema, swelling, warmth, tenderness to touch of left upper leg. Left lower leg and left foot covered by surgical dressing OBJ DATA Labs CBC & Chem 7: 03/05/21 05:55 03/05/21 14:12 Labs: Abnormal Lab Results 03/05/21 03/05/21 03/05/21 14:12 05:55 05:55 RBC 3.50 L Hgb 10.3 L Hct 33.4 L MCHC 30.8 L RDW 15.9 H MPV 11.0 H Sodium 131 L Potassium 5.5 H Chloride Creatinine 0.6 L 0.6 L Glucose 206 H 174 H Calcium Alkaline Phosphatase 126 H C-Reactive Protein 2.90 H Albumin 2.4 L Globulin 4.5 H Albumin/Globulin Ratio 0.5 L Prealbumin 14.6 L 03/04/21 03/04/21 03/03/21 05:43 05:43 06:02 RBC 3.55 L Hgb 10.2 L Hct 33.9 L MCHC 30.1 L RDW 15.7 H MPV 10.8 H Sodium Potassium Chloride 95 L Creatinine 0.5 L 0.6 L Glucose 168 H 228 H Calcium 8.5 L Alkaline Phosphatase 121 H C-Reactive Protein Albumin 2.6 L 2.6 L Globulin 3.9 H Albumin/Globulin Ratio 0.7 L 0.7 L Prealbumin 03/03/21 06:02 RBC 3.97 L Hgb 11.2 L Hct 36.3 L MCHC 30.9 L RDW 15.3 H MPV 11.9 H Sodium Potassium Chloride Creatinine Glucose Calcium Alkaline Phosphatase C-Reactive Protein Albumin Globulin Albumin/Globulin Ratio Prealbumin Meds: Medications Acetaminophen (Acetaminophen 325 Mg Tablet) 650 mg PO Q6HP PRN PRN Reason: PAIN/FEVER > 101 Albuterol/Ipratropium (Ipratropium/Albuterol 3 Ml Ampul.Neb) 3 ml NEB Q4HP PRN PRN Reason: Shortness Of Breath Calcium Carbonate/Glycine (Calcium Carbonate 500 Mg Tab.Chew) 500 mg CHEWED Q4HP PRN PRN Reason: Dyspepsia Last Admin: 02/28/21 17:32 Dose: 500 mg Documented by: Carvedilol (Carvedilol 6.25 Mg Tablet) 6.25 mg PO BIDCC [facility] Last Admin: 03/05/21 09:37 Dose: 6.25 mg Documented by: Dextrose (Dextrose 50% 50 Ml Vial) 0 ml IV UD PRN PRN Reason: Hypoglycemia Diagnostic Test (Pha) (Accu-Chek 1 Each Strip) 1 each FS ACHS [facility] Last Admin: 03/05/21 10:51 Dose: 1 each Documented by: Docusate Sodium (Docusate Sodium 100 Mg Capsule) 100 mg PO BID [facility] Last Admin: 03/05/21 10:06 Dose: Not Given Documented by: Duloxetine HCl (Duloxetine 20 Mg Capsule) 20 mg PO DAILY [facility] Last Admin: 03/05/21 10:06 Dose: 20 mg Documented by: Enoxaparin Sodium (Enoxaparin 40 Mg/0.4 Ml Syringe) 40 mg SQ DAILY [facility] Last Admin: 03/05/21 09:36 Dose: 40 mg Documented by: Gabapentin (Gabapentin 300 Mg Capsule) 600 mg PO TID [facility] Last Admin: 03/05/21 14:30 Dose: 600 mg Documented by: Glucose (Dextrose 31 Gm Oral.Susp) 15 gm PO PRN PRN PRN Reason: Hypoglycemia Hydromorphone HCl (Hydromorphone 0.5 Mg/0.5 Ml Syringe) 0.25 - 0.5 mg IV Q2HP PRN; Protocol PRN Reason: Per Pain Protocol Last Admin: 03/05/21 00:30 Dose: 0.5 mg Documented by: Potassium Chloride 40 meq/ (Dextrose) 520 mls @ 130 mls/hr IV UD PRN PRN Reason: Potassium < 3 Magnesium Sulfate (Magnesium Sulfate) 2 gm in 50 mls @ 50 mls/hr IV UD PRN PRN Reason: Magnesium </= 1.6 Piperacillin Sod/Tazobactam (Sod 3.375 gm/ Dextrose) 50 mls @ 100 mls/hr IV Q6H [facility]; Protocol Last Infusion: 03/05/21 14:05 Dose: Infused Documented by: Clindamycin Phosphate 600 mg/ (Dextrose) 54 mls @ 100 mls/hr IV Q8H [facility]; Protocol Last Infusion: 03/05/21 15:30 Dose: Infused Documented by: Insulin Glargine (Insulin Glargine, Human 1 Unit/0.01 Ml) 100 unit SQ DAILY [facility] Last Admin: 03/05/21 09:36 Dose: 100 units Documented by: Insulin Human Lispro (Insulin Lispro 1 Unit/0.01 Ml Unit) 0 unit SQ ACHS [facility]; Protocol Last Admin: 03/05/21 13:10 Dose: 6 units Documented by: Loperamide HCl (Loperamide 2 Mg Capsule) 2 mg PO PRN PRN PRN Reason: Diarrhea Last Admin: 03/03/21 09:46 Dose: 2 mg Documented by: Ondansetron HCl (Ondansetron 4 Mg/2 Ml Vial) 4 mg IV Q4HP PRN PRN Reason: Nausea And Vomiting Last Admin: 03/03/21 09:52 Dose: 4 mg Documented by: Oxycodone/Acetaminophen (Oxycodone/Apap 5/325mg Tablet) 1 - 2 tab PO Q4HP PRN; Protocol PRN Reason: Per Pain Protocol Last Admin: 03/05/21 13:54 Dose: 2 tab Documented by: Empagliflozin [ Jardiance] 25 Mg Tablet 1 dose PO QDAY [facility] Last Admin: 03/05/21 08:36 Dose: Not Given Documented by: Polyethylene Glycol (Polyethylene Glycol 3350 17 Gm Packet) 17 gm PO DAILYP PRN PRN Reason: Constipation Potassium Chloride (Potassium Chloride 20 Meq Tablet) 40 meq PO UD PRN PRN Reason: Potssium is 3-3.5 Last Admin: 03/02/21 12:33 Dose: 40 meq Documented by: Potassium Chloride (Potassium Chloride 20 Meq Tablet) 40 meq PO UD PRN PRN Reason: Potassium < 3 Prochlorperazine (Prochlorperazine 10 Mg/2 Ml Vial) 10 mg IV Q6HP PRN PRN Reason: Nausea And Vomiting Last Admin: 02/27/21 22:10 Dose: 10 mg Documented by: Senna (Sennosides 1 Tablet) 2 tab PO DAILYP PRN PRN Reason: Constipation Sodium Chloride (0.9 % Sodium Chloride 10 Ml Syringe) 10 ml IV Q8 [facility] Last Admin: 03/05/21 14:05 Dose: Not Given Documented by: Sodium Chloride (0.9 % Sodium Chloride 10 Ml Syringe) 10 ml IV Q8 [facility] Last Admin: 03/05/21 14:05 Dose: Not Given Documented by: A/P Assessment and plan (1) Atrial flutter: Status: Acute (2) Type 2 diabetes mellitus with diabetic neuropathy: Status: Acute Comment: Pain with peripheral neuropathy. However, left foot pain increased greater than right secondary to infection and ulcer. (3) Cellulitis: Status: Acute Comment: Alfredo is a 56-year-old morbidly obese poorly controlled diabetic who is admitted yesterday in the hospital for left foot cellulitis. X-ray did not show osteomyelitis but I have concerns. He is currently day 2 Vanco plus Zosyn. No history of MRSA. Wound culture pending. I will obtain a MRSA screen. Maintain Zosyn but increase dose to 4.5 g IV every 6 hours. (4) GERD (gastroesophageal reflux disease): Status: Chronic Qualifiers: Esophagitis presence: without esophagitis Qualified Code(s): K21.9 - Gastro-esophageal reflux disease without esophagitis (5) Depression: Status: Chronic (6) Hypertension: Status: Chronic Qualifiers: Hypertension type: essential hypertension Qualified Code(s): I10 - Essential (primary) hypertension (7) Obesities, morbid: Status: Chronic (8) Hypokalemia: Status: Acute (9) Hypomagnesemia: Status: Acute Narrative A/P Narrative: Assessment and Plans: 1. Left leg cellulitis: Stays in inpatient med surg Wound culture grew multiple organisms, blood culture no growth to date s/p wound debridement of the scalp wound, neck wound, and the foot wound by Dr. Campos on 03/04 with intraoperative wound culture, no growth to date ID Dr. Meyers consulted, recs. appreciated Tylenol PRN fever Percocet PRN moderate pain Dilaudid IV PRN severe pain Clindamycin IV Zosyn IV cbc w/ auto diff in the AM to trend WBC 2. T2DM, uncontrolled with diabetic neuropathy: HgA1c Jardiance Insulin Lantus 100 unit daily Correctional scale insulin AC HS Accu Chek AC HS Hypoglycemia protocol Diabetic diet Gabapentin for neuropathic pain 3. Hypokalemia/hypomagnesemia: RESOLVED Potassium chloride oral replacement Magnesium sulfate IV replacement Repeat CMP and serum medicine level in the morning and repeat replacement as needed #4 depressions: Status post telemetry psychiatrist consultations Recommend Cymbalta 20 mg p.o. daily for the time being and in 5 to 7 days will consider increase it to twice daily #5 loose stool: Imodium as needed loose stool #6 morbid obesity: Counseled patient on lifestyle modification including regular exercise and healthy diet in order to lose weight #7 essential hypertension: Continue Coreg Hold Lisinopril for soft blood pressure #8. intermittent atrial flutter: patient had an episode of atrial flutter on 03/01 and right now it is sinus Continue Coreg for rate control No anticoagulation this point. To be reevaluated by his PCP to see whether atrial fibrillation or atrial flutter recur and whether or not patient could benefit from anticoagulation at that point GI prophylaxis: Not current indicated DVT prophylaxis: Lovenox CODE STATUS: Full code Prognosis: Stable Disposition: Inpatient MedSurg Time Spent With Patient Time: Total time spent is greater than 50% in coordination of care (as documented) at patient's floor/unit and/or counseling patient: QUALITY VTE Deep Vein Thrombosis/Pulmonary Embolism Present on Admission: No
[2021-03-06] MEDS: oxyCODONE/APAP 5/325MG TABLET PO PRN ×3 (04:55→18:05)
[2021-03-06] MEDS: CLINDAMYCIN 600 MG in DEXTROSE 5% IN WATER 50 ML IV SCH ×2 (04:58→13:21)
[2021-03-06] MEDS: PIPERACILLIN SODIUM/TAZOBACTAM 3.375 GM in DEXTROSE 5% IN WATER 50 ML IV SCH ×3 (05:30→18:03)
[2021-03-06] MEDS: 0.9 % SODIUM CHLORIDE 10 ML SYRINGE IV SCH ×6 (05:39→20:12)
[2021-03-06 07:18] LABS: Basophils # (Auto) 0.04 K/mcL (0.00-0.30); Basophils % (Auto) 0.5 % (0.0-2.0); Eosinophils # (Auto) 0.19 K/mcL (0.00-0.70); Eosinophils % (Auto) 2.3 % (0.0-7.0); Hematocrit 33.8 % (40.1-51.0); Hemoglobin 10.1 g/dL (13.7-17.5); Lymphocytes % (Auto) 28.3 % (15.5-49.0); Mean Cell Volume 95.2 fL (80.0-100.0); Mean Corpuscular HGB Conc 29.9 g/dL (31.0-36.0); Mean Platelet Volume 10.7 fL (7.4-10.4); Monocytes # (Auto) 0.57 K/mcL (0.10-0.90); Neutrophils % (Auto) 61.9 % (38.0-78.0); Platelet Count 285 K/mcL (140-440); RBC 3.55 M/mcL (4.63-6.08); Red Cell Distribution Width 16.2 % (11.5-14.5); WBC 8.1 K/mcL (4.5-11.0)
[2021-03-06] MEDS: INSULIN LISPRO 1 UNIT/0.01 ML UNIT SQ SCH ×4 (07:36→20:03)
[2021-03-06 07:40] LABS: ALT/SGPT 21 U/L (<40); AST/SGOT 26 U/L (<40); Albumin 2.9 gm/dL (3.2-5.2); Albumin/Globulin Ratio 0.7 (1.0-2.3); Alkaline Phosphatase 114 U/L (39-117); Bilirubin,Total 0.2 mg/dL (0.1-1.0); Blood Urea Nitrogen 16 mg/dL (6-20); Calcium 8.6 mg/dL (8.6-10.4); Carbon Dioxide 30 mmol/L (22-30); Chloride 96 mmol/L (96-108); Globulin 4.1 gm/dL (2.2-3.7); Glomerular Filtration Rate 112; Glucose 126 mg/dL (70-105)
[2021-03-06] MEDS: DOCUSATE SODIUM 100 MG CAPSULE PO SCH ×2 (07:55→20:04)
[2021-03-06] MEDS: CARVEDILOL 6.25 MG TABLET PO SCH ×2 (08:02→16:39)
[2021-03-06] MEDS: GABAPENTIN 300 MG CAPSULE PO SCH ×3 (08:02→20:04)
[2021-03-06] MEDS: DULoxetine 20 MG CAPSULE PO SCH (08:02)
[2021-03-06] MEDS: INSULIN GLARGINE, HUMAN 1 UNIT/0.01 ML SQ SCH (08:03)
[2021-03-06] MEDS: HYDROmorphone 0.5 MG/0.5 ML SYRINGE IV PRN ×2 (08:03→20:10)
[2021-03-06] MEDS: ENOXAPARIN 40 MG/0.4 ML SYRINGE SQ SCH (08:04)
--- NOTE | 2021-03-06 08:38 | Internal Med Progress Note ---
SUBJECTIVE Subjective Patient information: Note initiated : 03/06/21 at 8:35 am Service Date, if different from initiated Date: [] Patient: Alfredo Tillman 56 y/o M admitted on 02/26/21 for possible sepsis, cellulitis. Chief Complaint: [left leg cellulitis] Interval history: History of present illness: Mr. Tillman is a 56 year old M sent in by Dr. Landis for LLE wounds/cellulitis. Recently here for LLE infection in January. Patient states over the past few days his left leg is becoming increasingly red swollen and tender. He has had some fevers and chills had a little bit of nausea but no vomiting. Feels tired and weak. Patient states his blood sugars range from 130-175. Patient states he has had a diabetic foot ulcer on that left for months. His left leg is chronically red but says is much more red lately. In the ED is evaluated and found to have mild hyponatremia mildly elevated lactate elevated CRP. He was mildly tachycardic and febrile. And had an elevated white blood cell count. No DVT on u/s. Patient be followed by Dr. Campos. 02/27 Complains of left lower leg pain otherwise no new complaints. MRI unremarkable 02/28 Complains of poor sleep and leg pain. MRI leg foot without osteo or abscess. Leukocytosis improving. 03/01 Seems to be feeling a little better today. Wound care treatments continuing. 03/02: Wound culture grew gram negative bacillus; Blood culture no growth to date. Afebrile overnight. c/o severe burning and cramping pain of left leg. Denies fever, chils, or sweating. c/o loose stool. Status post telemetry psychiatrist consultations 03/03: Afebrile overnight. Wound culture grew multiple organisms; blood culture no growth to date. c/o severe burning and cramping pain of left leg. Denies fever, chills, or sweating. 03/04: Afebrile overnight. Wound culture grew multiple organisms; blood culture no growth to date. c/o 02/15 soreness of left leg. Denies fever, chills, or sweating. 03/05: s/p wound debridement of scalp, left lower leg, and left foot by Dr. Campos on 03/04. Afebrile overnight. Intraoperative culture no growth to date. c/o thirst. c/o moderate pain left lower leg and foot. 03/06: Afebrile overnight. Intraoperative culture no growth to date. c/o thirst. c/o moderate pain left lower leg and foot. Otherwise there was no other major overnight events. Constitutional Vitals: Vital Signs Temp Pulse Resp BP Pulse Ox 36.9 C 80 20 112/65 96 03/06/21 07:34 03/06/21 07:34 03/06/21 07:34 03/06/21 07:34 03/06/21 07:34 Period Temp Pulse Resp BP Sys/Sanders Pulse Ox Last 24 Hr 35.9 C-36.9 C 64-81 18-20 94-155/56-86 95-98 Intake and Output 03/05/21 03/06/21 03/06/21 21:59 05:59 13:59 Intake Total 1034 638 50 Output Total 600 Balance 1034 38 50 Intake & Output: Intake & Output 03/05/21 03/06/21 03/06/21 21:59 05:59 13:59 Intake Total 1034 638 50 Output Total 600 Balance 1034 38 50 Intake: IV 154 158 50 Cleocin 600 mg In Dextrose 5% 54 108 in Water 50 ml @ 100 mls/hr IV Q8H MANJU Rx#:[id number] Zosyn 3.375 gm In Dextrose 5% 100 50 50 in Water 50 ml @ 100 mls/hr IV Q6H MANJU Rx#:[id number] Oral 880 480 Output: Void Amount 600 Other: Urine Appearance Clear Urine Color Dark Yellow Urine Odor Strong General appearance: cooperative and no acute distress Head Head exam: Present atraumatic and normocephalic Eye Eye exam: Present EOMI and PERRL ENT ENT exam: Present mucous membranes moist, normal exam and normal external ear exam Neck Neck exam: Present normal inspection; Absent lymphadenopathy, tenderness and thyromegaly Respiratory Respiratory exam: Absent accessory muscle use, respiratory distress and wheezes Cardiovascular Cardiovascular exam: Present normal rate and rhythm; Absent JVD GI/Abdominal GI/Abdominal exam: Present normal bowel sounds and soft; Absent organomegaly and tenderness Rectal Rectal exam: Present deferred Extremities Exam Extremities exam: Present full ROM, normal capillary refill, pedal edema and tenderness; Absent normal inspection Additional comments: erythema, swelling, warmth, tenderness to touch of left upper leg. Left lower leg and left foot covered by surgical dressing Neurological Exam Neurological exam: Present alert, CN II-XII intact and oriented X3; Absent motor sensory deficit Psychiatric Psychiatric exam: Present normal affect and normal mood; Absent anxious and depressed Skin Skin exam: Present dry, erythema, rash, vesicles and warm; Absent intact Additional comments: erythema, swelling, warmth, tenderness to touch of left upper leg. Left lower leg and left foot covered by surgical dressing OBJ DATA Labs CBC & Chem 7: 03/06/21 05:49 03/06/21 05:49 Labs: Abnormal Lab Results 03/06/21 03/06/21 03/05/21 05:49 05:49 14:12 RBC 3.55 L Hgb 10.1 L Hct 33.8 L MCHC 29.9 L RDW 16.2 H MPV 10.7 H Sodium Potassium Creatinine 0.6 L 0.6 L Glucose 126 H 206 H Calcium Alkaline Phosphatase C-Reactive Protein Albumin 2.9 L Globulin 4.1 H Albumin/Globulin Ratio 0.7 L Prealbumin 03/05/21 03/05/21 03/04/21 05:55 05:55 05:43 RBC 3.50 L Hgb 10.3 L Hct 33.4 L MCHC 30.8 L RDW 15.9 H MPV 11.0 H Sodium 131 L Potassium 5.5 H Creatinine 0.6 L 0.5 L Glucose 174 H 168 H Calcium 8.5 L Alkaline Phosphatase 126 H C-Reactive Protein 2.90 H Albumin 2.4 L 2.6 L Globulin 4.5 H 3.9 H Albumin/Globulin Ratio 0.5 L 0.7 L Prealbumin 14.6 L 03/04/21 03/03/21 05:43 06:02 RBC 3.55 L 3.97 L Hgb 10.2 L 11.2 L Hct 33.9 L 36.3 L MCHC 30.1 L 30.9 L RDW 15.7 H 15.3 H MPV 10.8 H 11.9 H Sodium Potassium Creatinine Glucose Calcium Alkaline Phosphatase C-Reactive Protein Albumin Globulin Albumin/Globulin Ratio Prealbumin Meds: Medications Acetaminophen (Acetaminophen 325 Mg Tablet) 650 mg PO Q6HP PRN PRN Reason: PAIN/FEVER > 101 Albuterol/Ipratropium (Ipratropium/Albuterol 3 Ml Ampul.Neb) 3 ml NEB Q4HP PRN PRN Reason: Shortness Of Breath Calcium Carbonate/Glycine (Calcium Carbonate 500 Mg Tab.Chew) 500 mg CHEWED Q4HP PRN PRN Reason: Dyspepsia Last Admin: 02/28/21 17:32 Dose: 500 mg Documented by: Carvedilol (Carvedilol 6.25 Mg Tablet) [facility] Last Admin: 03/06/21 08:02 Dose: 6.25 mg Documented by: Dextrose (Dextrose 50% 50 Ml Vial) 0 ml IV UD PRN PRN Reason: Hypoglycemia Diagnostic Test (Pha) (Accu-Chek 1 Each Strip) 1 each FS ACHS [facility] Last Admin: 03/06/21 07:36 Dose: 1 each Documented by: Docusate Sodium (Docusate Sodium 100 Mg Capsule) 100 mg PO BID [facility] Last Admin: 03/06/21 07:55 Dose: Not Given Documented by: Duloxetine HCl (Duloxetine 20 Mg Capsule) 20 mg PO DAILY [facility] Last Admin: 03/06/21 08:02 Dose: 20 mg Documented by: Enoxaparin Sodium (Enoxaparin 40 Mg/0.4 Ml Syringe) 40 mg SQ DAILY [facility] Last Admin: 03/06/21 08:04 Dose: 40 mg Documented by: Gabapentin (Gabapentin 300 Mg Capsule) 600 mg PO TID [facility] Last Admin: 03/06/21 08:02 Dose: 600 mg Documented by: Glucose (Dextrose 31 Gm Oral.Susp) 15 gm PO PRN PRN PRN Reason: Hypoglycemia Hydromorphone HCl (Hydromorphone 0.5 Mg/0.5 Ml Syringe) 0.25 - 0.5 mg IV Q2HP PRN; Protocol PRN Reason: Per Pain Protocol Last Admin: 03/06/21 08:03 Dose: 0.5 mg Documented by: Magnesium Sulfate (Magnesium Sulfate) 2 gm in 50 mls @ 50 mls/hr IV UD PRN PRN Reason: Magnesium </= 1.6 Piperacillin Sod/Tazobactam (Sod 3.375 gm/ Dextrose) 50 mls @ 100 mls/hr IV Q6H [facility]; Protocol Last Infusion: 03/06/21 07:37 Dose: Infused Documented by: Clindamycin Phosphate 600 mg/ (Dextrose) 54 mls @ 100 mls/hr IV Q8H [facility]; Protocol Last Infusion: 03/06/21 05:41 Dose: Infused Documented by: Insulin Glargine (Insulin Glargine, Human 1 Unit/0.01 Ml) 100 unit SQ DAILY [facility] Last Admin: 03/06/21 08:03 Dose: 100 units Documented by: Insulin Human Lispro (Insulin Lispro 1 Unit/0.01 Ml Unit) 0 unit SQ ACHS [facility]; Protocol Last Admin: 03/06/21 07:36 Dose: Not Given Documented by: Loperamide HCl (Loperamide 2 Mg Capsule) 2 mg PO PRN PRN PRN Reason: Diarrhea Last Admin: 03/03/21 09:46 Dose: 2 mg Documented by: Ondansetron HCl (Ondansetron 4 Mg/2 Ml Vial) 4 mg IV Q4HP PRN PRN Reason: Nausea And Vomiting Last Admin: 03/03/21 09:52 Dose: 4 mg Documented by: Oxycodone/Acetaminophen (Oxycodone/Apap 5/325mg Tablet) 1 - 2 tab PO Q4HP PRN; Protocol PRN Reason: Per Pain Protocol Last Admin: 03/06/21 04:55 Dose: 1 tab Documented by: Empagliflozin [ Jardiance] 25 Mg Tablet 1 dose PO QDAY [facility] Last Admin: 03/05/21 08:36 Dose: Not Given Documented by: Polyethylene Glycol (Polyethylene Glycol 3350 17 Gm Packet) 17 gm PO DAILYP PRN PRN Reason: Constipation Potassium Chloride (Potassium Chloride 20 Meq Tablet) 40 meq PO UD PRN PRN Reason: Potssium is 3-3.5 Last Admin: 03/02/21 12:33 Dose: 40 meq Documented by: Potassium Chloride (Potassium Chloride 20 Meq Tablet) 40 meq PO UD PRN PRN Reason: Potassium < 3 Prochlorperazine (Prochlorperazine 10 Mg/2 Ml Vial) 10 mg IV Q6HP PRN PRN Reason: Nausea And Vomiting Last Admin: 02/27/21 22:10 Dose: 10 mg Documented by: Senna (Sennosides 1 Tablet) 2 tab PO DAILYP PRN PRN Reason: Constipation Sodium Chloride (0.9 % Sodium Chloride 10 Ml Syringe) 10 ml IV Q8 [facility] Last Admin: 03/06/21 05:39 Dose: 10 ml Documented by: Sodium Chloride (0.9 % Sodium Chloride 10 Ml Syringe) 10 ml IV Q8 [facility] Last Admin: 03/06/21 05:42 Dose: 10 ml Documented by: A/P Assessment and plan (1) Atrial flutter: Status: Acute (2) Type 2 diabetes mellitus with diabetic neuropathy: Status: Acute Comment: Pain with peripheral neuropathy. However, left foot pain increased greater than right secondary to infection and ulcer. (3) Cellulitis: Status: Acute Comment: Alfredo is a 56-year-old morbidly obese poorly controlled diabetic who is admitted yesterday in the hospital for left foot cellulitis. X-ray did not show osteomyelitis but I have concerns. He is currently day 2 Vanco plus Zosyn. No history of MRSA. Wound culture pending. I will obtain a MRSA screen. Maintain Zosyn but increase dose to 4.5 g IV every 6 hours. (4) GERD (gastroesophageal reflux disease): Status: Chronic Qualifiers: Esophagitis presence: without esophagitis Qualified Code(s): K21.9 - Gastro-esophageal reflux disease without esophagitis (5) Depression: Status: Chronic (6) Hypertension: Status: Chronic Qualifiers: Hypertension type: essential hypertension Qualified Code(s): I10 - Essential (primary) hypertension (7) Obesities, morbid: Status: Chronic (8) Hypokalemia: Status: Acute (9) Hypomagnesemia: Status: Acute Narrative A/P Narrative: Assessment and Plans: 1. Left leg cellulitis: Inpatient MedSurg, pending placement. Now medically ready Wound culture grew multiple organisms, blood culture no growth to date s/p wound debridement of the scalp wound, neck wound, and the foot wound by Dr. Campos on 03/04 with intraoperative wound culture, no growth to date ID Dr. Meyers consulted, recs. appreciated Tylenol PRN fever Percocet PRN moderate pain Dilaudid IV PRN severe pain Clindamycin IV Zosyn IV cbc w/ auto diff in the AM to trend WBC 2. T2DM, uncontrolled with diabetic neuropathy: HgA1c Jardiance Insulin Lantus 100 unit daily Correctional scale insulin AC HS Accu Chek AC HS Hypoglycemia protocol Diabetic diet Gabapentin for neuropathic pain 3. Hypokalemia/hypomagnesemia: RESOLVED Potassium chloride oral replacement Magnesium sulfate IV replacement Repeat CMP and serum medicine level in the morning and repeat replacement as n eeded #4 depressions: Status post telemetry psychiatrist consultations Recommend Cymbalta 20 mg p.o. daily for the time being and in 5 to 7 days will consider increase it to twice daily #5 loose stool: Imodium as needed loose stool #6 morbid obesity: Counseled patient on lifestyle modification including regular exercise and healthy diet in order to lose weight #7 essential hypertension: Continue Coreg Hold Lisinopril for soft blood pressure #8. intermittent atrial flutter: patient had an episode of atrial flutter on 03/01 and right now it is sinus Continue Coreg for rate control No anticoagulation this point. To be reevaluated by his PCP to see whether atrial fibrillation or atrial flutter recur and whether or not patient could benefit from anticoagulation at that point GI prophylaxis: Not current indicated DVT prophylaxis: Lovenox CODE STATUS: Full code Prognosis: Stable Disposition: Inpatient MedSurg, pending placement. Now medically ready Time Spent With Patient Time: Total time spent is greater than 50% in coordination of care (as documented) at patient's floor/unit and/or counseling patient: QUALITY VTE Deep Vein Thrombosis/Pulmonary Embolism Present on Admission: No
[2021-03-06] MEDS: Empagliflozin [Jardiance] 25 mg tablet PO SCH (09:23)
--- NOTE | 2021-03-06 12:57 | Internal Med Progress Note ---
SUBJECTIVE Subjective Patient information: Note initiated : 03/06/21 at 12:51 pm Service Date, if different from initiated Date: [] Patient: Alfredo Tillman 56 y/o M admitted on 02/26/21 for possible sepsis, cellulitis. Chief Complaint: [] Interval history: History of present illness: Mr. Tillman is a 56 year old M sent in by Dr. Landis for LLE wounds/cellulitis. Recently here for LLE infection in January. Patient states over the past few days his left leg is becoming increasingly red swollen and tender. He has had some fevers and chills had a little bit of nausea but no vomiting. Feels tired and weak. Patient states his blood sugars range from 130-175. Patient states he has had a diabetic foot ulcer on that left for months. His left leg is chronically red but says is much more red lately. In the ED is evaluated and found to have mild hyponatremia mildly elevated lactate elevated CRP. He was mildly tachycardic and febrile. And had an elevated white blood cell count. No DVT on u/s. Patient be followed by Dr. Campos. 02/27 Complains of left lower leg pain otherwise no new complaints. MRI unremarkable 02/28 Complains of poor sleep and leg pain. MRI leg foot without osteo or abscess. Leukocytosis improving. 03/01 Seems to be feeling a little better today. Wound care treatments continuing. 03/02: Wound culture grew gram negative bacillus; Blood culture no growth to date. Afebrile overnight. c/o severe burning and cramping pain of left leg. Denies fever, chils, or sweating. c/o loose stool. Status post telemetry psychiatrist consultations 03/03: Afebrile overnight. Wound culture grew multiple organisms; blood culture no growth to date. c/o severe burning and cramping pain of left leg. Denies fever, chills, or sweating. 03/04: Afebrile overnight. Wound culture grew multiple organisms; blood culture no growth to date. c/o / soreness of left leg. Denies fever, chills, or sweating. 03/05: s/p wound debridement of scalp, left lower leg, and left foot by Dr. Campos on 03/04. Afebrile overnight. Intraoperative culture no growth to date. c/o thirst. c/o moderate pain left lower leg and foot. 03/06: Afebrile overnight. Intraoperative culture no growth to date. c/o thirst. c/o moderate pain left lower leg and foot. Otherwise there was no other major overnight events. Review of Systems: denies headache/fever/chills/nausea/vomiting/chest or abdominal pain/cough/dyspnea/diarrhea. Otherwise see above. Constitutional Vitals: Vital Signs Temp Pulse Resp BP Pulse Ox 98.5 F 80 20 112/65 96 03/06/21 07:34 03/06/21 07:34 03/06/21 07:34 03/06/21 07:34 03/06/21 07:34 Period Temp Pulse Resp BP Sys/Sanders Pulse Ox Last 24 Hr 96.7 F-98.5 F 64-81 18-20 94-149/56-65 95-98 Intake and Output 03/05/21 03/06/21 03/06/21 21:59 05:59 13:59 Intake Total 1034 638 50 Output Total 600 Balance 1034 38 50 Intake & Output: Intake & Output 03/05/21 03/06/21 03/06/21 21:59 05:59 13:59 Intake Total 1034 638 50 Output Total 600 Balance 1034 38 50 Intake: IV 154 158 50 Cleocin 600 mg In Dextrose 5% 54 108 in Water 50 ml @ 100 mls/hr IV Q8H [facility] Rx#:[id number] Zosyn 3.375 gm In Dextrose 5% 100 50 50 in Water 50 ml @ 100 mls/hr IV Q6H [facility] Rx#:[id number] Oral 880 480 Output: Void Amount 600 Other: Urine Appearance Clear Urine Color Dark Yellow Urine Odor Strong Exam: General: Alert, Awake, No acute Distress, obese Eyes/N/T: EOMI, Head/Neck: neck supple, CV: RRR, 1/6 SM Pulm: Clear b/l, no wheezing/rhonchi/rales Abd: soft, nontender, +BS x4 Ext: no clubbing/cyanosis. LLE erythematous/edematous/TTP, plantar ulcer. RLE trace edema Neuro: Alert, no focal deficits, moves all extremities, Skin: warm/dry OBJ DATA Labs CBC & Chem 7: 03/06/21 05:49 03/06/21 05:49 Labs: Abnormal Lab Results 03/06/21 03/06/21 03/05/21 05:49 05:49 14:12 RBC 3.55 L Hgb 10.1 L Hct 33.8 L MCHC 29.9 L RDW 16.2 H MPV 10.7 H Sodium Potassium Creatinine 0.6 L 0.6 L Glucose 126 H 206 H Calcium Alkaline Phosphatase C-Reactive Protein Albumin 2.9 L Globulin 4.1 H Albumin/Globulin Ratio 0.7 L Prealbumin 03/05/21 03/05/21 03/04/21 05:55 05:55 05:43 RBC 3.50 L Hgb 10.3 L Hct 33.4 L MCHC 30.8 L RDW 15.9 H MPV 11.0 H Sodium 131 L Potassium 5.5 H Creatinine 0.6 L 0.5 L Glucose 174 H 168 H Calcium 8.5 L Alkaline Phosphatase 126 H C-Reactive Protein 2.90 H Albumin 2.4 L 2.6 L Globulin 4.5 H 3.9 H Albumin/Globulin Ratio 0.5 L 0.7 L Prealbumin 14.6 L 03/04/21 05:43 RBC 3.55 L Hgb 10.2 L Hct 33.9 L MCHC 30.1 L RDW 15.7 H MPV 10.8 H Sodium Potassium Creatinine Glucose Calcium Alkaline Phosphatase C-Reactive Protein Albumin Globulin Albumin/Globulin Ratio Prealbumin Meds: Medications Acetaminophen (Acetaminophen 325 Mg Tablet) 650 mg PO Q6HP PRN PRN Reason: PAIN/FEVER > 101 Albuterol/Ipratropium (Ipratropium/Albuterol 3 Ml Ampul.Neb) 3 ml NEB Q4HP PRN PRN Reason: Shortness Of Breath Calcium Carbonate/Glycine (Calcium Carbonate 500 Mg Tab.Chew) 500 mg CHEWED Q4HP PRN PRN Reason: Dyspepsia Last Admin: 02/28/21 17:32 Dose: 500 mg Documented by: Carvedilol (Carvedilol 6.25 Mg Tablet) 6.25 mg PO BIDCC [facility] Last Admin: 03/06/21 08:02 Dose: 6.25 mg Documented by: Dextrose (Dextrose 50% 50 Ml Vial) 0 ml IV UD PRN PRN Reason: Hypoglycemia Diagnostic Test (Pha) (Accu-Chek 1 Each Strip) 1 each FS ACHS [facility] Last Admin: 03/06/21 11:43 Dose: 1 each Documented by: Docusate Sodium (Docusate Sodium 100 Mg Capsule) 100 mg PO BID [facility] Last Admin: 03/06/21 07:55 Dose: Not Given Documented by: Duloxetine HCl (Duloxetine 20 Mg Capsule) 20 mg PO DAILY [facility] Last Admin: 03/06/21 08:02 Dose: 20 mg Documented by: Enoxaparin Sodium (Enoxaparin 40 Mg/0.4 Ml Syringe) 40 mg SQ DAILY [facility] Last Admin: 03/06/21 08:04 Dose: 40 mg Documented by: Gabapentin (Gabapentin 300 Mg Capsule) 600 mg PO TID [facility] Last Admin: 03/06/21 08:02 Dose: 600 mg Documented by: Glucose (Dextrose 31 Gm Oral.Susp) 15 gm PO PRN PRN PRN Reason: Hypoglycemia Hydromorphone HCl (Hydromorphone 0.5 Mg/0.5 Ml Syringe) 0.25 - 0.5 mg IV Q2HP PRN; Protocol PRN Reason: Per Pain Protocol Last Admin: 03/06/21 08:03 Dose: 0.5 mg Documented by: Magnesium Sulfate (Magnesium Sulfate) 2 gm in 50 mls @ 50 mls/hr IV UD PRN PRN Reason: Magnesium </= 1.6 Piperacillin Sod/Tazobactam (Sod 3.375 gm/ Dextrose) 50 mls @ 100 mls/hr IV Q6H [facility]; Protocol Last Admin: 03/06/21 11:45 Dose: 100 mls/hr Documented by: Clindamycin Phosphate 600 mg/ (Dextrose) 54 mls @ 100 mls/hr IV Q8H [facility]; Protocol Last Infusion: 03/06/21 05:41 Dose: Infused Documented by: Insulin Glargine (Insulin Glargine, Human 1 Unit/0.01 Ml) 100 unit SQ DAILY [facility] Last Admin: 03/06/21 08:03 Dose: 100 units Documented by: Insulin Human Lispro (Insulin Lispro 1 Unit/0.01 Ml Unit) 0 unit SQ ACHS [facility]; Protocol Last Admin: 03/06/21 11:44 Dose: 2 units Documented by: Loperamide HCl (Loperamide 2 Mg Capsule) 2 mg PO PRN PRN PRN Reason: Diarrhea Last Admin: 03/03/21 09:46 Dose: 2 mg Documented by: Ondansetron HCl (Ondansetron 4 Mg/2 Ml Vial) 4 mg IV Q4HP PRN PRN Reason: Nausea And Vomiting Last Admin: 03/03/21 09:52 Dose: 4 mg Documented by: Oxycodone/Acetaminophen (Oxycodone/Apap 5/325mg Tablet) 1 - 2 tab PO Q4HP PRN; Protocol PRN Reason: Per Pain Protocol Last Admin: 03/06/21 11:44 Dose: 1 tab Documented by: Empagliflozin [ Jardiance] 25 Mg Tablet 1 dose PO QDAY [facility] Last Admin: 03/06/21 09:23 Dose: Not Given Documented by: Polyethylene Glycol (Polyethylene Glycol 3350 17 Gm Packet) 17 gm PO DAILYP PRN PRN Reason: Constipation Potassium Chloride (Potassium Chloride 20 Meq Tablet) 40 meq PO UD PRN PRN Reason: Potssium is 3-3.5 Last Admin: 03/02/21 12:33 Dose: 40 meq Documented by: Potassium Chloride (Potassium Chloride 20 Meq Tablet) 40 meq PO UD PRN PRN Reason: Potassium < 3 Prochlorperazine (Prochlorperazine 10 Mg/2 Ml Vial) 10 mg IV Q6HP PRN PRN Reason: Nausea And Vomiting Last Admin: 02/27/21 22:10 Dose: 10 mg Documented by: Senna (Sennosides 1 Tablet) 2 tab PO DAILYP PRN PRN Reason: Constipation Sodium Chloride (0.9 % Sodium Chloride 10 Ml Syringe) 10 ml IV Q8 [facility] Last Admin: 03/06/21 05:39 Dose: 10 ml Documented by: Sodium Chloride (0.9 % Sodium Chloride 10 Ml Syringe) 10 ml IV Q8 [facility] Last Admin: 03/06/21 05:42 Dose: 10 ml Documented by: A/P Narrative A/P Narrative: A: *LLE Diabetic foot ulcer and leg cellulitis: s/p wound debridement including n saba/scalp -no abscess/osteo of leg/foot -last wound cx with Strep/E.coli/Morganella *SIRS: improved *DM w/neuropathy: -A1c 7.8 *Obese: *Depression: *HTN: *Hyponatremia/mag: improved *Aflutter, Intermittent (03/01): P: -Zosyn/clinda -Dr. Landis following -Dr Meyers -elevate leg -pain control -basal and SSI -cont BB, ACEI helf for soft BP -cymbalta started per psych -No anticoagulation this point. To be reevaluated by PCP to see whether atrial fibrillation/flutter recur and whether or not patient could benefit from anticoagulation at that point -pt/ot -ppx: heparin full code Time Spent With Patient Time: Total time spent is greater than 50% in coordination of care (as documented) at patient's floor/unit and/or counseling patient: QUALITY VTE Deep Vein Thrombosis/Pulmonary Embolism Present on Admission: No
--- NOTE | 2021-03-06 14:02 | General Surgery Progress Note ---
SUBJECTIVE Subjective Patient information: Note initiated : 03/06/21 at 1:56 pm Service Date, if different from initiated Date: [] Patient: Alfredo Tillman 56 y/o M admitted on 02/26/21 for possible sepsis, cellulitis. Chief Complaint: [] Additional PMFSH (Level 3 Only): Patient seen on rounds with Hari Hunt RN. Wounds examined. Constitutional Vitals: Vital Signs Temp Pulse Resp BP Pulse Ox 98.5 F 75 20 104/60 97 03/06/21 12:00 03/06/21 12:00 03/06/21 12:00 03/06/21 12:00 03/06/21 12:00 Period Temp Pulse Resp BP Sys/Sanders Pulse Ox Last 24 Hr 96.7 F-98.5 F 64-81 18-20 94-149/56-65 95-98 Intake and Output 03/05/21 03/06/21 03/06/21 21:59 05:59 13:59 Intake Total 1034 638 50 Output Total 600 Balance 1034 38 50 Intake & Output: Intake & Output 03/05/21 03/06/21 03/06/21 21:59 05:59 13:59 Intake Total 1034 638 50 Output Total 600 Balance 1034 38 50 Intake: IV 154 158 50 Cleocin 600 mg In Dextrose 5% 54 108 in Water 50 ml @ 100 mls/hr IV Q8H [facility] Rx#:[id number] Zosyn 3.375 gm In Dextrose 5% 100 50 50 in Water 50 ml @ 100 mls/hr IV Q6H [facility] Rx#:[id number] Oral 880 480 Output: Void Amount 600 Other: Urine Appearance Clear Urine Color Dark Yellow Urine Odor Strong Stool Size Small Stool Color Brown Stool Consistency Formed # Voids 2 # Bowel Movements 1 Exam: AVSS. No changes in MARY. L/E. LEFT leg and foot wounds are clean with resolving inflammation. Scalp wound is clean with migrating epithelial edges towards center. Lab results : WBC, Cr normal CRP / Procalcitonin trending down towards normal Patient is in good spirits, since started on antidepressants. A/P Narrative A/P Narrative: Assessment: Satisfactory progress. OK to d/c transfer to Rehab place. Plan: Continue ongoing wound care. Antibiotics per Hospitalist or ID Dr. Souvenir. If D/C f/u at wound care center in 7-10 days. Time Spent With Patient Time: Total time spent is greater than 50% in coordination of care (as documented) at patient's floor/unit and/or counseling patient: Total time spent with greater than 50% in coordination of care (as documented) at patient's floor/unit and/or counseling patient:: Greater than 35 minutes
--- NOTE | 2021-03-06 15:01 | Discharge Summary ---
Discharge Provider Provider Patient information: Note initiated : 03/06/21 at 3:00 pm Service Date, if different from initiated Date: [] Patient: Alfredo Tillman 56 y/o M admitted on 02/26/21 for possible sepsis, cellulitis. Chief Complaint: [] Date of admission: 02/26/21 17:30 Discharge date: 03/08/21 Primary care physician: Neri Zuniga DO Consults: 02/26/21 Consult to Physician [CONS] Stat Comment: Consulting Provider: Nitesh Meneses Reason For Exam: Physician to Consult 02/26/21 17:56 Consult to Physician [CONS] Routine Comment: Consulting Provider: Dustin Campos Reason For Exam: Physician to Consult 02/28/21 10:54 Consult to Physician [CONS] Routine Comment: non-healing diabetic foot ulcer Consulting Provider: Nam Meyers Reason For Exam: Physician to Consult 02/28/21 15:01 Consult to Infectious Disease [CONS] Routine Comment: ID recommendtions for antibiotics. Consulting Provider: Nam Meyers Reason For Exam: Physician to Consult 03/01/21 08:30 Consult to Physician [CONS] Routine Comment: depression with self care neglect Consulting Provider: [facility] Reason For Exam: Physician to Consult 03/06/21 14:24 Consult to Physician [CONS] Routine Comment: snf referral Consulting Provider: [facility] Reason For Exam: Physician to Consult Discharge Meds Discharge Medications Home Medications diphenoxylate-atropine 2.5 mg-0.025 mg tablet 1 tab PO Q6H PRN tab 11/25/19 [History Confirmed 02/26/21 Last Taken 01/02/21 12:00] empagliflozin 25 mg tablet 25 mg PO QDAY #90 tab 10/01/20 [Rx Confirmed 02/26/21 Last Taken 01/16/21 07:00] gabapentin 300 mg capsule 600 mg PO TID 90 Days #540 cap 10/22/20 [Rx Confirmed 02/26/21 Last Taken 01/16/21 04:00] acetaminophen [Tylenol] 650 mg PO Q6HP PRN #30 tab 01/21/21 [Rx Confirmed 02/07 06/28 Last Taken Unknown] Jardiance 25 mg PO DAILY 02/26/21 [History Confirmed 02/26/21 Last Taken Unknown] Althea Romero U-100 Insulin 80 unit SUBCUT QAM 03/01/21 [History Confirmed 03/01/21 Last Taken Unknown] duloxetine 20 mg PO DAILY #30 cap 03/06/21 [Rx Last Taken Unknown] amoxicillin-pot clavulanate [Augmentin] 1 tab PO BID #7 tab 03/08/21 [Rx Last Taken Unknown] carvedilol 6.25 mg PO BIDCC #60 tab 03/08/21 [Rx Last Taken Unknown] lisinopril 2.5 mg PO QDAY #30 tab 03/08/21 [Rx Last Taken Unknown] oxycodone-acetaminophen 1 tab PO TID PRN #30 tab 03/08/21 [Rx Last Taken Unknown] COURSE Hospital Course Hospital course: Interval history: History of present illness: Mr. Tillman is a 56 year old M sent in by Dr. Landis for LLE wounds/cellulitis. Recently here for LLE infection in January. Patient states over the past few days his left leg is becoming increasingly red swollen and tender. He has had some fevers and chills had a little bit of nausea but no vomiting. Feels tired and weak. Patient states his blood sugars range from 130-175. Patient states he has had a diabetic foot ulcer on that left for months. His left leg is chronically red but says is much more red lately. In the ED is evaluated and found to have mild hyponatremia mildly elevated lactate elevated CRP. He was mildly tachycardic and febrile. And had an elevated white blood cell count. No DVT on u/s. Patient be followed by Dr. Campos. 02/27 Complains of left lower leg pain otherwise no new complaints. MRI unremarkable 02/28 Complains of poor sleep and leg pain. MRI leg foot without osteo or abscess. Leukocytosis improving. 03/01 Seems to be feeling a little better today. Wound care treatments continuing. 03/02: Wound culture grew gram negative bacillus; Blood culture no growth to date. Afebrile overnight. c/o severe burning and cramping pain of left leg. Denies fever, chils, or sweating. c/o loose stool. Status post telemetry psychiatrist consultations 03/03: Afebrile overnight. Wound culture grew multiple organisms; blood culture no growth to date. c/o severe burning and cramping pain of left leg. Denies fever, chills, or sweating. 03/04: Afebrile overnight. Wound culture grew multiple organisms; blood culture no growth to date. c/o 02/15 soreness of left leg. Denies fever, chills, or sweating. 03/05: s/p wound debridement of scalp, left lower leg, and left foot by Dr. Campos on 03/04. Afebrile overnight. Intraoperative culture no growth to date. c/o thirst. c/o moderate pain left lower leg and foot. 03/06: Afebrile overnight. Intraoperative culture no growth to date. c/o thirst. c/o moderate pain left lower leg and foot. Otherwise there was no other major overnight events. 03/07 Sitting up in chair. Has some leg pain but no other no new complaints. Awaiting placement. 03/08 Patient just got done ambulating in the hallway. Overall feels better. Still has leg pain. 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 *Obese: *Depression: *HTN: *Hyponatremia/mag: improved *Aflutter, Intermittent (03/01): Discharge diagnosis: Left lower extremity diabetic foot ulcer with infection diabetes Secondary discharge diagnosis: Diabetes with neuropathy obesity depression hypertension electrolyte normalities episode of a flutter Time Spent with Patient Time attestation: Total time spent providing and/or coordinating discharge services: Time spent: Greater than 30 minutes EXAM Constitutional Vitals: Temp Pulse Resp BP Pulse Ox 98.5 F 75 20 104/60 97 03/06/21 12:00 03/06/21 12:00 03/06/21 12:00 03/06/21 12:03/06/21 12:00 Discharge Data Data Completed and Pending Labs on day of discharge: Labs from last 24 hours 03/06/21 03/06/21 03/05/21 05:49 05:49 14:12 WBC 8.1 RBC 3.55 L Hgb 10.1 L Hct 33.8 L MCV 95.2 MCH 28.5 MCHC 29.9 L RDW 16.2 H Plt Count 285 MPV 10.7 H Neut % (Auto) 61.9 Lymph % (Auto) 28.3 [place] % (Auto) 7.0 Eos % (Auto) 2.3 Baso % (Auto) 0.5 Lymph # (Auto) 2.30 [place] # (Auto) 0.57 Eos # (Auto) 0.19 Baso # (Auto) 0.04 Absolute Neutrophils 5.04 Sodium 135 136 Potassium 4.8 4.5 Chloride 96 97 Carbon Dioxide 30 26 Anion Gap 9.0 13.0 BUN 16 18 Creatinine 0.6 L 0.6 L GFR Calculation 112 112 Glucose 126 H 206 H Calcium 8.6 9.2 Total Bilirubin 0.2 AST 26 ALT 21 Alkaline Phosphatase 114 Total Protein 7.0 Albumin 2.9 L Globulin 4.1 H Albumin/Globulin Ratio 0.7 L Procalcitonin 03/05/21 05:55 WBC RBC Hgb Hct MCV MCH MCHC RDW Plt Count MPV Neut % (Auto) Lymph % (Auto) [place] % (Auto) Eos % (Auto) Baso % (Auto) Lymph # (Auto) [place] # (Auto) Eos # (Auto) Baso # (Auto) Absolute Neutrophils Sodium Potassium Chloride Carbon Dioxide Anion Gap BUN Creatinine GFR Calculation Glucose Calcium Total Bilirubin AST ALT Alkaline Phosphatase Total Protein Albumin Globulin Albumin/Globulin Ratio Procalcitonin 0.09 Preliminary micro results at discharge 03/04/21 16:30 Anaerobic Culture - Preliminary Wound - Not Given Discharge Plan Patient/Caregiver Discharge Instructions Activity: increase activity as tolerated Diet: Consistent Carbohydrate Activity Restrictions/Additional Instructions: Follow-up with PCP regarding episode of atrial flutter Prescriptions: New duloxetine 20 mg Capsule,Delayed Release(Dr/Ec) 20 mg PO DAILY Qty: 30 RF: 0 amoxicillin-pot clavulanate [Augmentin] 875-125 mg tablet 1 tab PO BID Qty: 7 RF: 0 lisinopril 2.5 mg tablet 2.5 mg PO QDAY Qty: 30 RF: 0 carvedilol 6.25 mg Tablet 6.25 mg PO BIDCC Qty: 60 RF: 0 Continued Jardiance 25 mg tablet 25 mg PO QDAY Qty: 90 RF: 1 gabapentin 300 mg capsule 600 mg PO TID 90 Days Qty: 540 RF: 1 diphenoxylate-atropine 2.5-0.025 mg tablet 1 tab PO Q6H PRN (Reason: Diarrhea) RF: 0 acetaminophen [Tylenol] 325 mg Tablet 650 mg PO Q6HP PRN (Reason: Per Pain Protocol/Fever > 101) Qty: 30 RF: 0 Jardiance 25 mg tablet 25 mg PO DAILY RF: 0 Basaglar KwikPen U-100 Insulin 100 unit/mL (3 mL) Insulin Pen 80 unit SUBCUT QAM RF: 0 oxycodone-acetaminophen 5-325 mg tablet 1 tab PO TID PRN (Reason: pain) Qty: 30 RF: 0 Discontinued lisinopril 10 mg tablet 10 mg PO QDAY Qty: 90 RF: 1 Follow Up Plan Follow up with: Dustin Campos MD [Physician] - Neri Zuniga DO [Primary Care Provider] - Patient Disposition: Xfer SNF Prognosis: Fair Rehab Potential: Fair I certify that the patient requires SNF services: Yes Overall status at discharge: patient is progressing back to baseline Discharge Orders: Discharge Order (Routine); Ordered 03/08/21 Ordered By: Nitesh Meneses [facility] VTE Deep Vein Thrombosis/Pulmonary Embolism Present on Admission: No
[2021-03-07] MEDS: PIPERACILLIN SODIUM/TAZOBACTAM 3.375 GM in DEXTROSE 5% IN WATER 50 ML IV SCH ×4 (00:20→18:09)
[2021-03-07] MEDS: oxyCODONE/APAP 5/325MG TABLET PO PRN ×5 (01:25→23:20)
[2021-03-07] MEDS: 0.9 % SODIUM CHLORIDE 10 ML SYRINGE IV SCH ×6 (05:08→21:00)
--- NOTE | 2021-03-07 07:12 | Internal Med Progress Note ---
SUBJECTIVE Subjective Patient information: Note initiated : 03/07/21 at 7:09 am Service Date, if different from initiated Date: [] Patient: Alfredo Tillman 56 y/o M admitted on 02/26/21 for possible sepsis, cellulitis. Chief Complaint: [] Interval history: History of present illness: Mr. Tillman is a 56 year old M sent in by Dr. Landis for LLE wounds/cellulitis. Recently here for LLE infection in January. Patient states over the past few days his left leg is becoming increasingly red swollen and tender. He has had some fevers and chills had a little bit of nausea but no vomiting. Feels tired and weak. Patient states his blood sugars range from 130-175. Patient states he has had a diabetic foot ulcer on that left for months. His left leg is chronically red but says is much more red lately. In the ED is evaluated and found to have mild hyponatremia mildly elevated lactate elevated CRP. He was mildly tachycardic and febrile. And had an elevated white blood cell count. No DVT on u/s. Patient be followed by Dr. Campos. 02/27 Complains of left lower leg pain otherwise no new complaints. MRI unremarkable 02/28 Complains of poor sleep and leg pain. MRI leg foot without osteo or abscess. Leukocytosis improving. 03/01 Seems to be feeling a little better today. Wound care treatments continuing. 03/02: Wound culture grew gram negative bacillus; Blood culture no growth to date. Afebrile overnight. c/o severe burning and cramping pain of left leg. Denies fever, chils, or sweating. c/o loose stool. Status post telemetry psychiatrist consultations 03/03: Afebrile overnight. Wound culture grew multiple organisms; blood culture n o growth to date. c/o severe burning and cramping pain of left leg. Denies fever, chills, or sweating. 03/04: Afebrile overnight. Wound culture grew multiple organisms; blood culture no growth to date. c/o / soreness of left leg. Denies fever, chills, or sweating. 03/05: s/p wound debridement of scalp, left lower leg, and left foot by Dr. Campos on 03/04. Afebrile overnight. Intraoperative culture no growth to date. c/o thirst. c/o moderate pain left lower leg and foot. 03/06: Afebrile overnight. Intraoperative culture no growth to date. c/o thirst. c/o moderate pain left lower leg and foot. Otherwise there was no other major overnight events. 03/07 Sitting up in chair. Has some leg pain but no other no new complaints. Awaiting placement. Review of Systems: denies headache/fever/chills/nausea/vomiting/chest or abdominal pain/cough/dyspnea/diarrhea. Otherwise see above. Constitutional Vitals: Vital Signs Temp Pulse Resp BP Pulse Ox 97.4 F 77 18 132/76 97 03/07/21 06:56 03/07/21 06:56 03/07/21 06:56 03/07/21 06:56 03/07/21 06:56 Period Temp Pulse Resp BP Sys/Sanders Pulse Ox Last 24 Hr 96.8 F-98.6 F 71-82 14-20 103-143/60-76 96-97 Intake and Output 03/06/21 03/07/21 03/07/21 21:59 05:59 13:59 Intake Total 1354 450 50 Balance 1354 450 50 Weight 131.598 kg Intake & Output: Intake & Output 03/06/21 03/07/21 03/07/21 21:59 05:59 13:59 Intake Total 1354 450 50 Balance 1354 450 50 Weight 131.598 kg Intake: IV 154 50 50 Cleocin 600 mg In Dextrose 5% 54 in Water 50 ml @ 100 mls/hr IV Q8H [facility] Rx#:[id number] Zosyn 3.375 gm In Dextrose 5% 100 50 50 in Water 50 ml @ 100 mls/hr IV Q6H [facility] Rx#:[id number] Oral 1200 400 Other: Meal Dinner Percent of Meal Consumed 100% Feeding Ability Independent Stool Size Large Stool Color Brown Stool Consistency Liquid # Voids 1 1 # Bowel Movements 1 Exam: General: Alert, Awake, No acute Distress, obese Eyes/N/T: EOMI, Head/Neck: neck supple, CV: RRR, 1/6 SM Pulm: Clear b/l, no wheezing/rhonchi/rales Abd: soft, nontender, +BS x4 Ext: no clubbing/cyanosis. LLE erythematous/edematous/TTP improved. RLE trace edema Neuro: Alert, no focal deficits, moves all extremities, Skin: warm/dry OBJ DATA Labs CBC & Chem 7: 03/06/21 05:49 03/06/21 05:49 Labs: Abnormal Lab Results 03/06/21 03/06/21 03/05/21 05:49 05:49 14:12 RBC 3.55 L Hgb 10.1 L Hct 33.8 L MCHC 29.9 L RDW 16.2 H MPV 10.7 H Sodium Potassium Creatinine 0.6 L 0.6 L Glucose 126 H 206 H Calcium Alkaline Phosphatase C-Reactive Protein Albumin 2.9 L Globulin 4.1 H Albumin/Globulin Ratio 0.7 L Prealbumin 03/05/21 03/05/21 03/04/21 05:55 05:55 05:43 RBC 3.50 L Hgb 10.3 L Hct 33.4 L MCHC 30.8 L RDW 15.9 H MPV 11.0 H Sodium 131 L Potassium 5.5 H Creatinine 0.6 L 0.5 L Glucose 174 H 168 H Calcium 8.5 L Alkaline Phosphatase 126 H C-Reactive Protein 2.90 H Albumin 2.4 L 2.6 L Globulin 4.5 H 3.9 H Albumin/Globulin Ratio 0.5 L 0.7 L Prealbumin 14.6 L 03/04/21 05:43 RBC 3.55 L Hgb 10.2 L Hct 33.9 L MCHC 30.1 L RDW 15.7 H MPV 10.8 H Sodium Potassium Creatinine Glucose Calcium Alkaline Phosphatase C-Reactive Protein Albumin Globulin Albumin/Globulin Ratio Prealbumin Meds: Medications Acetaminophen (Acetaminophen 325 Mg Tablet) 650 mg PO Q6HP PRN PRN Reason: PAIN/FEVER > 101 Albuterol/Ipratropium (Ipratropium/Albuterol 3 Ml Ampul.Neb) 3 ml NEB Q4HP PRN PRN Reason: Shortness Of Breath Calcium Carbonate/Glycine (Calcium Carbonate 500 Mg Tab.Chew) 500 mg CHEWED Q4HP PRN PRN Reason: Dyspepsia Last Admin: 02/28/21 17:32 Dose: 500 mg Documented by: Carvedilol (Carvedilol 6.25 Mg Tablet) 6.25 mg PO BIDCC [facility] Last Admin: 03/06/21 16:39 Dose: 6.25 mg Documented by: Dextrose (Dextrose 50% 50 Ml Vial) 0 ml IV UD PRN PRN Reason: Hypoglycemia Diagnostic Test (Pha) (Accu-Chek 1 Each Strip) 1 each FS ACHS [facility] Last Admin: 03/06/21 20:03 Dose: 1 each Documented by: Docusate Sodium (Docusate Sodium 100 Mg Capsule) 100 mg PO BID [facility] Last Admin: 03/06/21 20:04 Dose: Not Given Documented by: Duloxetine HCl (Duloxetine 20 Mg Capsule) 20 mg PO DAILY [facility] Last Admin: 03/06/21 08:02 Dose: 20 mg Documented by: Enoxaparin Sodium (Enoxaparin 40 Mg/0.4 Ml Syringe) 40 mg SQ DAILY [facility] Last Admin: 03/06/21 08:04 Dose: 40 mg Documented by: Gabapentin (Gabapentin 300 Mg Capsule) 600 mg PO TID [facility] Last Admin: 03/06/21 20:04 Dose: 600 mg Documented by: Glucose (Dextrose 31 Gm Oral.Susp) 15 gm PO PRN PRN PRN Reason: Hypoglycemia Hydromorphone HCl (Hydromorphone 0.5 Mg/0.5 Ml Syringe) 0.25 - 0.5 mg IV Q2HP PRN; Protocol PRN Reason: Per Pain Protocol Last Admin: 03/06/21 20:10 Dose: 0.5 mg Documented by: Magnesium Sulfate (Magnesium Sulfate) 2 gm in 50 mls @ 50 mls/hr IV UD PRN PRN Reason: Magnesium </= 1.6 Piperacillin Sod/Tazobactam (Sod 3.375 gm/ Dextrose) 50 mls @ 100 mls/hr IV Q6H [facility]; Protocol Last Infusion: 03/07/21 06:37 Dose: Infused Documented by: Insulin Glargine (Insulin Glargine, Human 1 Unit/0.01 Ml) 100 unit SQ DAILY [facility] Last Admin: 03/06/21 08:03 Dose: 100 units Documented by: Insulin Human Lispro (Insulin Lispro 1 Unit/0.01 Ml Unit) 0 unit SQ ACHS [facility]; Protocol Last Admin: 03/06/21 20:03 Dose: 4 units Documented by: Loperamide HCl (Loperamide 2 Mg Capsule) 2 mg PO PRN PRN PRN Reason: Diarrhea Last Admin: 03/03/21 09:46 Dose: 2 mg Documented by: Ondansetron HCl (Ondansetron 4 Mg/2 Ml Vial) 4 mg IV Q4HP PRN PRN Reason: Nausea And Vomiting Last Admin: 03/03/21 09:52 Dose: 4 mg Documented by: Oxycodone/Acetaminophen (Oxycodone/Apap 5/325mg Tablet) 1 - 2 tab PO Q4HP PRN; Protocol PRN Reason: Per Pain Protocol Last Admin: 03/07/21 05:08 Dose: 2 tab Documented by: Empagliflozin [ Jardiance] 25 Mg Tablet 1 dose PO QDAY [facility] Last Admin: 03/06/21 09:23 Dose: Not Given Documented by: Polyethylene Glycol (Polyethylene Glycol 3350 17 Gm Packet) 17 gm PO DAILYP PRN PRN Reason: Constipation Potassium Chloride (Potassium Chloride 20 Meq Tablet) 40 meq PO UD PRN PRN Reason: Potssium is 3-3.5 Last Admin: 03/02/21 12:33 Dose: 40 meq Documented by: Potassium Chloride (Potassium Chloride 20 Meq Tablet) 40 meq PO UD PRN PRN Reason: Potassium < 3 Prochlorperazine (Prochlorperazine 10 Mg/2 Ml Vial) 10 mg IV Q6HP PRN PRN Reason: Nausea And Vomiting Last Admin: 02/27/21 22:10 Dose: 10 mg Documented by: Senna (Sennosides 1 Tablet) 2 tab PO DAILYP PRN PRN Reason: Constipation Sodium Chloride (0.9 % Sodium Chloride 10 Ml Syringe) 10 ml IV Q8 [facility] Last Admin: 03/07/21 05:08 Dose: 10 ml Documented by: Sodium Chloride (0.9 % Sodium Chloride 10 Ml Syringe) 10 ml IV Q8 [facility] Last Admin: 03/07/21 05:09 Dose: 10 ml Documented by: A/P Narrative A/P Narrative: A: *LLE Diabetic foot ulcer and leg cellulitis: s/p wound debridement including neck/scalp -no abscess/osteo of leg/foot -last wound cx with Strep/E.coli/Morganella *SIRS: improved *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 Landis following -elevate leg -pain control -basal and SSI -cont BB, ACEI held for soft BP -cymbalta started per psych -No anticoagulation this point. To be reevaluated by PCP to see whether atrial fibrillation/flutter recur and whether or not patient could benefit from anticoagulation at that point -pt/ot -ppx: lovenox full code Time Spent With Patient Time: Total time spent is greater than 50% in coordination of care (as documented) at patient's floor/unit and/or counseling patient: [facility] VTE Deep Vein Thrombosis/Pulmonary Embolism Present on Admission: No
[2021-03-07] MEDS: DOCUSATE SODIUM 100 MG CAPSULE PO SCH ×2 (07:31→21:06)
[2021-03-07] MEDS: ENOXAPARIN 40 MG/0.4 ML SYRINGE SQ SCH (07:31)
[2021-03-07] MEDS: DULoxetine 20 MG CAPSULE PO SCH (07:31)
[2021-03-07] MEDS: CARVEDILOL 6.25 MG TABLET PO SCH ×2 (07:31→17:09)
[2021-03-07] MEDS: GABAPENTIN 300 MG CAPSULE PO SCH ×3 (07:31→21:05)
[2021-03-07] MEDS: INSULIN GLARGINE, HUMAN 1 UNIT/0.01 ML SQ SCH (07:33)
[2021-03-07] MEDS: HYDROmorphone 0.5 MG/0.5 ML SYRINGE IV PRN ×2 (07:35→18:08)
[2021-03-07] MEDS: Empagliflozin [Jardiance] 25 mg tablet PO SCH (07:49)
[2021-03-07] MEDS: INSULIN LISPRO 1 UNIT/0.01 ML UNIT SQ SCH ×4 (07:49→21:06)
--- NOTE | 2021-03-07 11:54 | General Surgery Progress Note ---
SUBJECTIVE Subjective Patient information: Note initiated : 03/07/21 at 11:51 am Service Date, if different from initiated Date: [] Patient: Alfredo Tillman 56 y/o M admitted on 02/26/21 for possible sepsis, cellulitis. Chief Complaint: [] Additional PMFSH (Level 3 Only): Doing well. NO interval changes. Walked with a walker ( Off loading toes. ) Constitutional Vitals: Vital Signs Temp Pulse Resp BP Pulse Ox 97.4 F 77 18 132/76 97 03/07/21 06:56 03/07/21 06:56 03/07/21 06:56 03/07/21 06:56 03/07/21 06:56 Period Temp Pulse Resp BP Sys/Sanders Pulse Ox Last 24 Hr 96.8 F-98.6 F 71-82 14-20 103-143/60-76 96-97 Intake and Output 03/06/21 03/07/21 03/07/21 21:59 05:59 13:59 Intake Total 1354 450 410 Balance 1354 450 410 Weight 290 lb 2 oz Intake & Output: Intake & Output 03/06/21 03/07/21 03/07/21 21:59 05:59 13:59 Intake Total 1354 450 410 Balance 1354 450 410 Weight 290 lb 2 oz Intake: IV 154 50 50 Cleocin 600 mg In Dextrose 5% 54 in Water 50 ml @ 100 mls/hr IV Q8H [facility] Rx#:[id number] Zosyn 3.375 gm In Dextrose 5% 100 50 50 in Water 50 ml @ 100 mls/hr IV Q6H [facility] Rx#:[id number] Oral 1200 400 360 Other: Meal Dinner Breakfast Percent of Meal Consumed 100% 100% Feeding Ability Independent Independent Stool Size Large Stool Color Brown Stool Consistency Liquid # Voids 1 1 # Bowel Movements 1 Exam: AVSS. No changes MARY L/E : Lymphedema / Dermatitis LLE Plantar DFU Stage 2 under LEFT foot. S/P Versajet debridement. Local wound care ongoing. A/P Narrative A/P Narrative: Assessment: Awaits placement. Plan: Continue ongoing care. Time Spent With Patient Time: Total time spent is greater than 50% in coordination of care (as docu mented) at patient's floor/unit and/or counseling patient: Total time spent with greater than 50% in coordination of care (as documented) at patient's floor/unit and/or counseling patient:: 15 - 24 minutes
[2021-03-08] MEDS: PIPERACILLIN SODIUM/TAZOBACTAM 3.375 GM in DEXTROSE 5% IN WATER 50 ML IV SCH ×2 (00:35→05:43)
[2021-03-08] MEDS: oxyCODONE/APAP 5/325MG TABLET PO PRN ×2 (03:36→10:27)
[2021-03-08] MEDS: 0.9 % SODIUM CHLORIDE 10 ML SYRINGE IV SCH ×2 (05:45→06:00)
[2021-03-08] MEDS: HYDROmorphone 0.5 MG/0.5 ML SYRINGE IV PRN (05:50)
--- NOTE | 2021-03-08 07:21 | Internal Med Progress Note ---
SUBJECTIVE Subjective Patient information: Note initiated : 03/08/21 at 7:20 am Service Date, if different from initiated Date: [] Patient: Alfredo Tillman 56 y/o M admitted on 02/26/21 for possible sepsis, cellulitis. Chief Complaint: [] Interval history: History of present illness: Mr. Tillman is a 56 year old M sent in by Dr. Landis for LLE wounds/cellulitis. Recently here for LLE infection in January. Patient states over the past few days his left leg is becoming increasingly red swollen and tender. He has had some fevers and chills had a little bit of nausea but no vomiting. Feels tired and weak. Patient states his blood sugars range from 130-175. Patient states he has had a diabetic foot ulcer on that left for months. His left leg is chronically red but says is much more red lately. In the ED is evaluated and found to have mild hyponatremia mildly elevated lactate elevated CRP. He was mildly tachycardic and febrile. And had an elevated white blood cell count. No DVT on u/s. Patient be followed by Dr. Campos. 02/27 Complains of left lower leg pain otherwise no new complaints. MRI unremarkable 02/28 Complains of poor sleep and leg pain. MRI leg foot without osteo or abscess. Leukocytosis improving. 03/01 Seems to be feeling a little better today. Wound care treatments continuing. 03/02: Wound culture grew gram negative bacillus; Blood culture no growth to date. Afebrile overnight. c/o severe burning and cramping pain of left leg. Denies fever, chils, or sweating. c/o loose stool. Status post telemetry psychiatrist consultations 03/03: Afebrile overnight. Wound culture grew multiple organisms; blood culture n o growth to date. c/o severe burning and cramping pain of left leg. Denies fever, chills, or sweating. 03/04: Afebrile overnight. Wound culture grew multiple organisms; blood culture no growth to date. c/o / soreness of left leg. Denies fever, chills, or sweating. 03/05: s/p wound debridement of scalp, left lower leg, and left foot by Dr. Campos on 03/04. Afebrile overnight. Intraoperative culture no growth to date. c/o thirst. c/o moderate pain left lower leg and foot. 03/06: Afebrile overnight. Intraoperative culture no growth to date. c/o thirst. c/o moderate pain left lower leg and foot. Otherwise there was no other major overnight events. 03/07 Sitting up in chair. Has some leg pain but no other no new complaints. Awaiting placement. 03/08 Patient just got done ambulating in the hallway. Overall feels better. Still has leg pain. Review of Systems: denies headache/fever/chills/nausea/vomiting/chest or abdominal pain/cough/dyspnea/diarrhea. Otherwise see above. Constitutional Vitals: Vital Signs Temp Pulse Resp BP Pulse Ox 98.6 F 75 18 112/65 96 03/08/21 06:43 03/08/21 06:43 03/08/21 06:43 03/08/21 06:43 03/08/21 06:43 Period Temp Pulse Resp BP Sys/Sanders Pulse Ox Last 24 Hr 97.3 F-98.7 F 70-87 16-18 109-143/65-78 92-98 Intake and Output 03/07/21 03/08/21 03/08/21 21:59 05:59 13:59 Intake Total 590 150 Output Total 1 326 Balance 589 -176 Weight 134.354 kg Intake & Output: Intake & Output 03/07/21 03/08/21 03/08/21 21:59 05:59 13:59 Intake Total 590 150 Output Total 1 326 Balance 589 -176 Weight 134.354 kg Intake: IV 50 50 Zosyn 3.375 gm In Dextrose 5% 50 50 in Water 50 ml @ 100 mls/hr IV Q6H [facility] Rx#:[id number] Oral 540 100 Output: Void Amount 325 # of times incontinent of urine 1 1 Other: Meal Dinner 1 pk grahm crackers Percent of Meal Consumed 100% 100% Feeding Ability Independent Independent Urine Appearance Clear Urine Color Bright Yellow Stool Size Small Stool Color Brown Stool Consistency Soft # Voids 1 1 # Bowel Movements 1 Exam: General: Alert, Awake, No acute Distress, obese Eyes/N/T: EOMI, Head/Neck: neck supple, CV: RRR, 1/6 SM Pulm: Clear b/l, no wheezing/rhonchi/rales Abd: soft, nontender, +BS x4 Ext: no clubbing/cyanosis. LLE erythematous/edematous/TTP improved. RLE trace edema Neuro: Alert, no focal deficits, moves all extremities, Skin: warm/dry OBJ DATA Labs CBC & Chem 7: 03/06/21 05:49 03/06/21 05:49 Labs: Abnormal Lab Results 03/06/21 03/06/21 03/05/21 05:49 05:49 14:12 RBC 3.55 L Hgb 10.1 L Hct 33.8 L MCHC 29.9 L RDW 16.2 H MPV 10.7 H Sodium Potassium Creatinine 0.6 L 0.6 L Glucose 126 H 206 H Alkaline Phosphatase C-Reactive Protein Albumin 2.9 L Globulin 4.1 H Albumin/Globulin Ratio 0.7 L Prealbumin 03/05/21 03/05/21 05:55 05:55 RBC 3.50 L Hgb 10.3 L Hct 33.4 L MCHC 30.8 L RDW 15.9 H MPV 11.0 H Sodium 131 L Potassium 5.5 H Creatinine 0.6 L Glucose 174 H Alkaline Phosphatase 126 H C-Reactive Protein 2.90 H Albumin 2.4 L Globulin 4.5 H Albumin/Globulin Ratio 0.5 L Prealbumin 14.6 L Meds: Medications Acetaminophen (Acetaminophen 325 Mg Tablet) 650 mg PO Q6HP PRN PRN Reason: PAIN/FEVER > 101 Albuterol/Ipratropium (Ipratropium/Albuterol 3 Ml Ampul.Neb) 3 ml NEB Q4HP PRN PRN Reason: Shortness Of Breath Calcium Carbonate/Glycine (Calcium Carbonate 500 Mg Tab.Chew) 500 mg CHEWED Q4HP PRN PRN Reason: Dyspepsia Last Admin: 02/28/21 17:32 Dose: 500 mg Documented by: Carvedilol (Carvedilol 6.25 Mg Tablet) [facility] Last Admin: 03/07/21 17:09 Dose: 6.25 mg Documented by: Dextrose (Dextrose 50% 50 Ml Vial) 0 ml IV UD PRN PRN Reason: Hypoglycemia Diagnostic Test (Pha) (Accu-Chek 1 Each Strip) 1 each FS ACHS [facility] Last Admin: 03/07/21 21:00 Dose: 1 each Documented by: Docusate Sodium (Docusate Sodium 100 Mg Capsule) 100 mg PO BID [facility] Last Admin: 03/07/21 21:06 Dose: Not Given Documented by: Duloxetine HCl (Duloxetine 20 Mg Capsule) 20 mg PO DAILY [facility] Last Admin: 03/07/21 07:31 Dose: 20 mg Documented by: Enoxaparin Sodium (Enoxaparin 40 Mg/0.4 Ml Syringe) 40 mg SQ DAILY [facility] Last Admin: 03/07/21 07:31 Dose: 40 mg Documented by: Gabapentin (Gabapentin 300 Mg Capsule) 600 mg PO TID [facility] Last Admin: 03/07/21 21:05 Dose: 600 mg Documented by: Glucose (Dextrose 31 Gm Oral.Susp) 15 gm PO PRN PRN PRN Reason: Hypoglycemia Hydromorphone HCl (Hydromorphone 0.5 Mg/0.5 Ml Syringe) 0.25 - 0.5 mg IV Q2HP PRN; Protocol PRN Reason: Per Pain Protocol Last Admin: 03/08/21 05:50 Dose: 0.5 mg Documented by: Magnesium Sulfate (Magnesium Sulfate) 2 gm in 50 mls @ 50 mls/hr IV UD PRN PRN Reason: Magnesium </= 1.6 Piperacillin Sod/Tazobactam (Sod 3.375 gm/ Dextrose) 50 mls @ 100 mls/hr IV Q6H [facility]; Protocol Last Admin: 03/08/21 05:43 Dose: 100 mls/hr Documented by: Insulin Glargine (Insulin Glargine, Human 1 Unit/0.01 Ml) 100 unit SQ DAILY [facility] Last Admin: 03/07/21 07:33 Dose: 100 units Documented by: Insulin Human Lispro (Insulin Lispro 1 Unit/0.01 Ml Unit) 0 unit SQ ACHS [facility]; Protocol Last Admin: 03/07/21 21:06 Dose: 2 units Documented by: Loperamide HCl (Loperamide 2 Mg Capsule) 2 mg PO PRN PRN PRN Reason: Diarrhea Last Admin: 03/03/21 09:46 Dose: 2 mg Documented by: Ondansetron HCl (Ondansetron 4 Mg/2 Ml Vial) 4 mg IV Q4HP PRN PRN Reason: Nausea And Vomiting Last Admin: 03/03/21 09:52 Dose: 4 mg Documented by: Oxycodone/Acetaminophen (Oxycodone/Apap 5/325mg Tablet) 1 - 2 tab PO Q4HP PRN; Protocol PRN Reason: Per Pain Protocol Last Admin: 03/08/21 03:36 Dose: 2 tab Documented by: Empagliflozin [ Jardiance] 25 Mg Tablet 1 dose PO QDAY [facility] Last Admin: 03/07/21 07:49 Dose: Not Given Documented by: Polyethylene Glycol (Polyethylene Glycol 3350 17 Gm Packet) 17 gm PO DAILYP PRN PRN Reason: Constipation Potassium Chloride (Potassium Chloride 20 Meq Tablet) 40 meq PO UD PRN PRN Reason: Potssium is 3-3.5 Last Admin: 03/02/21 12:33 Dose: 40 meq Documented by: Potassium Chloride (Potassium Chloride 20 Meq Tablet) 40 meq PO UD PRN PRN Reason: Potassium < 3 Prochlorperazine (Prochlorperazine 10 Mg/2 Ml Vial) 10 mg IV Q6HP PRN PRN Reason: Nausea And Vomiting Last Admin: 02/27/21 22:10 Dose: 10 mg Documented by: Senna (Sennosides 1 Tablet) 2 tab PO DAILYP PRN PRN Reason: Constipation Sodium Chloride (0.9 % Sodium Chloride 10 Ml Syringe) 10 ml IV Q8 [facility] Last Admin: 03/08/21 05:45 Dose: 10 ml Documented by: Sodium Chloride (0.9 % Sodium Chloride 10 Ml Syringe) 10 ml IV Q8 [facility] Last Admin: 03/08/21 06:00 Dose: 10 ml Documented by: A/P Narrative A/P Narrative: A: *LLE Diabetic foot ulcer and leg cellulitis: s/p wound debridement including neck/scalp -no abscess/osteo of leg/foot -last wound cx with Strep/E.coli/Morganella *SIRS: improved *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 Landis following -elevate leg -pain control -basal and SSI -cont BB, ACEI held for soft BP -cymbalta started per psych -No anticoagulation this point. To be reevaluated by PCP to see whether atrial fibrillation/flutter recur and whether or not patient could benefit from anticoagulation at that point -pt/ot -awaiting placement -ppx: lovenox full code Time Spent With Patient Time: Total time spent is greater than 50% in coordination of care (as documented) at patient's floor/unit and/or counseling patient: QUALITY VTE Deep Vein Thrombosis/Pulmonary Embolism Present on Admission: No
[2021-03-08] MEDS: DULoxetine 20 MG CAPSULE PO SCH (08:02)
[2021-03-08] MEDS: GABAPENTIN 300 MG CAPSULE PO SCH (08:02)
[2021-03-08] MEDS: CARVEDILOL 6.25 MG TABLET PO SCH (08:02)
[2021-03-08] MEDS: INSULIN LISPRO 1 UNIT/0.01 ML UNIT SQ SCH ×2 (08:02→11:35)
[2021-03-08] MEDS: Empagliflozin [Jardiance] 25 mg tablet PO SCH (08:03)
[2021-03-08] MEDS: ENOXAPARIN 40 MG/0.4 ML SYRINGE SQ SCH (08:03)
[2021-03-08] MEDS: DOCUSATE SODIUM 100 MG CAPSULE PO SCH (08:03)
[2021-03-08] MEDS: INSULIN GLARGINE, HUMAN 1 UNIT/0.01 ML SQ SCH (08:03)
== END 2021-03-08 12:15 | DRG 623 ==
LOC: ED 14:18 → MEDSUR 17:30
PROVIDERS: ADMIT Internal Medicine; ATTEND Internal Medicine

== ENCOUNTER 2024-01-14 15:59 | Inpatient (IN) ==
[2024-01-14 17:41] LABS: Erythrocyte Sedimentation Rate 78 mm/hr (0-20)
[2024-01-14 17:47] LABS: Basophils # (Auto) 0.04 K/mcL (0.00-0.30); Basophils % (Auto) 0.4 % (0.0-2.0); Eosinophils # (Auto) 0.04 K/mcL (0.00-0.70); Eosinophils % (Auto) 0.4 % (0.0-7.0); Hematocrit 38.2 % (40.1-51.0); Hemoglobin 12.4 g/dL (13.7-17.5); Lymphocytes # (Auto) 0.76 K/mcL (1.50-4.80); Lymphocytes % (Auto) 6.8 % (15.5-49.0); Mean Cell Volume 92.3 fL (80.0-100.0); Mean Corpuscular HGB Conc 32.5 g/dL (31.0-36.0); Mean Platelet Volume 11.1 fL (8.8-12.5); Monocytes % (Auto) 4.5 % (1.0-12.0); Neutrophils % (Auto) 87.7 % (38.0-78.0); Platelet Count 235 K/mcL (140-440); RBC 4.14 M/mcL (4.63-6.08); Red Cell Distribution Width 16.1 % (11.5-14.5); WBC 11.2 K/mcL (4.5-11.0)
[2024-01-14 18:00] LABS: ALT/SGPT 33 U/L (<40); AST/SGOT 42 U/L (<40); Albumin 3.6 gm/dL (3.2-5.2); Albumin/Globulin Ratio 0.8 (1.0-2.3); Alkaline Phosphatase 89 U/L (39-117); Bilirubin,Total 0.8 mg/dL (0.1-1.0); Blood Urea Nitrogen 14 mg/dL (6-20); Calcium 9.8 mg/dL (8.6-10.4); Carbon Dioxide 24 mmol/L (22-30); Chloride 93 mmol/L (96-108); Globulin 4.3 gm/dL (2.2-3.7); Glomerular Filtration Rate 103; Glucose 320 mg/dL (70-105); Potassium 4.7 mmol/L (3.3-5.1); Sodium 130 mmol/L (133-145)
[2024-01-14] MEDS: ACETAMINOPHEN 325 MG TABLET PO ONE (18:03)
[2024-01-14] MEDS: ONDANSETRON 4 MG ODT TABLET SL ONE (18:04)
[2024-01-14] MEDS: VANCOMYCIN 1,500 MG in 0.9 % SODIUM CHLORIDE 500 ML IV ONE (19:09)
[2024-01-14] MEDS: 0.9 % SODIUM CHLORIDE 1,000 ML IV ONE ×2 (19:09→20:50)
[2024-01-14] MEDS ORDERED: DEXTROSE 50% 50 ML VIAL IV PRN (20:11)
[2024-01-14] MEDS ORDERED: morphine 4 MG/ML VIAL IV PRN (20:11)
[2024-01-14] MEDS ORDERED: DEXTROSE 31 GM ORAL.SUSP PO PRN (20:11)
[2024-01-14] MEDS: 0.9 % SODIUM CHLORIDE 1,000 ML IV SCH (21:08)
[2024-01-14] MEDS: traZODone HCL 50 MG TABLET PO PRN (21:09)
[2024-01-14] MEDS: HEPARIN 5,000 UNIT/ML VIAL SQ SCH (21:09)
[2024-01-14] MEDS: VANCOMYCIN PER PHARMACY IV ONE (21:16)
[2024-01-14] MEDS: VANCOMYCIN 500 MG in 0.9 % SODIUM CHLORIDE 100 ML IV ONE (21:16)
[2024-01-14] MEDS: DOCUSATE SODIUM 100 MG CAPSULE PO SCH (21:24)
[2024-01-14] MEDS: SENNOSIDES 1 TABLET PO SCH (21:24)
[2024-01-14] MEDS: 0.9 % SODIUM CHLORIDE 10 ML SYRINGE IV SCH (21:34)
[2024-01-14] MEDS: INSULIN LISPRO 1 UNIT/0.01 ML UNIT SQ SCH (21:34)
[2024-01-14] MEDS: PIPERACILLIN SODIUM/TAZOBACTAM 3.375 GM in DEXTROSE 5% IN WATER 100 ML IV SCH (21:34)
[2024-01-14] MEDS: HYDROmorphone 1 MG/ML SYRINGE IV PRN (21:48)
[2024-01-14] MEDS: ONDANSETRON 4 MG/2 ML VIAL IV PRN (22:25)
[2024-01-14] MEDS: HYDROmorphone 1 MG/ML SYRINGE ONE (22:26)
[2024-01-15] MEDS ORDERED: IOPAMIDOL 100 ML BOTTLE IV ONE (00:06)
[2024-01-15] MEDS: HYDROmorphone 1 MG/ML SYRINGE ONE (03:26)
[2024-01-15] MEDS ORDERED: VANCOMYCIN PER PHARMACY IV SCH (06:45)
[2024-01-15 07:18] LABS: Basophils # (Auto) 0.04 K/mcL (0.00-0.30); Basophils % (Auto) 0.3 % (0.0-2.0); Eosinophils # (Auto) 0.05 K/mcL (0.00-0.70); Eosinophils % (Auto) 0.4 % (0.0-7.0); Hematocrit 37.4 % (40.1-51.0); Hemoglobin 11.7 g/dL (13.7-17.5); Lymphocytes # (Auto) 0.65 K/mcL (1.50-4.80); Lymphocytes % (Auto) 5.1 % (15.5-49.0); Mean Cell Volume 96.1 fL (80.0-100.0); Mean Corpuscular HGB Conc 31.3 g/dL (31.0-36.0); Mean Platelet Volume 10.9 fL (8.8-12.5); Monocytes % (Auto) 5.5 % (1.0-12.0); Neutrophils % (Auto) 88.5 % (38.0-78.0); Platelet Count 179 K/mcL (140-440); RBC 3.89 M/mcL (4.63-6.08); Red Cell Distribution Width 16.5 % (11.5-14.5); WBC 12.8 K/mcL (4.5-11.0)
[2024-01-15 07:35] LABS: Estimated Average Glucose(eAG) 223 mg/dL; Hemoglobin A1C 9.4 % Hgb (4.0-6.0)
[2024-01-15 07:39] LABS: ALT/SGPT 49 U/L (<40); AST/SGOT 88 U/L (<40); Albumin 3.3 gm/dL (3.2-5.2); Albumin/Globulin Ratio 0.8 (1.0-2.3); Alkaline Phosphatase 94 U/L (39-117); Bilirubin,Total 1.3 mg/dL (0.1-1.0); Blood Urea Nitrogen 11 mg/dL (6-20); Calcium 8.7 mg/dL (8.6-10.4); Carbon Dioxide 24 mmol/L (22-30); Chloride 95 mmol/L (96-108); Globulin 3.9 gm/dL (2.2-3.7); Glomerular Filtration Rate 110; Glucose 254 mg/dL (70-105); Potassium 4.2 mmol/L (3.3-5.1); Sodium 130 mmol/L (133-145)
[2024-01-15] MEDS: ALBUTEROL SULFATE 60 PUFF INHALER INH PRN (08:04)
[2024-01-15] MEDS: HYDROCODONE/APAP 7.5/325MG TABLET PO PRN (08:16)
[2024-01-15] MEDS: INSULIN GLARGINE, HUMAN 1 UNIT/0.01 ML SQ SCH (08:17)
[2024-01-15] MEDS: LISINOPRIL 5 MG TABLET PO SCH (08:17)
[2024-01-15] MEDS: FLUTICASONE PROPIONATE SPRAY.NAS NS SCH (08:18)
[2024-01-15] MEDS: ASPIRIN 325 MG ENTERIC COATED TABLET PO SCH (11:42)
[2024-01-15] MEDS: VANCOMYCIN 2,000 MG in 0.9 % SODIUM CHLORIDE 500 ML IV SCH (11:42)
[2024-01-15] MEDS: ASPIRIN 325 MG TABLET PO SCH (11:57)
[2024-01-15] MEDS: CEFEPIME 2 GM VIAL IV SCH (14:01)
[2024-01-15] MEDS: hydrALAZINE 20 MG/ML VIAL IV PRN (14:03)
[2024-01-15] MEDS: ACETAMINOPHEN 325 MG TABLET PO PRN (14:45)
[2024-01-15] MEDS: IPRATROPIUM/ALBUTEROL 3 ML AMPUL.NEB NEB PRN (15:09)
[2024-01-15] MEDS ORDERED: ONDANSETRON 4 MG ODT TABLET SL PRN (21:14)
[2024-01-15] MEDS: ONDANSETRON 4 MG ODT TABLET SL PRN (22:01)
[2024-01-16] MEDS: CLINDAMYCIN IN 0.9 % SOD CHLOR 900 MG/50 ML BAG IV SCH (03:06)
[2024-01-16 07:15] LABS: Basophils # (Auto) 0.05 K/mcL (0.00-0.30); Basophils % (Auto) 0.6 % (0.0-2.0); Eosinophils # (Auto) 0.07 K/mcL (0.00-0.70); Eosinophils % (Auto) 0.8 % (0.0-7.0); Hemoglobin 11.7 g/dL (13.7-17.5); Lymphocytes # (Auto) 0.85 K/mcL (1.50-4.80); Lymphocytes % (Auto) 9.6 % (15.5-49.0); Mean Corpuscular HGB Conc 32.5 g/dL (31.0-36.0); Mean Platelet Volume 10.7 fL (8.8-12.5); Monocytes % (Auto) 6.7 % (1.0-12.0); Neutrophils % (Auto) 82.1 % (38.0-78.0); Platelet Count 210 K/mcL (140-440); RBC 3.87 M/mcL (4.63-6.08); Red Cell Distribution Width 16.3 % (11.5-14.5); WBC 8.9 K/mcL (4.5-11.0)
[2024-01-16 07:47] LABS: ALT/SGPT 55 U/L (<40); AST/SGOT 79 U/L (<40); Albumin 3.3 gm/dL (3.2-5.2); Albumin/Globulin Ratio 0.8 (1.0-2.3); Alkaline Phosphatase 118 U/L (39-117); Blood Urea Nitrogen 9 mg/dL (6-20); Carbon Dioxide 23 mmol/L (22-30); Chloride 93 mmol/L (96-108); Globulin 4.1 gm/dL (2.2-3.7); Glomerular Filtration Rate 110; Glucose 207 mg/dL (70-105); Potassium 3.3 mmol/L (3.3-5.1); Sodium 128 mmol/L (133-145)
[2024-01-16] MEDS: SODIUM CHLORIDE 1 GM TABLET PO SCH (15:20)
[2024-01-16] MEDS ORDERED: 0.9 % SODIUM CHLORIDE 10 ML SYRINGE IV SCH (21:00)
[2024-01-16] MEDS: guaiFENesin 600 MG TAB.SR.12H PO PRN (21:44)
[2024-01-17 06:50] LABS: Basophils # (Auto) 0.03 K/mcL (0.00-0.30); Basophils % (Auto) 0.4 % (0.0-2.0); Eosinophils # (Auto) 0.09 K/mcL (0.00-0.70); Eosinophils % (Auto) 1.3 % (0.0-7.0); Hematocrit 34.6 % (40.1-51.0); Hemoglobin 11.1 g/dL (13.7-17.5); Lymphocytes # (Auto) 1.22 K/mcL (1.50-4.80); Lymphocytes % (Auto) 17.7 % (15.5-49.0); Mean Cell Volume 93.3 fL (80.0-100.0); Mean Corpuscular HGB Conc 32.1 g/dL (31.0-36.0); Mean Platelet Volume 10.7 fL (8.8-12.5); Monocytes # (Auto) 0.65 K/mcL (0.10-0.90); Monocytes % (Auto) 9.4 % (1.0-12.0); Neutrophils % (Auto) 71.1 % (38.0-78.0); Platelet Count 213 K/mcL (140-440); RBC 3.71 M/mcL (4.63-6.08); Red Cell Distribution Width 16.3 % (11.5-14.5); WBC 6.9 K/mcL (4.5-11.0)
[2024-01-17 07:24] LABS: ALT/SGPT 48 U/L (<40); AST/SGOT 67 U/L (<40); Albumin/Globulin Ratio 0.8 (1.0-2.3); Alkaline Phosphatase 106 U/L (39-117); Bilirubin,Direct 0.5 mg/dL (<0.3); Bilirubin,Total 0.9 mg/dL (0.1-1.0); Blood Urea Nitrogen 8 mg/dL (6-20); Calcium 8.4 mg/dL (8.6-10.4); Carbon Dioxide 26 mmol/L (22-30); Chloride 97 mmol/L (96-108); Globulin 3.8 gm/dL (2.2-3.7); Glomerular Filtration Rate 110; Glucose 164 mg/dL (70-105); Lactate Dehydrogenase 213 U/L (135-225); Phosphorous 2.6 mg/dL (2.5-4.5); Potassium 3.5 mmol/L (3.3-5.1); Sodium 133 mmol/L (133-145); Triglycerides 120 mg/dL (<150); Uric Acid 4.8 mg/dL (2.5-8.0)
[2024-01-17] MEDS ORDERED: LABETALOL HCL 20 MG/4 ML VIAL IV PRN (09:07)
[2024-01-17] MEDS: METOPROLOL SUCCINATE 25 MG TAB.XL.24H PO SCH (09:46)
[2024-01-17] MEDS: ASPIRIN 81 MG TAB.CHEW PO SCH (09:46)
[2024-01-17] MEDS: LISINOPRIL 5 MG TABLET PO SCH (09:57)
[2024-01-17] MEDS ORDERED: diphenhydrAMINE 25 MG CAPSULE PO PRN (11:10)
[2024-01-17] MEDS: FUROSEMIDE 100 MG/10 ML VIAL IV SCH (11:39)
[2024-01-17] MEDS: MELATONIN 3 MG TABLET PO SCH (19:57)
[2024-01-17] MEDS: INSULIN GLARGINE, HUMAN 1 UNIT/0.01 ML SQ SCH (20:24)
[2024-01-18] MEDS: VANCOMYCIN 1,750 MG in 0.9 % SODIUM CHLORIDE 500 ML IV SCH (05:40)
[2024-01-18 06:28] LABS: ALT/SGPT 44 U/L (<40); AST/SGOT 54 U/L (<40); Albumin/Globulin Ratio 0.8 (1.0-2.3); Alkaline Phosphatase 105 U/L (39-117); Bilirubin,Direct 0.3 mg/dL (<0.3); Bilirubin,Total 0.5 mg/dL (0.1-1.0); Blood Urea Nitrogen 11 mg/dL (6-20); Calcium 9.4 mg/dL (8.6-10.4); Carbon Dioxide 27 mmol/L (22-30); Chloride 96 mmol/L (96-108); Globulin 3.9 gm/dL (2.2-3.7); Glomerular Filtration Rate 103; Glucose 177 mg/dL (70-105); Lactate Dehydrogenase 208 U/L (135-225); Phosphorous 3.8 mg/dL (2.5-4.5); Potassium 3.6 mmol/L (3.3-5.1); Sodium 133 mmol/L (133-145); Triglycerides 129 mg/dL (<150); Uric Acid 5.6 mg/dL (2.5-8.0)
[2024-01-18] MEDS: FUROSEMIDE 100 MG/10 ML VIAL IV ONE (09:24)
[2024-01-18] MEDS: LISINOPRIL 5 MG TABLET PO SCH (09:25)
[2024-01-18] MEDS: ceFAZolin 1 GM VIAL IV SCH (11:45)
[2024-01-19] MEDS: METOPROLOL SUCCINATE 25 MG TAB.XL.24H PO SCH (08:40)
[2024-01-19] MEDS: FUROSEMIDE 100 MG/10 ML VIAL IV SCH (10:36)
[2024-01-19] MEDS ORDERED: MIDAZOLAM 2 MG/2 ML VIAL ONE (12:40)
[2024-01-19] MEDS ORDERED: 0.9 % SODIUM CHLORIDE 100 ML IV ONE (12:43)
[2024-01-19] MEDS ORDERED: DEXMEDETOMIDINE HCL 200 MCG/2 ML VIAL ONE (12:43)
[2024-01-19] MEDS: BUPIVACAINE 0.5% 50 ML VIAL IJ ONE (12:55)
[2024-01-19] MEDS ORDERED: fentaNYL 100 MCG/2 ML VIAL IV PRN (13:01)
[2024-01-19] MEDS ORDERED: IPRATROPIUM/ALBUTEROL 3 ML AMPUL.NEB NEB PRN (13:01)
[2024-01-19] MEDS ORDERED: NALOXONE HCL 0.4 MG/ML VIAL IV PRN (13:01)
[2024-01-19] MEDS ORDERED: ONDANSETRON 4 MG/2 ML VIAL IV PRN (13:01)
[2024-01-19] MEDS: LACTATED RINGERS 1,000 ML IV SCH (15:01)
[2024-01-20] MEDS: METOLAZONE 2.5 MG TABLET PO SCH (08:38)
[2024-01-20] MEDS: LISINOPRIL 5 MG TABLET PO SCH (08:38)
[2024-01-20] MEDS: FUROSEMIDE 100 MG/10 ML VIAL IV SCH (09:46)
[2024-01-21] MEDS: METOPROLOL SUCCINATE 50 MG TAB.XL.24H PO SCH (09:40)
[2024-01-21] MEDS ORDERED: 0.9 % SODIUM CHLORIDE 10 ML SYRINGE IV PRN (09:56)
[2024-01-21] MEDS ORDERED: LIDOCAINE 1% 20 ML VIAL SQ ONE (12:13)
[2024-01-21] MEDS ORDERED: SODIUM CHLORIDE IRRIG SOLUTION 250 ML BOTTLE IRR ONE (12:13)
[2024-01-21] MEDS ORDERED: 0.9 % SODIUM CHLORIDE 10 ML SYRINGE IV SCH (21:00)
== END 2024-01-21 12:35 | DRG 853 ==
LOC: ED 15:59 → MEDSUR 20:05
PROVIDERS: ADMIT Internal Medicine; ATTEND Internal Medicine